=== PATIENT | male | born 1965 | race Caucasian/White ===

== ENCOUNTER → 2020-01-22 10:58 | Outpatient (BNVA) | payer MEDICARE, MEDICAID, SELFPAY | PROVIDERS: Family Provider Family Medicine; PCP Nurse Practitioner Family; Visit Provider Nurse Practitioner Family | DX: E11.9 Type 2 diabetes mellitus without complications (principal) | CPT/HCPCS: 83036 ==

== ENCOUNTER → 2020-05-15 09:28 | Outpatient (BNVA) | payer MEDICARE, MEDICAID, SELFPAY | PROVIDERS: Family Provider Family Medicine; PCP Nurse Practitioner Family; Visit Provider Nurse Practitioner Family | DX: R10.9 Unspecified abdominal pain (principal); I10 Essential (primary) hypertension; E11.65 Type 2 diabetes mellitus with hyperglycemia; K21.9 Gastro-esophageal reflux disease without esophagitis; E78.5 Hyperlipidemia, unspecified; Z11.6 Encounter for screening for other protozoal diseases and helminthiases; Z87.19 Personal history of other diseases of the digestive system | CPT/HCPCS: 80053; 80061; 81000; 83036; 85025 ==

== ENCOUNTER 2020-06-07 08:08 | Day surgery (SDC) | payer MEDICARE, MEDICAID, SELFPAY ==
[2020-06-05 15:21] VITALS: BMI 38.7
[2020-06-07 08:26] VITALS: BP 144/80; PULSE 67; RESP 18; TEMP 36.3; O2SAT 98
[2020-06-07] MEDS: sodium chloride 0.9% 1,000 ML 30 ML IV (08:35)
[2020-06-07 08:39] LABS: Glucose Point of Care 255 mg/dL (70-110)
--- NOTE | 2020-06-07 08:53 | ANES.PREANE2 ---
Pre-Anesthetic Assessment Pre-Anesthetic Assessment: Height/Weight: Height 1.68 m Weight 108.862 kg Temp Pulse Resp BP Pulse Ox 97.4 F L 67 18 144/80 98 06/07/20 08:26 06/07/20 08:26 06/07/20 08:26 06/07/20 08:26 06/07/20 08:26 Preop Diagnosis: EGD Proposed Procedure: Operation Date: 06/07/20 09:15 Proposed Procedures p EGD 87624 R10.13(Not Applicable) - Alfonso Cuenca MD Familial anesthetic complications: none Was Beta Lobo taken within 24 hours: N/A Last intake: Intake Last Liquid Date 06/06/20 Last Liquid Time 21:30 Last Solid Date 06/06/20 Last Solid Time 19:00 Social: Social History: Tobacco and No alcohol Exam: Pre-Anes Outpt Exam: alert, oriented x 3, clear to auscultation bilaterally and regular rate & rhythm Airway: Cervical ROM: WNL MP: 3 Dentition: Other (missing) Pulmonary: Pulmonary: None reported CV/HEM: CV/HEM: HTN : : None reported Hepatic: Hepatic: None reported GI: GI: GERD Metabolic: Metabolic: DM, Hyperlipidemia and Morbid obesity Musc/skel: Musc/skel: OA/DJD Neuropsych: Neuropsych: None reported Anesthetic Plan: ASA status: 2 Anesthesia: MAC Risk of > 500 ml blood loss (7ml/kg in children): No Meds/Allergies Current Medications: Current Medications Generic Name Dose Route Start Last Admin Trade Name Freq PRN Reason Stop Dose Admin Sodium Chloride 1,000 mls @ 30 ml s/hr 06/07/20 08:30 06/07/20 08:35 Sodium Chloride 0.9% IV 06/08/20 08:29 30 mls/hr .Q24H AKUA Administration PFSH Anesthesia PFSH: Medical History Arthritis DDD (degenerative disc disease) Diabetes Enrolled in chronic care management Essential hypertension GERD (gastroesophageal reflux disease) History of basal cell cancer Hyperlipidemia Smoker Family History Other Stroke Social History Smoking and tobacco status: current every day smoker cigarettes Packs smoked per day: 2 Alcohol intake: current Alcohol intake frequency: few times a month History of recent travel: No Data Anesthesia Other Labs: Laboratory Results - last 48 hr 06/07/20 08:36 POC Glucose 255 Cardiac Studies: No Data to Display
--- NOTE | 2020-06-07 09:56 | W.PM.OPSUD ---
Surgery/Procedure H&P Update DATE OF PROCEDURE: June 07, 2020 DATE H&P PERFORMED: 05/29/20 PREOP DIAGNOSIS: EGD PLANNED PROCEDURE: Operation Date: 06/07/20 09:15 Proposed Procedures p EGD 44667 R10.13(Not Applicable) - Alfonso Cuenca MD
[2020-06-07 10:02] VITALS: BP 118/78; PULSE 71; RESP 16; TEMP 36.4; O2SAT 96
[2020-06-07 10:12] VITALS: BP 110/67; PULSE 65; RESP 18; O2SAT 96
[2020-06-08 08:45] LABS: H. Pylori / CLO Test Negative
== END 2020-06-07 10:33 | disposition home or self-care (01) ==
PROVIDERS: PCP Nurse Practitioner Family; Visit Provider Internal Medicine
PROC: 0DJ08ZZ Inspection of Upper Intestinal Tract, Via Natural or Artificial Opening Endoscopic (ICD-10-PCS; CPT 43235; principal; 2020-06-07 09:15)
DX: R10.13 Epigastric pain (principal); K29.70 Gastritis, unspecified, without bleeding; I10 Essential (primary) hypertension; K21.9 Gastro-esophageal reflux disease without esophagitis; E11.9 Type 2 diabetes mellitus without complications; E78.5 Hyperlipidemia, unspecified; E66.01 Morbid (severe) obesity due to excess calories; Z68.38 Body mass index [BMI] 38.0-38.9, adult; M19.90 Unspecified osteoarthritis, unspecified site; F17.210 Nicotine dependence, cigarettes, uncomplicated
CPT/HCPCS: 12345; 36416; 43239; 82962; 87077; J2704; J7030

== ENCOUNTER → 2020-08-29 16:30 | Outpatient (BNVA) | payer MEDICARE, MEDICAID, SELFPAY | PROVIDERS: PCP Nurse Practitioner Family; Visit Provider Internal Medicine Cardiovascular Disease | DX: E11.65 Type 2 diabetes mellitus with hyperglycemia (principal); I10 Essential (primary) hypertension; E78.5 Hyperlipidemia, unspecified; F17.200 Nicotine dependence, unspecified, uncomplicated | CPT/HCPCS: 80048; 80061; 83036; 83721 ==

== ENCOUNTER → 2020-11-12 14:03 | Outpatient (BNVA) | payer MEDICARE, MEDICAID, SELFPAY | PROVIDERS: PCP Nurse Practitioner Family; Referring Provider Nurse Practitioner Family; Visit Provider Internal Medicine | DX: E11.65 Type 2 diabetes mellitus with hyperglycemia (principal) | CPT/HCPCS: 99203 ==

== ENCOUNTER 2020-11-28 11:24 | Outpatient (CLI) | payer MEDICARE, MEDICAID, SELFPAY ==
--- NOTE | 2020-11-28 11:30 | MM_ITS ---
WS: [id number] BILATERAL DIGITAL DIAGNOSTIC MAMMOGRAM MAMMOGRAPHY WITH CAD CLINICAL INFORMATION: N63.0 - Unspecified lump in unspecified breast. Bilateral breast lumps. COMPARISON: None. TECHNIQUE: Bilateral CC, MLO, and ML views. FINDINGS: Fatty replaced breasts bilaterally. Palpable markers overlying the axillary tails and axilla. Underly ing prominent lymph nodes. Ultrasound is pending. Breast parenchyma is otherwise unremarkable. ULTRASOUND BREAST BILATERAL TECHNIQUE: Ultrasound left breast focused area of concern. CLINICAL INFORMATION: N63.0 - Unspecified lump in unspecified breast COMPARISON: None. FINDINGS: Ultrasound right breast at the 11:00 position. Underlying prominent lymph node measuring 2.2 x 1.7 x 1.2 cm. Cortical thickening with preserved fatty hilum. Prominent lymph node left breast at the 1 position in the area of palpable concern measuring 2.9 x 4. 1 x 2.1 cm with cortical thickening but preserved fatty hilum. A few other incidental lymph nodes. MM/[place] [id number] IMPRESSION: Prominent lymph nodes in both axilla in the area of palpable concer n larger on the left described above. These are nonspecific and may be reactive . Recommend correlation with history of malignancy. Recommend ultrasound follow up in 3 months versus further evaluation with ultra sound-guided biopsy if clinical concern or history of malignancy. BI-RADS: 3-Probably Benign FOLLOW UP: See Report
--- NOTE | 2020-11-28 11:35 | US_ITS ---
WS: [id number] BILATERAL DIGITAL DIAGNOSTIC MAMMOGRAM MAMMOGRAPHY WITH CAD CLINICAL INFORMATION: N63.0 - Unspecified lump in unspecified breast. Bilateral breast lumps. COMPARISON: None. TECHNIQUE: Bilateral CC, MLO, and ML views. FINDINGS: Fatty replaced breasts bilaterally. Palpable markers overlying the axillary tails and axilla. Underly ing prominent lymph nodes. Ultrasound is pending. Breast parenchyma is otherwise unremarkable. ULTRASOUND BREAST BILATERAL TECHNIQUE: Ultrasound left breast focused area of concern. CLINICAL INFORMATION: N63.0 - Unspecified lump in unspecified breast COMPARISON: None. FINDINGS: Ultrasound right breast at the 11:00 position. Underlying prominent lymph node measuring 2.2 x 1.7 x 1.2 cm. Cortical thickening with preserved fatty hilum. Prominent lymph node left breast at the 1 position in the area of palpable concern measuring 2.9 x 4. 1 x 2.1 cm with cortical thickening but preserved fatty hilum. A few other incidental lymph nodes. US/US breast BI limited* [id number] IMPRESSION: Prominent lymph nodes in both axilla in the area of palpable concer n larger on the left described above. These are nonspecific and may be reactive . Recommend correlation with history of malignancy. Recommend ultrasound follow up in 3 months versus further evaluation with ultra sound-guided biopsy if clinical concern or history of malignancy. BI-RADS: 3-Probably Benign FOLLOW UP: See Report
== END 2020-11-28 11:25 | disposition home or self-care (01) ==
PROVIDERS: PCP Nurse Practitioner Family; Visit Provider Nurse Practitioner Family
DX: N63.11 Unspecified lump in the right breast, upper outer quadrant (principal); N63.20 Unspecified lump in the left breast, unspecified quadrant
CPT/HCPCS: 76642; 77066

== ENCOUNTER → 2021-02-19 15:33 | Outpatient (BNVA) | payer MEDICARE, MEDICAID, SELFPAY | PROVIDERS: PCP Nurse Practitioner Family; Visit Provider Internal Medicine | DX: E11.65 Type 2 diabetes mellitus with hyperglycemia (principal) | CPT/HCPCS: 99214 ==

== ENCOUNTER → 2021-02-25 10:24 | Outpatient (BNVA) | payer MEDICARE, MEDICAID, SELFPAY | PROVIDERS: PCP Nurse Practitioner Family; Visit Provider Internal Medicine | DX: E11.65 Type 2 diabetes mellitus with hyperglycemia (principal) | CPT/HCPCS: 83036 ==

== ENCOUNTER 2021-03-12 11:27 | Outpatient (CLI) | payer MEDICARE, MEDICAID, SELFPAY ==
--- NOTE | 2021-03-12 11:32 | US_ITS ---
WS: [id number] ULTRASOUND BILATERAL BREASTs HISTORY: 3 MO F/U UNSPEC LUMP; MG IF INDICATED COMPARISON: 11/28/2020 TECHNIQUE: 2-D and Doppler. Enlarged lymph nodes with diffuse cortical thickening towards the RIGHT axillary tail and axilla. Add itional enlarged hypoechoic lymph node with thickened cortex in the LEFT axillary tail. Largest lymph node on the LEFT measures 3.5 x 2.5 x 2.3 cm. Lymph nodes are probably not significantly changed in size. US/US breast BI limited* [id number] IMPRESSION: BI-RADS: 4-Suspicious Finding-Biopsy Should Be Considered FOLLOW-UP: See Report Abnormal bilateral axillary tail/axillary lymph nodes. No significant improveme nt since 11/28/2020. Recommend ultrasound-guided biopsy of the most suspicious l ymph node which is probably the LEFT axillary tail lymph node at 1:00. No breas t lesions were identified on a recent mammogram. Consider lymphoma or metastati c adenopathy.
== END 2021-03-12 11:28 | disposition home or self-care (01) ==
LOC: RADSHAW 11:30
PROVIDERS: PCP Nurse Practitioner Family; Visit Provider Nurse Practitioner Family
DX: R59.9 Enlarged lymph nodes, unspecified (principal); N63.0 Unspecified lump in unspecified breast
CPT/HCPCS: 76642

== ENCOUNTER 2021-03-26 12:58 | Outpatient (CLI) | payer MEDICARE, MEDICAID, SELFPAY ==
--- NOTE | 2021-03-26 | US_ITS ---
WS: [id number] ULTRASOUND-GUIDED LEFT axillary tail biopsy. HISTORY: Left Lymph node enlargement: LT axillary tail @ 1:00 COMPARISON: 03/12/2021 Procedure, risks and complications are explained to the patient. Medications are reviewed. Consent is obtained. Enlarged prominent LEFT axillary lymph node at 1:00 is targeted. Skin is cleansed with ChloraPrep and anesthetized with 1% buffered lidocaine. Small dermatome is made. Under sterile conditions mass is b iopsied with a 20 and 14-gauge Achieve needles. Multiple core biopsies are performed. Material placed in saline and sent to pathology for review. No complications encountered. Breast tissue marker (Moven ultrasound enhanced ribbon): None. Patient left the radiology suite with no complications. Patient is instructed to return to [facility] or [facility] with any concerns. US/US biopsy lymph node breast/ax IMPRESSION: 1. Uncomplicated core needle biopsy LEFT axillary lymph node at 1:00. PATHOLOGY: Sinus histiocytosis. No malignancy. Negative flow cytometry. RECOMMENDATION: See report. Follow up with health care provider.
--- NOTE | 2021-03-26 13:30 | US_ITS ---
WS: [id number] ULTRASOUND-GUIDED LEFT axillary tail biopsy. HISTORY: Left Lymph node enlargement: LT axillary tail @ 1:00 COMPARISON: 03/12/2021 Procedure, risks and complications are explained to the patient. Medications are reviewed. Consent is obtained. Enlarged prominent LEFT axillary lymph node at 1:00 is targeted. Skin is cleansed with ChloraPrep and anesthetized with 1% buffered lidocaine. Small dermatome is made. Under sterile conditions mass is b iopsied with a 20 and 14-gauge Achieve needles. Multiple core biopsies are performed. Material placed in saline and sent to pathology for review. No complications encountered. Breast tissue marker (Bard ultrasound enhanced ribbon): None. Patient left the radiology suite with no complications. Patient is instructed to [place] [facility] [place] [facility] with any concerns.
[2021-03-31 06:40] LABS: Miscellaneous Test See Scanned Lab Rpt
== END 2021-03-26 12:59 | disposition home or self-care (01) ==
PROVIDERS: PCP Nurse Practitioner Family; Visit Provider Nurse Practitioner Family
DX: R59.9 Enlarged lymph nodes, unspecified (principal); D76.3 Other histiocytosis syndromes
CPT/HCPCS: 19083; 38505; 76942; 88305

== ENCOUNTER → 2022-02-11 13:27 | Outpatient (BNVA) | payer MEDICARE, MEDICAID, SELFPAY | PROVIDERS: Visit Provider Family Medicine | DX: E11.65 Type 2 diabetes mellitus with hyperglycemia (principal); E78.5 Hyperlipidemia, unspecified; I10 Essential (primary) hypertension; J32.9 Chronic sinusitis, unspecified; R22.0 Localized swelling, mass and lump, head; Z76.89 Persons encountering health services in other specified circumstances; Z12.5 Encounter for screening for malignant neoplasm of prostate; Z80.42 Family history of malignant neoplasm of prostate | CPT/HCPCS: 80053; 80061; 83036; 84153; 85025; 86140 ==

== ENCOUNTER → 2022-02-17 13:43 | Outpatient (BNVA) | payer MEDICARE, MEDICAID, SELFPAY | PROVIDERS: Visit Provider Otolaryngology | DX: J34.0 Abscess, furuncle and carbuncle of nose (principal); L71.1 Rhinophyma; F17.210 Nicotine dependence, cigarettes, uncomplicated | CPT/HCPCS: 99204 ==

== ENCOUNTER 2022-03-24 14:26 | Outpatient (CLI) | payer MEDICARE, SELFPAY ==
--- NOTE | 2022-03-24 14:42 | CT_ITS ---
WS: [id number] CT SINUSES TECHNIQUE: Noncontrast CT of the paranasal sinuses with coronal and sagittal reformatted images. CLINICAL INFORMATION: Abscess of the L sinus cavity COMPARISON: None. DLP: 388.[address] scans at [facility] use at least one of these dose optimization techniques: automated e xposure control; mA and/or kV adjustment per patient size (includes targeted exams where dose is matc hed to clinical indication); or iterative reconstruction. FINDINGS: No evidence of nasal mass or abscess. Mild RIGHT to LEFT nasal deviation measuring 2 3 mm. RIGHT brayan bullosa. Mild narrowing of the osti omeatal units bilaterally with slight mucosal thickening. Paranasal sinuses are well aerated. Retenti on cyst LEFT maxillary sinus measuring 1.5 x 1.5 CM. Small retention cyst LEFT sphenoid sinus near th e sphenoid ostia measuring 11 x 9 mm. Frontal sinuses are well aerated. Frontoethmoidal recesses are patent. Ethmoid air cells are well aer ated with trace mucosal thickening. Maxillary sinus is well aerated. Sphenoid sinuses are well aerate d. Mild cavernous carotid calcification. Mastoid air cells well aerated. Normal posterior nasopharynx. Incidental intraparotid lymph nodes partially visualized bilaterally. Small area of increased attenuation the LEFT temporal lobe partially visualized likely chronic minera lization or small vascular malformation measuring 8 mm. This can be further evaluated with head CT or MRI without and with gadolinium enhancement. This is most likely incidental. CT/CT sinus wo con* [id number] IMPRESSION: 1. No evidence of intranasal mass or abscess. 2. Mild nasal deviation measuring 2 to 3 mm convex LEFT. 3. Paranasal sinuses are well aerated. Small retention cysts in the LEFT maxil dorcas sinus and sphenoid sinus. 4. Mastoid air cells well aerated. 5. Normal posterior nasopharynx. 6. Hazy area of increased attenuation the LEFT temporal lobe partially visuali zed likely benign mineralization or vascular malformation. Recommend further ev aluation with CT or MRI without and with gadolinium enhancement. This is most l ikely incidental.
== END 2022-03-24 14:27 | disposition home or self-care (01) ==
LOC: RAD 14:29
PROVIDERS: PCP Family Medicine; Visit Provider Family Medicine
DX: K04.6 Periapical abscess with sinus (principal)
CPT/HCPCS: 70486

== ENCOUNTER 2023-02-24 12:28 | Emergency (ER) | payer MEDICARE, MEDICAID, SELFPAY ==
[2023-02-24 12:46] VITALS: PULSE 78; RESP 16; TEMP 36.7; O2SAT 98; BMI 37.9
--- NOTE | 2023-02-24 12:51 | ECG_ITS ---
[facility] Test Date: 2023-02-24 Pat Name: Dex Irvin Department: Room: Gender: Male Policy Checker: : 1965 Requested By: Jeremiah Conner Order Number: [id number] Ronit MD: Azael Tirado M.D. Measurements Intervals [place] Rate: 75 P: 34 CO: 166 QRS: -2 QRSD: 104 T: 49 QT: 375 QTc: 421 Interpretive Statements SINUS RHYTHM NONSPECIFIC ST & T-WAVE ABNORMALITY Compared to ECG 06/11/2019 21:23:22 Sinus bradycardia no longer present Intraventricular conduction delay no longer present T-wave abnormality still present Electronically Signed On 02-24-2023 16:18:47 CDT by Azael Tirado M.D. [id number]
[2023-02-24 13:42] LABS: Hemoglobin 15.4 g/dL (11.7-16.6); Mean Corpuscular HGB Conc 34.2 g/dL (30.0-36.0); Mean Corpuscular Volume 84.7 fl (80-94); Mean Platelet Volume 11.2 fL (7.4-10.4); Platelet Count 126 10^3/cmm (130-400); Red Blood Count 5.31 10^6/uL (4.1-5.3); Red Cell Distribution Width 13.4 % (12.1-15.1)
[2023-02-24 14:03] LABS: Troponin(5th) Baseline 14 ng/L (0-15)
[2023-02-24 14:05] LABS: Alanine Aminotransferase 17 U/L (0-41); Albumin Level 3.9 g/dL (3.5-5.2); Alkaline Phosphatase 88 U/L (40-130); Anion Gap 15.5 (5-19); Aspartate Amino Transferase 14 U/L (0-40); Blood Urea Nitrogen 8 mg/dL (6-20); Calcium 8.9 mg/dL (8.5-10.5); Carbon Dioxide 24 mmol/L (22-29); Chloride 97 mmol/L (98-107); Globulin 3.1 g/dL (1.3-4.6); Glomerular Filtration Rate 69.5 mL/min (90-130); Glucose 310 mg/dL (65-115); Osmolality Calculated 284 mOsm/kg (285-295); Potassium 4.5 mmol/L (3.5-5.1); Sodium 132 mmol/L (136-145); Total Bilirubin 0.5 mg/dL (0.15-1.2)
[2023-02-24 14:37] LABS: Slide Review Slide Review Perform
[2023-02-24 14:38] LABS: Absolute Neutrophil 4.9 10^3/cmm (1.4-6.5); Absolute Segmented Neutrophil 4.9 10/cmm (1.6-7.1); Eosinophils 0 %; Lymphocytes 53 %; Lymphocytes Absolute 8.8 10^3/cmm (1.2-3.4); Monocytes Absolute 0.3 10^3/cmm (0.1-0.6); Platelet Estimate Decreased (Normal); Segmented Neutrophils 35 %; Total Cells Counted 100 (0-100)
--- NOTE | 2023-02-24 17:22 | ECG_ITS ---
[facility] Test Date: 2023-02-24 Pat Name: Dex Irvin Department: Room: Gender: Male Nonprofit Financial Controller: : 1965 Requested By: Jeremiah Conner Order Number: [id number] Ronit MD: Azael Tirado M.D. Measurements Intervals [place] Rate: 76 P: 143 FL: 159 QRS: -22 QRSD: 88 T: 150 QT: 366 QTc: 412 Interpretive Statements ECTOPIC ATRIAL RHYTHM BORDERLINE LEFT AXIS DEVIATION [QRS AXIS < -20] NONSPECIFIC ST & T-WAVE ABNORMALITY Compared to ECG 02/24/2023 12:56:03 Ectopic atrial rhythm now present Sinus rhythm no longer present T-wave abnormality still present Electronically Signed On 02-24-2023 21:08:13 CDT by Azael Tirado M.D. [id number]
--- NOTE | 2023-02-24 18:19 | W.ED.CHESTPA ---
HPI - Chest Pain General: Chief Complaint: Chest Pain Stated Complaint: Chest Pains since Wednesday Time Seen by Provider: 02/24/23 18:19 History of Present Illness: Mr. Irvin is a 57-year-old gentleman with significant past medical history of diabetes, tobaccoism, borderline hypertension, obesity presenting to the emergency department for chest discomfort. He notes onset of symptoms approximately 2 days ago after exertion. Notes left anterior and substernal chest pain without significant radiation or other typical cardiac features. Course of symptoms has waxed and waned. Denies specific worsening with specific activity. Denies frequent episodes in the past. No other specific changes in health, exacerbating, or alleviating factors identified. Onset (ago): day(s) Timing of current episode: constant Onset: during rest Pain location: substernal and left chest Severity: moderate Quality: aching and heaviness Relieving factors: nothing Exacerbating factors: nothing Associated symptoms: Reports dyspnea Review of Systems General: Reports: 10 or more systems reviewed and unremarkable except in HPI and below Resp: Reports: dyspnea PFSH ED PFSH: Medical History Arthritis Colonoscopy planned DDD (degenerative disc disease) Diabetes Enrolled in chronic care management Erectile dysfunction Essential hypertension GERD (gastroesophageal reflux disease) History of basal cell cancer History of Helicobacter infection Hyperlipidemia Hypertension Low back pain with radiation Lumbar disc disease Rotator cuff arthropathy of right shoulder Smoker Tinnitus Vertigo, benign positional Surgical History H/O repair of rotator cuff History of umbilical hernia repair Family History Mother , at the age of 74 Cancer thyroid cancer Lung disease emphysema Hypertension Father , at the age of 74 CAD (coronary artery disease) Other Stroke Social History Smoking and tobacco status: current every day smoker (2 packs a day since age 18) cigarettes Packs smoked per day: 2 Alcohol intake: current Alcohol intake frequency: few times a month Physical Exam Const: COMMON NORMALS: alert GENERAL APPEARANCE: cooperative and well developed HENMT: COMMON NORMALS: normocephalic and atraumatic HEAD & SCALP: normocephalic and atraumatic Eye: COMMON NORMALS: conjunctivae normal CONJUNCTIVA: Yes conjunctivae normal SCLERA: sclerae normal Neck/C-Spine: COMMON NORMALS: supple GENERAL: Yes trachea midline Resp: COMMON NORMALS: clear to auscultation bilaterally EFFORT & INSPECTION: Yes able to speak in complete sentences AUSCULTATION: clear to auscultation bilaterally Cardio: COMMON NORMALS: regular rate and regular rhythm RATE: regular rate RHYTHM: regular rhythm GI: COMMON NORMALS: Soft to palpation PALPATION: Yes Soft to palpation and No Tenderness to palpation present (GI) Extremity: NARRATIVE EXTREMITY EXAM: Cellulitic nonvesicular lesion small and isolated appreciated on the upper extremity. GENERAL: Yes normal exam except as noted and No edema Neuro: COMMON NORMALS: moves all extremities SENSORIUM/ORIENTATION: Yes alert and No Orientation impaired Psych: COMMON NORMALS: mental status grossly normal and Normal thought process present THOUGHT PROCESS: Normal thought process present Course Vital Signs: Vital signs: Vital Signs Temperature 98.1 F 02/24/23 12:46 Pulse Rate 70 02/24/23 19:07 Respiratory Rate 18 02/24/23 18:33 Blood Pressure 125/78 02/24/23 19:07 Pulse Oximetry 97 02/24/23 19:07 Oxygen Delivery Me thod Room Air 02/24/23 19:07 MDM - Chest Pain Medical Decision Making 57-year-old gentleman presenting with chest discomfort. Exam as above. EKG demonstrates sinus rhythm with borderline left axis deviation, there are nonspecific ST segment abnormalities, no STEMI. Labs with leukocytosis and mild hemoconcentration, thrombocytopenia of uncertain etiology without evidence of bleeding on clinical exam. Metabolic panel with mild dehydration and spurious hyponatremia, no evidence of DKA. Negative range 2-hour delta troponin. Chest x-ray with no lobar consolidation or pneumothorax. Patient treated with aspirin. Most likely etiology of symptoms is unspecified chest pain. He is not low risk by heart score. The results of ED evaluation were discussed with the patient including possible disposition options. I discussed risk stratification by heart score and estimated risk of major adverse cardiac events. The patient wishes to proceed with outpatient management. I discussed prescriptions and/or symptomatic cares (if applicable) including appropriate and responsible use, followup plan, and return precautions. The patient verbalized understanding and felt safe for discharge. Medical Records I reviewed the patient's medical records. Lab Data I reviewed the patient's lab results. 02/24/23 13:30 02/24/23 13:30 Radiology Impressions Chest X-Ray 02/24/23 18:25 IMPRESSION: No acute findings. Laboratory Results WBC 14.0 10^3/uL (4.0-10.0) H 02/24/23 13:30 RBC 5.31 10^6/uL (4.1-5.3) H 02/24/23 13:30 Hgb 15.4 g/dL (11.7-16.6) 02/24/23 13:30 Hct 45.0 % (42.0-52.0) 02/24/23 13:30 MCV 84.7 fl (80-94) 02/24/23 13:30 MCH 29.0 pg (28.0-34.0) 02/24/23 13:30 MCHC 34.2 g/dL (30.0-36.0) 02/24/23 13:30 RDW 13.4 % (12.1-15.1) 02/24/23 13:30 Plt Count 126 10^3/cmm (130-400) L 02/24/23 13:30 MPV 11.2 fL (7.4-10.4) H 02/24/23 13:30 Lymph % (Auto) Not Reportable 02/24/23 13:30 [place] % (Auto) Not Reportable 02/24/23 13:30 Lymph # (Auto) Not Reportable 02/24/23 13:30 [place] # (Auto) Not Reportable 02/24/23 13:30 Total Counted 100 (0-100) 02/24/23 13:30 Atypical Lymphs % 10.0 % (0-5) H 02/24/23 13:30 Absolute Neutrophils 4.9 10^3/cmm (1.4-6.5) 02/24/23 13:30 Segmented Neutrophils 35 % 02/24/23 13:30 Abs Segm Neuts (Man) 4.9 10/cmm (1.6-7.1) 02/24/23 13:30 Band Neutrophils 0.0 % 02/24/23 13:30 Abs Band Neuts (Man) 0.0 10^3/cmm (0.0-1.2) 02/24/23 13:30 Absolute Lymphocytes 8.8 10^3/cmm (1.2-3.4) H 02/24/23 13:30 Lymphocytes (Manual) 53 % 02/24/23 13:30 Monocytes (Manual) 2.0 % 02/24/23 13:30 Absolute Monocytes 0.3 10^3/cmm (0.1-0.6) 02/24/23 13:30 Eosinophils (Manual) 0 % 02/24/23 13:30 Absolute Eosinophils 0.0 10^3/cmm (0.0-0.7) 02/24/23 13:30 Basophils (Manual) 0.0 % 02/24/23 13:30 Absolute Basophils 0.0 10^3/cmm (0.0-0.2) 02/24/23 13:30 Platelet Estimate Decreased (Normal) 02/24/23 13:30 Sodium 132 mmol/L (136-145) L 02/24/23 13:30 Potassium 4.5 mmol/L (3.5-5.1) 02/24/23 13:30 Chloride 97 mmol/L (98-107) L 02/24/23 13:30 Carbon Dioxide 24 mmol/L (22-29) 02/24/23 13:30 Anion Gap 15.5 (5-19) 02/24/23 13:30 BUN 8 mg/dL (6-20) 02/24/23 13:30 Creatinine 1.1 mg/dL (0.7-1.2) 02/24/23 13:30 GFR Calculation 69.5 mL/min (90-130) L 02/24/23 13:30 Glucose 310 mg/dL (65-115) H 02/24/23 13:30 Calculated Osmolality 284 mOsm/kg (285-295) L 02/24/23 13:30 Calcium 8.9 mg/dL (8.5-10.5) 02/24/23 13:30 Total Bilirubin 0.5 mg/dL (0.15-1.2) 02/24/23 13:30 AST 14 U/L (0-40) 02/24/23 13:30 ALT 17 U/L (0-41) 02/24/23 13:30 Alkaline Phosphatase 88 U/L (40-130) 02/24/23 13:30 Troponin T Baseline 14 ng/L (0-15) 02/24/23 13:30 Troponin T 120 Minute 16.30 ng/L (0-15) H 02/24/23 15:52 Delta Troponin T 2.30 ABS# (0-10) 02/24/23 15:52 Total Protein 7.0 g/dL (6.6-8.7) 02/24/23 13:30 Albumin 3.9 g/dL (3.5-5.2) 02/24/23 13:30 Globulin 3.1 g/dL (1.3-4.6) 02/24/23 13:30 Discharge Plan Discharge Patient Disposition: Home Clinical Impression: Chest pain, Skin lesion of left upper extremity Condition: Stable Prescriptions: New cephalexin 500 mg capsule 500 mg PO Q6H 10 Days Qty: 40 0RF Discharge Orders: Discharge ED (Routine); Ordered 02/24/23 Ordered By: Kahlil Perera Referrals: Pop Stallworth, [Primary Care Provider] - Discharge Diet: Usual diet Discharge Activity: Increase activity as tolerated Patient Instructions: Chest Pain (ED), Cellulitis (ED) Activity Restrictions/Additional Instructions: Thank you for visiting the emergency department. You were seen and evaluated for chest pain. The exact cause your symptoms is unclear as discussed though you are not low risk for major adverse cardiac events. I will message case management for further outpatient testing. I will also message case management for follow-up with general surgery for consideration of an endoscopy. Please follow-up with your primary care provider. Your blood sugar was somewhat elevated, please watch this closely and make sure that you are taking your medications. Return to the emergency department for worsening symptoms or anything else that you are concerned about and feel needs emergency department evaluation. Coding Level of Care Code ED Political Scientist for Germaine Carranza
--- NOTE | 2023-02-24 18:25 | XRR_ITS ---
PROCEDURE INFORMATION: Exam: XR Chest Exam date and time: 02/24/2023 6:34 PM Age: 57 years old Clinical indication: Pain; Chest pressure; Additional info: Cp TECHNIQUE: Imaging protocol: Radiologic exam of the chest. Views: 1 view. COMPARISON: CR XR chest 1V [id number] 06/11/2019 1:29 PM FINDINGS: Lungs: Unremarkable. No consolidation. Pleural spaces: Unremarkable. No pleural effusion. No pneumothorax. Heart/Mediastinum: Unremarkable. No cardiomegaly. Bones/joints: Unremarkable. XR/XR chest 1V portable [id number] IMPRESSION: No acute findings.
[2023-02-24] MEDS: aspirin 81 mg Chew Tablet 324 MG PO (18:32)
[2023-02-24 18:33] VITALS: BP 138/73; PULSE 71; RESP 18; O2SAT 98
[2023-02-24 19:07] VITALS: BP 125/78; PULSE 70; O2SAT 97
--- NOTE | 2023-02-25 09:51 | DCPLANNER ---
Addendum entered by Vandana Craven 03/30/23 15:22: Patient had a follow up appointment scheduled with general surgery - patient did attend appointment. Addendum entered by Vandana Craven 03/02/23 11:58: Patient has a follow up appointment scheduled for Wednesday, March 24, 2023 at 1:[address] Wong at general surgery. Original Note: condominium property manager had message to schedule a follow up appointment for patient with general surgery. condominium property manager sent patients information to the front office staff at general surgery. Patients information will be printed and reviewed. Clinic will call patient with appointment information.
--- NOTE | 2023-02-25 10:22 | DCPLANNER ---
Addendum entered by Vandana Craven 03/30/23 14:18: Patient had an outpatient stress test and echo scheduled - patient attended both appointments. Addendum entered by Vandana Craven 03/18/23 09:27: Patient has an outpatient echo scheduled for Wednesday, March 29, 2023 11:15. Addendum entered by Vandana Craven 03/02/23 11:54: Patient has an outpatient stress test scheduled for March at 10:30. Original Note: diabetes clinical manager had message to schedule an outpatient stress test and echo cardiogram for patient. diabetes clinical manager faxed signed order to centralized scheduling, who will call patient with appointment information.
== END 2023-02-24 19:26 | disposition home or self-care (01) ==
PROVIDERS: Emergency Medicine; Emergency Provider Emergency Medicine; PCP Family Medicine
DX: R07.9 Chest pain, unspecified (principal); L98.9 Disorder of the skin and subcutaneous tissue, unspecified; E11.9 Type 2 diabetes mellitus without complications; I10 Essential (primary) hypertension; E78.5 Hyperlipidemia, unspecified; F17.210 Nicotine dependence, cigarettes, uncomplicated
CPT/HCPCS: 36415; 71045; 80053; 84484; 85007; 85025; 93005; 99285

== ENCOUNTER → 2023-03-24 15:06 | Outpatient (BNVA) | payer MEDICARE, MEDICAID, SELFPAY | PROVIDERS: PCP Family Medicine; Visit Provider Surgery | DX: K21.9 Gastro-esophageal reflux disease without esophagitis (principal); Z86.010 Personal history of colon polyps; Z12.11 Encounter for screening for malignant neoplasm of colon | CPT/HCPCS: 99203 ==

== ENCOUNTER 2023-03-25 10:09 | Outpatient (CLI) | payer MEDICARE, MEDICAID, SELFPAY ==
[2023-03-25 10:49] VITALS: BMI 36.3
--- NOTE | 2023-03-25 10:50 | ECG_ITS ---
[facility] Test Date: 2023-03-25 Pat Name: Dex Irvin Department: Room: Gender: Male Methods Analyst: : 1965 Requested By: Kahlil Perera Order Number: [id number] Ronit MD: Junaid Woods M.D. Interpretive Statements NAME OF STUDY: LEXISCAN SESTAMIBI STRESS TEST INDICATION: Chest Pain PROCEDURE: At the baseline, the EKG revealed normal sinus rhythm with diffused nonspecific ST changes. The baseline heart was 69 bpm with a blood pressue of 150/75 mm of Hg Lexiscan was infused over a period of 20 seconds. A total of 0.4 milligrams of Lexiscan was infused. The stress phase was continued for a total of 5 minutes. Heart rate at the end of the stress phase was 80 bpm with a blood pressure 158/78 mm of Hg. The EKG at the peak infusion revealed no significant changes. Sestamibi was injected 20 seconds after the Lexiscan infusion. Heart rate at the end of the recovery phase was 79 bpm with a blood pressure of 124/72 mm of Hg. CONCLUSION: 1. No significant EKG changes with the LexiScan infusion 2. No LexiScan induced chest pain or cardiac arrhythmia 3. Normal blood pressure and heart rate response 4. Sestamibi/sestamibi perfusion scan pending; see separate report. Electronically Signed On 04-08-2023 7:19:38 CDT by Junaid Woods M.D. [id number]
--- NOTE | 2023-03-25 10:51 | NMCV_ITS ---
NM alivia perf SPECT r/s* [id number] Dex Irvin Age: 57 Gender: M : 1965 Exam Date: 03/25/2023 10:51 Ordering Phys: Kahlil Perera MD Technologist: CHENTE Tran Exam Location: [facility] [place] Indications: CHEST PAIN STRESS TEST Please see separate stress test report in [facility] for full findings IMAGE PROTOCOL Rest/Stress 1 Lexiscan Day Radiopharmaceutical Dose (mCi) Administration Site Administered by Rest: Tc-99m 11.0 IV CHENTE Tran Sestamibi Stress:Tc-99m 32.8 IV CHENTE Yousif Sestamibi Rest: 25-Mar-2023 60 Discovery 630 Stress: 25-Mar-2023 30 Discovery 630 0.4mg Lexiscan. Supine position only as patient was unable to lay prone. SPECT RESULTS Technical Quality: Excellent Raw Data Analysis: Normal Image Corrections: No attenuation or motion correction applied Summed Stress Score: 3 Summed Rest Score: 2 Summed Difference Score: 2 PERFUSION FINDINGS Small area of minimal to moderate decreases uptake in the mid inferior and apical lateral region. Subtle areas of reversibility were noted in these regions. FUNCTIONAL RESULTS (calculated via Gated SPECT) Stress Image LV EF (%): 65 Stress EDV (mL):104 TID: 1.03 Stress ESV (mL):36 FUNCTIONAL FINDINGS: Segmental wall motion analysis revealing no gross wall motion abnormalities IMPRESSIONS 1. Myocardial perfusion imaging revealing small areas of minimal to moderately decreased tracer uptake in the mid inferior and apical lateral wall regions with some reversibility, suggesting myocardial scarring with the areas of marcin- infarction ischemia in the distribution of the left circumflex artery. 2. Normal LV ejection fraction 65%. 3. LV wall motion analysis revealing no gross wall motion abnormalities. 4. Normal LV volume Compared to the study from 06/03/2019 the areas of ischemia appears to be new Dr Junaid Woods MD FACC (Electronically Signed) Final Date: 25 Mar 2023 16:17 S
[2023-03-25] MEDS: regadenoson 0.4 Mg/5 ml Syringe IVP (11:47)
[2023-03-25 12:01] VITALS: BP 124/72; PULSE 79
== END 2023-03-25 10:10 | disposition home or self-care (01) ==
LOC: CDL 10:11
PROVIDERS: PCP Family Medicine; Visit Provider Emergency Medicine
DX: R07.9 Chest pain, unspecified (principal)
CPT/HCPCS: 36415; 78452; 93017; 96374; A9500; J2785

== ENCOUNTER 2023-03-29 10:47 | Outpatient (CLI) | payer MEDICARE, MEDICAID, SELFPAY ==
--- NOTE | 2023-03-29 11:03 | USCV_ITS ---
Dex Irvin Age: 57 Gender: M : 1965 Exam Date: 03/29/2023 11:26 Ordering Phys: Kahlil Perera MD Technologist: Florentino Carter [place] [facility] [place] [facility] [place]ication: chest pain BP: 133 / 77 HR: 64 Rhythm: Sinus Technical Quality: Adequate MEASUREMENTS (Male / Female) Normal Values 2D ECHO LVOT Diameter 2.0 cm LV Ejection Fraction MOD 2C 56.5 % LV Ejection Fraction 2C AL 57.7 % LA Diameter 3.2 cm LA Width 3.1 cm LA Height 4.5 cm RA Width 2.8 cm RA Height 4.5 cm Aorta at Sinotubular Diameter 1.7 cm IVC Diameter 1.3 cm M-MODE Aortic Annulus Diameter 2.8 cm LA Ao Ratio MM 1.2 MV E Point Septal Separation 0.9 cm DOPPLER AV Peak Velocity 161.0 cm/s LVOT Peak Velocity 123.0 cm/s AV Area Cont Eq vti 2.2 cm squared AV Area Cont Eq pk 2.4 cm squared MV Peak Velocity 78.0 cm/s MV Area PHT 5.9 cm squared Mitral E to A Ratio 0.9 MV E' Velocity 35.5 cm/s Mitral E to MV E' Ratio 6.5 Mitral E to LV E' Lateral Ratio 5.7 Mitral E to LV E' Septal Ratio 7.7 TR Peak Velocity 156.4 cm/s TR Peak Gradient 9.8 mmHg TR Mean Velocity 121.4 cm/s TR Mean Gradient 6.1 mmHg TR Velocity Time Integral 38.4 cm Right Atrial Pressure 3.0 mmHg Pulmonary Artery Systolic Pressu 12.8 mmHg PV Peak Velocity 91.0 cm/s RV Acceleration Time 0.1 s RV Ejection Time 0.2 s RV AcT/ET 0.5 FINDINGS Left Ventricle Left ventricle is normal in size. LV systolic function is normal with EF 55 to 60%. No regional wall motion abnormalities are seen. Grade 1 diastolic dysfunction Right Ventricle Normal in size and function Right Atrium Normal in size Left Atrium Normal in size Mitral Valve Structurally normal mitral valve. Trace mitral regurgitation. Aortic Valve Aortic valve is thickened. No significant aortic stenosis. No significant aortic regurgitation. Tricuspid Valve Mild tricuspid regurgitation. Insufficient TR jet to calculate RVSP Pulmonic Valve Not well visualized Pericardium Normal Aorta Normal in size IVC Appears to be normal CONCLUSIONS LV systolic function is normal with EF 55 to 60% Grade 1 diastolic dysfunction Trace mitral regurgitation Mild tricuspid regurgitation Compared to prior echocardiogram from 2019, no significant changes are seen. Azael Tirado MD (Electronically Signed) Final Date: 29 Mar 2023 18:08 S
== END 2023-03-29 10:48 | disposition home or self-care (01) ==
LOC: RAD 10:54
PROVIDERS: PCP Family Medicine; Visit Provider Emergency Medicine
DX: R07.9 Chest pain, unspecified (principal); I08.1 Rheumatic disorders of both mitral and tricuspid valves
CPT/HCPCS: 93306

== ENCOUNTER 2023-04-01 06:50 | Day surgery (SDC) | payer MEDICARE, MEDICAID, SELFPAY ==
[2023-03-31 10:08] VITALS: BMI 36.3
[2023-04-01 07:08] VITALS: BP 124/82; PULSE 70; RESP 18; TEMP 36.4; O2SAT 97
[2023-04-01] MEDS: sodium chloride 0.9% 1,000 ML 30 ML IV (07:12)
--- NOTE | 2023-04-01 07:42 | ANES.PREANE2 ---
Pre-Anesthetic Assessment Height/Weight: Height 1.68 m Weight 102.058 kg Temp Pulse Resp BP Pulse Ox 97.6 F 70 18 124/82 97 04/01/23 07:08 04/01/23 07:08 04/01/23 07:08 04/01/23 07:08 04/01/23 07:08 Preop Diagnosis: Screening/history of colon polyps/epigastric pain Operation Date: 04/01/23 08:30 Proposed Procedures p [id number], 31089 Colonoscopy, K21.9 GERD, z86.010 hx of colon plyps Z12.11 Screening Colonoscopy(Not Applicable) [place] [id number] Colonoscopy, [id number], K21.9 GERD, z86.010 hx of colon plyps Z12.11 Screening Colonoscopy(Not Applicable) - Julio Wong DO Familial anesthetic complications: None Was Beta Lobo taken within 24 hours: N/A Was Clonidine taken within 24 hours: N/A Last intake: Intake Last Liquid Date 03/31/23 Last Liquid Time 21:00 Last Solid Date 03/30/23 Social Tobacco and No alcohol (History) 2 pack(s) per day Exam alert, oriented x 3, clear to auscultation bilaterally and regular rate & rhythm Airway Submandibular: within normal limits Cervical ROM: within normal limits Mallampati: Class II Dentition: false History/ROS No significant history except as noted and No significant complaints Pulmonary Exertional Dyspnea Post-nasal drip CV/HEM Stable Angina (Chest pains one month ago: ER stated no MN) and Hypertension CONCLUSIONS ?LV systolic function is normal with EF 55 to 60% ?Grade 1 diastolic dysfunction ?Trace mitral regurgitation ?Mild tricuspid regurgitation ?Compared to prior echocardiogram from 2019, no significant ?changes are seen. None reported Hepatic None reported GI Gastroesophageal Reflux Disease (None this am) Metabolic Diabetes Mellitus, Hyperlipidemia and Morbid Obesity Musc/skel Lower Back Pain and Osteoarthritis/DJD Neuropsych Neuropathy Anesthetic Plan ASA status: 3 Anesthesia: Anesthesia Evaluation, General and MAC Risk of > 500 ml blood loss (7ml/kg in children): No Medications/Allergies Home Medications Medication Instructions Recorded Confirmed Last Taken Type pantoprazole 40 mg tablet,delayed 40 mg PO BID 6 weeks #84 tabs 03/26/23 03/31/23 03/31/23 Rx release (Protonix) Allergies Allergy/AdvReac Type Severity Reaction Status Date / Time No Known Allergies Allergy Verified 04/01/23 07:07 Current Medications Generic Name Dose Route Start Last Admin Trade Name Edward PRN Reason Stop Dose Admin Sodium Chloride 1,000 mls @ 30 mls/hr 04/01/23 07:00 04/01/23 07:12 Sodium Chloride 0.9% IV 04/02/23 06:59 30 mls/hr .Q24H AKUA Administration PFSH Anesthesia Medical History (Updated 03/24/23 @ 15:46 by Julio Wong DO) Arthritis Colonoscopy planned DDD (degenerative disc disease) Diabetes Enrolled in chronic care management Erectile dysfunction Essential hypertension GERD (gastroesophageal reflux disease) History of basal cell cancer History of Helicobacter infection Hyperlipidemia Hypertension Low back pain with radiation Lumbar disc disease Rotator cuff arthropathy of right shoulder Smoker Tinnitus Vertigo, benign positional Surgical History (Updated 03/24/23 @ 15:44 by Julio Wong DO) H/O repair of rotator cuff History of umbilical hernia repair Hx of colonoscopy with polypectomy age 52 Family History Mother , at the age of 74 Cancer thyroid cancer Lung disease emphysema Hypertension Father , at the age of 74 CAD (coronary artery disease) Other Stroke Social History Smoking and tobacco status: current every day smoker (2 packs a day since age 18) cigarettes Packs smoked per day: 2 Alcohol intake: current Alcohol intake frequency: few times a month Data Anesthesia Cardiac Studies: Echocardiogram 03/29/23 Sestamibi Stress Test (Cardiology) 03/25/23
--- NOTE | 2023-04-01 08:45 | W.PM.OPSUD ---
Surgery/Procedure H&P Update DATE OF PROCEDURE: April 01, 2023 DATE H&P PERFORMED: 03/24/23 H&P UPDATE INFORMATION: I have reviewed H&P completed within last 30 days, I have examined patient prior to procedure and No changes to prior documentation PREOP DIAGNOSIS: Screening/history of colon polyps/epigastric pain PLANNED PROCEDURE: Operation Date: 04/01/23 08:30 Proposed Procedures p [id number], 56760 Colonoscopy, K21.9 GERD, z86.010 hx of colon plyps Z12.11 Screening Colonoscopy(Not Applicable) - [place] [id number] Colonoscopy, [id number], K21.9 GERD, z86.010 hx of colon plyps Z12.11 Screening Colonoscopy(Not Applicable) - Julio Wong DO
[2023-04-01 09:20] VITALS: BP 138/77; PULSE 80; RESP 16; TEMP 36.1; O2SAT 95
[2023-04-01 09:35] VITALS: BP 109/60; PULSE 68; RESP 18; O2SAT 94
--- NOTE | 2023-04-01 17:19 | ANE.PACU2 ---
Inpatient post-anesthesia follow up: Airway intact: Yes Vital signs: Temperature 97 F Pulse Rate 68 Respiratory Rate 18 Blood Pressure 109/60 Pulse Oximetry 94 Oxygen Delivery Me thod Room Air Oxygen Flow Rate 5 Fraction of Inspir ed Oxygen Hydration adequate: Yes Nausea and vomiting: No Pain level: 1 Mental status: Baseline
== END 2023-04-01 10:03 | disposition home or self-care (01) ==
PROVIDERS: PCP Family Medicine; Visit Provider Surgery
PROC: 0DJ08ZZ Inspection of Upper Intestinal Tract, Via Natural or Artificial Opening Endoscopic (ICD-10-PCS; CPT 43235; principal; 2023-04-01 08:30)
PROC: 0DJD8ZZ Inspection of Lower Intestinal Tract, Via Natural or Artificial Opening Endoscopic (ICD-10-PCS; CPT 45378; 2023-04-01 08:30)
DX: Z86.010 Personal history of colon polyps (principal); K92.1 Melena; K21.9 Gastro-esophageal reflux disease without esophagitis; R06.00 Dyspnea, unspecified; I10 Essential (primary) hypertension; E11.9 Type 2 diabetes mellitus without complications; E78.5 Hyperlipidemia, unspecified; E66.01 Morbid (severe) obesity due to excess calories; Z68.36 Body mass index [BMI] 36.0-36.9, adult; F17.210 Nicotine dependence, cigarettes, uncomplicated; K64.8 Other hemorrhoids; K22.89 Other specified disease of esophagus; R15.9 Full incontinence of feces
CPT/HCPCS: 43239; 45378; 88305; G0121; J2704; J7030

== ENCOUNTER → 2023-04-20 15:57 | Outpatient (BNVA) | payer MEDICARE, MEDICAID, SELFPAY | PROVIDERS: PCP Family Medicine; Visit Provider Surgery | DX: Q40.2 Other specified congenital malformations of stomach (principal) | CPT/HCPCS: 99212 ==

== ENCOUNTER 2023-05-01 20:39 | Inpatient (IN) | payer MEDICARE, MEDICAID, SELFPAY ==
[2023-05-01] VITALS (12 sets, daily range): BP systolic 111–135; BP diastolic 71–78; PULSE 60–72; RESP 8–22; TEMP 36.6; O2SAT 90–99; BMI 36.8
--- NOTE | 2023-05-01 20:45 | ECG_ITS ---
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 Measurements Intervals [place] Rate: 69 P: 41 CO: 176 QRS: 28 QRSD: 105 T: 97 QT: 386 QTc: 414 Interpretive Statements SINUS RHYTHM NONSPECIFIC ST & T-WAVE ABNORMALITY Compared to ECG 02/24/2023 17:22:11 Ectopic atrial rhythm no longer present T-wave abnormality still present Electronically Signed On 05-03-2023 7:59:53 CDT by Azael Tirado M.D. [id number] f
[2023-05-01] MEDS: HYDROmorphone 1 mg/mL INJ 1 mL IVP (20:59)
--- NOTE | 2023-05-01 20:59 | W.ED.CHESTPA ---
HPI - Chest Pain General: Chief Complaint: Chest Pain Stated Complaint: STEMI Time Seen by Provider: 05/01/23 20:44 History of Present Illness: 57-year-old male brought to the emergency room via EMS due to chest pain that started around 630. Patient further reviews the he was mowing his grass when the pain started. He describes his pain as sharp sensation with severity of 7 out of 10 radiating to his left arm. Patient has any nausea, vomiting, diarrhea, cough, shortness of breath or coughing up blood. According to EMS patient was given aspirin and nitro in route. Associated symptoms: Deny dyspnea, palpitations or syncope Risk Factors: Coronary artery disease risk factors: smoking history, hyperlipidemia, hypertension, family history of CAD before age 50 and cocaine use Review of Systems General: Reports: 10 or more systems reviewed and unremarkable except in HPI and below Card: Reports: chest pain; Denies: palpitations, irregular heart rhythm, edema, swelling of feet/ankles, lightheadedness, syncope, pre-syncope, dyspnea on exertion, orthopnea, leg pain with exertion or acrocyanosis Resp: Denies: dyspnea, productive cough, non-productive cough, wheezing, stridor, pain on inspiration, change in phlegm color, hemoptysis or chest congestion PFSH ED PFSH: Medical History (Updated 05/01/23 @ 22:12 by Tian Rueda MD) AMI inferior wall Arthritis Colonoscopy planned DDD (degenerative disc disease) Diabetes Enrolled in chronic care management Erectile dysfunction Essential hypertension GERD (gastroesophageal reflux disease) History of basal cell cancer History of Helicobacter infection Hyperlipidemia Hypertension Low back pain with radiation Lumbar disc disease Rotator cuff arthropathy of right shoulder Smoker Tinnitus Vertigo, benign positional Surgical History H/O repair of rotator cuff History of umbilical hernia repair Hx of colonoscopy with polypectomy age 52 Family History Mother , at the age of 74 Cancer thyroid cancer Lung disease emphysema Hypertension Father , at the age of 74 CAD (coronary artery disease) Other Stroke Social History Smoking and tobacco status: current every day smoker (2 packs a day since age 18) cigarettes Packs smoked per day: 2 Alcohol intake: current Alcohol intake frequency: few times a month Physical Exam Const: COMMON NORMALS: no acute distress, average body habitus, patient oriented x3, no limitations, healthy appearing, alert and well nourished Neck/C-Spine: COMMON NORMALS: no JVD Chest: COMMONS NORMALS: normal inspection of the chest, normal palpation of entire chest wall, normal inspection of the breasts and normal palpation of the breasts Breast/axilla inspection: Yes normal inspection of the breasts BREAST/AXILLA PALPATION: Yes normal palpation of the breasts Resp: COMMON NORMALS: normal respiratory effort, No retractions, No use of accessory muscles, clear to auscultation bilaterally and percussion normal AUSCULTATION: clear to auscultation bilaterally PERCUSSION: percussion normal Cardio: COMMON NORMALS: no JVD, regular rate, regular rhythm, S1 normal heart sound present, S2 normal heart sound present, No gallops present (Cardio), No clicks present (Cardio), No murmurs present (Cardio), No rub (Cardio) and Peripheral pulses 2+ throughout RATE: regular rate RHYTHM: regular rhythm HEART SOUNDS: S1 normal heart sound present and S2 normal heart sound present PERIPHERAL PULSES: Peripheral pulses 2+ throughout GI: COMMON NORMALS: Normal to inspection, nondistended, normoactive bowel sounds present, Soft to palpation, non-tender, No hepatosplenomegaly present, no masses and no bruits PALPATION: Yes Soft to palpation and Yes No hepatosplenomegaly present Extremity: COMMON NORMALS: normal to inspection, full ROM, capillary refill normal, no joint enlargement, no clubbing, cyanosis or edema, no calf tenderness and no pedal edema Neuro: COMMON NORMALS: patient oriented x3 SENSORIUM/ORIENTATION: Yes alert Skin: COMMON NORMALS: no rashes or lesions noted, no wounds, turgor normal, no jaundice, no petechiae and no mottling GENERAL SKIN EXAM: no rashes or lesions noted and turgor normal Course ED course: At 9:[address] Rueda at bedside to see patient. At 9:11 PM discussed patient with Dr. Rueda and patient was taken to Healthcare Financial Analyst for further evaluation and treatment. Reevaluation(s): Reevaluation #1: Patient was given Dilaudid and started heparin. Symptoms improved with current treatment. Consultations: Consultation #1: At 2044 I reviewed the EKG at bedside. EKG was faxed/sent to employment trainer on-call. Within 2 minutes I spoke with employment trainer on-call we discussed EKG over the phone. No EKG changes at this this time to suggest acute NE Vital Signs: Vital signs: Vital Signs Temperature 98 F 05/02/23 08:00 Pulse Rate 53 L 05/02/23 08:00 Respiratory Rate 14 05/02/23 08:00 Blood Pressure 113/65 05/02/23 08:00 Pulse Oximetry 97 05/02/23 08:00 Oxygen Delivery Me thod Room Air 05/02/23 08:00 MDM - Chest Pain Medical Decision Making Time spent to review EKG, blood work, past medical history and past medical records. Spent time talking to Dr. Cruz about patient's care. Medical Records I reviewed the patient's medical records. Lab Data I reviewed the patient's lab results. 05/01/23 20:51 05/01/23 20:51 Laboratory Results WBC 19.6 10^3/uL (4.0-10.0) H 05/01/23 20:51 RBC 4.92 10^6/uL (4.1-5.3) 05/01/23 20:51 Hgb 14.1 g/dL (11.7-16.6) 05/01/23 20:51 Hct 42.8 % (42.0-52.0) 05/01/23 20:51 MCV 87.0 fl (80-94) 05/01/23 20:51 MCH 28.7 pg (28.0-34.0) 05/01/23 20:51 MCHC 32.9 g/dL (30.0-36.0) 05/01/23 20:51 RDW 13.6 % (12.1-15.1) 05/01/23 20:51 Plt Count 139 10^3/cmm (130-400) 05/01/23 20:51 MPV 11.5 fL (7.4-10.4) H 05/01/23 20:51 Lymph % (Auto) Not Reportable 05/01/23 20:51 [place] % (Auto) Not Reportable 05/01/23 20:51 Lymph # (Auto) Not Reportable 05/01/23 20:51 [place] # (Auto) Not Reportable 05/01/23 20:51 Total Counted 100 (0-100) 05/01/23 20:51 Atypical Lymphs % 0.0 % (0-5) 05/01/23 20:51 Absolute Neutrophils 12.2 10^3/cmm (1.4-6.5) H 05/01/23 20:51 Segmented Neutrophils 62 % 05/01/23 20:51 Abs Segm Neuts (Man) 12.2 10/cmm (1.6-7.1) H 05/01/23 20:51 Band Neutrophils 0.0 % 05/01/23 20:51 Abs Band Neuts (Man) 0.0 10^3/cmm (0.0-1.2) 05/01/23 20:51 Absolute Lymphocytes 6.9 10^3/cmm (1.2-3.4) H 05/01/23 20:51 Lymphocytes (Manual) 35 % 05/01/23 20:51 Monocytes (Manual) 3.0 % 05/01/23 20:51 Absolute Monocytes 0.6 10^3/cmm (0.1-0.6) 05/01/23 20:51 Eosinophils (Manual) 0 % 05/01/23 20:51 Absolute Eosinophils 0.0 10^3/cmm (0.0-0.7) 05/01/23 20:51 Basophils (Manual) 0.0 % 05/01/23 20:51 Absolute Basophils 0.0 10^3/cmm (0.0-0.2) 05/01/23 20:51 Smudge Cells 1+ H 05/01/23 20:51 Platelet Estimate Decreased (Normal) 05/01/23 20:51 PT 15.40 SECONDS (12.1-14.9) H 05/01/23 21:06 INR 1.18 (0.8-1.2) 05/01/23 21:06 APTT > 250.0 SECONDS (23.9-36.7) H* 05/01/23 21:06 Sodium 127 mmol/L (136-145) L 05/01/23 20:51 Potassium 4.4 mmol/L (3.5-5.1) 05/01/23 20:51 Chloride 95 mmol/L (98-107) L 05/01/23 20:51 Carbon Dioxide 20 mmol/L (22-29) L 05/01/23 20:51 Anion Gap 16.4 (5-19) 05/01/23 20:51 BUN 12 mg/dL (6-20) 05/01/23 20:51 Creatinine 1.2 mg/dL (0.7-1.2) 05/01/23 20:51 GFR Calculation 62.9 mL/min (90-130) L 05/01/23 20:51 Glucose 233 mg/dL (65-115) H 05/01/23 20:51 Calculated Osmolality 271 mOsm/kg (285-295) L 05/01/23 20:51 Calcium 8.8 mg/dL (8.5-10.5) 05/01/23 20:51 Total Bilirubin 0.5 mg/dL (0.15-1.2) 05/01/23 20:51 AST 18 U/L (0-40) 05/01/23 20:51 ALT 18 U/L (0-41) 05/01/23 20:51 Alkaline Phosphatase 88 U/L (40-130) 05/01/23 20:51 Troponin T Baseline 9 ng/L (0-15) 05/01/23 20:51 Total Protein 6.8 g/dL (6.6-8.7) 05/01/23 20:51 Albumin 4.1 g/dL (3.5-5.2) 05/01/23 20:51 Globulin 2.7 g/dL (1.3-4.6) 05/01/23 20:51 EKG Data EKG 1: Interpretation: EKG sinus rhythm rate of [address] changes. No reciprocal ST elevation at this time. Discharge Plan Discharge Patient Disposition: Admitted As Inpatient Admit Provider: Tian Rueda Clinical Impression: Angina pectoris, unstable Condition: Stable Coding Level of Care Code ED Supervisor Electron Tube Processing for Germaine Carranza
[2023-05-01] MEDS: heparin 5,000 unit/mL INJ 1 mL 4000 UNIT IVP (21:00)
--- NOTE | 2023-05-01 21:06 | XACV_ITS ---
Exam Room: ED.ROOM11 Ht: 165 cm Wt: 100 kg BSA: 2.19 m2 Gender: Male : 1965 Exam Priority: Routine Indication(s): - Acute inferior NV Procedure(s): Procedure Description: Diagnostic procedure Procedure Description: PCI procedure Procedure Description: Drug Eluting Coronary Stent Procedure Description: PTCA Procedure Description: Coronary Angiography Marybeth DANGELO; Diagnostic Cath Status: Emergency Diagnostic Findings * Patient presented to hospital about 2 to 3 hours into an episode of chest pain which occurred after doing work outside. Inferior ST segment elevation by EKG. * Coronary angiography reveals right coronary artery dominance. The right coronary artery is occluded with thrombus just beyond the acute margin. It underwent intervention. The left main coronary artery is normal. There is a 40 to 50% stenosis in the proximal LAD. The remainder of the vessel exhibits diffuse mild to moderate luminal irregularities. There is a 30% stenosis in the proximal circumflex. There is a 70% stenosis of the ostial first obtuse marginal branch. Left ventriculography was not performed. PCI Status: Emergency PCI LVEF Assessed: No PCI Indication: Immediate PCI for STEMI Interventional Findings * Right coronary artery is occluded distally. Initially, angioplasty was performed to open the vessel. There was some downstream embolization of thrombus. This caused transient heart block and increased pain with episodes of accelerated idioventricular rhythm. The vessel was ultimately stented with a 3.5 x 26 mm stent. Good angiographic result was obtained. There was FELIX-3 flow. Decision for PCI with Surgical Consult: No PCI for Multi-vessel Disease: No Conclusions 1. Acute inferior wall myocardial infarction with occluded distal right coronary artery. Intervention including angioplasty and stent with good angiographic result and FELIX-3 flow. Nonobstructive disease elsewhere. Recommendations * Medical treatment. Interventional RX Recommendation: PCI w/o planned CABG Diagnostic RX Recommendation: PCI w/o planned CABG Anticoagulation: Heparin Pressures Phase:Rest AO : 110 / 82 ( 98 ) @ 4:51:19 PM 108 / 74 ( 90 ) @ 4:51:19 PM 108 / 88 ( 98 ) @ 4:51:19 PM 77 / 48 ( 63 ) @ 4:51:19 PM 96 / 78 ( 88 ) @ 4:51:19 PM Clinical Evaluation EBL: 5mL-10mL Procedural Details Pre-Procedure Time Out. Identified patient by full name and date of as verbalized by the patient/guarantor. Does the consent match the physician's order: N/A Emergent; Informed Consent not obtained due to time critical life threat. Accurate & Complete Informed Consent: N/A Emergent; Informed Consent not obtained due to time critical life threat. Inpatient/Outpatient History & Physical on Chart: N/A Emergent; Informed Consent not obtained due to time critical life threat. If H&P is completed, is and addenduem needed: N/A Emergent; Informed Consent not obtained due to time critical life threat; If yes, is the addendum complete: N/A Emergent; Informed Consent not obtained due to time critical life threat. Visualize and Verify Site with Patient/Guarantor: N/A. Relevant Radiology Images available: N/A Emergent; Informed Consent not obtained due to time critical life threat. Pre-op teaching completed and patient verbalized understanding. The risks, benefits, and alternatives of sedation and/or procedure were discussed by physician. The patient agrees to continue. Procedure started. [facility] Clinical Fraility Score: 3: Managing Well. Stave Hewer Indications: ACS <= 24 hours (STEMI). Chest Pain Symptom Assessment: Typical Angina Symptoms. Cardiovascular Instability: Yes, if yes, Persistant Ischemic Symptoms. Correct patient, site and procedure confirmed by cath team. PERRLA. Strong, equal hand greige goods marker bilaterally. Lungs clear x 5 lobes. IV Site on Arrival: 18 gauge in the right arm. IV Site on Arrival: 20 gauge in the left anticubital. IV Fluids: 0.9% NaCl at KVO. 0 mL infused prior to landscaping and groundskeeping laborer. Pre Procedural Pulses: bilateral radial was 3+. Oxygen started at 2liters/min via nasal canula. right groin was prepped with chloroprep then draped in the usual sterile fashion. right groin was prepped with chloroprep then draped in the usual sterile fashion. Physician notified. Baseline sample Acquired. HR: 70 BPM. Patient's family unavailable. Equipment: 6F - Radial. Cardiac Cath Pack. ACIST Manifold Kit Model BT 2000. Heparinized Saline (2 units/mL), 1000 mL bag. Physician arrived. Physician scrubbed in. Immediate Pre-Procedure Time Out. Correct Patient: N/A Emergent; Informed Consent not obtained due to time critical life threat; Correct Procedure: N/A Emergent; Informed Consent not obtained due to time critical life threat; Correct Site: N/A Emergent; Informed Consent not obtained due to time critical life threat; Correct Patient Position: N/A Emergent; Informed Consent not obtained due to time critical life threat; Correct Supplies: N/A Emergent; Informed Consent not obtained due to time critical life threat; Dried Flammable Prep: N/A Emergent; Informed Consent not obtained due to time critical life threat; Blood Products Available: N/A;. Lidocaine 1% infiltrated to the right radial. Arterial access obtained. A 5 [place] TIG catheter in over the exchange J wire. Multiple views taken of left coronary artery. Spouse arrived and is in the landscaping and groundskeeping laborer waiting room. Dr Rueda will update at the completion of the procedure. Catheter redirected to the RCA. Multiple views taken of right coronary artery. Catheter removed over the exchange J wire. PCI Indication: STEMI. 6 [place] JR 4 guide catheter was inserted over the exchange J wire. [place] guidewire was advanced through the guide catheter to lesion in the distal RCA. Dr. Rueda voiced that Heparin was given in the Ambulance CHANGE OVER. Inflation number : 1 A AB TREK 3.00X15 RX BALLOON was prepped and advanced across the Dist RCA , then inflated to 12 JOHN for 0:31 seconds. PCI Indication : Immediate PCI for STEMI. Balloon out. Inflation Number : 2 A DEVON Lui MILAGROS 3.5X26 SEDRICK -Lot Number# [id number] was prepped and advanced across the Dist RCA. The stent was deployed at 12 JOHN for 0:31 seconds. Exp. 2025-02-17. Results checked. Cassie, ED, RN called to confirm that Heparin was Given. She stated that she gave 4000 Units IV. Stent balloon and wire out. Guide catheter out over the exchange J wire. A 5 [place] Angled Pig catheter in over the exchange J wire. Lab called to report a critical PTT of >250. Reported to Dr. Rueda with no orders recieved. Catheter removed over the exchange J wire. Patient's family updated by Dr. Rueda. A TR Band was successful obtaining hemostatsis at the Right Radial artery insertion site. TR band placed. Hemostasis obtained. Post Procedure: Pulses reassessed and unchanged. PERRLA. Strong, equal hand greige goods marker bilaterally. No VTE prophylaxis required. Medication's Wasted: Heparin = 1000 Units. Medication's Wasted: Lidocaine 1% = 2 mL. Medication's Wasted: Nitro = 49.8 mg. Total IV fluids: 86 mL. Post-op diagnosis: STEMI s/p PCI of the distal RCA. Complications: none. Estimated blood loss: 5mL-10mL. Responsiveness - Normal response to verbal stimuli; alert and oriented, PERRLA. Airway - Unaffected, no intervention required; spontaneous ventilation. Circulation: W/N/L, pulses unchanged. Nausea/Vomiting: No. Vital chart was stopped. Procedure completed. Patient transferred by wheelchair to 1st floor. Access Site Site: Right Radial artery Sheath Size: 6 Fr Hemostasis Method: TR Band Hemostasis Success: Successful Procedure Medications Start: 9:25 PM Stop: 9:25 PM Medication: Versed Amount: 1 mg Route: I.V. Start: 9:25 PM Stop: 9:25 PM Medication: Fentanyl Amount: 50 mcg Route: I.V. Start: 9:37 PM Stop: 9:37 PM Medication: Versed Amount: 1 mg Route: I.V. Start: 9:37 PM Stop: 9:37 PM Medication: Fentanyl Amount: 25 mcg Route: I.V. Start: 9:42 PM Stop: 9:42 PM Medication: Fentanyl Amount: 25 mcg Route: I.V. Start: 9:25 PM Stop: 9:25 PM Medication: Nitrogylcerin Amount: 200 mcg Route: I.A. Start: 9:49 PM Stop: 9:49 PM Medication: Plavix Amount: 600 mg Route: P.O. I, the attending physician, have reviewed and verified all procedure medications. Yes, all medications given per verbal order Report Signatures Finalized by Dr. Tian Rueda MD on 05/01/2023 10:29 PM
[2023-05-01] MEDS: ondansetron 2 mg/ML SDV 2 mL 4 MG IVP (21:09)
[2023-05-01 21:13] LABS: Hematocrit 42.8 % (42.0-52.0); Hemoglobin 14.1 g/dL (11.7-16.6); Mean Corpuscular HGB Conc 32.9 g/dL (30.0-36.0); Mean Corpuscular Hemoglobin 28.7 pg (28.0-34.0); Mean Platelet Volume 11.5 fL (7.4-10.4); Platelet Count 139 10^3/cmm (130-400); Red Blood Count 4.92 10^6/uL (4.1-5.3); Red Cell Distribution Width 13.6 % (12.1-15.1); White Blood Count 19.6 10^3/uL (4.0-10.0)
[2023-05-01 21:14] LABS: Troponin(5th) Baseline 9 ng/L (0-15)
[2023-05-01 21:15] LABS: Alanine Aminotransferase 18 U/L (0-41); Albumin Level 4.1 g/dL (3.5-5.2); Alkaline Phosphatase 88 U/L (40-130); Anion Gap 16.4 (5-19); Aspartate Amino Transferase 18 U/L (0-40); Blood Urea Nitrogen 12 mg/dL (6-20); Calcium 8.8 mg/dL (8.5-10.5); Carbon Dioxide 20 mmol/L (22-29); Chloride 95 mmol/L (98-107); Globulin 2.7 g/dL (1.3-4.6); Glomerular Filtration Rate 62.9 mL/min (90-130); Glucose 233 mg/dL (65-115); Osmolality Calculated 271 mOsm/kg (285-295); Potassium 4.4 mmol/L (3.5-5.1); Sodium 127 mmol/L (136-145); Total Bilirubin 0.5 mg/dL (0.15-1.2); Total Protein 6.8 g/dL (6.6-8.7)
[2023-05-01 21:16] LABS: INR 1.18 (0.8-1.2)
[2023-05-01 21:32] LABS: Absolute Neutrophil 12.2 10^3/cmm (1.4-6.5); Absolute Segmented Neutrophil 12.2 10/cmm (1.6-7.1); Eosinophils 0 %; Lymphocytes 35 %; Lymphocytes Absolute 6.9 10^3/cmm (1.2-3.4); Monocytes Absolute 0.6 10^3/cmm (0.1-0.6); Platelet Estimate Decreased (Normal); Segmented Neutrophils 62 %; Total Cells Counted 100 (0-100)
[2023-05-01 21:33] LABS: Smudge Cells 1+
[2023-05-01 21:45] LABS: Partial Thromboplastin Time > 250.0 SECONDS (23.9-36.7)
--- NOTE | 2023-05-01 22:03 | P.HP_ITS ---
Providers/Chief Complaint Admitting Physician: sariah Primary Care Provider: Pop Stallworth DO Chief Complaint: STEMI History of Present Illness Dex rIvin is a 57 year old male who is 57 with no known history of heart disease. Over the last several months he has been having some left-sided chest pain which was atypical. He underwent a sestamibi examination on March 25 just a little over a month ago. There was a small amount of minimal decreasing uptake in the distribution of the circumflex which was thought to be a scar with a small amount of marcin-infarct ischemia. An echo at that time showed normal left ventricular function. He has been going along and having intermittent episodes of the same type of pain. He has been a diabetic for 10 years. He does not treat the diabetes. Previously was on metformin which made him sick so he stopped it. He has hyper tension, dyslipidemia, degenerative joint disease, and is a heavy smoker having smoked 2 packs a day for many years. His is also a smoker. About 6:00 this evening he told his he was having chest pain that was more intense than what he has been experienced but a similar type pain. They called the ambulance. His EKG revealed ST elevation in the inferior leads mainly leads III and aVF. This is different from his previous EKGs. He was given aspirin, nitroglycerin, 4000 units of heparin and 1 mg of Dilaudid. He took 2 nitroglycerin at home without any relief. The pain medication and nitroglycerin here did not help much. He is being prepared to go to coronary angiography. Medications/Allergies Home Medications Medication Instructions Recorded Confirmed Last Taken Type pantoprazole 40 mg tablet,delayed 40 mg PO QAM 30 days #30 tabs 04/20/23 04/20/23 Unknown Rx release (Protonix) Allergies Allergy/AdvReac Type Severity Reaction Status Date / Time No Known Allergies Allergy Verified 04/20/23 15:56 PFSH Acute PFSH: Medical History (Updated 05/01/23 @ 22:12 by Tian Rueda MD) AMI inferior wall Arthritis Colonoscopy planned DDD (degenerative disc disease) Diabetes Enrolled in chronic care management Erectile dysfunction Essential hypertension GERD (gastroesophageal reflux disease) History of basal cell cancer History of Helicobacter infection Hyperlipidemia Hypertension Low back pain with radiation Lumbar disc disease Rotator cuff arthropathy of right shoulder Smoker Tinnitus Vertigo, benign positional Surgical History H/O repair of rotator cuff History of umbilical hernia repair Hx of colonoscopy with polypectomy age 52 Family History Mother , at the age of 74 Cancer thyroid cancer Lung disease emphysema Hypertension Father , at the age of 74 CAD (coronary artery disease) Other Stroke Social History Smoking and tobacco status: current every day smoker (2 packs a day since age 18) cigarettes Packs smoked per day: 2 Alcohol intake: current Alcohol intake frequency: few times a month Vitals/I&O/Wt Last Vital Signs Pulse 64 05/01/23 21:00 Resp 16 05/01/23 21:00 BP 135/78 05/01/23 21:00 Pulse Ox 98 05/01/23 21:00 O2 Del Method Room Air 05/01/23 20:39 Weight last 48 hrs Weight 221 lb Physical Exam Narrative: GENERAL: In general he is pale and complaining of pain in the chest. HEENT: Exam within normal limits. NECK: Supple without jugular vein distention. The carotid upstroke is normal without bruits. BACK: Exam normal. LUNGS: Clear. HEART: Regular rate and rhythm. ABDOMEN: Benign without organomegaly or tenderness. EXTREMITIES: No edema. NEUROLOGIC: Exam normal. SKIN: Unremarkable. Data 05/01/23 20:51 05/01/23 20:51 A&P Assessment and plan (1) AMI inferior wall: (2) Diabetes: Qualifiers: Diabetes mellitus type: type 2 Diabetes mellitus penitentiary insulin use: without penitentiary use Diabetes mellitus complication status: with hyperglycemia Qualified Code(s): E11.65 - Type 2 diabetes mellitus with hyperglycemia (3) Hyperlipidemia: Qualifiers: Hyperlipidemia type: unspecified Qualified Code(s): E78.5 - Hyperlipidemia, unspecified (4) Essential hypertension: (5) Smoker: (6) History of stomach ulcers: Plan Coronary angiography immediately. Attestations Medical Necessity Statement*: Patient requires admission for management of an acute inferior wall [place]. Hospital stay past 2 midnights will be required. and Moderate Time for a total of 45 minutes, includes reviewing past or interval history, examining/interviewing patient, placing orders, counseling patient/family/other support, updating patient/family/other support, discussing plan of care with staff, communicating with other healthcare providers, documenting encounter and coordinating care Diagnoses AMI inferior wall I21.19 Diabetes E11.65 Diabetes mellitus type: type 2 Diabetes mellitus regional intermodal truck driver insulin use: without penitentiary use Diabetes mellitus complication status: with hyperglycemia Hyperlipidemia E78.5 Hyperlipidemia type: unspecified Essential hypertension I10 Smoker F17.200 History of stomach ulcers Z87.19
--- NOTE | 2023-05-01 22:25 | PC.NURSE ---
Patient transfered from laborer tree tapping to CSU via wheelchair. Patient settled in room 111-1. TR band in place, site assessed no signs of bleeding or bruising. Patient denies any pain at this time.
[2023-05-01] MEDS: sodium chloride 0.9% 1,000 ML 100 ML IV (22:45)
--- NOTE | 2023-05-01 22:49 | ECG_ITS ---
[facility] Test Date: 2023-05-02 Pat Name: Dex Irvin Department: Room: 111 Gender: Male Business Development Professional: : 1965 Requested By: Nemo Martinez Order Number: [id number] Reading MD: Azael Tirado M.D. Measurements Intervals [place] Rate: 53 P: 53 [place]: 192 QRS: -7 QRSD: 106 T: 76 QT: 426 QTc: 402 Interpretive Statements SINUS BRADYCARDIA PROBABLE INFERIOR MYOCARDIAL INFARCTION , PROBABLY OLD [35 ms Q WAVE IN II/aVF] Compared to ECG 05/01/2023 20:45:14 Myocardial infarct finding now present Sinus rhythm no longer present T-wave abnormality no longer present Electronically Signed On 05-03-2023 8:03:14 CDT by Azael Tirado M.D. [id number]
[2023-05-01] MEDS: metoprolol tartrate 25 mg Tablet PO (23:08)
[2023-05-02] VITALS (66 sets, daily range): BP systolic 102–126; BP diastolic 57–83; PULSE 48–75; RESP 3–26; TEMP 36.5–36.7; O2SAT 89–98
--- NOTE | 2023-05-02 02:00 | PC.NURSE ---
TR Band removed. Right wrist cath site is benign, no hematoma present. No bruising. Dry sterile dressing applied.
--- NOTE | 2023-05-02 02:49 | ECG_ITS ---
[facility] Test Date: 2023-05-02 Pat Name: Dex Irvin Department: Room: 111 Gender: Male Bilingual Instructor: : 1965 Requested By: Nemo Martinez Order Number: [id number] Reading MD: Azael Tirado M.D. Measurements Intervals [place] Rate: 50 P: 47 [place]: 199 QRS: -23 QRSD: 102 T: 32 QT: 457 QTc: 417 Interpretive Statements SINUS BRADYCARDIA INFERIOR MYOCARDIAL INFARCTION , PROBABLY OLD [40+ ms Q WAVE AND/OR ST/T ABNORMALITY IN II/aVF] Compared to ECG 05/02/2023 02:10:27 Ventricular premature complex(es) no longer present Myocardial infarct finding still present Electronically Signed On 05-03-2023 8:03:11 CDT by Azael Tirado M.D. [id number]
[2023-05-02 04:21] LABS: Troponin 5 6HR 4070 ng/L (0-15); Troponin 5 6HR Delta 4061 ng/L (0-12)
[2023-05-02] MEDS: pantoprazole DR 40 mg Tablet PO (06:09)
[2023-05-02 06:32] LABS: Glucose Point of Care 185 mg/dL (70-110)
--- NOTE | 2023-05-02 07:38 | PM.PN ---
Subjective Subjective: Dex is improved this morning. His color is better. His pain is gone. His right coronary artery was occluded distally with significant thrombus burden. He had transient heart block and accelerated idioventricular rhythm. His initial troponin was 9, the second 4070 and the third 4061. His initial blood sugar was above 300. Vitals/I&O/Wt Last Vital Signs Temp 97.8 F 05/02/23 04:00 Pulse 49 L 05/02/23 05:54 Resp 18 05/02/23 04:00 BP 102/61 05/02/23 04:00 Pulse Ox 97 05/02/23 04:00 O2 Del Method Room Air 05/02/23 04:00 05/01/23 05/02/23 05/02/23 22:59 06:59 14:59 Intake Total 2099 / 2099 Balance 2099 / 2099 Weight last 48 hrs Weight 221 lb Physical Exam Narrative: GENERAL: In general he is much more comfortable today HEENT: Exam within normal limits. NECK: Supple without jugular vein distention. The carotid upstroke is normal without bruits. BACK: Exam normal. LUNGS: Clear. HEART: Regular rate and rhythm. ABDOMEN: Benign without organomegaly or tenderness. EXTREMITIES: No edema. The right radial area is flat, dry without hematoma or bleeding. NEUROLOGIC: Exam normal. SKIN: Unremarkable. Data 05/01/23 20:51 05/01/23 20:51 A&P Assessment and plan (1) AMI inferior wall: (2) History of tobacco abuse: (3) Uncontrolled diabetes mellitus: (4) Essential hypertension: (5) Hyperlipidemia: Qualifiers: Hyperlipidemia type: unspecified Qualified Code(s): E78.5 - Hyperlipidemia, unspecified Plan Up and around the room and in the hallway today. Adjust medications. His blood pressure is a little soft to add an afterload reducing agent. Today I will add a statin. If everything is okay, home tomorrow. He has been reluctant to treat his diabetes in the past. His states that he stopped taking the metformin because it made him nauseated. He then simply stop checking his blood sugars. Attestations Medical Necessity Statement*: Hospitalization for management of an acute inferior wall [place]. and Moderate Time for a total of 30 minutes, includes reviewing past or interval history, examining/interviewing patient, placing orders, counseling patient/family/other support, updating patient/family/other support, discussing plan of care with staff, communicating with other healthcare providers, documenting encounter and coordinating care Diagnoses AMI inferior wall I21.19 History of tobacco abuse Z87.891 Uncontrolled diabetes mellitus E11.65 Essential hypertension I10 Hyperlipidemia E78.5 Hyperlipidemia type: unspecified
[2023-05-02] MEDS: aspirin 81 mg EC Tablet PO (08:43)
[2023-05-02] MEDS: clopidogrel 75 mg Tablet PO (08:43)
[2023-05-02] MEDS: insulin lispro 100 unit/1 mL SUBCUT ×4 (08:43→21:58)
[2023-05-02 11:23] LABS: Glucose Point of Care 215 mg/dL (70-110)
[2023-05-02 17:17] LABS: Glucose Point of Care 255 mg/dL (70-110)
[2023-05-02 20:35] LABS: Glucose Point of Care 252 mg/dL (70-110)
[2023-05-02] MEDS: atorvastatin 40 mg Tablet 80 MG PO (20:55)
--- NOTE | 2023-05-02 22:18 | USCV_ITS ---
Dex Irvin Age: 57 Gender: M : 1965 Exam Date: 05/02/2023 13:39 Ordering Phys: Tian Rueda MD ([email or web address]) Technologist: JASE Exam Location: [facility] [place] Indication: Acute inferior [place] BP: / HR: 57 Rhythm: Sinus Technical Quality: Adequate MEASUREMENTS (Male / Female) Normal Values 2D ECHO LV Diastolic Diameter PLAX 5.7 cm 4.2 - 5.9 / 3.9 - 5.3 cm LV Systolic Diameter PLAX 4.7 cm IVS Diastolic Thickness 0.9 cm 0.6 - 1.0 / 0.6 - 0.9 cm IVS Systolic Thickness 1.2 cm LVPW Diastolic Thickness 1.0 cm 0.6 - 1.0 / 0.6 - 0.9 cm LVPW Systolic Thickness 1.0 cm LV Ejection Fraction 2D Teich 36.2 % LV Ejection Fraction MOD 2C 58.0 % LV Ejection Fraction 2C AL 57.7 % FINDINGS Left Ventricle Limited study. No Doppler performed. LV function is normal with estimated ejection fraction about 60% Right Ventricle Normal RV size and function Right Atrium Normal size Left Atrium Normal Mitral Valve Structurally normal. No Doppler performed Aortic Valve Structurally normal no Doppler performed Tricuspid Valve Structurally normal. No Doppler performed Pulmonic Valve Grossly normal Pericardium No effusion Aorta Normal IVC Normal CONCLUSIONS Cam Umanzor MD (Electronically Signed) Final Date: 03 May 2023 09:10 S
[2023-05-03] VITALS (22 sets, daily range): BP systolic 118–128; BP diastolic 68; PULSE 55–73; RESP 0–24; O2SAT 89–97
[2023-05-03] MEDS: pantoprazole DR 40 mg Tablet PO (05:26)
--- NOTE | 2023-05-03 07:23 | P.DS_ITS ---
Discharge Providers Date of Admission: 05/01/23 22:57 Date of Discharge: May 03, 2023 Attending Provider at Admission: Tian Rueda MD Attending Provider at Discharge: Tian Rueda MD Primary Care Provider: Pop Stallworth DO Diagnoses at Discharge Discharge Diagnosis (1) AMI inferior wall: Status: Acute (2) History of tobacco abuse: Status: Acute (3) Uncontrolled diabetes mellitus: Status: Acute (4) Essential hypertension: Status: Acute (5) Hyperlipidemia: Status: Acute Qualifiers: Hyperlipidemia type: unspecified Qualified Code(s): E78.5 - Hyperlipidemia, unspecified Reason for Visit Reason for Visit: STEMI Brief History: Patient was admitted with typical chest pain and evidence of an acute inferior wall AK by EKG. He had been having episodes of chest pain with a stress test recently which did not reveal any significant problem. Upon his arrival he was stable and was taken directly to the cardiac catheterization laboratory. Hospital Course Hospital Course Patient's distal right coronary artery was occluded. There was significant thrombus burden. Angioplasty and stent opened the vessel nicely. Procedure was done from the right radial artery. There were no complications. At the time of discharge the right radial artery area is flat, dry without hematoma, bleeding or other vascular anomaly. Patient is a smoker. He also is a diabetic but does not treat the diabetes. He has taken metformin in the past but stopped it on his own because he said it made his stomach upset. He does not follow-up with physicians regularly. He was taking no medications upon his arrival except for Protonix. I have added a beta-john, statin, aspirin and Plavix. The plan is for him to follow-up with Dr. Vicente shortly to begin treatment of the diabetes. While he was in the hospital I treated him with insulin sliding scale. His troponin peaked at 4070. Physical Exam Narrative: GENERAL: In general he appears well at the time of discharge HEENT: Exam within normal limits. NECK: Supple without jugular vein distention. The carotid upstroke is normal without bruits. BACK: Exam normal. LUNGS: Clear. HEART: Regular rate and rhythm. ABDOMEN: Benign without organomegaly or tenderness. EXTREMITIES: No edema. At discharge the area of the right radial artery is flat, dry without bleeding or hematoma. NEUROLOGIC: Exam normal. SKIN: Unremarkable. Discharge Data Studies Completed and Pending Completed Studies During Hospitalization Category Date Time Status [employer] TECHNICIAN request for service Stat Exams 05/01/23 21:06 Completed Pending at discharge Category Date Time Status CV. echo limited [id number] Routine Ultrasound 05/02/23 22:18 Taken Laboratory Results WBC 19.6 10^3/uL (4.0-10.0) H 05/01/23 20:51 RBC 4.92 10^6/uL (4.1-5.3) 05/01/23 20:51 Hgb 14.1 g/dL (11.7-16.6) 05/01/23 20:51 Hct 42.8 % (42.0-52.0) 05/01/23 20:51 MCV 87.0 fl (80-94) 05/01/23 20:51 MCH 28.7 pg (28.0-34.0) 05/01/23 20:51 MCHC 32.9 g/dL (30.0-36.0) 05/01/23 20:51 RDW 13.6 % (12.1-15.1) 05/01/23 20:51 Plt Count 139 10^3/cmm (130-400) 05/01/23 20:51 MPV 11.5 fL (7.4-10.4) H 05/01/23 20:51 Lymph % (Auto) Not Reportable 05/01/23 20:51 [place] % (Auto) Not Reportable 05/01/23 20:51 Lymph # (Auto) Not Reportable 05/01/23 20:51 [place] # (Auto) Not Reportable 05/01/23 20:51 Total Counted 100 (0-100) 05/01/23 20:51 Atypical Lymphs % 0.0 % (0-5) 05/01/23 20:51 Absolute Neutrophils 12.2 10^3/cmm (1.4-6.5) H 05/01/23 20:51 Segmented Neutrophils 62 % 05/01/23 20:51 Abs Segm Neuts (Man) 12.2 10/cmm (1.6-7.1) H 05/01/23 20:51 Band Neutrophils 0.0 % 05/01/23 20:51 Abs Band Neuts (Man) 0.0 10^3/cmm (0.0-1.2) 05/01/23 20:51 Absolute Lymphocytes 6.9 10^3/cmm (1.2-3.4) H 05/01/23 20:51 Lymphocytes (Manual) 35 % 05/01/23 20:51 Monocytes (Manual) 3.0 % 05/01/23 20:51 Absolute Monocytes 0.6 10^3/cmm (0.1-0.6) 05/01/23 20:51 Eosinophils (Manual) 0 % 05/01/23 20:51 Absolute Eosinophils 0.0 10^3/cmm (0.0-0.7) 05/01/23 20:51 Basophils (Manual) 0.0 % 05/01/23 20:51 Absolute Basophils 0.0 10^3/cmm (0.0-0.2) 05/01/23 20:51 Smudge Cells 1+ H 05/01/23 20:51 Platelet Estimate Decreased (Normal) 05/01/23 20:51 PT 15.40 SECONDS (12.1-14.9) H 05/01/23 21:06 INR 1.18 (0.8-1.2) 05/01/23 21:06 APTT > 250.0 SECONDS (23.9-36.7) H* 05/01/23 21:06 Sodium 127 mmol/L (136-145) L 05/01/23 20:51 Potassium 4.4 mmol/L (3.5-5.1) 05/01/23 20:51 Chloride 95 mmol/L (98-107) L 05/01/23 20:51 Carbon Dioxide 20 mmol/L (22-29) L 05/01/23 20:51 Anion Gap 16.4 (5-19) 05/01/23 20:51 BUN 12 mg/dL (6-20) 05/01/23 20:51 Creatinine 1.2 mg/dL (0.7-1.2) 05/01/23 20:51 GFR Calculation 62.9 mL/min (90-130) L 05/01/23 20:51 Glucose 233 mg/dL (65-115) H 05/01/23 20:51 POC Glucose 252 mg/dL (70-110) H 05/02/23 20:21 Calculated Osmolality 271 mOsm/kg (285-295) L 05/01/23 20:51 Calcium 8.8 mg/dL (8.5-10.5) 05/01/23 20:51 Total Bilirubin 0.5 mg/dL (0.15-1.2) 05/01/23 20:51 AST 18 U/L (0-40) 05/01/23 20:51 ALT 18 U/L (0-41) 05/01/23 20:51 Alkaline Phosphatase 88 U/L (40-130) 05/01/23 20:51 Troponin T Baseline 9 ng/L (0-15) 05/01/23 20:51 Troponin T Hi Sens 6Hr 4070 ng/L (0-15) H 05/02/23 03:34 Troponin T Hi Sens 6Hr Delta 4061 ng/L (0-12) H* 05/02/23 03:34 Total Protein 6.8 g/dL (6.6-8.7) 05/01/23 20:51 Albumin 4.1 g/dL (3.5-5.2) 05/01/23 20:51 Globulin 2.7 g/dL (1.3-4.6) 05/01/23 20:51 Procedures Performed Left heart catheterization, coronary angiography, left ventriculography, angioplasty and stent distal right coronary artery. Vitals Last Vital Signs Temp 98.0 F 05/02/23 16:00 Pulse 60 05/03/23 04:45 Resp 12 05/03/23 04:45 BP 118/68 05/03/23 04:45 Pulse Ox 96 05/03/23 04:45 O2 Del Method Room Air 05/02/23 16:00 Discharge Plan Discharge Patient Disposition: Home Condition: Stable Prescriptions: New atorvastatin 40 mg Tablet 80 mg PO BEDTIME Qty: 30 2RF aspirin 81 mg Tablet,Delayed Release (Dr/Ec) 81 mg PO DAILY Qty: 100 0RF clopidogrel 75 mg Tablet 75 mg PO DAILY Qty: 90 3RF metoprolol tartrate 25 mg Tablet 25 mg PO BID Qty: 18 3RF nitroglycerin 0.4 mg Tablet, Sublingual 0.4 mg sublingual Q5M PRN (Reason: Chest Pain) Qty: 25 2RF Continued pantoprazole 40 mg tablet,delayed release (DR/EC) 40 mg PO 2XD Rx Instructions: 2xday for 6weeks Discharge Orders: Discharge Order (Routine); Ordered 05/03/23 Ordered By: Tian Rueda Referrals: Pop Stallworth DO [Primary Care Provider] - (keep appt on 04/09) Geeta Flores FNP [Nurse Practitioner] - 7-10 days (Check right radial artery area and chemistry panel) Lorna Ly MD [Physician] - 3 months Discharge Diet: Diabetic Discharge Activity: Increase activity as tolerated and Limit activity as instructed Patient Instructions: Coronary Angioplasty (DC), Opioid Safety Activity Restrictions/Additional Instructions: No lifting over 5 pounds for 2 days with the right upper extremity Discharge Attestations Time Spent in Discharge Care*: greater than 30 min Quality Metrics Clinical Quality Measures [ Acute Myocardial Infaction { Clinical Trial Participant: No; Contraindication to aspirin: None; Aspirin prescribed; Contraindication to statin: None; Statin prescribed; Contraindication to PCI: None; PCI performed;}] Coding Level of Care Code 34493 Total time (in minutes) for Discharge: 50 Diagnoses AMI inferior wall I21.19 History of tobacco abuse Z87.891 Uncontrolled diabetes mellitus E11.65 Essential hypertension I10 Hyperlipidemia E78.5 Hyperlipidemia type: unspecified
[2023-05-03 08:04] LABS: Glucose Point of Care 177 mg/dL (70-110)
[2023-05-03] MEDS: aspirin 81 mg EC Tablet PO (08:48)
[2023-05-03] MEDS: clopidogrel 75 mg Tablet PO (08:49)
[2023-05-03] MEDS: insulin lispro 100 unit/1 mL SUBCUT (08:49)
[2023-05-03] MEDS: metoprolol tartrate 25 mg Tablet PO (08:49)
--- NOTE | 2023-05-03 10:54 | PC.NURSE ---
IV removed, patient tolerated well. Vitals WNL. Patient given written and verbal discharge information, verbalized understanding. Patient taken to parking lot via wheelchair, left facility with at 10:30.
== END 2023-05-03 10:30 | disposition home or self-care (01) | DRG 247 ==
LOC: ER 21:02 → CCL 21:13 → CSU 22:59
PROVIDERS: Admitting Provider Internal Medicine Cardiovascular Disease; Emergency Provider Family Medicine; PCP Family Medicine; Visit Provider Internal Medicine Cardiovascular Disease
PROC: 027034Z Dilation of Coronary Artery, One Artery with Drug-eluting Intraluminal Device, Percutaneous Approach (ICD-10-PCS; principal; 2023-05-01 21:00)
PROC: 027034Z Dilation of Coronary Artery, One Artery with Drug-eluting Intraluminal Device, Percutaneous Approach (ICD-10-PCS; 2023-05-01 21:00)
DX: I21.11 ST elevation (STEMI) myocardial infarction involving right coronary artery (principal); E11.65 Type 2 diabetes mellitus with hyperglycemia; I10 Essential (primary) hypertension; E78.5 Hyperlipidemia, unspecified; F17.210 Nicotine dependence, cigarettes, uncomplicated; T38.3X6A Underdosing of insulin and oral hypoglycemic [antidiabetic] drugs, initial encounter; Z91.128 Patient's intentional underdosing of medication regimen for other reason; I25.119 Atherosclerotic heart disease of native coronary artery with unspecified angina pectoris; K21.9 Gastro-esophageal reflux disease without esophagitis; Z85.828 Personal history of other malignant neoplasm of skin
CPT/HCPCS: 36415; 36416; 80053; 82962; 84484; 85007; 85025; 85610; 85730; 93005; 93308; 93454; 96365; 96372; 96374; 96375; 96376; 99152; 99153; 99285; C1725; C1769; C1874; C1887; C1894; C9600; J0461; J1170; J1644; J1815; J2250; J2405; J3010; J3490; J7030; Q9967

== ENCOUNTER 2023-05-11 10:37 | Outpatient (CLI) | payer MEDICARE, MEDICAID, SELFPAY ==
--- NOTE | 2023-05-11 11:00 | USCV_ITS ---
Dex Irvin Age: 58 Gender: M : 1965 Exam Date: 05/11/2023 10:54 Ordering Phys: Pop Stallworth DO Technologist: SARAH BETH Exam Location: [facility] [place] Indication: SWOLLEN ARM POST 1 WEEK IV AT HOSPITAL HISTORY: Pt had IV last Wednesday while in hospital . Arm is swollen and red and hard PROCEDURES: The following venous structures were evaluated: internal jugular vein, subclavian vein, axillary vein, and brachial veins. In addition, the basilic vein and cephalic vein. Serial compression, augmentation maneuvers, and spectral Doppler flow evaluation were performed. FINDINGS: No DVT seen in any arm vein. Superficial Thrombophlebitis noted in Lt Cephalic vein. Linear foreign body in the cephalic vein thrombosus. CONCLUSIONS Superficial thrombophlebitis is detected in the left cephalic. No DVT. Linear foreign body in the cephalic vein at the antecubital space. Likely a foreign body from fractured venous catheter. Dr. Dayami Collins DO (Electronically Signed) Final Date: 11 May 2023 13:32 Amended: 11 May 2023 14:31 C
== END 2023-05-11 10:38 | disposition home or self-care (01) ==
LOC: RAD 10:39
PROVIDERS: PCP Family Medicine; Visit Provider Family Medicine
DX: I80.8 Phlebitis and thrombophlebitis of other sites (principal); Z18.89 Other specified retained foreign body fragments
CPT/HCPCS: 93971

== ENCOUNTER 2023-05-11 13:52 | Emergency (ER) | payer MEDICARE, MEDICAID, SELFPAY ==
[2023-05-11 13:59] VITALS: BP 138/74; PULSE 80; RESP 16; TEMP 36.9; O2SAT 97; BMI 35.3
--- NOTE | 2023-05-11 14:15 | ED_ITS ---
HPI - Extremity Problem General: Chief complaint: Extremity Injury, Upper Stated complaint: LEft arm has a broke needle Time Seen by Provider: 05/11/23 14:07 Source: patient Mode of arrival: ambulatory Limitations: no limitations History of Present Illness: 58-year-old male who had been admitted here last week he had had a cardiac cath he had an IV placed in his left AC. The cath was on the right side he states that since being discharged he has had swelling in that arm along with pain he had an ultrasound today that did show a superficial thrombophlebitis of the cephalic vein question if there was a piece of the cannula still embedded rates the pain a 5 out of 10 denies any shortness of breath. Associated symptoms: Deny chest pain, fever(s) or rash Review of Systems Const: Denies: fever(s), chills, body aches or change in appetite Eyes: Denies: blurry vision or eye discomfort ENMT: Denies: throat pain or dental pain Card: Denies: chest pain Resp: Denies: dyspnea GI: Denies: abdominal pain, nausea, vomiting or diarrhea Musc: Reports: extremity pain and extremity swelling; Denies: neck pain or back pain Skin/Breast: Denies: rash Neuro: Denies: headache(s) PFSH ED PFSH: Medical History AMI inferior wall Arthritis Colonoscopy planned DDD (degenerative disc disease) Diabetes Enrolled in chronic care management Erectile dysfunction Essential hypertension GERD (gastroesophageal reflux disease) History of basal cell cancer History of Helicobacter infection History of tobacco abuse Hyperlipidemia Hypertension Low back pain with radiation Lumbar disc disease Rotator cuff arthropathy of right shoulder Smoker Tinnitus Vertigo, benign positional Surgical History H/O repair of rotator cuff History of umbilical hernia repair Hx of colonoscopy with polypectomy age 52 Family History Mother , at the age of 74 Cancer thyroid cancer Lung disease emphysema Hypertension Father , at the age of 74 CAD (coronary artery disease) Other Stroke Social History Smoking and tobacco status: current every day smoker (2 packs a day since age 18) cigarettes Packs smoked per day: 2 Alcohol intake: current Alcohol intake frequency: few times a month Physical Exam Const: COMMON NORMALS: no acute distress and patient oriented x3 HENMT: COMMON NORMALS: normocephalic and atraumatic HEAD & SCALP: normocephalic and atraumatic Eye: COMMON NORMALS: conjunctivae normal CONJUNCTIVA: Yes conjunctivae normal Neck/C-Spine: COMMON NORMALS: full ROM Chest: COMMONS NORMALS: normal inspection of the chest Resp: COMMON NORMALS: normal respiratory effort Extremity: OTHER: Tenderness over left bicep's have some swelling as well and swelling at the place of the IV insertion the left AC Neuro: COMMON NORMALS: patient oriented x3 Psych: COMMON NORMALS: mental status grossly normal Skin: COMMON NORMALS: no rashes or lesions noted GENERAL SKIN EXAM: no rashes or lesions noted Course Vital Signs: Vital signs: Vital Signs Temperature 98.5 F 05/11/23 13:59 Pulse Rate 80 05/11/23 13:59 Respiratory Rate 16 05/11/23 13:59 Blood Pressure 138/74 05/11/23 13:59 Pulse Oximetry 97 05/11/23 13:59 Oxygen Delivery Me thod Room Air 05/11/23 13:59 MDM - Extremity (Nontraumatic) Medical Decision Making Patient presents with a superficial thrombophlebitis to his left arm there is c oncern of a possible foreign body on ultrasound did do a CT scan there is no foreign body noted no signs of any leftover IV cannula he has no signs of DVT he is on Plavix and aspirin he is continue he is to do warm compresses he is to follow-up with his PCP in 1 to 2 weeks for repeat ultrasound he has any chest pain or shortness of breath he is return here he understands agrees to plan. Lab Data 05/11/23 14:26 05/11/23 14:26 Radiology Impressions Elbow X-Ray 05/11/23 14:58 IMPRESSION: 1. No acute elbow fracture or joint effusion. Elbow CT 05/11/23 15:33 IMPRESSION: 1. No foreign body identified within the cephalic vein. 2. Long segment cephalic vein superficial thrombophlebitis. Notified Ranjith Campa MD at 05/11/2023 4:26 PM. Laboratory Results WBC 13.9 10^3/uL (4.0-10.0) H 05/11/23 14: RBC 4.48 10^6/uL (4.1-5.3) 05/11/23 14:26 Hgb 12.8 g/dL (11.7-16.6) 05/11/23 14: Hct 38.2 % (42.0-52.0) L 05/11/23 14: MCV 85.3 fl (80-94) 05/11/23 14:26 MCH 28.6 pg (28.0-34.0) 05/11/23 14: MCHC 33.5 g/dL (30.0-36.0) 05/11/23 14: RDW 13.4 % (12.1-15.1) 05/11/23 14: Plt Count 157 10^3/cmm (130-400) 05/11/23 14: MPV 10.7 fL (7.4-10.4) H 05/11/23 14:26 Lymph % (Auto) Not Reportable 05/11/23 14:26 [place] % (Auto) Not Reportable 05/11/23 14:26 Lymph # (Auto) Not Reportable 05/11/23 14:26 [place] # (Auto) Not Reportable 05/11/23 14:26 Total Counted 100 (0-100) 05/11/23 14:26 Atypical Lymphs % 8.0 % (0-5) H 05/11/23 14:26 Absolute Neutrophils 5.8 10^3/cmm (1.4-6.5) 05/11/23 14:26 Segmented Neutrophils 42 % 05/11/23 14:26 Abs Segm Neuts (Man) 5.8 10/cmm (1.6-7.1) 05/11/23 14:26 Band Neutrophils 0.0 % 05/11/23 14: Abs Band Neuts (Man) 0.0 10^3/cmm (0.0-1.2) 05/11/23 14:26 Absolute Lymphocytes 7.8 10^3/cmm (1.2-3.4) H 05/11/23 14:26 Lymphocytes (Manual) 48 % 05/11/23 14:26 Monocytes (Manual) 1.0 % 05/11/23 14: Absolute Monocytes 0.1 10^3/cmm (0.1-0.6) 05/11/23 14:26 Eosinophils (Manual) 1 % 05/11/23 14:26 Absolute Eosinophils 0.1 10^3/cmm (0.0-0.7) 05/11/23 14:26 Basophils (Manual) 0.0 % 05/11/23 14: Absolute Basophils 0.0 10^3/cmm (0.0-0.2) 05/11/23 14:26 Platelet Estimate Normal (Normal) 05/11/23 14:26 Sodium 131 mmol/L (136-145) L 05/11/23 14:26 Potassium 3.8 mmol/L (3.5-5.1) 05/11/23 14:26 Chloride 98 mmol/L (98-107) 05/11/23 14:26 Carbon Dioxide 21 mmol/L (22-29) L 05/11/23 14:26 Anion Gap 15.8 (5-19) 05/11/23 14:26 BUN 11 mg/dL (6-20) 05/11/23 14:26 Creatinine 1.3 mg/dL (0.7-1.2) H 05/11/23 14:26 GFR Calculation 57.1 mL/min (90-130) L 05/11/23 14:26 Glucose 260 mg/dL (65-115) H 05/11/23 14:26 Calculated Osmolality 280 mOsm/kg (285-295) L 05/11/23 14:26 Calcium 8.3 mg/dL (8.5-10.5) L 05/11/23 14:26 Discharge Plan Discharge Patient Disposition: Home Clinical Impression: Thrombophlebitis of left upper extremity, Superficial venous thrombosis of arm Condition: Stable Prescriptions: New Naprosyn 500 mg tablet 500 mg PO BID PRN (Reason: pain) Qty: 20 0RF No Action atorvastatin 40 mg tablet 80 mg PO BEDTIME Qty: 60 4RF pantoprazole 40 mg tablet,delayed release (DR/EC) 40 mg PO 2XD Rx Instructions: 2xday for 6weeks clopidogrel 75 mg Tablet 75 mg PO DAILY Qty: 90 3RF aspirin 81 mg Tablet,Delayed Release (Dr/Ec) 81 mg PO DAILY Qty: 100 0RF nitroglycerin 0.4 mg Tablet, Sublingual 0.4 mg sublingual Q5M PRN (Reason: Chest Pain) Qty: 25 2RF metoprolol tartrate 25 mg Tablet 25 mg PO BID Qty: 18 3RF Discharge Orders: Discharge ED (Routine); Ordered 05/11/23 Ordered By: Ranjith Campa Referrals: Pop Stallworth DO [Primary Care Provider] - 1-3 days Discharge Diet: Advance as tolerated Discharge Activity: Resume usual activity Patient Instructions: Superficial Thrombophlebitis (ED) Coding Level of Care Code ED Curriculum Developer for Germaine Carranza
[2023-05-11 14:33] LABS: Hematocrit 38.2 % (42.0-52.0); Hemoglobin 12.8 g/dL (11.7-16.6); Mean Corpuscular HGB Conc 33.5 g/dL (30.0-36.0); Mean Corpuscular Hemoglobin 28.6 pg (28.0-34.0); Mean Corpuscular Volume 85.3 fl (80-94); Mean Platelet Volume 10.7 fL (7.4-10.4); Platelet Count 157 10^3/cmm (130-400); Red Blood Count 4.48 10^6/uL (4.1-5.3); Red Cell Distribution Width 13.4 % (12.1-15.1); White Blood Count 13.9 10^3/uL (4.0-10.0)
[2023-05-11 14:50] LABS: Anion Gap 15.8 (5-19); Blood Urea Nitrogen 11 mg/dL (6-20); Calcium 8.3 mg/dL (8.5-10.5); Carbon Dioxide 21 mmol/L (22-29); Chloride 98 mmol/L (98-107); Glomerular Filtration Rate 57.1 mL/min (90-130); Glucose 260 mg/dL (65-115); Osmolality Calculated 280 mOsm/kg (285-295); Potassium 3.8 mmol/L (3.5-5.1); Sodium 131 mmol/L (136-145)
--- NOTE | 2023-05-11 14:58 | XR_ITS ---
WS: [id number] Exam: XR elbow LT min 3V* [id number] Date/Time of Exam: 05/11/2023 3:05 PM Reason For Exam: injury No fracture or dislocation. No joint effusion. Tendinous calcification noted at both the medial later al epicondyles of the lower humerus. XR/XR elbow LT min 3V* [id number] IMPRESSION: 1. No acute elbow fracture or joint effusion.
[2023-05-11 15:07] LABS: Slide Review Slide Review Perform
[2023-05-11 15:26] LABS: Absolute Eosinophils 0.1 10^3/cmm (0.0-0.7); Absolute Neutrophil 5.8 10^3/cmm (1.4-6.5); Absolute Segmented Neutrophil 5.8 10/cmm (1.6-7.1); Eosinophils 1 %; Lymphocytes 48 %; Lymphocytes Absolute 7.8 10^3/cmm (1.2-3.4); Monocytes Absolute 0.1 10^3/cmm (0.1-0.6); Platelet Estimate Normal (Normal); Segmented Neutrophils 42 %; Total Cells Counted 100 (0-100)
--- NOTE | 2023-05-11 15:33 | CT_ITS ---
WS: [id number] CT LEFT ELBOW, NONCONTRAST HISTORY: possible fb Technique: All CT scans at [facility] use at least one of these dose optimization techniques: automated exposure control; mA and/or kV adjustment per patient size (includes targeted exams where dose is matched to clinical indication); or iterative reconstruction. DLP: 153.21 mGy.cm COMPARISON: LEFT elbow radiograph and Doppler ultrasound 05/11/2023. Enlarged cephalic vein with adjacent soft tissue induration centered in the LEFT arm. The area of con cern extends over a length of approximately 10 cm. There is no foreign body identified within the sup erficial vein. Favor these changes are probably related to acute thrombophlebitis. The changes on the recent ultrasound were probably due to adis thrombus within the vein. No abnormality was note d radiographically. CT/CT elbow LT wo con* [id number] IMPRESSION: 1. No foreign body identified within the cephalic vein. 2. Long segment cephalic vein superficial thrombophlebitis. Notified Ranjith Campa MD at 05/11/2023 4:26 PM.
[2023-05-11 16:44] VITALS: BP 125/74; PULSE 78; RESP 16; O2SAT 98
== END 2023-05-11 16:45 | disposition home or self-care (01) ==
PROVIDERS: Emergency Provider Emergency Medicine; PCP Family Medicine
DX: I80.8 Phlebitis and thrombophlebitis of other sites (principal); I82.612 Acute embolism and thrombosis of superficial veins of left upper extremity; Z79.82 Long term (current) use of aspirin; Z79.02 Long term (current) use of antithrombotics/antiplatelets; F17.210 Nicotine dependence, cigarettes, uncomplicated; E11.9 Type 2 diabetes mellitus without complications; I10 Essential (primary) hypertension; E78.5 Hyperlipidemia, unspecified; R22.32 Localized swelling, mass and lump, left upper limb
CPT/HCPCS: 36415; 73080; 73200; 80048; 85007; 85025; 93971; 99284

== ENCOUNTER → 2023-05-20 10:14 | Outpatient (BNVA) | payer MEDICARE, MEDICAID, SELFPAY | PROVIDERS: PCP Family Medicine; Visit Provider Nurse Practitioner Family | DX: I25.10 Atherosclerotic heart disease of native coronary artery without angina pectoris (principal); I10 Essential (primary) hypertension | CPT/HCPCS: 99214 ==

== ENCOUNTER → 2023-07-02 11:27 | Outpatient (BNVA) | payer MEDICARE, MEDICAID, SELFPAY | PROVIDERS: PCP Family Medicine; Visit Provider Internal Medicine Cardiovascular Disease | DX: I25.10 Atherosclerotic heart disease of native coronary artery without angina pectoris (principal); I10 Essential (primary) hypertension; E78.5 Hyperlipidemia, unspecified; E11.65 Type 2 diabetes mellitus with hyperglycemia; F17.210 Nicotine dependence, cigarettes, uncomplicated; Z79.84 Long term (current) use of oral hypoglycemic drugs | CPT/HCPCS: 99215 ==

== ENCOUNTER 2023-07-07 11:30 | Oncology outpatient (recurring) (ONCR) | payer MEDICARE, MEDICAID, SELFPAY ==
[2023-06-23 11:36] LABS: Basophils # 0.1 10^3/uL (0.0-0.1); Basophils % 0.5 %; Eosinophils # 0.4 10^3/uL (0.0-0.8); Eosinophils % 1.8 %; Hemoglobin 13.4 g/dL (11.7-16.6); Lymphocytes # 12.7 10^3/uL (0.8-4.8); Lymphocytes % 62.8 %; Mean Corpuscular HGB Conc 32.7 g/dL (30.0-36.0); Mean Corpuscular Hemoglobin 27.5 pg (28.0-34.0); Mean Corpuscular Volume 84.2 fl (80-94); Mean Platelet Volume 10.4 fL (7.4-10.4); Monocytes # 0.7 10^3/uL (0.2-0.9); Monocytes % 3.3 %; Neutrophils # 6.28 10^3/uL (1.8-7.7); Neutrophils % 31.1 %; Nucleated Red Blood Cells % 0 %; Platelet Count 209 10^3/cmm (130-400); Red Blood Count 4.87 10^6/uL (4.1-5.3); Red Cell Distribution Width 13.7 % (12.1-15.1); White Blood Count 20.2 10^3/uL (4.0-10.0)
[2023-06-23 11:46] LABS: LAB Peripheral Smear Sent for Review
[2023-06-23 12:10] LABS: Slide Review Slide Review Perform
[2023-06-24 13:55] LABS: Leukemia Profile (BBPL) See Report
[2023-07-07 11:37] VITALS: BP 130/81; PULSE 84; RESP 18; TEMP 36.7; O2SAT 98
[2023-07-07 12:02] LABS: Basophils # 0.1 10^3/uL (0.0-0.1); Basophils % 0.7 %; Eosinophils # 0.4 10^3/uL (0.0-0.8); Eosinophils % 1.8 %; Hematocrit 39.4 % (37-53); Lymphocytes % 57.2 %; Mean Corpuscular Hemoglobin 26.8 pg (27-33); Mean Corpuscular Volume 83.7 fl (82-101); Mean Platelet Volume 10.3 fL (7.4-10.4); Monocytes # 0.9 10^3/uL (0.2-0.9); Monocytes % 4.5 %; Neutrophils % 35.4 %; Nucleated Red Blood Cells % 0 %; Platelet Count 195 10^3/cmm (157-399); Red Blood Count 4.71 10^6/uL (3.85-5.65); Red Cell Distribution Width 14.3 % (12.1-15.1); White Blood Count 19.19 10^3/uL (3.29-11.43)
[2023-07-07 12:18] LABS: Slide Review Slide Review Perform
[2023-07-07 12:26] LABS: Alanine Aminotransferase 10 U/L (0-41); Albumin Level 3.9 g/dL (3.5-5.2); Alkaline Phosphatase 88 U/L (40-130); Anion Gap 13.7 (5-19); Aspartate Amino Transferase 13 U/L (0-40); Blood Urea Nitrogen 16 mg/dL (6-20); Calcium 9.5 mg/dL (8.5-10.5); Carbon Dioxide 26 mmol/L (22-29); Chloride 101 mmol/L (98-107); Globulin 3.3 g/dL (1.3-4.6); Glomerular Filtration Rate 52.4 mL/min (90-130); Glucose 150 mg/dL (65-115); Osmolality Calculated 286 mOsm/kg (285-295); Potassium 4.7 mmol/L (3.5-5.1); Sodium 136 mmol/L (136-145); Total Bilirubin 0.4 mg/dL (0.15-1.2); Total Protein 7.2 g/dL (6.6-8.7)
== END 2023-07-15 23:59 | disposition home or self-care (01) ==
PROVIDERS: PCP Family Medicine; Visit Provider Internal Medicine Medical Oncology
DX: D72.820 Lymphocytosis (symptomatic) (principal); F17.210 Nicotine dependence, cigarettes, uncomplicated; R53.83 Other fatigue
CPT/HCPCS: 36415; 80053; 80503; 85025; 88184; 88185; 99204; 99214

== ENCOUNTER 2023-07-22 15:20 | Outpatient (RCR) | payer MEDICARE, MEDICAID, SELFPAY | END 2023-08-14 23:59 | disposition home or self-care (01) | LOC: CR 15:20 | PROVIDERS: PCP Family Medicine; Referring Provider Internal Medicine Cardiovascular Disease; Visit Provider Internal Medicine Cardiovascular Disease | DX: I25.10 Atherosclerotic heart disease of native coronary artery without angina pectoris (principal) | CPT/HCPCS: 93798 ==

== ENCOUNTER 2023-08-10 15:57 | Outpatient (CLI) | payer MEDICARE, SELFPAY ==
--- NOTE | 2023-08-10 16:00 | CT_ITS ---
WS: [id number] CT CHEST, ABDOMEN AND PELVIS WITH CONTRAST HISTORY: CLL. TECHNIQUE: Contiguous 5 mm axial imaging performed through the chest, abdomen and pelvis with IV cont rast, oral contrast has been provided. Coronal and sagittal reformats chest. Coronal and sagittal ref ormats through the abdomen and pelvis. All CT scans at [facility] use at least one of these d ose optimization techniques: automated exposure control; mA and/or kV adjustment per patient size (in cludes targeted exams where dose is matched to clinical indication); or iterative reconstruction. CONTRAST: Omnipaque 350; 100 mL IV. DLP: 1096.88 mGy.cm COMPARISON: None available. Chest CT: Lung volumes are decreased due to poor inspiration. There is very mild interstitial thicken ing which might improved with better inspiratory effort. Mild groundglass attenuation in the posterio r LEFT lower lobe. No mass or nodules. Mild atherosclerosis aorta. Normal sized pulmonary artery. Nor mal size heart. No pericardial or pleural effusions. Supraclavicular and axillary adenopathy. Largest lymph node 2.8 cm in the LEFT axilla. Extensive medi astinal and hilar adenopathy. Majority of these lymph nodes are less than a centimeter. Largest lymph node at the RIGHT hilum is 1.2 cm. Largest RIGHT paratracheal lymph node 1.6 cm. There is marked thy carlos tissue present which is probably rebound response. Smaller subcarinal and paraesophageal lymph no jose carlos. There are a few small retrocrural lymph nodes. There are a couple of small soft tissue nodules in the LEFT lateral chest wall subcutaneous soft tiss ue which could be lymph nodes. Abdomen CT: Normal size liver. Normal portal vein. There is a large stone nearly completely filling t he gallbladder lumen. No adjacent inflammation. Negative pancreas. Spleen is markedly enlarged extend ing 17.2 cm in length. No lesions within the spleen. Normal adrenal glands. Mild atherosclerosis aort a. SMV and celiac axis are patent. There is abnormal enhancement of each kidney. Areas of decreased enhancement involving the mid to low er RIGHT kidney. There is an exophytic mass which is not a simple cyst from the lower pole measuring 2.7 x 1.8 cm. There is no hydronephrosis or obstruction of the ureter. Slightly greater abnormal enha ncement of the LEFT kidney. There is diffuse decreased attenuation and enhancement throughout the LEF T kidney with mild enlargement. 1.0 cm cyst in the mid to upper medial kidney. There is perinephric s tranding extending along the pararenal fascia. There is also very mild enhancement of the renal pelvi s and proximal ureter. There is no obstruction. Large celiac axis lymph node 2.8 x 4.6 cm. There are additional numerous but smaller mesenteric and r etroperitoneal lymph nodes. Aortocaval and para-aortic lymphadenopathy and a few small retrocrural ly mph nodes. Bilateral iliac chain lymph nodes. Lymph nodes continue into the pelvis along the internal and external iliac chains and into the obturator regions. Inguinal lymphadenopathy. Largest lymph no jose carlos appear to be in the inguinal region measuring up to 5.2 x 2.6 cm, greatest on the RIGHT. There is a large lymph node along the RIGHT external iliac artery measuring 4.0 x 3.2 cm. Normally distended stomach. No small bowel obstruction. Very slight increased soft tissue within the mid jejunal loops. This may be due to under distention. No GI tract obstruction. There are few very tiny subcutaneous nodules in the lateral LEFT abdominal wall at the level of the s pleen. Pelvic CT: Mild diffuse wall thickening of the urinary bladder may be due to under distention. No foc al area of enhancement within the bladder uroepithelium. The bladder is being deformed by pelvic marylin opathy. No ascites. L4 anterolisthesis by 1.6 cm. Severe degenerative disc disease L4-5 and L5-S1. Pars defects at L4. No osteoblastic or osteolytic bone disease is evident. There are few scattered sclerotic areas througho ut the upper thoracic and lower lumbar spines but I favor these are degenerative. IMPRESSION: 1. Chest CT: Lymphadenopathy supraclavicular, axilla, mediastinum and hilum and retrocrural. Largest lymph nodes i n the axilla. The largest measures 2.8 cm in the LEFT axilla. The number of lymph nodes in the medias tinum and hailey is abnormal. 2. Abdomen and pelvis CT: Extensive lymphadenopathy within the abdomen and pelvis. There are large lymph nodes in the maryam hep atis, retroperitoneum and extensively along the iliac arteries including the internal and external il iac arteries, obturator lymph nodes and inguinal lymph nodes. Largest lymph node in the RIGHT inguina l region measures 5.2 x 2.6 cm. 3. Splenomegaly, 17.2 cm in length. 4. Abnormal enhancement of each kidney. There is decreased enhancement with mild enlargement of the L EFT kidney and perinephric stranding and edema. Suspect tumor infiltration of the kidneys. Alternativ buster pyelonephritis should be considered. 5. There is some very mild wall thickening involving the jejunum which could be due to under distenti on. Tumor infiltration not excluded. 6. Cholelithiasis without acute cholecystitis. 7. L4 anterolisthesis by 1.6 cm with bilateral pars defects.
[2023-08-10] MEDS: iohexol 350 mg/mL 500 mL Btl (per mL) PO (16:31)
[2023-08-10] MEDS: iohexol 350 mg/mL 500 mL Btl (per mL) IV (17:25)
== END 2023-08-10 15:58 | disposition home or self-care (01) ==
LOC: RAD 15:57
PROVIDERS: PCP Nurse Practitioner; Visit Provider Internal Medicine Medical Oncology
DX: D72.820 Lymphocytosis (symptomatic) (principal); R59.0 Localized enlarged lymph nodes; R16.1 Splenomegaly, not elsewhere classified
CPT/HCPCS: 71260; 74177; Q9967

== ENCOUNTER 2023-08-11 09:25 | Oncology outpatient (recurring) (ONCR) | payer MEDICARE, MEDICAID, SELFPAY ==
[2023-08-11 09:50] VITALS: BP 155/72; PULSE 77; RESP 17; TEMP 36.8; O2SAT 97
[2023-08-11 10:23] LABS: Hematocrit 38.9 % (37-53); Mean Corpuscular HGB Conc 32.4 g/dL (30-55); Mean Corpuscular Hemoglobin 27.3 pg (27-33); Mean Corpuscular Volume 84.2 fl (82-101); Mean Platelet Volume 11.8 fL (7.4-10.4); Platelet Count 125 10^3/cmm (157-399); Red Blood Count 4.62 10^6/uL (3.85-5.65); Red Cell Distribution Width 16.4 % (12.1-15.1); White Blood Count 17.33 10^3/uL (3.29-11.43)
[2023-08-11 10:41] LABS: Alanine Aminotransferase 9 U/L (0-41); Albumin Level 3.7 g/dL (3.5-5.2); Alkaline Phosphatase 77 U/L (40-130); Anion Gap 13.9 (5-19); Aspartate Amino Transferase 11 U/L (0-40); Blood Urea Nitrogen 20 mg/dL (6-20); Calcium 8.8 mg/dL (8.5-10.5); Carbon Dioxide 24 mmol/L (22-29); Chloride 100 mmol/L (98-107); Globulin 3.2 g/dL (1.3-4.6); Glomerular Filtration Rate 44.9 mL/min (90-130); Glucose 181 mg/dL (65-115); Lactate Dehydrogenase 102 U/L (135-225); Osmolality Calculated 285 mOsm/kg (285-295); Potassium 3.9 mmol/L (3.5-5.1); Sodium 134 mmol/L (136-145); Total Bilirubin 0.5 mg/dL (0.15-1.2); Total Protein 6.9 g/dL (6.6-8.7)
[2023-08-11 11:01] LABS: Slide Review Slide Review Perform
[2023-08-11 11:02] LABS: Absolute Eosinophils 0.3 10^3/cmm (0.0-0.7); Absolute Neutrophil 5.5 10^3/cmm (1.4-6.5); Absolute Segmented Neutrophil 5.5 10/cmm (1.6-7.1); Eosinophils 2 %; Lymphocytes 39 %; Lymphocytes Absolute 10.2 10^3/cmm (1.2-3.4); Monocytes Absolute 0.9 10^3/cmm (0.1-0.6); Platelet Estimate Decreased (Normal); Segmented Neutrophils 32 %; Total Cells Counted 100 (0-100)
[2023-08-11 11:03] LABS: Giant Platelets Trace
[2023-08-12 07:29] LABS: PROTEIN, TOTAL 6.6 g/dL (6.1-8.1)
[2023-08-13 16:11] LABS: ALBUMIN 3.4 g/dL (3.8-4.8); ALPHA 1 GLOBULIN 0.5 g/dL (0.2-0.3); BETA 1 GLOBULIN 0.4 g/dL (0.4-0.6); BETA 2 GLOBULIN 0.5 g/dL (0.2-0.5); GAMMA GLOBULIN 0.9 g/dL (0.8-1.7)
[2023-08-19 08:38] LABS: CLL Prognostic Panel (BBPL) See Report
== END 2023-08-14 23:59 | disposition home or self-care (01) ==
PROVIDERS: PCP Nurse Practitioner; Visit Provider Internal Medicine Medical Oncology
DX: E11.9 Type 2 diabetes mellitus without complications (principal); F17.210 Nicotine dependence, cigarettes, uncomplicated; Z79.899 Other long term (current) drug therapy; C91.10 Chronic lymphocytic leukemia of B-cell type not having achieved remission; R89.7 Abnormal histological findings in specimens from other organs, systems and tissues
CPT/HCPCS: 36415; 80053; 81263; 82232; 83615; 84155; 84165; 85007; 85025; 86334; 88185; 88264; 88271; 88367; 88374; 99215

== ENCOUNTER 2023-08-17 11:40 | Outpatient (RCR) | payer MEDICARE, MEDICAID, SELFPAY | END 2023-09-14 23:59 | disposition home or self-care (01) | LOC: CR 11:40 | PROVIDERS: PCP Nurse Practitioner; Referring Provider Internal Medicine Cardiovascular Disease; Visit Provider Internal Medicine Cardiovascular Disease | DX: I25.10 Atherosclerotic heart disease of native coronary artery without angina pectoris (principal) | CPT/HCPCS: 93798 ==

== ENCOUNTER 2023-08-25 09:49 | Emergency (ER) | payer MEDICARE, SELFPAY ==
[2023-08-25] VITALS (22 sets, daily range): BP systolic 90–136; BP diastolic 48–78; PULSE 65–98; RESP 18; TEMP 37.1; O2SAT 95–100; BMI 30.7
--- NOTE | 2023-08-25 10:35 | CT_ITS ---
WS: [id number] CT PELVIS WITH CONTRAST HISTORY: perineal mass/infection TECHNIQUE: Contiguous imaging is performed of the pelvis with contrast. Coronal and sagittal reformat s are reviewed. All CT scans at [facility] use at least one of these dose optimization techni ques: automated exposure control; mA and/or kV adjustment per patient size (includes targeted exams w here dose is matched to clinical indication); or iterative reconstruction. DLP: 468.15 mGy.cm COMPARISON: 08/10/2023 Enhancing complex fluid collection containing air in the perineum. Slightly greater extending to the RIGHT of midline but does extend across the midline. Collection measures 4.0 x 5.3 cm and extends ove r a length of 3.7 cm. There is adjacent fat stranding and inflammatory changes. Patient has known and recently described lymphadenopathy within the pelvis. Retroperitoneal, iliac, o bturator and inguinal lymph nodes are reidentified. There are numerous enlarged lymph nodes noted janice aterally. Some of these lymph nodes have slightly increased in size. New significant fat stranding in the RIGHT retroperitoneum contiguous with the psoas muscle. This is probably contiguous with the inf erior pole of the RIGHT kidney. Abnormal enhancement which is likely due to tumor infiltration was no lashell in the lower pole of the RIGHT kidney along with a complex mass. These findings of retroperitonea l fat stranding are new since 08/10/2023. The appendix is not definitely identified. 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 IMPRESSION: 1. Interval development of a complex fluid collection containing air in the perineum consistent with an abscess. Abscess measures 4.0 x 5.3 x 3.7 cm. 2. Patient has known lymphadenopathy within the pelvis that was recently described on 08/10/2023. No i mprovement in the size of the extensive adenopathy. Some of these lymph nodes have increased in size. 3. New soft tissue fat stranding in the RIGHT retroperitoneum adjacent to the psoas muscle. Etiology is not certain but this may be contiguous with the lower pole of the RIGHT kidney. There was a previo usly described mass and tumor infiltration noted on 08/10/2023. Notified GREG Puente at 08/25/2023 1:14 PM.
--- NOTE | 2023-08-25 10:36 | ED_ITS ---
Documented by User: GREG Puente 08/25/23 17:02 HPI - Skin/Abscess/Foreign Bdy General: Chief complaint: Skin/Abscess/Foreign Body Stated complaint: rectal issues Time Seen by Provider: 08/25/23 10:11 Source: patient and family Mode of arrival: ambulatory Limitations: no limitations History of Present Illness: Patient is 58-year-old male with a extensive PMH including CLL and diabetes here for complaints of a perineal mass/abscess. Patient states he began noticing symptoms about 5 to 6 days ago. He saw his primary care provider yesterday and placed on Augmentin. Patient and family states symptoms have seemed to significantly worsen since yesterday. He is not having any painful defecation. Family states region did seem to be draining a purulent/bloody material yesterday. Reports subjective fevers/chills. Patient reports he has not been taking any of his home medications. He has not yet started any form of treatment for the CLL. He is supposed to be meeting with bilingual customer service specialist in [facility] on WednesdayAug 30. He followed up with a urologist on 08/[address] findings associated with the kidney-plan from urology was to hold off on any form of intervention until he met with oncology in [facility]. complaint: abscess/boil Onset (ago): day(s) Tetanus up to date: yes Location: genitals Severity: moderate Pain Consistency: constant Relieving factors: none Exacerbating factors: none Associated symptoms: Reports chills and fever(s) (subjective); Deny nausea or vomiting Treatments prior to arrival: antibiotic Review of Systems Const: Reports: fever(s) (subjective), chills and fatigue (chronic); Denies: body aches or malaise Card: Denies: chest pain Resp: Denies: dyspnea GI: Reports: other (perineal pain/swelling); Denies: abdominal pain, nausea, vomiting, diarrhea, rectal pain, rectal swelling or hematochezia : Denies: flank pain, difficulty urinating, dysuria, urinary frequency or urinary urgency Skin/Breast: Denies: rash Neuro: Denies: dizziness PFSH ED 2 PFSH: Medical History AMI inferior wall Arthritis Colonoscopy planned Coronary artery disease 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 DDD (degenerative disc disease) Diabetes Enrolled in chronic care management Erectile dysfunction Essential hypertension GERD (gastroesophageal reflux disease) History of basal cell cancer History of Helicobacter infection History of tobacco abuse Hyperlipidemia Hypertension Low back pain with radiation Lumbar disc disease Rotator cuff arthropathy of right shoulder Smoker Tinnitus Vertigo, benign positional Surgical History H/O repair of rotator cuff History of umbilical hernia repair Hx of colonoscopy with polypectomy age 52 Family History Mother , at the age of 74 Cancer thyroid cancer Lung disease emphysema Hypertension Father , at the age of 74 CAD (coronary artery disease) Other Stroke Social History Smoking and tobacco/nicotine status: current every day tobacco/nicotine user (2 packs a day since age 18) cigarettes Packs smoked per day: 2 Years cigarettes smoked: 45 Alcohol intake: current Alcohol intake frequency: few times a month Physical Exam Const: COMMON NORMALS: no acute distress, patient oriented x3, no limitations, alert and well nourished Resp: COMMON NORMALS: normal respiratory effort and clear to auscultation bilaterally AUSCULTATION: clear to auscultation bilaterally Cardio: COMMON NORMALS: regular rate and regular rhythm RATE: regular rate RHYTHM: regular rhythm GI: COMMON NORMALS: Normal to inspection, nondistended, normoactive bowel sounds present, Soft to palpation, non-tender and No hepatosplenomegaly present PALPATION: Yes Soft to palpation and Yes No hepatosplenomegaly present OTHER: pt has a large firm mass about 2 inches x 2 inches to perineal region with mild overlying erythema; there seems to be some crypt formations without active drainage although states they were draining yesterday; no scrotal involvement at this time Back/Pelvis: COMMON NORMALS: thoracic and lumbar spine normal to inspection, no thoracic nor lumbar tenderness and thoraco-lumbar ROM normal Extremity: GENERAL: Yes normal exam except as noted Neuro: COMMON NORMALS: patient oriented x3, moves all extremities, no focal motor deficits and no sensory deficits noted SENSORIUM/ORIENTATION: Yes alert Course ED course: As of 1624 we have contacted [facility] which do not have bed availability. [facility] has a multiday wait list. [facility] does not have urology coverage at this time. [facility] wait list is several days long as well. [facility] may have a bed available tomorrow. [facility] did not have a bed. Can potentially try [facility]. Contacted [facility] and left message/gave patient information and they will call back. Contacted [facility] in [place] and they do not have a bed available. [facility] did take report and will call us back. Vital Signs: Vital signs: Vital Signs Temperature 98.7 F 08/25/23 10:04 Pulse Rate 75 08/26/23 13:11 Respiratory Rate 16 08/26/23 10:48 Blood Pressure 126/64 08/26/23 13:11 Pulse Oximetry 99 08/26/23 13:11 Oxygen Delivery Me thod Room Air 08/26/23 13:11 MDM - Skin/Abscess/Foreign Bdy Medicial Decision Making Patient is a 58-year-old male with a history of CLL, diabetes, CAD here for complaints of swelling to his perineal region. He was recently put on antibiotics for this but feels like symptoms have significantly worsened over the last day thus prompting his ED visit. On exam he had a likely abscess to the perineal region. CT pelvis imaging was initially obtained which did confirm a large 4.0 x 5.3 x 3.7 cm perineal abscess. On pelvic imaging there did seem to be some new stranding to the right retroperitoneal stranding. Entire kidney was not visualized due to this being a pelvis only CT scan. Patient had a CT scan on 08/12 which did visualize the kidney. At that time there was an exophytic mass that radiologist felt was most likely tumor extension. His UA subsequently came back here and is grossly infected with 2+ leuks and 80-100 WBCs. I went ahead and ordered CT renal imaging to visualize kidney as I suspected a kidney abscess based on urine results and the amount of new stranding and edema that we could visualize on pelvis CT. This imaging was confirmatory for a kidney abscess unfortunately. Patient has been started on Zosyn which should provide coverage for his perineal and kidney abscess. He will need to be transferred as we do not have urology. Lab Data 08/25/23 10:52 08/25/23 10:52 Laboratory Results WBC 16.88 10^3/uL (3.29-11.43) H 08/25/23 10:52 RBC 4.46 10^6/uL (3.85-5.65) 08/25/23 10:52 Hgb 12.20 g/dL (11.27-16.99) 08/25/23 10:52 Hct 38.0 % (37-53) 08/25/23 10:52 MCV 85.2 fl (82-101) 08/25/23 10:52 MCH 27.4 pg (27-33) 08/25/23 10:52 MCHC 32.1 g/dL (30-55) 08/25/23 10:52 RDW 15.6 % (12.1-15.1) H 08/25/23 10:52 Plt Count 231 10^3/cmm (157-399) 08/25/23 10:52 MPV 10.8 fL (7.4-10.4) H 08/25/23 10:52 Lymph % (Auto) Not Reportable 08/25/23 10:52 [place] % (Auto) Not Reportable 08/25/23 10:52 Lymph # (Auto) Not Reportable 08/25/23 10:52 [place] # (Auto) Not Reportable 08/25/23 10:52 Total Counted 100 (0-100) 08/25/23 10:52 Atypical Lymphs % 7.0 % (0-5) H 08/25/23 10:52 Absolute Neutrophils 10.3 10^3/cmm (1.4-6.5) H 08/25/23 10:52 Segmented Neutrophils 59 % 08/25/23 10:52 Abs Segm Neuts (Man) 10.0 10/cmm (1.6-7.1) H 08/25/23 10:52 Band Neutrophils 2.0 % 08/25/23 10:52 Abs Band Neuts (Man) 0.3 10^3/cmm (0.0-1.2) 08/25/23 10:52 Absolute Lymphocytes 5.6 10^3/cmm (1.2-3.4) H 08/25/23 10:52 Lymphocytes (Manual) 26 % 08/25/23 10:52 Monocytes (Manual) 4.0 % 08/25/23 10:52 Absolute Monocytes 0.7 10^3/cmm (0.1-0.6) H 08/25/23 10:52 Eosinophils (Manual) 0 % 08/25/23 10:52 Absolute Eosinophils 0.0 10^3/cmm (0.0-0.7) 08/25/23 10:52 Basophils (Manual) 0.0 % 08/25/23 10:52 Absolute Basophils 0.0 10^3/cmm (0.0-0.2) 08/25/23 10:52 Metamyelocytes 2.0 % 08/25/23 10:52 Platelet Estimate Normal (Normal) 08/25/23 10:52 Polychromasia 1+ H 08/25/23 10:52 Sodium 134 mmol/L (136-145) L 08/25/23 10:52 Potassium 4.3 mmol/L (3.5-5.1) 08/25/23 10:52 Chloride 99 mmol/L (98-107) 08/25/23 10:52 Carbon Dioxide 24 mmol/L (22-29) 08/25/23 10:52 Anion Gap 15.3 (5-19) 08/25/23 10:52 BUN 18 mg/dL (6-20) 08/25/23 10:52 Creatinine 1.4 mg/dL (0.7-1.2) H 08/25/23 10:52 GFR Calculation 52.4 mL/min (90-130) L 08/25/23 10:52 Glucose 170 mg/dL (65-115) H 08/25/23 10:52 POC Glucose 110 mg/dL (70-110) 08/26/23 08:14 Calculated Osmolality 284 mOsm/kg (285-295) L 08/25/23 10:52 Lactic Acid 1.0 mmol/L (0.5-2.2) 08/25/23 10:52 Calcium 9.2 mg/dL (8.5-10.5) 08/25/23 10:52 Total Bilirubin 0.6 mg/dL (0.15-1.2) 08/25/23 10:52 AST 21 U/L (0-40) 08/25/23 10:52 ALT 36 U/L (0-41) 08/25/23 10:52 Alkaline Phosphatase 111 U/L (40-130) 08/25/23 10:52 C-Reactive Protein 164.3 mg/L (0.0-4.9) H 08/25/23 10:52 Total Protein 7.1 g/dL (6.6-8.7) 08/25/23 10:52 Albumin 3.4 g/dL (3.5-5.2) L 08/25/23 10:52 Globulin 3.7 g/dL (1.3-4.6) 08/25/23 10:52 Urine Color Yellow (Yellow) 08/25/23 13:05 Urine Appearance Hazy (CLEAR) A 08/25/23 13:05 Urine pH 6.5 (5-7) 08/25/23 13:05 Ur Specific [place] 1.005 (1.005-1.030) 08/25/23 13:05 Urine Protein Trace (Negative) 08/25/23 13:05 Urine Glucose (UA) Norm (Normal) 08/25/23 13:05 Urine Ketones Negative (Negative) 08/25/23 13:05 Urine Blood 2+ (Negative) H 08/25/23 13:05 Urine Nitrate Negative (Negative) 08/25/23 13:05 Urine Bilirubin Neg (Negative) 08/25/23 13:05 Urine Urobilinogen Norm mg/dL (Negative) 08/25/23 13:05 Ur Leukocyte Esterase 2+ (Negative) H 08/25/23 13:05 Urine RBC 5-10 /hpf (0-2) H 08/25/23 13:05 Urine WBC 80-100 /hpf (0-5) H 08/25/23 13:05 Ur Squamous Epith Cells 0-4 /hpf (0-5) H 08/25/23 13:05 Amorphous Sediment Not Reportable 08/25/23 13:05 Urine Bacteria 1+ /hpf (NONE) H 08/25/23 13:05 Urine Mucus Trace /hpf 08/25/23 13:05 Discharge Plan Discharge Patient Disposition: Xfer Short-Term Hosp Clinical Impression: Abscess of perineum, Chronic lymphocytic leukemia, Abscess of right kidney, Diabetes Condition: Stable Referrals: Jessica Yang, CHECK WRITING MACHINE OPERATOR [Primary Care Provider] - Coding Level of Care Code ED Dramatic Reader for Chg Fwd Documented by User: SARAH Ngo 08/26/23 15:09 HPI - Skin/Abscess/Foreign Bdy General: Chief complaint: Skin/Abscess/Foreign Body Stated complaint: rectal issues Time Seen by Provider: 08/25/23 10:11 PFSH ED PFSH: Medical History AMI inferior wall Arthritis Colonoscopy planned Coronary artery disease 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 DDD (degenerative disc disease) Diabetes Enrolled in chronic care management Erectile dysfunction Essential hypertension GERD (gastroesophageal reflux disease) History of basal cell cancer History of Helicobacter infection History of tobacco abuse Hyperlipidemia Hypertension Low back pain with radiation Lumbar disc disease Rotator cuff arthropathy of right shoulder Smoker Tinnitus Vertigo, benign positional Surgical History H/O repair of rotator cuff History of umbilical hernia repair Hx of colonoscopy with polypectomy age 52 Family History Mother , at the age of 74 Cancer thyroid cancer Lung disease emphysema Hypertension Father , at the age of 74 CAD (coronary artery disease) Other Stroke Social History Smoking and tobacco/nicotine status: current every day tobacco/nicotine user (2 packs a day since age 18) cigarettes Packs smoked per day: 2 Years cigarettes smoked: 45 Alcohol intake: current Alcohol intake frequency: few times a month Course ED course: As of 1624 we have contacted [facility] do not have bed availability. [facility] has a multiday wait list. [facility] does not have urology coverage at this time. [facility] wait list is several days long as well. [facility] may have a bed available tomorrow. [facility] did not have a bed. Can potentially try [facility]. Contacted [facility] and left message/gave patient information and they will call back. Contacted [facility] in [place] and they do not have a bed available. [facility] did take report and will call us back. 1734, reviewed with patient the delay for placement to a available hospital with urology and surgical consult. Patient appears nontoxic. Patient is alert and responding appropriately questions. Physical exam notes a chronically ill- appearing patient, patient has redness to the perineal area swelling between the scrotum and anal opening. Induration is noted, purulent drainage is noted. Patient states that he had a CT of the abdomen pelvis done 2 weeks ago that noted the abnormality on the right kidney over the last 5 days he has had increasing abdominal pain and increasing redness and tenderness in his perineal area. Draining from the perineal area that started yesterday. 1949, discussed case with surgeon at [facility]. He agreed to consult with the patient if transferred to their facility for further evaluation regarding the perineal abscess and renal abscess. 2013, patient was excepted by Dr. De Oliveira at [facility] hospitalist services. Vital Signs: Vital signs: Vital Signs Temperature 98.7 F 08/25/23 10:04 Pulse Rate 75 08/26/23 13:11 Respiratory Rate 16 08/26/23 10:48 Blood Pressure 126/64 08/26/23 13:11 Pulse Oximetry 99 08/26/23 13:11 Oxygen Delivery Me thod Room Air 08/26/23 13:11 MDM - Skin/Abscess/Foreign Bdy Lab Data 08/25/23 10:52 08/25/23 10:52 Laboratory Results WBC 16.88 10^3/uL (3.29-11.43) H 08/25/23 10:52 RBC 4.46 10^6/uL (3.85-5.65) 08/25/23 10:52 Hgb 12.20 g/dL (11.27-16.99) 08/25/23 10:52 Hct 38.0 % (37-53) 08/25/23 10:52 MCV 85.2 fl (82-101) 08/25/23 10:52 MCH 27.4 pg (27-33) 08/25/23 10:52 MCHC 32.1 g/dL (30-55) 08/25/23 10:52 RDW 15.6 % (12.1-15.1) H 08/25/23 10:52 Plt Count 231 10^3/cmm (157-399) 08/25/23 10:52 MPV 10.8 fL (7.4-10.4) H 08/25/23 10:52 Lymph % (Auto) Not Reportable 08/25/23 10:52 [place] % (Auto) Not Reportable 08/25/23 10:52 Lymph # (Auto) Not Reportable 08/25/23 10:52 [place] # (Auto) Not Reportable 08/25/23 10:52 Total Counted 100 (0-100) 08/25/23 10:52 Atypical Lymphs % 7.0 % (0-5) H 08/25/23 10:52 Absolute Neutrophils 10.3 10^3/cmm (1.4-6.5) H 08/25/23 10:52 Segmented Neutrophils 59 % 08/25/23 10:52 Abs Segm Neuts (Man) 10.0 10/cmm (1.6-7.1) H 08/25/23 10:52 Band Neutrophils 2.0 % 08/25/23 10:52 Abs Band Neuts (Man) 0.3 10^3/cmm (0.0-1.2) 08/25/23 10:52 Absolute Lymphocytes 5.6 10^3/cmm (1.2-3.4) H 08/25/23 10:52 Lymphocytes (Manual) 26 % 08/25/23 10:52 Monocytes (Manual) 4.0 % 08/25/23 10:52 Absolute Monocytes 0.7 10^3/cmm (0.1-0.6) H 08/25/23 10:52 Eosinophils (Manual) 0 % 08/25/23 10:52 Absolute Eosinophils 0.0 10^3/cmm (0.0-0.7) 08/25/23 10:52 Basophils (Manual) 0.0 % 08/25/23 10:52 Absolute Basophils 0.0 10^3/cmm (0.0-0.2) 08/25/23 10:52 Metamyelocytes 2.0 % 08/25/23 10:52 Platelet Estimate Normal (Normal) 08/25/23 10:52 Polychromasia 1+ H 08/25/23 10:52 Sodium 134 mmol/L (136-145) L 08/25/23 10:52 Potassium 4.3 mmol/L (3.5-5.1) 08/25/23 10:52 Chloride 99 mmol/L (98-107) 08/25/23 10:52 Carbon Dioxide 24 mmol/L (22-29) 08/25/23 10:52 Anion Gap 15.3 (5-19) 08/25/23 10:52 BUN 18 mg/dL (6-20) 08/25/23 10:52 Creatinine 1.4 mg/dL (0.7-1.2) H 08/25/23 10:52 GFR Calculation 52.4 mL/min (90-130) L 08/25/23 10:52 Glucose 170 mg/dL (65-115) H 08/25/23 10:52 POC Glucose 110 mg/dL (70-110) 08/26/23 08:14 Calculated Osmolality 284 mOsm/kg (285-295) L 08/25/23 10:52 Lactic Acid 1.0 mmol/L (0.5-2.2) 08/25/23 10:52 Calcium 9.2 mg/dL (8.5-10.5) 08/25/23 10:52 Total Bilirubin 0.6 mg/dL (0.15-1.2) 08/25/23 10:52 AST 21 U/L (0-40) 08/25/23 10:52 ALT 36 U/L (0-41) 08/25/23 10:52 Alkaline Phosphatase 111 U/L (40-130) 08/25/23 10:52 C-Reactive Protein 164.3 mg/L (0.0-4.9) H 08/25/23 10:52 Total Protein 7.1 g/dL (6.6-8.7) 08/25/23 10:52 Albumin 3.4 g/dL (3.5-5.2) L 08/25/23 10:52 Globulin 3.7 g/dL (1.3-4.6) 08/25/23 10:52 Urine Color Yellow (Yellow) 08/25/23 13:05 Urine Appearance Hazy (CLEAR) A 08/25/23 13:05 Urine pH 6.5 (5-7) 08/25/23 13:05 Ur Specific [place] 1.005 (1.005-1.030) 08/25/23 13:05 Urine Protein Trace (Negative) 08/25/23 13:05 Urine Glucose (UA) Norm (Normal) 08/25/23 13:05 Urine Ketones Negative (Negative) 08/25/23 13:05 Urine Blood 2+ (Negative) H 08/25/23 13:05 Urine Nitrate Negative (Negative) 08/25/23 13:05 Urine Bilirubin Neg (Negative) 08/25/23 13:05 Urine Urobilinogen Norm mg/dL (Negative) 08/25/23 13:05 Ur Leukocyte Esterase 2+ (Negative) H 08/25/23 13:05 Urine RBC 5-10 /hpf (0-2) H 08/25/23 13:05 Urine WBC 80-100 /hpf (0-5) H 08/25/23 13:05 Ur Squamous Epith Cells 0-4 /hpf (0-5) H 08/25/23 13:05 Amorphous Sediment Not Reportable 08/25/23 13:05 Urine Bacteria 1+ /hpf (NONE) H 08/25/23 13:05 Urine Mucus Trace /hpf 08/25/23 13:05 Discharge Plan Discharge Patient Disposition: Xfer Short-Term Hosp Clinical Impression: Abscess of perineum, Chronic lymphocytic leukemia, Abscess of right kidney, Diabetes Condition: Stable Referrals: Jessica Yang FNP [Primary Care Provider] - Coding Level of Care Code ED Dramatic Reader for Chg Fwd Documented by User: Agapito Valdovinos DO 08/26/23 15:05 HPI - Skin/Abscess/Foreign Bdy General: Chief complaint: Skin/Abscess/Foreign Body Stated complaint: rectal issues Time Seen by Provider: 08/25/23 10:11 PFSH ED PFSH: Medical History AMI inferior wall Arthritis Colonoscopy planned Coronary artery disease 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 DDD (degenerative disc disease) Diabetes Enrolled in chronic care management Erectile dysfunction Essential hypertension GERD (gastroesophageal reflux disease) History of basal cell cancer History of Helicobacter infection History of tobacco abuse Hyperlipidemia Hypertension Low back pain with radiation Lumbar disc disease Rotator cuff arthropathy of right shoulder Smoker Tinnitus Vertigo, benign positional Surgical History H/O repair of rotator cuff History of umbilical hernia repair Hx of colonoscopy with polypectomy age 52 Family History Mother , at the age of 74 Cancer thyroid cancer Lung disease emphysema Hypertension Father , at the age of 74 CAD (coronary artery disease) Other Stroke Social History Smoking and tobacco/nicotine status: current every day tobacco/nicotine user (2 packs a day since age 18) cigarettes Packs smoked per day: 2 Years cigarettes smoked: 45 Alcohol intake: current Alcohol intake frequency: few times a month Course Vital Signs: Vital signs: Vital Signs Temperature 98.7 F 08/25/23 10:04 Pulse Rate 75 08/26/23 13:11 Respiratory Rate 16 08/26/23 10:48 Blood Pressure 126/64 08/26/23 13:11 Pulse Oximetry 99 08/26/23 13:11 Oxygen Delivery Me thod Room Air 08/26/23 13:11 MDM - Skin/Abscess/Foreign Bdy Medicial Decision Making Patient is a 58-year-old male with a history of CLL, diabetes, CAD here for complaints of swelling to his perineal region. He was recently put on antibiotics for this but feels like symptoms have significantly worsened over the last day thus prompting his ED visit. On exam he had a likely abscess to the perineal region. CT pelvis imaging was initially obtained which did confirm a large 4.0 x 5.3 x 3.7 cm perineal abscess. On pelvic imaging there did seem to be some new stranding to the right retroperitoneal stranding. Entire kidney was not visualized due to this being a pelvis only CT scan. Patient had a CT scan on 08/12 which did visualize the kidney. At that time there was an exophytic mass that radiologist felt was most likely tumor extension. His UA subsequently came back here and is grossly infected with 2+ leuks and 80-100 WBCs. I went ahead and ordered CT renal imaging to visualize kidney as I suspected a kidney abscess based on urine results and the amount of new stranding and edema that we could visualize on pelvis CT. This imaging was confirmatory for a kidney abscess unfortunately. Patient has been started on Zosyn which should provide coverage for his perineal and kidney abscess. He will need to be transferred as we do not have urology. Case reviewed and discussed with GREG Puente agree with assessment plan and disposition. Staff is working on transfer arrangements at this time. Most of facilities we have called initially do not have available beds. Case reviewed with Dr. Brink who will continue to work with staff for placement. 08/26/2023 9:12 AM Reviewed chart again discussed with Dr. Sheriff hospitalist at [facility]. They will accept. In reviewing chart noted patient is on Plavix. Reviewed cardiology note he had a stent placed in April in his RCA which is mostly occluded at that time wrote for Plavix for the patient this morning discussed with hospitalist they will deal with the Plavix in regards to any interventions but we felt that given his recent stent placement this was important that he continue to take. Patient is refusing the Plavix states he has not been taking it for some time now. I discussed with him the importance of taking it and the potential complications that can come from not taking it despite this he refuses to take it he feels given the potential for lymphoma that he should no longer be taking it. Advised him the immediate risk was greater with his stent unprotected not taking the Plavix he expressed an difference and still refuses to take the Plavix. Room assignment received patient transferred via [facility] to [facility] Dr. Skinner receiving for admission Medical Records I reviewed the patient's medical records. Lab Data I reviewed the patient's lab results. 08/25/23 10:52 08/25/23 10:52 Laboratory Results WBC 16.88 10^3/uL (3.29-11.43) H 08/25/23 10:52 RBC 4.46 10^6/uL (3.85-5.65) 08/25/23 10:52 Hgb 12.20 g/dL (11.27-16.99) 08/25/23 10:52 Hct 38.0 % (37-53) 08/25/23 10:52 MCV 85.2 fl (82-101) 08/25/23 10:52 MCH 27.4 pg (27-33) 08/25/23 10:52 MCHC 32.1 g/dL (30-55) 08/25/23 10:52 RDW 15.6 % (12.1-15.1) H 08/25/23 10:52 Plt Count 231 10^3/cmm (157-399) 08/25/23 10:52 MPV 10.8 fL (7.4-10.4) H 08/25/23 10:52 Lymph % (Auto) Not Reportable 08/25/23 10:52 [place] % (Auto) Not Reportable 08/25/23 10:52 Lymph # (Auto) Not Reportable 08/25/23 10:52 [place] # (Auto) Not Reportable 08/25/23 10:52 Total Counted 100 (0-100) 08/25/23 10:52 Atypical Lymphs % 7.0 % (0-5) H 08/25/23 10:52 Absolute Neutrophils 10.3 10^3/cmm (1.4-6.5) H 08/25/23 10:52 Segmented Neutrophils 59 % 08/25/23 10:52 Abs Segm Neuts (Man) 10.0 10/cmm (1.6-7.1) H 08/25/23 10:52 Band Neutrophils 2.0 % 08/25/23 10:52 Abs Band Neuts (Man) 0.3 10^3/cmm (0.0-1.2) 08/25/23 10:52 Absolute Lymphocytes 5.6 10^3/cmm (1.2-3.4) H 08/25/23 10:52 Lymphocytes (Manual) 26 % 08/25/23 10:52 Monocytes (Manual) 4.0 % 08/25/23 10:52 Absolute Monocytes 0.7 10^3/cmm (0.1-0.6) H 08/25/23 10:52 Eosinophils (Manual) 0 % 08/25/23 10:52 Absolute Eosinophils 0.0 10^3/cmm (0.0-0.7) 08/25/23 10:52 Basophils (Manual) 0.0 % 08/25/23 10:52 Absolute Basophils 0.0 10^3/cmm (0.0-0.2) 08/25/23 10:52 Metamyelocytes 2.0 % 08/25/23 10:52 Platelet Estimate Normal (Normal) 08/25/23 10:52 Polychromasia 1+ H 08/25/23 10:52 Sodium 134 mmol/L (136-145) L 08/25/23 10:52 Potassium 4.3 mmol/L (3.5-5.1) 08/25/23 10:52 Chloride 99 mmol/L (98-107) 08/25/23 10:52 Carbon Dioxide 24 mmol/L (22-29) 08/25/23 10:52 Anion Gap 15.3 (5-19) 08/25/23 10:52 BUN 18 mg/dL (6-20) 08/25/23 10:52 Creatinine 1.4 mg/dL (0.7-1.2) H 08/25/23 10:52 GFR Calculation 52.4 mL/min (90-130) L 08/25/23 10:52 Glucose 170 mg/dL (65-115) H 08/25/23 10:52 POC Glucose 110 mg/dL (70-110) 08/26/23 08:14 Calculated Osmolality 284 mOsm/kg (285-295) L 08/25/23 10:52 Lactic Acid 1.0 mmol/L (0.5-2.2) 08/25/23 10:52 Calcium 9.2 mg/dL (8.5-10.5) 08/25/23 10:52 Total Bilirubin 0.6 mg/dL (0.15-1.2) 08/25/23 10:52 AST 21 U/L (0-40) 08/25/23 10:52 ALT 36 U/L (0-41) 08/25/23 10:52 Alkaline Phosphatase 111 U/L (40-130) 08/25/23 10:52 C-Reactive Protein 164.3 mg/L (0.0-4.9) H 08/25/23 10:52 Total Protein 7.1 g/dL (6.6-8.7) 08/25/23 10:52 Albumin 3.4 g/dL (3.5-5.2) L 08/25/23 10:52 Globulin 3.7 g/dL (1.3-4.6) 08/25/23 10:52 Urine Color Yellow (Yellow) 08/25/23 13:05 Urine Appearance Hazy (CLEAR) A 08/25/23 13:05 Urine pH 6.5 (5-7) 08/25/23 13:05 Ur Specific [place] 1.005 (1.005-1.030) 08/25/23 13:05 Urine Protein Trace (Negative) 08/25/23 13:05 Urine Glucose (UA) Norm (Normal) 08/25/23 13:05 Urine Ketones Negative (Negative) 08/25/23 13:05 Urine Blood 2+ (Negative) H 08/25/23 13:05 Urine Nitrate Negative (Negative) 08/25/23 13:05 Urine Bilirubin Neg (Negative) 08/25/23 13:05 Urine Urobilinogen Norm mg/dL (Negative) 08/25/23 13:05 Ur Leukocyte Esterase 2+ (Negative) H 08/25/23 13:05 Urine RBC 5-10 /hpf (0-2) H 08/25/23 13:05 Urine WBC 80-100 /hpf (0-5) H 08/25/23 13:05 Ur Squamous Epith Cells 0-4 /hpf (0-5) H 08/25/23 13:05 Amorphous Sediment Not Reportable 08/25/23 13:05 Urine Bacteria 1+ /hpf (NONE) H 08/25/23 13:05 Urine Mucus Trace /hpf 08/25/23 13:05 All radiology interpretation(s) finalized by discharge Discharge Plan Discharge Patient Disposition: Xfer Short-Term Hosp Clinical Impression: Abscess of perineum, Chronic lymphocytic leukemia, Abscess of right kidney, Diabetes Condition: Stable Referrals: Jessica Yang FNP [Primary Care Provider] - Coding Level of Care Code ED Dramatic Reader for Germaine Carranza
--- NOTE | 2023-08-25 10:58 | PC.PHAR ---
PT STS HE IS NOT TAKING ANY OF HIS MEDICATIONS EXCEPT AMOXICILLIN DUE TO STOMACH UPSET
[2023-08-25] MEDS: sodium chloride 0.9% 1,000 ML 999 ML IV (11:08)
[2023-08-25 11:10] LABS: Mean Corpuscular HGB Conc 32.1 g/dL (30-55); Mean Corpuscular Hemoglobin 27.4 pg (27-33); Mean Corpuscular Volume 85.2 fl (82-101); Mean Platelet Volume 10.8 fL (7.4-10.4); Platelet Count 231 10^3/cmm (157-399); Red Blood Count 4.46 10^6/uL (3.85-5.65); Red Cell Distribution Width 15.6 % (12.1-15.1); White Blood Count 16.88 10^3/uL (3.29-11.43)
[2023-08-25 11:29] LABS: Alanine Aminotransferase 36 U/L (0-41); Albumin Level 3.4 g/dL (3.5-5.2); Alkaline Phosphatase 111 U/L (40-130); Anion Gap 15.3 (5-19); Aspartate Amino Transferase 21 U/L (0-40); Blood Urea Nitrogen 18 mg/dL (6-20); C Reactive Protein 164.3 mg/L (0.0-4.9); Calcium 9.2 mg/dL (8.5-10.5); Carbon Dioxide 24 mmol/L (22-29); Chloride 99 mmol/L (98-107); Globulin 3.7 g/dL (1.3-4.6); Glomerular Filtration Rate 52.4 mL/min (90-130); Glucose 170 mg/dL (65-115); Osmolality Calculated 284 mOsm/kg (285-295); Potassium 4.3 mmol/L (3.5-5.1); Sodium 134 mmol/L (136-145); Total Bilirubin 0.6 mg/dL (0.15-1.2); Total Protein 7.1 g/dL (6.6-8.7)
[2023-08-25 12:01] LABS: Slide Review Slide Review Perform; Total Cells Counted 100 (0-100)
[2023-08-25 12:02] LABS: Absolute Neutrophil 10.3 10^3/cmm (1.4-6.5); Band Neutrophils Absolute 0.3 10^3/cmm (0.0-1.2); Eosinophils 0 %; Lymphocytes 26 %; Lymphocytes Absolute 5.6 10^3/cmm (1.2-3.4); Monocytes Absolute 0.7 10^3/cmm (0.1-0.6); Platelet Estimate Normal (Normal); Polychromasia 1+; Segmented Neutrophils 59 %
[2023-08-25] MEDS: iohexol 350 mg/mL 500 mL Btl (per mL) IV (12:22)
[2023-08-25] MEDS: piperacillin-tazobactam 3.375 GM in sodium chloride 0.9% (plus) 50 ML IV ×2 (12:59→19:22)
[2023-08-25 13:25] LABS: Glucose Urine UA Norm (Normal); Ketones Urine Negative (Negative); Protein Urine Trace (Negative); Specific Gravity, Urine 1.005 (1.005-1.030); Urine Appearance Hazy (CLEAR); Urine Color Yellow (Yellow); pH Urine 6.5 (5-7)
[2023-08-25 13:26] LABS: Add Urine Microscopic? YES; Bilirubin Urine Neg (Negative); Blood Urine 2+ (Negative); Leukocyte Esterase Urine 2+ (Negative); Nitrate Urine Negative (Negative); Urobilinogen Urine Norm (Negative)
[2023-08-25 13:31] LABS: Bacteria Urine 1+ /hpf; Mucus Urine TRACE /hpf; Squamous Epithelial Cell Urine 0-4 /hpf (0-5); WBC Urine 80-100 /hpf (0-5)
[2023-08-25 13:32] LABS: Add Urine Culture? Yes
--- NOTE | 2023-08-25 13:59 | CT_ITS ---
WS: [id number] CT ABDOMEN AND PELVIS NONCONTRAST HISTORY: UTI; abnormal CT pelvis scan TECHNIQUE: Imaging performed through the abdomen and pelvis. Coronal and sagittal reformats are submi tted. All CT scans at [facility] use at least one of these dose optimization techniques: auto mated exposure control; mA and/or kV adjustment per patient size (includes targeted exams where dose is matched to clinical indication); or iterative reconstruction. Patient received IV contrast for pelvic CT evaluation earlier today. DLP: 749.43 mGy.cm COMPARISON: 08/10/2023 Lower thorax: Lung bases are clear. Visualized heart is normal. No hiatal hernia. Liver: Liver is enlarged. Low-attenuation from hepatic steatosis. Gallbladder: Cholelithiasis. No acute cholecystitis. Pancreas: Normal size and attenuation. Normal pancreatic duct. No pancreatitis or mass. Spleen: Enlarged measuring 17.6 cm in length. Similar to the prior exam of 08/10/2023. Adrenal glands: Normal. No mass. Right kidney: Abnormal RIGHT kidney. On the most recent examination there is abnormal enhancement and low-attenuation in the mid to lower kidney and an exophytic low-attenuation mass from the lower pole . This was thought to be related to progression and infiltration of patient's known CLL. On today's e xamination the kidney is enlarged and there is loss of the normal corticomedullary junction. Signific ant progression of the perinephric stranding. The complex mass in the lower pole has increased in siz e with a thick wall now measuring 3.9 x 3.7 cm. There is perinephric stranding extending into the ret roperitoneum. There is no obstruction of the kidney although the calyces are being distorted by the e malgorzata or tumor infiltration of the kidney. Left kidney: Again noted is the loss of the normal corticomedullary junction of the LEFT kidney also. There is no mass. There is mild perinephric stranding. Aorta: Mild atherosclerosis abdominal aorta with no aneurysm. Patient has known extensive lymphadenopathy within the abdomen and pelvis that was recently described . Patient has known CLL. These lymph nodes have increased in size and number since the prior study. GI tract: No obstruction. Abdominal wall: Negative. No hernia. Pelvis: No free fluid in the pelvis. Urinary bladder is nondistended. There is mild wall thickening. Osseous structures: L4 anterolisthesis by 13 mm with bilateral pars defects. IMPRESSION: 1. RIGHT retroperitoneal stranding seen on today's CT of the pelvis is associated with the RIGHT kid nicci. 2. Complex cystic mass lower pole RIGHT kidney with significant peripheral enhancement, RIGHT renal enlargement and loss of the normal corticomedullary junction. Thick-walled mass from the lower pole m easures 3.9 x 3.7 cm. On the recent CT of 08/10/2023 this was thought to be tumor infiltration of the kidney from known CLL with adjacent complex cyst. There was not a lot of enhancement around the kidne y or perinephric stranding on that exam. On today's study possibility of a renal abscess involving th e lower pole mass is thought likely especially with the amount of perinephric stranding and inflammat ory changes. Superimposed tumor infiltration of the kidney is not excluded still. 3. Enlargement of the LEFT kidney. Progression of the low-attenuation throughout the LEFT kidney. Th is may be additional pyelonephritis or progression of tumor infiltration. 4. Extensive abdominal and pelvic lymphadenopathy with progression since 08/10/2023. 5. Enlarged spleen 17.6 cm. 6. Cholelithiasis. Notified GREG uPente at 08/25/2023 3:28 PM.
--- NOTE | 2023-08-25 14:43 | XR_ITS ---
WS: [id number] Portable AP upright chest, 08/25/2023 Clinical Data: admission, lymphoma, low bp Comparison: Portable chest, 02/24/2023 Findings: No nodules, masses or effusions are seen. The heart is normal. The pulmonary vascularity is not increased. No pneumonia or pneumothorax is seen. Impression: Negative chest.
[2023-08-25] MEDS: sodium chloride 0.9% 1,000 ML 150 ML IV ×2 (15:13→22:35)
[2023-08-25 17:10] LABS: Glucose Point of Care 125 mg/dL (70-110)
[2023-08-26] VITALS (35 sets, daily range): BP systolic 86–135; BP diastolic 48–86; PULSE 75–93; RESP 15–18; O2SAT 94–100
[2023-08-26] MEDS: piperacillin-tazobactam 3.375 GM in sodium chloride 0.9% (plus) 50 ML IV ×2 (01:32→07:39)
--- NOTE | 2023-08-26 02:56 | PC.NURSE ---
Report taken from Laura WILCOX at this time.
[2023-08-26] MEDS: sodium chloride 0.9% 1,000 ML 150 ML IV (05:57)
[2023-08-26] MEDS: morphine 4 mg/mL SDV 1 mL IVP (07:33)
[2023-08-26] MEDS: nicotine 21 mg Patch 1 PATCH TRANSDERMA (07:33)
--- NOTE | 2023-08-26 07:46 | PC.NURSE ---
Pt updated on transfer and provided ice chips.
--- NOTE | 2023-08-26 08:16 | PC.NURSE ---
Pt requested BG to be taken. Pt was 110.
[2023-08-26 08:18] LABS: Glucose Point of Care 110 mg/dL (70-110)
== END 2023-08-26 13:27 | disposition short-term general hospital (02) ==
PROVIDERS: Physician Assistant; Emergency Provider Nurse Practitioner Family; PCP Nurse Practitioner
DX: L02.215 Cutaneous abscess of perineum (principal); C91.10 Chronic lymphocytic leukemia of B-cell type not having achieved remission; N15.1 Renal and perinephric abscess; E11.9 Type 2 diabetes mellitus without complications; I25.10 Atherosclerotic heart disease of native coronary artery without angina pectoris; E78.5 Hyperlipidemia, unspecified; I10 Essential (primary) hypertension; F17.210 Nicotine dependence, cigarettes, uncomplicated
CPT/HCPCS: 36415; 36416; 71045; 72193; 74176; 80053; 81001; 82962; 83605; 85007; 85025; 86140; 87040; 87077; 87086; 87186; 96365; 96366; 96375; 99285; J2270; J2543; J7030; Q9967

== ENCOUNTER 2023-09-21 02:34 | Emergency (ER) | payer MEDICARE, SELFPAY ==
[2023-09-21] VITALS (9 sets, daily range): BP systolic 119–151; BP diastolic 58–84; PULSE 68–73; RESP 16–22; TEMP 36.7; O2SAT 95–100; BMI 30.7
--- NOTE | 2023-09-21 02:56 | ED_ITS ---
Documented by User: Ralf Brink DO 09/21/23 03:02 HPI - Abdominal Pain General: Chief Complaint: Abdominal Pain Stated Complaint: Lower ABD Pain Time Seen by Provider: 09/21/23 02:41 History of Present Illness: patient presents to the ER with complaints of left lower quadrant pain that radiated up into his left flank and down into his left testicle. Pain started about 20-45. States it feels like glass moving through his intestines he rates the pain 8 out of 10 but denies any nausea vomiting diarrhea constipation. Denies blood in urine and stool. He has had some mild left lower quadrant abdominal pain for the last couple days but was really unsure if it was back pain or kidney pain. patient has had a perineal abscess in the right nephric a bscess in the recent past. patient does have a diagnosis of CLL and he has multiple known lymph nodes in his abdomen enlarged. Review of Systems General: Reports: 10 or more systems reviewed and unremarkable except in HPI and below PFSH ED PFSH: Medical History AMI inferior wall Arthritis Colonoscopy planned Coronary artery disease 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 DDD (degenerative disc disease) Diabetes Enrolled in chronic care management Erectile dysfunction Essential hypertension GERD (gastroesophageal reflux disease) History of basal cell cancer History of Helicobacter infection History of tobacco abuse Hyperlipidemia Hypertension Low back pain with radiation Lumbar disc disease Rotator cuff arthropathy of right shoulder Smoker Tinnitus Vertigo, benign positional Surgical History H/O repair of rotator cuff History of umbilical hernia repair Hx of colonoscopy with polypectomy age 52 Family History Mother , at the age of 74 Cancer thyroid cancer Lung disease emphysema Hypertension Father , at the age of 74 CAD (coronary artery disease) Other Stroke Social History Smoking and tobacco/nicotine status: current every day tobacco/nicotine user (2 packs a day since age 18) cigarettes Packs smoked per day: 2 Years cigarettes sm oked: 47 Alcohol intake: current Alcohol intake frequency: few times a month Physical Exam Const: COMMON NORMALS: no acute distress, average body habitus, patient belen ented x3, no limitations, healthy appearing, alert and well nourished HENMT: COMMON NORMALS: normocephalic, atraumatic, hearing grossly normal janice aterally, external ears normal, Normal external nose present, moist oral mucous membranes and oropharynx normal HEAD & SCALP: normocephalic and atraumatic NOSE: Normal external nose present EXTERNAL EAR: Yes external ears normal Neck/C-Spine: COMMON NORMALS: no JVD Chest: COMMONS NORMALS: normal inspection of the chest and normal palpation of entire chest wall Resp: COMMON NORMALS: normal respiratory effort, No retractions, No use of accessory muscles and clear to auscultation bilaterally AUSCULTATION: clear to auscultation bilaterally Cardio: COMMON NORMALS: no JVD, regular rate, regular rhythm, S1 normal heart sound present, S2 normal heart sound present, No gallops present (Cardio), No clicks present (Cardio), No murmurs present (Cardio) and No rub (Cardio) RATE: regular rate RHYTHM: regular rhythm HEART SOUNDS: S1 normal heart sound present and S2 normal heart sound present GI: COMMON NORMALS: Normal to inspection, nondistended, normoactive bowel sounds present, Soft to palpation, No hepatosplenomegaly present and no masses; negative for non-tender ( Mildly tender to palpate left lower quadrant) PALPATION: Yes Soft to palpation and Yes No hepatosplenomegaly present Neuro: COMMON NORMALS: patient oriented x3 SENSORIUM/ORIENTATION: Yes alert Course Vital Signs: Vital signs: Vital Signs Temperature 98.0 F 09/21/23 02:37 Pulse Rate 71 09/21/23 03:30 Respiratory Rate 22 H 09/21/23 03:30 Blood Pressure 126/83 09/21/23 06:00 Pulse Oximetry 96 09/21/23 06:00 Oxygen Delivery Me thod Room Air 09/21/23 06:00 MDM - Abdominal Pain Differential Diagnosis Likely abdominal pain and diverticulitis; Unlikely acute appendicitis, calculus of kidney, constipation, endometriosis, gastroenteritis, pancreatitis or small bowel obstruction Medical Records I reviewed the patient's medical records. Lab Data I reviewed the patient's lab results. 09/21/23 03:03 09/21/23 03:03 Labs/Radiology: Radiology Impressions Abdomen/Pelvis CT 09/21/23 03:47 IMPRESSION: 1. Decreasing right renal lower pole complex collection measuring 2.5 cm (previously 4 cm). Findings may represent a renal abscess. Other complex lesion is not excluded. Follow-up is recommended to document complete resolution. 2. Left hydroureteronephrosis with perinephric stranding. No calcified ureteral stones. Findings may be due to a recently passed stone. Superimposed pyelonephritis/pyelitis is not excluded. 3. Patchy ground-glass opacities noted at the lung bases. 4. Splenomegaly. 5. Cholelithiasis. 6. Retroperitoneal and pelvic lymphadenopathy, similar to previous exam. Laboratory Results WBC 16.20 10^3/uL (3.29-11.43) H 09/21/23 03:03 RBC 4.53 10^6/uL (3.85-5.65) 09/21/23 03:03 Hgb 12.70 g/dL (11.27-16.99) 09/21/23 03:03 Hct 39.1 % (37-53) 09/21/23 03:03 MCV 86.3 fl (82-101) 09/21/23 03:03 MCH 28.0 pg (27-33) 09/21/23 03:03 MCHC 32.5 g/dL (30-55) 09/21/23 03:03 RDW 16.9 % (12.1-15.1) H 09/21/23 03:03 Plt Count 100 10^3/cmm (157-399) L 09/21/23 03:03 MPV 10.3 fL (7.4-10.4) 09/21/23 03:03 Lymph % (Auto) Not Reportable 09/21/23 03:03 [place] % (Auto) Not Reportable 09/21/23 03:03 Lymph # (Auto) Not Reportable 09/21/23 03:03 [place] # (Auto) Not Reportable 09/21/23 03:03 Total Counted 100 (0-100) 09/21/23 03:03 Atypical Lymphs % 10.0 % (0-5) H 09/21/23 03:03 Segmented Neutrophils 35 % 09/21/23 03:03 Abs Segm Neuts (Man) 5.7 10/cmm (1.6-7.1) 09/21/23 03:03 Band Neutrophils Not Reportable 09/21/23 03:03 Absolute Lymphocytes 8.6 10^3/cmm (1.2-3.4) H 09/21/23 03:03 Lymphocytes (Manual) 43 % 09/21/23 03:03 Monocytes (Manual) 6.0 % 09/21/23 03:03 Absolute Monocytes 1.0 10^3/cmm (0.1-0.6) H 09/21/23 03:03 Eosinophils (Manual) 6 % 09/21/23 03:03 Absolute Eosinophils 1.0 10^3/cmm (0.0-0.7) H 09/21/23 03:03 Basophils (Manual) 0.0 % 09/21/23 03:03 Absolute Basophils 0.0 10^3/cmm (0.0-0.2) 09/21/23 03:03 Platelet Estimate Decreased (Normal) 09/21/23 03:03 Sodium 137 mmol/L (136-145) 09/21/23 03:03 Potassium 4.5 mmol/L (3.5-5.1) 09/21/23 03:03 Chloride 103 mmol/L (98-107) 09/21/23 03:03 Carbon Dioxide 21 mmol/L (22-29) L 09/21/23 03:03 Anion Gap 17.5 (5-19) 09/21/23 03:03 BUN 20 mg/dL (6-20) 09/21/23 03:03 Creatinine 1.7 mg/dL (0.7-1.2) H 09/21/23 03:03 GFR Calculation 41.9 mL/min (90-130) L 09/21/23 03:03 Glucose 158 mg/dL (65-115) H 09/21/23 03:03 Calculated Osmolality 290 mOsm/kg (285-295) 09/21/23 03:03 Calcium 9.2 mg/dL (8.5-10.5) 09/21/23 03:03 Total Bilirubin 0.3 mg/dL (0.15-1.2) 09/21/23 03:03 AST 13 U/L (0-40) 09/21/23 03:03 ALT 11 U/L (0-41) 09/21/23 03:03 Alkaline Phosphatase 73 U/L (40-130) 09/21/23 03:03 Total Protein 6.7 g/dL (6.6-8.7) 09/21/23 03:03 Albumin 4.0 g/dL (3.5-5.2) 09/21/23 03:03 Globulin 2.7 g/dL (1.3-4.6) 09/21/23 03:03 Lipase 34 U/L (13-60) 09/21/23 03:03 Urine Color Yellow (Yellow) 09/21/23 02:35 Urine Appearance Clear (CLEAR) 09/21/23 02:35 Urine pH 6 (5-7) 09/21/23 02:35 Ur Specific [place] 1.010 (1.005-1.030) 09/21/23 02:35 Urine Protein Neg (Negative) 09/21/23 02:35 Urine Glucose (UA) Norm (Normal) 09/21/23 02:35 Urine Ketones Negative (Negative) 09/21/23 02:35 Urine Blood Neg (Negative) 09/21/23 02:35 Urine Nitrate Negative (Negative) 09/21/23 02:35 Urine Bilirubin Neg (Negative) 09/21/23 02:35 Urine Urobilinogen Neg mg/dL (Negative) 09/21/23 02:35 Ur Leukocyte Esterase Trace (Negative) H 09/21/23 02:35 Urine RBC None /hpf (0-2) 09/21/23 02:35 Urine WBC 5-10 /hpf (0-5) H 09/21/23 02:35 Ur Squamous Epith Cells None /hpf (0-5) 09/21/23 02:35 Amorphous Sediment Not Reportable 09/21/23 02:35 Urine Bacteria Trace /hpf (NONE) 09/21/23 02:35 All radiology interpretation(s) finalized by discharge Discharge Plan Discharge Patient Disposition: Home Clinical Impression: Calculus of kidney Condition: Stable Prescriptions: New Macrobid 100 mg capsule 100 mg PO BID 7 Days Qty: 14 0RF Rx Instructions: must administer with a meal/food No Action varenicline [Chantix] 1 mg tablet 1 mg PO DAILY Rx Instructions: once daily Ozempic 0.25 mg or 0.5 mg (2 mg/3 mL) pen injector 0.25 mg SUBCUT Q7D atorvastatin 40 mg tablet 20 mg PO DAILY lisinopril 2.5 mg tablet 2.5 mg PO DAILY clopidogrel 75 mg tablet 75 mg PO DAILY Qty: 90 3RF amoxicillin-pot clavulanate 875-125 mg tablet 1 tab PO BID aspirin 81 mg Tablet,Delayed Release (Dr/Ec) 81 mg PO DAILY Qty: 100 0RF nitroglycerin 0.4 mg Tablet, Sublingual 0.4 mg sublingual Q5M PRN (Reason: Chest Pain) Qty: 25 2RF Discharge Orders: Discharge ED (Routine); Ordered 09/21/23 Ordered By: Agapito Valdovinos Referrals: Jessica Yang, WOUND CARE SPECIALIST [Primary Care Provider] - Patient Instructions: Kidney Stones (ED), How to Strain Your Urine (ED), Opioid Safety, Pain Management Activity Restrictions/Additional Instructions: Thank you for choosing [facility] for your healthcare needs today. Please realize this is an emergency room and that we are providing you with a medical screening exam and this may not be complete and all inclusive of all the testing and or work up that you may need to determine your ailment or severity of your illness. It is very important that you follow up as instructed or that you return to the Emergency Department should you have concerns or if your condition changes or worsens in any way. Suspect You passed the kidney stone on the left side. Recommend straining urine until you follow-up with urology. You are given a single dose of IV antibiotics in the emergency room recommend starting oral antibiotics until urine culture is resulted. Coding Level of Care Code ED Yard Truck Driver for Chg Fwd Documented by User: Agapito Valdovinos DO 09/21/23 07:26 HPI - Abdominal Pain General: Chief Complaint: Abdominal Pain Stated Complaint: Lower ABD Pain Time Seen by Provider: 09/21/23 02:41 [facility] ED PFSH: Medical History AMI inferior wall Arthritis Colonoscopy planned Coronary artery disease 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 DDD (degenerative disc disease) Diabetes Enrolled in chronic care management Erectile dysfunction Essential hypertension GERD (gastroesophageal reflux disease) History of basal cell cancer History of Helicobacter infection History of tobacco abuse Hyperlipidemia Hypertension Low back pain with radiation Lumbar disc disease Rotator cuff arthropathy of right shoulder Smoker Tinnitus Vertigo, benign positional Surgical History H/O repair of rotator cuff History of umbilical hernia repair Hx of colonoscopy with polypectomy age 52 Family History Mother , at the age of 74 Cancer thyroid cancer Lung disease emphysema Hypertension Father , at the age of 74 CAD (coronary artery disease) Other Stroke Social History Smoking and tobacco/nicotine status: current every day tobacco/nicotine user (2 packs a day since age 18) cigarettes Packs smoked per day: 2 Years cigarettes smoked: 45 Alcohol intake: current Alcohol intake frequency: few times a month Course Vital Signs: Vital signs: Vital Signs Temperature 98.0 F 09/21/23 02:37 Pulse Rate 71 09/21/23 03:30 Respiratory Rate 22 H 09/21/23 03:30 Blood Pressure 126/83 09/21/23 06:00 Pulse Oximetry 96 09/21/23 06:00 Oxygen Delivery Me thod Room Air 09/21/23 06:00 MDM - Abdominal Pain Medical Decision Making Care assumed at change of shift from Dr. Brink. Patient had left flank pain suggestive of renal stone. He states he went to the bathroom and suddenly had complete relief of his pain CT does not show any ureteral stone but shows evidence of hydronephrosis if he is as if he had just passed a stone. He has some mild leukocytosis but because of his lymphoma chronically has a slightly elevated white count. His initial urine showed 5-10 white blood cells per high- power field. After the CT and the pain and relieved he voided again and had a single episode of hematuria. Suspect he passed the stone which released some blood from the ureter. Will cover with antibiotics until culture resulted. He is afebrile and pain-free at this time I think he can safely be discharged home and follow-up with his urologist did encourage him to strain urine to collect stone if he passes it. Lab Data 09/21/23 03:03 09/21/23 03:03 Labs/Radiology: Radiology Impressions Abdomen/Pelvis CT 09/21/23 03:47 IMPRESSION: 1. Decreasing right renal lower pole complex collection measuring 2.5 cm (previously 4 cm). Findings may represent a renal abscess. Other complex lesion is not excluded. Follow-up is recommended to document complete resolution. 2. Left hydroureteronephrosis with perinephric stranding. No calcified ureteral stones. Findings may be due to a recently passed stone. Superimposed pyelonephritis/pyelitis is not excluded. 3. Patchy ground-glass opacities noted at the lung bases. 4. Splenomegaly. 5. Cholelithiasis. 6. Retroperitoneal and pelvic lymphadenopathy, similar to previous exam. Laboratory Results WBC 16.20 10^3/uL (3.29-11.43) H 09/21/23 03:03 RBC 4.53 10^6/uL (3.85-5.65) 09/21/23 03:03 Hgb 12.70 g/dL (11.27-16.99) 09/21/23 03:03 Hct 39.1 % (37-53) 09/21/23 03:03 MCV 86.3 fl (82-101) 09/21/23 03:03 MCH 28.0 pg (27-33) 09/21/23 03:03 MCHC 32.5 g/dL (30-55) 09/21/23 03:03 RDW 16.9 % (12.1-15.1) H 09/21/23 03:03 Plt Count 100 10^3/cmm (157-399) L 09/21/23 03:03 MPV 10.3 fL (7.4-10.4) 09/21/23 03:03 Lymph % (Auto) Not Reportable 09/21/23 03:03 [place] % (Auto) Not Reportable 09/21/23 03:03 Lymph # (Auto) Not Reportable 09/21/23 03:03 [place] # (Auto) Not Reportable 09/21/23 03:03 Total Counted 100 (0-100) 09/21/23 03:03 Atypical Lymphs % 10.0 % (0-5) H 09/21/23 03:03 Segmented Neutrophils 35 % 09/21/23 03:03 Abs Segm Neuts (Man) 5.7 10/cmm (1.6-7.1) 09/21/23 03:03 Band Neutrophils Not Reportable 09/21/23 03:03 Absolute Lymphocytes 8.6 10^3/cmm (1.2-3.4) H 09/21/23 03:03 Lymphocytes (Manual) 43 % 09/21/23 03:03 Monocytes (Manual) 6.0 % 09/21/23 03:03 Absolute Monocytes 1.0 10^3/cmm (0.1-0.6) H 09/21/23 03:03 Eosinophils (Manual) 6 % 09/21/23 03:03 Absolute Eosinophils 1.0 10^3/cmm (0.0-0.7) H 09/21/23 03:03 Basophils (Manual) 0.0 % 09/21/23 03:03 Absolute Basophils 0.0 10^3/cmm (0.0-0.2) 09/21/23 03:03 Platelet Estimate Decreased (Normal) 09/21/23 03:03 Sodium 137 mmol/L (136-145) 09/21/23 03:03 Potassium 4.5 mmol/L (3.5-5.1) 09/21/23 03:03 Chloride 103 mmol/L (98-107) 09/21/23 03:03 Carbon Dioxide 21 mmol/L (22-29) L 09/21/23 03:03 Anion Gap 17.5 (5-19) 09/21/23 03:03 BUN 20 mg/dL (6-20) 09/21/23 03:03 Creatinine 1.7 mg/dL (0.7-1.2) H 09/21/23 03:03 GFR Calculation 41.9 mL/min (90-130) L 09/21/23 03:03 Glucose 158 mg/dL (65-115) H 09/21/23 03:03 Calculated Osmolality 290 mOsm/kg (285-295) 09/21/23 03:03 Calcium 9.2 mg/dL (8.5-10.5) 09/21/23 03:03 Total Bilirubin 0.3 mg/dL (0.15-1.2) 09/21/23 03:03 AST 13 U/L (0-40) 09/21/23 03:03 ALT 11 U/L (0-41) 09/21/23 03:03 Alkaline Phosphatase 73 U/L (40-130) 09/21/23 03:03 Total Protein 6.7 g/dL (6.6-8.7) 09/21/23 03:03 Albumin 4.0 g/dL (3.5-5.2) 09/21/23 03:03 Globulin 2.7 g/dL (1.3-4.6) 09/21/23 03:03 Lipase 34 U/L (13-60) 09/21/23 03:03 Urine Color Yellow (Yellow) 09/21/23 02:35 Urine Appearance Clear (CLEAR) 09/21/23 02:35 Urine pH 6 (5-7) 09/21/23 02:35 Ur Specific [place] 1.010 (1.005-1.030) 09/21/23 02:35 Urine Protein Neg (Negative) 09/21/23 02:35 Urine Glucose (UA) Norm (Normal) 09/21/23 02:35 Urine Ketones Negative (Negative) 09/21/23 02:35 Urine Blood Neg (Negative) 09/21/23 02:35 Urine Nitrate Negative (Negative) 09/21/23 02:35 Urine Bilirubin Neg (Negative) 09/21/23 02:35 Urine Urobilinogen Neg mg/dL (Negative) 09/21/23 02:35 Ur Leukocyte Esterase Trace (Negative) H 09/21/23 02:35 Urine RBC None /hpf (0-2) 09/21/23 02:35 Urine WBC 5-10 /hpf (0-5) H 09/21/23 02:35 Ur Squamous Epith Cells None /hpf (0-5) 09/21/23 02:35 Amorphous Sediment Not Reportable 09/21/23 02:35 Urine Bacteria Trace /hpf (NONE) 09/21/23 02:35 Discharge Plan Discharge Patient Disposition: Home Clinical Impression: Calculus of kidney Condition: Stable Prescriptions: New Macrobid 100 mg capsule 100 mg PO BID 7 Days Qty: 14 0RF Rx Instructions: must administer with a meal/food No Action varenicline [Chantix] 1 mg tablet 1 mg PO DAILY Rx Instructions: once daily Ozempic 0.25 mg or 0.5 mg (2 mg/3 mL) pen injector 0.25 mg SUBCUT Q7D atorvastatin 40 mg tablet 20 mg PO DAILY lisinopril 2.5 mg tablet 2.5 mg PO DAILY clopidogrel 75 mg tablet 75 mg PO DAILY Qty: 90 3RF amoxicillin-pot clavulanate 875-125 mg tablet 1 tab PO BID aspirin 81 mg Tablet,Delayed Release (Dr/Ec) 81 mg PO DAILY Qty: 100 0RF nitroglycerin 0.4 mg Tablet, Sublingual 0.4 mg sublingual Q5M PRN (Reason: Chest Pain) Qty: 25 2RF Discharge Orders: Discharge ED (Routine); Ordered 09/21/23 Ordered By: Agapito Valdovinos Referrals: Jessica Yang FNP [Primary Care Provider] - Patient Instructions: Kidney Stones (ED), How to Strain Your Urine (ED), Opioid Safety, Pain Management Activity Restrictions/Additional Instructions: Thank you for choosing [facility] for your healthcare needs today. Please realize this is an emergency room and that we are providing you with a medical screening exam and this may not be complete and all inclusive of all the testing and or work up that you may need to determine your ailment or severity of your illness. It is very important that you follow up as instructed or that you return to the Emergency Department should you have concerns or if your condition changes or worsens in any way. Suspect You passed the kidney stone on the left side. Recommend straining urine until you follow-up with urology. You are given a single dose of IV antibiotics in the emergency room recommend starting oral antibiotics until urine culture is resulted. Coding Level of Care Code ED Yard Truck Driver for Germaine Carranza
[2023-09-21 03:09] LABS: Hematocrit 39.1 % (37-53); Mean Corpuscular HGB Conc 32.5 g/dL (30-55); Mean Corpuscular Volume 86.3 fl (82-101); Mean Platelet Volume 10.3 fL (7.4-10.4); Platelet Count 100 10^3/cmm (157-399); Red Blood Count 4.53 10^6/uL (3.85-5.65); Red Cell Distribution Width 16.9 % (12.1-15.1)
[2023-09-21 03:19] LABS: Add Urine Culture? No; Add Urine Microscopic? YES; Bacteria Urine TRACE /hpf; Bilirubin Urine Neg (Negative); Blood Urine Neg (Negative); Glucose Urine UA Norm (Normal); Ketones Urine Negative (Negative); Leukocyte Esterase Urine Trace (Negative); Nitrate Urine Negative (Negative); Protein Urine Neg (Negative); Urine Appearance Clear (CLEAR); Urine Color Yellow (Yellow); Urobilinogen Urine Neg (Negative); pH Urine 6 (5-7)
[2023-09-21 03:26] LABS: Alanine Aminotransferase 11 U/L (0-41); Alkaline Phosphatase 73 U/L (40-130); Aspartate Amino Transferase 13 U/L (0-40); Blood Urea Nitrogen 20 mg/dL (6-20); Calcium 9.2 mg/dL (8.5-10.5); Carbon Dioxide 21 mmol/L (22-29); Chloride 103 mmol/L (98-107); Globulin 2.7 g/dL (1.3-4.6); Glomerular Filtration Rate 41.9 mL/min (90-130); Glucose 158 mg/dL (65-115); Lipase 34 U/L (13-60); Osmolality Calculated 290 mOsm/kg (285-295); Sodium 137 mmol/L (136-145); Total Bilirubin 0.3 mg/dL (0.15-1.2); Total Protein 6.7 g/dL (6.6-8.7)
[2023-09-21 03:30] LABS: Anion Gap 17.5 (5-19); Potassium 4.5 mmol/L (3.5-5.1)
[2023-09-21 03:33] LABS: Slide Review Slide Review Perform
[2023-09-21 03:38] LABS: Absolute Segmented Neutrophil 5.7 10/cmm (1.6-7.1); Eosinophils 6 %; Lymphocytes 43 %; Lymphocytes Absolute 8.6 10^3/cmm (1.2-3.4); Platelet Estimate Decreased (Normal); Segmented Neutrophils 35 %; Total Cells Counted 100 (0-100)
--- NOTE | 2023-09-21 03:47 | CTR_ITS ---
PROCEDURE INFORMATION: Exam: CT Abdomen And Pelvis Without Contrast Exam date and time: 09/21/2023 3:57 AM Age: 58 years old Clinical indication: Abdominal pain; Localized; Left lower quadrant (llq); Prior surgery; Surgery date: 6+ months; Surgery type: Hernia years ago; Patient HX: Smoker, PT has leukemia; Additional info: Llq abd pain radiates into groin and to back TECHNIQUE: Imaging protocol: Computed tomography of the abdomen and pelvis without contrast. Radiation optimization: All CT scans at this facility use at least one of these dose optimization techniques: automated exposure control; mA and/or kV adjustment per patient size (includes targeted exams where dose is matched to clinical indication); or iterative reconstruction. REPORTING DATA: Count of CT and Cardiac NM exams in prior 12 months: This patient has received 5 known CTs and 0 known cardiac nuclear medicine studies in the 12 months prior to the current study. COMPARISON: CT kidney stone [id number] 08/25/2023 2:39 PM RADIATION DOSE METRICS: Total DLP (mGy-cm): 758.24 FINDINGS: Lungs: Patchy ground-glass opacities noted at the lung bases. Liver: Unremarkable. Gallbladder and bile ducts: There is a stone in the gallbladder. Pancreas: No ductal dilation. Spleen: Splenomegaly. Adrenal glands: Normal. No mass. Kidneys and ureters: Left hydroureteronephrosis and perinephric stranding. No calcified ureteral stones. Findings may be due to a recently passed stone. Superimposed pyelonephritis/pyelitis is not excluded. Too small to characterize hyperdense cortical lesion in the lower pole of the left kidney, no change. No calcified right ureteral stone. No right hydronephrosis. Decreasing right renal lower pole complex collection measuring 2.5 cm (previously 4 cm). Stomach and bowel: There are no dilated bowel loops. No high-grade bowel obstruction. Appendix: No evidence of appendicitis. Intraperitoneal space: No free air. Vasculature: Atherosclerotic changes of the aorta. No portal venous gas. Lymph nodes: Extensive pelvic and retroperitoneal lymphadenopathy, as previously noted. There are prominent inguinal lymph nodes. Urinary bladder: Unremarkable as visualized. Reproductive: Unremarkable as visualized. Bones/joints: Stable appearance of the bony structures. Extensive degenerative changes most prominent L4-L5 and L5-S1, no change. Soft tissues: Unremarkable. CT/CT abdomen pelvis wo con [id number] IMPRESSION: 1. Decreasing right renal lower pole complex collection measuring 2.5 cm (previously 4 cm). Findings may represent a renal abscess. Other complex lesion is not excluded. Follow-up is recommended to document complete resolution. 2. Left hydroureteronephrosis with perinephric stranding. No calcified ureteral stones. Findings may be due to a recently passed stone. Superimposed pyelonephritis/pyelitis is not excluded. 3. Patchy ground-glass opacities noted at the lung bases. 4. Splenomegaly. 5. Cholelithiasis. 6. Retroperitoneal and pelvic lymphadenopathy, similar to previous exam.
--- NOTE | 2023-09-21 06:23 | PC.NURSE ---
Dr Valdovinos notified that patient patient is now producing bloody urine, which patient originally denied having. No new orders received at this time.
[2023-09-21] MEDS: cefTRIAXone 2,000 MG in sodium chloride 0.9% (plus) 50 ML 100 MG IV (06:55)
== END 2023-09-21 07:55 | disposition home or self-care (01) ==
PROVIDERS: Emergency Medicine; Emergency Provider Family Medicine; PCP Nurse Practitioner
DX: N13.2 Hydronephrosis with renal and ureteral calculous obstruction (principal); R16.1 Splenomegaly, not elsewhere classified; K80.20 Calculus of gallbladder without cholecystitis without obstruction; R59.1 Generalized enlarged lymph nodes; Z79.02 Long term (current) use of antithrombotics/antiplatelets; Z79.82 Long term (current) use of aspirin; F17.210 Nicotine dependence, cigarettes, uncomplicated; I25.7 Atherosclerosis of coronary artery bypass graft(s) and coronary artery of transplanted heart with angina pectoris; E11.9 Type 2 diabetes mellitus without complications; I10 Essential (primary) hypertension; Z85.89 Personal history of malignant neoplasm of other organs and systems; E78.5 Hyperlipidemia, unspecified
CPT/HCPCS: 74176; 80053; 81001; 83690; 85007; 85025; 96374; 99285; J0696

== ENCOUNTER 2023-09-29 09:53 | Oncology outpatient (recurring) (ONCR) | payer MEDICARE, MEDICAID, SELFPAY | END 2023-10-14 23:59 | disposition home or self-care (01) | PROVIDERS: PCP Nurse Practitioner; Visit Provider Internal Medicine Medical Oncology | DX: C91.10 Chronic lymphocytic leukemia of B-cell type not having achieved remission (principal); Z79.899 Other long term (current) drug therapy | CPT/HCPCS: 99215 ==

== ENCOUNTER → 2023-10-01 10:37 | Outpatient (BNVA) | payer MEDICARE, SELFPAY | PROVIDERS: PCP Nurse Practitioner; Visit Provider Internal Medicine Cardiovascular Disease | DX: I25.10 Atherosclerotic heart disease of native coronary artery without angina pectoris (principal); I10 Essential (primary) hypertension; E78.5 Hyperlipidemia, unspecified; F17.210 Nicotine dependence, cigarettes, uncomplicated | CPT/HCPCS: 99214 ==

== ENCOUNTER 2023-10-19 09:00 | Oncology outpatient (recurring) (ONCR) | payer MEDICARE, MEDICAID, SELFPAY ==
[2023-10-18 08:15] VITALS: BP 142/79; PULSE 80; RESP 16; TEMP 36.8; O2SAT 98
[2023-10-18 08:35] LABS: Basophils # 0.1 10^3/uL (0.0-0.1); Basophils % 0.6 %; Eosinophils # 0.2 10^3/uL (0.0-0.8); Eosinophils % 1.6 %; Hematocrit 42.1 % (37-53); Lymphocytes # 9.3 10^3/uL (0.8-4.8); Lymphocytes % 68.8 %; Mean Corpuscular Hemoglobin 29.1 pg (27-33); Mean Corpuscular Volume 88.3 fl (82-101); Mean Platelet Volume 11.2 fL (7.4-10.4); Monocytes # 0.5 10^3/uL (0.2-0.9); Monocytes % 3.6 %; Neutrophils # 3.39 10^3/uL (1.8-7.7); Neutrophils % 25.2 %; Nucleated Red Blood Cells % 0 %; Platelet Count 121 10^3/cmm (157-399); Red Blood Count 4.77 10^6/uL (3.85-5.65); Red Cell Distribution Width 16.5 % (12.1-15.1); White Blood Count 13.46 10^3/uL (3.29-11.43)
[2023-10-18 08:56] LABS: Alanine Aminotransferase 8 U/L (0-41); Albumin Level 4.1 g/dL (3.5-5.2); Alkaline Phosphatase 86 U/L (40-130); Anion Gap 13.9 (5-19); Aspartate Amino Transferase 11 U/L (0-40); Blood Urea Nitrogen 17 mg/dL (6-20); Calcium 9.7 mg/dL (8.5-10.5); Carbon Dioxide 24 mmol/L (22-29); Chloride 105 mmol/L (98-107); Globulin 2.6 g/dL (1.3-4.6); Glomerular Filtration Rate 52.4 mL/min (90-130); Glucose 167 mg/dL (65-115); Osmolality Calculated 293 mOsm/kg (285-295); Potassium 3.9 mmol/L (3.5-5.1); Sodium 139 mmol/L (136-145); Total Bilirubin 0.2 mg/dL (0.15-1.2); Total Protein 6.7 g/dL (6.6-8.7)
[2023-10-18] MEDS: sodium chloride 0.9% 500 ML 75 ML IV (11:16)
[2023-10-18] MEDS: acetaminophen 325 mg Tablet 650 MG PO (11:17)
[2023-10-18] MEDS: diphenhydrAMINE 50 mg/mL SDV 1mL IVP (11:18)
[2023-10-18] MEDS: dexamethasone 20 MG in sodium chloride 0.9% 50 ML 188 MG IV (11:32)
[2023-10-18] MEDS: obinutuzumab 100 MG in sodium chloride 0.9% (100 ml) 100 ML 26 MG IV (12:06)
[2023-10-18 16:20] VITALS: BP 122/72; PULSE 61; RESP 16; TEMP 36.3; O2SAT 99
[2023-10-19 10:00] VITALS: BP 111/66; PULSE 64; RESP 16; TEMP 36.6; O2SAT 98
[2023-10-19] MEDS: sodium chloride 0.9% 500 ML 75 ML IV (11:14)
[2023-10-19] MEDS: diphenhydrAMINE 50 mg/mL SDV 1mL IVP (11:15)
[2023-10-19] MEDS: acetaminophen 325 mg Tablet 650 MG PO (11:22)
[2023-10-19] MEDS: dexamethasone 20 MG in sodium chloride 0.9% 50 ML 188 MG IV (11:23)
[2023-10-19 11:50] VITALS: BP 117/67; PULSE 64; TEMP 36.4; O2SAT 98
[2023-10-19] MEDS: obinutuzumab 900 MG in sodium chloride 0.9%(non-DEHP) 250 ML 16 MG IV (11:50)
[2023-10-19 13:53] VITALS: BP 119/71; PULSE 61; O2SAT 95
[2023-10-19 14:25] VITALS: BP 121/66; PULSE 65; TEMP 36.3; O2SAT 98
[2023-10-19 14:56] VITALS: BP 133/68; PULSE 70; TEMP 36.4; O2SAT 96
[2023-10-19] MEDS: insulin lispro 100 unit/1 mL 6 UNIT SUBCUT (16:21)
[2023-10-19] MEDS: diphenhydrAMINE 25 mg Capsule 50 MG PO (16:29)
[2023-10-19 16:40] VITALS: BP 126/65; PULSE 70; TEMP 36.4; O2SAT 97
== END 2023-10-19 23:59 | disposition home or self-care (01) ==
PROVIDERS: Nurse Practitioner Family; PCP Nurse Practitioner; Visit Provider Internal Medicine Medical Oncology
DX: C91.10 Chronic lymphocytic leukemia of B-cell type not having achieved remission (principal)
CPT/HCPCS: 80053; 85025; 96367; 96372; 96375; 96413; 96415; 99215; J1100; J1200; J1815; J7040; J7050; J9301

== ENCOUNTER 2023-11-01 07:45 | Oncology outpatient (recurring) (ONCR) | payer MEDICARE, MEDICAID, SELFPAY ==
[2023-10-25 09:00] LABS: Basophils % 0.7 %; Eosinophils # 0.2 10^3/uL (0.0-0.8); Eosinophils % 3.5 %; Hematocrit 43.3 % (37-53); Lymphocytes # 1.2 10^3/uL (0.8-4.8); Lymphocytes % 22.1 %; Mean Corpuscular HGB Conc 34.2 g/dL (30-55); Mean Corpuscular Hemoglobin 29.2 pg (27-33); Mean Corpuscular Volume 85.6 fl (82-101); Mean Platelet Volume 11.4 fL (7.4-10.4); Monocytes # 0.3 10^3/uL (0.2-0.9); Monocytes % 6.1 %; Neutrophils % 66.9 %; Nucleated Red Blood Cells % 0 %; Platelet Count 123 10^3/cmm (157-399); Red Blood Count 5.06 10^6/uL (3.85-5.65); Red Cell Distribution Width 16.4 % (12.1-15.1); White Blood Count 5.39 10^3/uL (3.29-11.43)
[2023-10-25 09:30] LABS: Alanine Aminotransferase 9 U/L (0-41); Albumin Level 3.9 g/dL (3.5-5.2); Alkaline Phosphatase 65 U/L (40-130); Aspartate Amino Transferase 13 U/L (0-40); Blood Urea Nitrogen 21 mg/dL (6-20); Calcium 9.2 mg/dL (8.5-10.5); Carbon Dioxide 23 mmol/L (22-29); Chloride 103 mmol/L (98-107); Globulin 2.7 g/dL (1.3-4.6); Glomerular Filtration Rate 69.2 mL/min (90-130); Glucose 190 mg/dL (65-115); Osmolality Calculated 288 mOsm/kg (285-295); Sodium 135 mmol/L (136-145); Total Bilirubin 0.4 mg/dL (0.15-1.2); Total Protein 6.6 g/dL (6.6-8.7)
[2023-10-25] MEDS: sodium chloride 0.9% 250 ML 75 ML IV (10:14)
[2023-10-25] MEDS: diphenhydrAMINE 50 mg/mL SDV 1mL IVP (10:14)
[2023-10-25] MEDS: acetaminophen 325 mg Tablet 650 MG PO (10:23)
[2023-10-25] MEDS: dexamethasone 20 MG in sodium chloride 0.9% 50 ML 188 MG IV (10:25)
[2023-10-25 10:29] VITALS: BP 121/81; PULSE 70; RESP 17; TEMP 36.1; O2SAT 99
[2023-10-25 10:55] VITALS: BP 150/80; PULSE 72; RESP 18; TEMP 35.7; O2SAT 100
[2023-10-25] MEDS: [UNRECOGNIZED DRUG - REMARK] 25 MG IV (10:55)
[2023-10-25 11:25] VITALS: BP 135/75; PULSE 72; RESP 16; TEMP 36.2; O2SAT 96
[2023-10-25 12:28] VITALS: BP 136/80; PULSE 73; RESP 16; TEMP 36.1; O2SAT 96
[2023-10-25] MEDS: insulin lispro 100 unit/1 mL 6 UNIT SUBCUT (15:25)
[2023-11-01 07:43] VITALS: BP 121/68; PULSE 77; RESP 16; TEMP 36.6; O2SAT 100
[2023-11-01 08:06] LABS: Basophils # 0.1 10^3/uL (0.0-0.1); Basophils % 0.9 %; Eosinophils # 0.2 10^3/uL (0.0-0.8); Eosinophils % 2.9 %; Hematocrit 44.3 % (37-53); Lymphocytes # 1.1 10^3/uL (0.8-4.8); Lymphocytes % 17.5 %; Mean Corpuscular HGB Conc 33.9 g/dL (30-55); Mean Corpuscular Hemoglobin 29.4 pg (27-33); Mean Corpuscular Volume 86.7 fl (82-101); Mean Platelet Volume 10.7 fL (7.4-10.4); Monocytes # 0.3 10^3/uL (0.2-0.9); Monocytes % 5.3 %; Neutrophils # 4.74 10^3/uL (1.8-7.7); Neutrophils % 73.2 %; Nucleated Red Blood Cells % 0 %; Platelet Count 173 10^3/cmm (157-399); Red Blood Count 5.11 10^6/uL (3.85-5.65); Red Cell Distribution Width 16.6 % (12.1-15.1); White Blood Count 6.47 10^3/uL (3.29-11.43)
[2023-11-01 08:31] LABS: Alanine Aminotransferase 12 U/L (0-41); Alkaline Phosphatase 70 U/L (40-130); Aspartate Amino Transferase 14 U/L (0-40); Blood Urea Nitrogen 23 mg/dL (6-20); Calcium 9.6 mg/dL (8.5-10.5); Carbon Dioxide 24 mmol/L (22-29); Chloride 104 mmol/L (98-107); Creatinine Clr Calc Pharmacy 61.2627; Glomerular Filtration Rate 52.4 mL/min (90-130); Glucose 131 mg/dL (65-115); Osmolality Calculated 291 mOsm/kg (285-295); Sodium 138 mmol/L (136-145); Total Bilirubin 0.4 mg/dL (0.15-1.2)
[2023-11-01 08:38] LABS: Anion Gap 14.2 (5-19); Potassium 4.2 mmol/L (3.5-5.1)
[2023-11-01] MEDS: sodium chloride 0.9% 250 ML 75 ML IV (10:07)
[2023-11-01] MEDS: acetaminophen 325 mg Tablet 650 MG PO (10:08)
[2023-11-01] MEDS: diphenhydrAMINE 50 mg/mL SDV 1mL IVP (10:08)
[2023-11-01] MEDS: dexamethasone 20 MG in sodium chloride 0.9% 50 ML 188 MG IV (10:14)
[2023-11-01] MEDS: [UNRECOGNIZED DRUG - REMARK] 25 MG IV (10:31)
[2023-11-01 10:32] VITALS: BP 135/76; PULSE 68; RESP 18; TEMP 35.7; O2SAT 99
[2023-11-01 11:04] VITALS: BP 116/69; PULSE 68; RESP 18; TEMP 36.3; O2SAT 97
[2023-11-01 12:07] VITALS: BP 107/65; PULSE 73; RESP 18; TEMP 36.3; O2SAT 93
[2023-11-01 14:53] VITALS: BP 116/75; PULSE 68; RESP 17; TEMP 35.6; O2SAT 99
== END 2023-11-01 23:59 | disposition home or self-care (01) ==
PROVIDERS: Nurse Practitioner Family; PCP Nurse Practitioner; Visit Provider Internal Medicine Medical Oncology
DX: C91.10 Chronic lymphocytic leukemia of B-cell type not having achieved remission (principal); Z79.899 Other long term (current) drug therapy; Z51.11 Encounter for antineoplastic chemotherapy; Z53.9 Procedure and treatment not carried out, unspecified reason
CPT/HCPCS: 80053; 85025; 96365; 96367; 96372; 96375; 96413; 96415; 99214; J1100; J1200; J1815; J7050; J9301

== ENCOUNTER → 2023-11-22 08:50 | Outpatient (BNVA) | payer MEDICARE, MEDICAID, SELFPAY | PROVIDERS: PCP Nurse Practitioner; Visit Provider Nurse Practitioner Family | DX: C91.10 Chronic lymphocytic leukemia of B-cell type not having achieved remission (principal) | CPT/HCPCS: 80053; 85025 ==

== ENCOUNTER → 2023-11-30 11:26 | Outpatient (BNVA) | payer MEDICARE, MEDICAID, SELFPAY | PROVIDERS: PCP Nurse Practitioner; Visit Provider Nurse Practitioner Family | DX: C91.10 Chronic lymphocytic leukemia of B-cell type not having achieved remission (principal) | CPT/HCPCS: 80053; 85025 ==

== ENCOUNTER → 2023-12-07 14:17 | Outpatient (BNVA) | payer MEDICARE, MEDICAID, SELFPAY | PROVIDERS: PCP Nurse Practitioner; Visit Provider Family Medicine | DX: C91.10 Chronic lymphocytic leukemia of B-cell type not having achieved remission (principal) | CPT/HCPCS: 80053; 85025 ==

== ENCOUNTER 2023-12-14 07:30 | Oncology outpatient (recurring) (ONCR) | payer MEDICARE, MEDICAID, SELFPAY ==
[2023-11-16] VITALS (7 sets, daily range): BP systolic 126–138; BP diastolic 67–78; PULSE 65–71; RESP 16–17; TEMP 35.9–36.8; O2SAT 94–99
[2023-11-16 08:08] LABS: Basophils % 0.7 %; Eosinophils # 0.2 10^3/uL (0.0-0.8); Eosinophils % 3.1 %; Hematocrit 43.3 % (37-53); Lymphocytes # 1.2 10^3/uL (0.8-4.8); Lymphocytes % 20.9 %; Mean Corpuscular HGB Conc 33.9 g/dL (30-55); Mean Corpuscular Hemoglobin 30.2 pg (27-33); Mean Corpuscular Volume 88.9 fl (82-101); Mean Platelet Volume 10.3 fL (7.4-10.4); Monocytes # 0.4 10^3/uL (0.2-0.9); Monocytes % 7.2 %; Neutrophils # 3.95 10^3/uL (1.8-7.7); Neutrophils % 67.6 %; Nucleated Red Blood Cells % 0 %; Platelet Count 190 10^3/cmm (157-399); Red Blood Count 4.87 10^6/uL (3.85-5.65); Red Cell Distribution Width 17.1 % (12.1-15.1); White Blood Count 5.84 10^3/uL (3.29-11.43)
[2023-11-16 08:26] LABS: Alanine Aminotransferase 11 U/L (0-41); Albumin Level 4.1 g/dL (3.5-5.2); Alkaline Phosphatase 71 U/L (40-130); Anion Gap 13.9 (5-19); Aspartate Amino Transferase 13 U/L (0-40); Blood Urea Nitrogen 15 mg/dL (6-20); Calcium 9.9 mg/dL (8.5-10.5); Carbon Dioxide 25 mmol/L (22-29); Chloride 103 mmol/L (98-107); Globulin 3.1 g/dL (1.3-4.6); Glomerular Filtration Rate 52.4 mL/min (90-130); Glucose 113 mg/dL (65-115); Lactate Dehydrogenase 128 U/L (135-225); Osmolality Calculated 288 mOsm/kg (285-295); Potassium 3.9 mmol/L (3.5-5.1); Sodium 138 mmol/L (136-145); Total Bilirubin 0.4 mg/dL (0.15-1.2); Total Protein 7.2 g/dL (6.6-8.7)
[2023-11-16] MEDS: sodium chloride 0.9% 250 ML 75 ML IV (10:16)
[2023-11-16] MEDS: diphenhydrAMINE 50 mg/mL SDV 1mL IVP (10:18)
[2023-11-16] MEDS: acetaminophen 325 mg Tablet 650 MG PO (10:21)
[2023-11-16] MEDS: dexamethasone 20 MG in sodium chloride 0.9% 50 ML 188 MG IV (10:23)
[2023-11-16] MEDS: [UNRECOGNIZED DRUG - REMARK] 29 MG IV (11:00)
[2023-12-14 08:23] LABS: Basophils % 0.6 %; Hematocrit 42.3 % (37-53); Lymphocytes % 21.5 %; Mean Corpuscular HGB Conc 34.8 g/dL (30-55); Mean Corpuscular Hemoglobin 31.3 pg (27-33); Mean Corpuscular Volume 90.2 fl (82-101); Mean Platelet Volume 9.8 fL (7.4-10.4); Monocytes # 0.8 10^3/uL (0.2-0.9); Monocytes % 16.9 %; Neutrophils # 2.87 10^3/uL (1.8-7.7); Neutrophils % 60.6 %; Nucleated Red Blood Cells % 0 %; Platelet Count 199 10^3/cmm (157-399); Red Blood Count 4.69 10^6/uL (3.85-5.65); Red Cell Distribution Width 15.6 % (12.1-15.1); White Blood Count 4.74 10^3/uL (3.29-11.43)
[2023-12-14 08:44] LABS: Alanine Aminotransferase 11 U/L (0-41); Albumin Level 4.1 g/dL (3.5-5.2); Alkaline Phosphatase 73 U/L (40-130); Anion Gap 15.4 (5-19); Aspartate Amino Transferase 13 U/L (0-40); Blood Urea Nitrogen 17 mg/dL (6-20); Carbon Dioxide 24 mmol/L (22-29); Chloride 101 mmol/L (98-107); Glomerular Filtration Rate 57.1 mL/min (90-130); Glucose 128 mg/dL (65-115); Osmolality Calculated 285 mOsm/kg (285-295); Potassium 4.4 mmol/L (3.5-5.1); Sodium 136 mmol/L (136-145); Total Bilirubin 0.5 mg/dL (0.15-1.2); Total Protein 7.1 g/dL (6.6-8.7)
[2023-12-14] MEDS: sodium chloride 0.9% 250 ML 75 ML IV (09:48)
[2023-12-14] MEDS: diphenhydrAMINE 50 mg/mL SDV 1mL IVP (09:49)
[2023-12-14] MEDS: acetaminophen 325 mg Tablet 650 MG PO (09:49)
[2023-12-14] MEDS: dexamethasone 20 MG in sodium chloride 0.9% 50 ML 188 MG IV (10:03)
[2023-12-14] MEDS: [UNRECOGNIZED DRUG - REMARK] 30 MG IV (10:35)
[2023-12-14 10:40] VITALS: BP 151/74; PULSE 71; RESP 16; TEMP 36.5; O2SAT 94
[2023-12-14 11:10] VITALS: BP 139/76; PULSE 62; RESP 16; TEMP 36.6; O2SAT 94
[2023-12-14 11:40] VITALS: BP 142/82; PULSE 70; RESP 16; TEMP 36.3; O2SAT 93
[2023-12-14 12:10] VITALS: BP 135/83; PULSE 65; RESP 16; TEMP 36.6; O2SAT 95
[2023-12-14 14:01] VITALS: BP 138/73; PULSE 79; RESP 16; TEMP 36.6; O2SAT 97
== END 2023-12-14 23:59 | disposition home or self-care (01) ==
PROVIDERS: Nurse Practitioner Family; PCP Nurse Practitioner; Visit Provider Internal Medicine Medical Oncology
DX: Z51.11 Encounter for antineoplastic chemotherapy (principal); C91.10 Chronic lymphocytic leukemia of B-cell type not having achieved remission; Z53.9 Procedure and treatment not carried out, unspecified reason; Z79.899 Other long term (current) drug therapy
CPT/HCPCS: 80053; 83615; 85025; 96367; 96375; 96413; 96415; 99214; A4222; J1100; J1200; J7050; J9301

== ENCOUNTER 2023-12-20 14:25 | Outpatient (CLI) | payer MEDICARE, MEDICAID, SELFPAY ==
[2023-12-20] MEDS: iohexol 350 mg/mL 500 mL Btl (per mL) PO (15:27)
--- NOTE | 2023-12-20 15:30 | CTR_ITS ---
PROCEDURE INFORMATION: Exam: CT Chest With Contrast; Diagnostic Exam date and time: 12/20/2023 3:40 PM Age: 58 years old Clinical indication: Condition or disease; Other: Leukemia; Prior surgery; Surgery date: 6+ months; Surgery type: Heart stents, hernia; Additional info: Chronic lymphocytic leukemia TECHNIQUE: Imaging protocol: Diagnostic computed tomography of the chest with contrast. Radiation optimization: All CT scans at this facility use at least one of these dose optimization techniques: automated exposure control; mA and/or kV adjustment per patient size (includes targeted exams where dose is matched to clinical indication); or iterative reconstruction. Contrast material: OMNI 350; Contrast volume: 95 ml; Contrast route: INTRAVENOUS (IV); COMPARISON: CT chest abdpel w/*[id number] 08/10/2023 5:25 PM RADIATION DOSE METRICS: Total DLP (mGy-cm): 1056.21 FINDINGS: Thyroid: Partially visualized calcified left thyroid nodule, unchanged. Lungs: Calcified lingular granuloma. No focal consolidation or suspicious nodules. Pleural spaces: Unremarkable. No pneumothorax. No pleural effusion. Heart: Unremarkable. No cardiomegaly. No pericardial effusion. Coronary arteries: Moderate coronary artery calcification. Lymph nodes: Interval resolution of bilateral axillary and mediastinal adenopathy. Residual small right paratracheal lymph node (series 3, image 8) measures 6 mm in short axis and left axillary lymph node measures 8 mm in short axis. Vasculature: Unremarkable. No aortic aneurysm. Bones/joints: Unremarkable. No acute fracture. Soft tissues: Unremarkable. COMMENTS: Consistent with the [employer]'s Incidental Findings Committee white paper (J Am Destinee Radiol 2015): In patients aged 35 years and older with an incidental thyroid nodule equal to or greater than 1.[address], MRI or extrathyroidal US, further evaluation with dedicated thyroid US is recommended for patients with normal life expectancy and without comorbidities. For smaller nodules without suspicious features, no further evaluation or follow up is recommended. PROCEDURE INFORMATION: Exam: CT Abdomen And Pelvis With Contrast Exam date and time: 12/20/2023 3:40 PM Age: 58 years old Clinical indication: Condition or disease; Other: Leukemia; Prior surgery; Surgery date: 6+ months; Surgery type: Heart stents, hernia; Additional info: Chronic lymphocytic leukemia TECHNIQUE: Imaging protocol: Computed tomography of the abdomen and pelvis with contrast. Radiation optimization: All CT scans at this facility use at least one of these dose optimization techniques: automated exposure control; mA and/or kV adjustment per patient size (includes targeted exams where dose is matched to clinical indication); or iterative reconstruction. Contrast material: OMNI 350; Contrast volume: 95 ml; Contrast route: INTRAVENOUS (IV); COMPARISON: CT abdomen pelvis con [id number] 09/21/2023 3:57 AM RADIATION DOSE METRICS: Total DLP (mGy-cm): 1056.21 FINDINGS: Liver: No mass. Gallbladder and bile ducts: Cholelithiasis. Pancreas: No ductal dilation. Spleen: Splenomegaly measuring 13.9 cm in craniocaudal dimension, previously 17.6 cm. Adrenal glands: Unremarkable. Kidneys and ureters: No hydronephrosis. Interval resolution fluid collection at the inferior pole of the right kidney. Decreased bilateral perinephric stranding. Stomach and bowel: Unremarkable. No obstruction. No mucosal thickening. Appendix: No evidence of appendicitis. Intraperitoneal space: Unremarkable. No free air. No significant fluid collection. Vasculature: Unremarkable. No abdominal aortic aneurysm. Lymph nodes: Interval resolution of pelvic and retroperitoneal lymphadenopathy including reference left pelvic sidewall lymph node now measuring 8 mm in short axis, previously 2.2 cm. Urinary bladder: Unremarkable as visualized. Reproductive: Unremarkable as visualized. Bones/joints: Moderate degenerative changes of the spine. Bilateral L4 pars defects with 1.5 cm of anterolisthesis. Soft tissues: Unremarkable. CT/CT chest abdpel w/*[id number] IMPRESSION: Interval resolution of bilateral axillary and mediastinal adenopathy. IMPRESSION: 1. Interval resolution of fluid collection the inferior pole of the right kidney. 2. Interval resolution of pelvic and retroperitoneal lymphadenopathy. 3. Decreased but persistent splenomegaly.
[2023-12-20] MEDS: iohexol 350 mg/mL 500 mL Btl (per mL) IV (15:53)
== END 2023-12-20 14:26 | disposition home or self-care (01) ==
LOC: RAD 14:26
PROVIDERS: PCP Nurse Practitioner; Visit Provider Internal Medicine
DX: C91.10 Chronic lymphocytic leukemia of B-cell type not having achieved remission (principal); R16.1 Splenomegaly, not elsewhere classified
CPT/HCPCS: 71260; 74177; Q9967

== ENCOUNTER → 2024-01-04 14:28 | Outpatient (BNVA) | payer MEDICARE, MEDICAID, SELFPAY | PROVIDERS: PCP Nurse Practitioner; Visit Provider Nurse Practitioner Family | DX: C91.10 Chronic lymphocytic leukemia of B-cell type not having achieved remission (principal) | CPT/HCPCS: 80053; 85025 ==

== ENCOUNTER 2024-01-11 08:00 | Oncology outpatient (recurring) (ONCR) | payer MEDICARE, MEDICAID, SELFPAY ==
[2023-12-28 08:22] LABS: Hematocrit 42.1 % (37-53); Lymphocytes % 33.4 %; Mean Corpuscular HGB Conc 33.7 g/dL (30-55); Mean Corpuscular Volume 91.9 fl (82-101); Mean Platelet Volume 9.8 fL (7.4-10.4); Monocytes # 0.4 10^3/uL (0.2-0.9); Monocytes % 13.5 %; Neutrophils % 51.5 %; Nucleated Red Blood Cells % 0 %; Platelet Count 167 10^3/cmm (157-399); Red Blood Count 4.58 10^6/uL (3.85-5.65); Red Cell Distribution Width 15.2 % (12.1-15.1); White Blood Count 3.11 10^3/uL (3.29-11.43)
[2023-12-28 08:34] LABS: Alanine Aminotransferase 11 U/L (0-41); Alkaline Phosphatase 67 U/L (40-130); Anion Gap 15.7 (5-19); Aspartate Amino Transferase 11 U/L (0-40); Blood Urea Nitrogen 14 mg/dL (6-20); Carbon Dioxide 24 mmol/L (22-29); Chloride 103 mmol/L (98-107); Globulin 2.8 g/dL (1.3-4.6); Glomerular Filtration Rate 48.4 mL/min (90-130); Glucose 124 mg/dL (65-115); Lactate Dehydrogenase 120 U/L (135-225); Osmolality Calculated 290 mOsm/kg (285-295); Potassium 3.7 mmol/L (3.5-5.1); Sodium 139 mmol/L (136-145); Total Bilirubin 0.3 mg/dL (0.15-1.2); Total Protein 6.8 g/dL (6.6-8.7)
[2023-12-28] MEDS: sodium chloride 0.9% 500 ML 999 ML IV (10:44)
[2023-12-28 11:41] LABS: Uric Acid 4.6 mg/dL (3.4-7.0)
[2023-12-28 11:45] VITALS: BP 149/68; PULSE 66; RESP 17; TEMP 36.4; O2SAT 99
[2024-01-11 08:11] LABS: Basophils % 0.8 %; Hematocrit 41.7 % (37-53); Lymphocytes # 1.1 10^3/uL (0.8-4.8); Lymphocytes % 29.3 %; Mean Corpuscular HGB Conc 34.3 g/dL (30-55); Mean Corpuscular Hemoglobin 31.8 pg (27-33); Mean Corpuscular Volume 92.9 fl (82-101); Mean Platelet Volume 9.8 fL (7.4-10.4); Monocytes # 0.7 10^3/uL (0.2-0.9); Monocytes % 19.8 %; Neutrophils # 1.74 10^3/uL (1.8-7.7); Neutrophils % 48.7 %; Nucleated Red Blood Cells % 0 %; Platelet Count 184 10^3/cmm (157-399); Red Blood Count 4.49 10^6/uL (3.85-5.65); Red Cell Distribution Width 15.3 % (12.1-15.1); White Blood Count 3.58 10^3/uL (3.29-11.43)
[2024-01-11 08:33] LABS: Alanine Aminotransferase 10 U/L (0-41); Albumin Level 3.9 g/dL (3.5-5.2); Alkaline Phosphatase 63 U/L (40-130); Anion Gap 11.7 (5-19); Aspartate Amino Transferase 14 U/L (0-40); Blood Urea Nitrogen 19 mg/dL (6-20); Calcium 9.3 mg/dL (8.5-10.5); Carbon Dioxide 25 mmol/L (22-29); Chloride 105 mmol/L (98-107); Globulin 2.5 g/dL (1.3-4.6); Glomerular Filtration Rate 52.4 mL/min (90-130); Glucose 135 mg/dL (65-115); Osmolality Calculated 290 mOsm/kg (285-295); Potassium 3.7 mmol/L (3.5-5.1); Sodium 138 mmol/L (136-145); Total Bilirubin 0.4 mg/dL (0.15-1.2); Total Protein 6.4 g/dL (6.6-8.7)
[2024-01-11] MEDS: sodium chloride 0.9% 250 ML 75 ML IV (09:50)
[2024-01-11] MEDS: diphenhydrAMINE 50 mg/mL SDV 1mL IVP (09:51)
[2024-01-11] MEDS: acetaminophen 325 mg Tablet 650 MG PO (09:55)
[2024-01-11] MEDS: dexamethasone 20 MG in sodium chloride 0.9% 50 ML 188 MG IV (09:56)
[2024-01-11] MEDS: [UNRECOGNIZED DRUG - REMARK] 32 MG IV (10:37)
[2024-01-11 10:40] VITALS: BP 135/78; PULSE 66; RESP 16; TEMP 35.8; O2SAT 98
[2024-01-11 11:10] VITALS: BP 137/74; PULSE 72; TEMP 35.9; O2SAT 95
[2024-01-11 11:40] VITALS: BP 120/76; PULSE 65; RESP 17; TEMP 36.1; O2SAT 97
[2024-01-11 12:10] VITALS: BP 120/71; PULSE 65; RESP 16; O2SAT 98
[2024-01-11 14:10] VITALS: BP 132/78; PULSE 69; RESP 17; TEMP 35.7; O2SAT 98
== END 2024-01-13 23:59 | disposition home or self-care (01) ==
PROVIDERS: Internal Medicine; Nurse Practitioner Family; PCP Nurse Practitioner; Visit Provider Internal Medicine Medical Oncology
DX: C91.10 Chronic lymphocytic leukemia of B-cell type not having achieved remission (principal); Z53.9 Procedure and treatment not carried out, unspecified reason; Z51.11 Encounter for antineoplastic chemotherapy; Z79.52 Long term (current) use of systemic steroids; Z79.899 Other long term (current) drug therapy; F17.210 Nicotine dependence, cigarettes, uncomplicated; M25.551 Pain in right hip; M25.552 Pain in left hip
CPT/HCPCS: 80053; 83615; 84550; 85025; 96360; 96367; 96375; 96413; 96415; 99214; J1100; J1200; J7040; J7050; J9301

== ENCOUNTER → 2024-01-17 08:57 | Outpatient (BNVA) | payer MEDICARE, MEDICAID, SELFPAY | PROVIDERS: PCP Nurse Practitioner; Visit Provider Nurse Practitioner Family | DX: C91.10 Chronic lymphocytic leukemia of B-cell type not having achieved remission (principal) | CPT/HCPCS: 80053; 85025 ==

== ENCOUNTER → 2024-01-24 09:29 | Outpatient (BNVA) | payer MEDICARE, MEDICAID, SELFPAY | PROVIDERS: PCP Nurse Practitioner; Visit Provider Nurse Practitioner Family | DX: C91.10 Chronic lymphocytic leukemia of B-cell type not having achieved remission (principal) | CPT/HCPCS: 80053; 85025 ==

== ENCOUNTER → 2024-02-01 09:51 | Outpatient (BNVA) | payer MEDICARE, MEDICAID, SELFPAY | PROVIDERS: PCP Nurse Practitioner; Visit Provider Nurse Practitioner Family | DX: C91.10 Chronic lymphocytic leukemia of B-cell type not having achieved remission (principal) | CPT/HCPCS: 80053; 85025 ==

== ENCOUNTER 2024-02-08 07:26 | Oncology outpatient (recurring) (ONCR) | payer MEDICARE, MEDICAID, SELFPAY ==
[2024-02-08 07:46] LABS: Basophils % 0.7 %; Eosinophils % 0.5 %; Lymphocytes # 1.3 10^3/uL (0.8-4.8); Lymphocytes % 30.9 %; Mean Corpuscular Hemoglobin 32.6 pg (27-33); Mean Corpuscular Volume 93.2 fl (82-101); Mean Platelet Volume 10.2 fL (7.4-10.4); Monocytes # 0.9 10^3/uL (0.2-0.9); Monocytes % 21.1 %; Neutrophils % 45.6 %; Nucleated Red Blood Cells % 0 %; Platelet Count 160 10^3/cmm (157-399); Red Blood Count 4.72 10^6/uL (3.85-5.65); Red Cell Distribution Width 14.6 % (12.1-15.1); White Blood Count 4.17 10^3/uL (3.29-11.43)
[2024-02-08 08:09] LABS: Alanine Aminotransferase 11 U/L (0-41); Albumin Level 4.2 g/dL (3.5-5.2); Alkaline Phosphatase 63 U/L (40-130); Anion Gap 15.1 (5-19); Aspartate Amino Transferase 12 U/L (0-40); Blood Urea Nitrogen 17 mg/dL (6-20); Calcium 9.4 mg/dL (8.5-10.5); Carbon Dioxide 22 mmol/L (22-29); Chloride 105 mmol/L (98-107); Globulin 2.6 g/dL (1.3-4.6); Glomerular Filtration Rate 52.4 mL/min (90-130); Glucose 117 mg/dL (65-115); Osmolality Calculated 289 mOsm/kg (285-295); Potassium 4.1 mmol/L (3.5-5.1); Sodium 138 mmol/L (136-145); Total Bilirubin 0.3 mg/dL (0.15-1.2); Total Protein 6.8 g/dL (6.6-8.7)
[2024-02-08] MEDS: diphenhydrAMINE 50 mg/mL SDV 1mL IVP (11:05)
[2024-02-08] MEDS: sodium chloride 0.9% 250 ML 75 ML IV (11:05)
[2024-02-08] MEDS: acetaminophen 325 mg Tablet 650 MG PO (11:05)
[2024-02-08] MEDS: dexamethasone 20 MG in sodium chloride 0.9% 50 ML 188 MG IV (11:07)
[2024-02-08 11:40] VITALS: BP 147/93; PULSE 74; RESP 16; TEMP 36.1; O2SAT 100
[2024-02-08] MEDS: [UNRECOGNIZED DRUG - REMARK] 29 MG IV (11:40)
[2024-02-08 12:10] VITALS: BP 128/81; PULSE 74; RESP 16; TEMP 36.2; O2SAT 93
[2024-02-08 12:40] VITALS: BP 126/85; PULSE 63; RESP 16; TEMP 36.1; O2SAT 91
[2024-02-08 13:10] VITALS: BP 136/84; PULSE 68; RESP 16; TEMP 35.9; O2SAT 93
[2024-02-08 15:10] VITALS: BP 123/77; PULSE 76; RESP 16; TEMP 35.9; O2SAT 97
== END 2024-02-13 23:59 | disposition home or self-care (01) ==
PROVIDERS: Nurse Practitioner Family; PCP Nurse Practitioner; Visit Provider Internal Medicine Medical Oncology
DX: C91.10 Chronic lymphocytic leukemia of B-cell type not having achieved remission (principal); Z79.899 Other long term (current) drug therapy; R53.83 Other fatigue; F17.210 Nicotine dependence, cigarettes, uncomplicated; D70.1 Agranulocytosis secondary to cancer chemotherapy; T45.1X5A Adverse effect of antineoplastic and immunosuppressive drugs, initial encounter; Z79.69 Long term (current) use of other immunomodulators and immunosuppressants
CPT/HCPCS: 80053; 83735; 85025; 96367; 96375; 96413; 96415; 99214; J1100; J1200; J7050; J9301

== ENCOUNTER → 2024-02-14 14:01 | Outpatient (BNVA) | payer MEDICARE, MEDICAID, SELFPAY | PROVIDERS: PCP Nurse Practitioner; Visit Provider Internal Medicine Medical Oncology | DX: C91.10 Chronic lymphocytic leukemia of B-cell type not having achieved remission (principal) | CPT/HCPCS: 80053; 85025 ==

== ENCOUNTER → 2024-02-22 09:35 | Outpatient (BNVA) | payer MEDICARE, MEDICAID, SELFPAY | PROVIDERS: PCP Nurse Practitioner; Visit Provider Internal Medicine Medical Oncology | DX: C91.10 Chronic lymphocytic leukemia of B-cell type not having achieved remission (principal) | CPT/HCPCS: 80053; 85025 ==

== ENCOUNTER → 2024-02-28 09:49 | Outpatient (BNVA) | payer MEDICARE, MEDICAID, SELFPAY | PROVIDERS: PCP Nurse Practitioner; Visit Provider Internal Medicine Medical Oncology | DX: C91.10 Chronic lymphocytic leukemia of B-cell type not having achieved remission (principal) | CPT/HCPCS: 80053; 85025 ==

== ENCOUNTER 2024-03-14 08:00 | Oncology outpatient (recurring) (ONCR) | payer MEDICARE, MEDICAID, SELFPAY ==
[2024-03-07 07:50] LABS: Basophils % 1.1 %; Eosinophils % 0.5 %; Hematocrit 42.1 % (37-53); Lymphocytes # 0.8 10^3/uL (0.8-4.8); Lymphocytes % 44.8 %; Mean Corpuscular Hemoglobin 31.8 pg (27-33); Mean Corpuscular Volume 93.8 fl (82-101); Mean Platelet Volume 9.8 fL (7.4-10.4); Monocytes # 0.6 10^3/uL (0.2-0.9); Monocytes % 31.7 %; Neutrophils % 21.4 %; Nucleated Red Blood Cells % 0 %; Platelet Count 178 10^3/cmm (157-399); Red Blood Count 4.49 10^6/uL (3.85-5.65); Red Cell Distribution Width 14.5 % (12.1-15.1); White Blood Count 1.83 10^3/uL (3.29-11.43)
[2024-03-07 08:20] LABS: Alanine Aminotransferase 11 U/L (0-41); Albumin Level 3.9 g/dL (3.5-5.2); Alkaline Phosphatase 65 U/L (40-130); Anion Gap 14.2 (5-19); Aspartate Amino Transferase 13 U/L (0-40); Blood Urea Nitrogen 17 mg/dL (6-20); Calcium 8.7 mg/dL (8.5-10.5); Carbon Dioxide 24 mmol/L (22-29); Chloride 106 mmol/L (98-107); Globulin 2.4 g/dL (1.3-4.6); Glomerular Filtration Rate 52.4 mL/min (90-130); Glucose 188 mg/dL (65-115); Magnesium 1.9 mg/dL (1.7-2.3); Osmolality Calculated 297 mOsm/kg (285-295); Potassium 4.2 mmol/L (3.5-5.1); Sodium 140 mmol/L (136-145); Total Bilirubin 0.3 mg/dL (0.15-1.2); Total Protein 6.3 g/dL (6.6-8.7)
[2024-03-07 08:47] LABS: Neutrophils # 0.39 10^3/uL (1.8-7.7)
[2024-03-07 08:49] LABS: Slide Review Slide Review Perform
[2024-03-14 08:30] LABS: Basophils # 0.1 10^3/uL (0.0-0.1); Basophils % 2.1 %; Eosinophils % 0.3 %; Hematocrit 48.1 % (37-53); Lymphocytes # 0.9 10^3/uL (0.8-4.8); Lymphocytes % 24.2 %; Mean Corpuscular HGB Conc 34.1 g/dL (30-55); Mean Corpuscular Hemoglobin 32.3 pg (27-33); Mean Corpuscular Volume 94.7 fl (82-101); Mean Platelet Volume 9.9 fL (7.4-10.4); Monocytes % 24.7 %; Neutrophils # 1.67 10^3/uL (1.8-7.7); Neutrophils % 43.2 %; Nucleated Red Blood Cells % 0 %; Platelet Count 190 10^3/cmm (157-399); Red Blood Count 5.08 10^6/uL (3.85-5.65); Red Cell Distribution Width 14.3 % (12.1-15.1); White Blood Count 3.85 10^3/uL (3.29-11.43)
[2024-03-14 08:50] LABS: Alanine Aminotransferase 12 U/L (0-41); Alkaline Phosphatase 63 U/L (40-130); Aspartate Amino Transferase 12 U/L (0-40); Blood Urea Nitrogen 14 mg/dL (6-20); Calcium 9.1 mg/dL (8.5-10.5); Carbon Dioxide 25 mmol/L (22-29); Chloride 104 mmol/L (98-107); Globulin 3.1 g/dL (1.3-4.6); Glomerular Filtration Rate 57.1 mL/min (90-130); Glucose 150 mg/dL (65-115); Osmolality Calculated 287 mOsm/kg (285-295); Sodium 137 mmol/L (136-145); Total Bilirubin 0.4 mg/dL (0.15-1.2); Total Protein 7.1 g/dL (6.6-8.7)
[2024-03-14 08:53] LABS: Creatinine Clr Calc Pharmacy 67.9169
[2024-03-14 09:17] LABS: Slide Review Slide Review Perform
[2024-03-14] MEDS: sodium chloride 0.9% 250 ML 75 ML IV (10:54)
[2024-03-14] MEDS: dexamethasone 20 MG in sodium chloride 0.9% 50 ML 188 MG IV (10:55)
[2024-03-14] MEDS: acetaminophen 325 mg Tablet 650 MG PO (10:57)
[2024-03-14] MEDS: diphenhydrAMINE 50 mg/mL SDV 1mL IVP (11:24)
[2024-03-14 11:35] VITALS: BP 155/82; PULSE 71; RESP 18; TEMP 36.6; O2SAT 99
[2024-03-14] MEDS: [UNRECOGNIZED DRUG - REMARK] 30 MG IV (11:35)
[2024-03-14 12:40] VITALS: BP 147/78; PULSE 76; RESP 18; TEMP 36.6; O2SAT 97
[2024-03-14 13:20] VITALS: BP 132/74; PULSE 76; RESP 18; TEMP 36.4; O2SAT 96
[2024-03-14 13:25] VITALS: BP 132/74; PULSE 76; RESP 18; TEMP 36.6; O2SAT 96
[2024-03-14 15:25] VITALS: BP 132/74; PULSE 76; RESP 18; TEMP 36.6; O2SAT 96
[2024-03-14 16:28] VITALS: BP 147/80; PULSE 76; RESP 18; TEMP 36.6; O2SAT 98
== END 2024-03-14 23:59 | disposition home or self-care (01) ==
PROVIDERS: Internal Medicine; Nurse Practitioner Family; PCP Nurse Practitioner; Visit Provider Internal Medicine Medical Oncology
DX: C91.10 Chronic lymphocytic leukemia of B-cell type not having achieved remission (principal); Z53.9 Procedure and treatment not carried out, unspecified reason
CPT/HCPCS: 80053; 83735; 85025; 96367; 96375; 96413; 96415; 99214; J1100; J1200; J7050; J9301

== ENCOUNTER → 2024-03-20 10:18 | Outpatient (BNVA) | payer MEDICARE, MEDICAID, SELFPAY | PROVIDERS: PCP Nurse Practitioner; Visit Provider Internal Medicine Medical Oncology | DX: C91.10 Chronic lymphocytic leukemia of B-cell type not having achieved remission (principal); D72.820 Lymphocytosis (symptomatic) | CPT/HCPCS: 80053; 85025 ==

== ENCOUNTER → 2024-03-27 10:00 | Outpatient (BNVA) | payer MEDICARE, MEDICAID, SELFPAY | PROVIDERS: PCP Nurse Practitioner; Visit Provider Nurse Practitioner Family | DX: C91.10 Chronic lymphocytic leukemia of B-cell type not having achieved remission (principal) | CPT/HCPCS: 80053; 85025 ==

== ENCOUNTER 2024-04-04 07:22 | Oncology outpatient (recurring) (ONCR) | payer MEDICARE, MEDICAID, SELFPAY ==
[2024-04-04 08:08] LABS: Basophils % 0.6 %; Eosinophils % 1.3 %; Lymphocytes # 0.9 10^3/uL (0.8-4.8); Lymphocytes % 26.8 %; Mean Corpuscular HGB Conc 34.3 g/dL (30-55); Mean Corpuscular Hemoglobin 32.1 pg (27-33); Mean Corpuscular Volume 93.6 fl (82-101); Mean Platelet Volume 10.1 fL (7.4-10.4); Monocytes # 0.5 10^3/uL (0.2-0.9); Monocytes % 14.5 %; Neutrophils # 1.77 10^3/uL (1.8-7.7); Neutrophils % 55.9 %; Nucleated Red Blood Cells % 0 %; Platelet Count 183 10^3/cmm (157-399); Red Cell Distribution Width 14.5 % (12.1-15.1); White Blood Count 3.17 10^3/uL (3.29-11.43)
[2024-04-04 08:24] VITALS: BP 155/75; PULSE 71; RESP 17; TEMP 36.5; O2SAT 98
[2024-04-04 08:27] LABS: Alanine Aminotransferase 15 U/L (0-41); Albumin Level 3.9 g/dL (3.5-5.2); Alkaline Phosphatase 68 U/L (40-130); Anion Gap 14.2 (5-19); Aspartate Amino Transferase 13 U/L (0-40); Blood Urea Nitrogen 18 mg/dL (6-20); Calcium 9.3 mg/dL (8.5-10.5); Carbon Dioxide 23 mmol/L (22-29); Chloride 105 mmol/L (98-107); Creatinine Clr Calc Pharmacy 62.9427; Globulin 2.8 g/dL (1.3-4.6); Glomerular Filtration Rate 52.4 mL/min (90-130); Glucose 158 mg/dL (65-115); Osmolality Calculated 291 mOsm/kg (285-295); Potassium 4.2 mmol/L (3.5-5.1); Sodium 138 mmol/L (136-145); Total Bilirubin 0.4 mg/dL (0.15-1.2); Total Protein 6.7 g/dL (6.6-8.7)
[2024-04-04] MEDS: acetaminophen 325 mg Tablet 650 MG PO (10:36)
[2024-04-04] MEDS: sodium chloride 0.9% 250 ML 75 ML IV (10:37)
[2024-04-04] MEDS: diphenhydrAMINE 50 mg/mL SDV 1mL IVP (10:43)
[2024-04-04] MEDS: dexamethasone 20 MG in sodium chloride 0.9% 50 ML 188 MG IV (10:46)
[2024-04-04] MEDS: [UNRECOGNIZED DRUG - REMARK] 30 MG IV (11:26)
[2024-04-04 11:42] VITALS: BP 122/75; PULSE 70; RESP 18; TEMP 36.6; O2SAT 98
[2024-04-04 12:00] VITALS: BP 154/82; PULSE 65; RESP 17; TEMP 35.9; O2SAT 98
[2024-04-04 12:30] VITALS: BP 154/78; PULSE 64; RESP 17; TEMP 36; O2SAT 98
[2024-04-04 15:00] VITALS: BP 129/77; PULSE 67; RESP 17; TEMP 36.1; O2SAT 97
== END 2024-04-14 23:59 | disposition home or self-care (01) ==
PROVIDERS: Nurse Practitioner Family; PCP Nurse Practitioner; Visit Provider Internal Medicine Medical Oncology
DX: C91.10 Chronic lymphocytic leukemia of B-cell type not having achieved remission (principal)
CPT/HCPCS: 80053; 85025; 96367; 96375; 96413; 96415; J1100; J1200; J7050; J9301

== ENCOUNTER → 2024-04-11 08:57 | Outpatient (BNVA) | payer MEDICARE, MEDICAID, SELFPAY | PROVIDERS: PCP Nurse Practitioner; Visit Provider Internal Medicine Medical Oncology | DX: D72.820 Lymphocytosis (symptomatic) (principal) | CPT/HCPCS: 80053; 85025 ==

== ENCOUNTER → 2024-04-17 09:48 | Outpatient (BNVA) | payer MEDICARE, MEDICAID, SELFPAY | PROVIDERS: PCP Nurse Practitioner; Visit Provider Internal Medicine Medical Oncology | DX: C91.10 Chronic lymphocytic leukemia of B-cell type not having achieved remission (principal) | CPT/HCPCS: 80053; 85025 ==

== ENCOUNTER 2024-04-26 15:39 | Outpatient (CLI) | payer MEDICARE, MEDICAID, SELFPAY ==
--- NOTE | 2024-04-26 16:00 | USCV_ITS ---
IrvinDex haque Age: 58 Gender: M : 1965 Exam Date: 04/26/2024 16:03 Ordering Phys: Jessica Yang Technologist: PARKER Exam Location: [facility] [place] Indication: Small hard, lump HISTORY: Small, hard, lump in superficial forearm PROCEDURES: Venous duplex imaging was performed in only the left upper extremity. The following venous structures were evaluated: in addition, the basilic vein, cephalic vein, radial vein, and ulnar vein. Serial compression, augmentation maneuvers, and spectral Doppler flow evaluation were performed. subclavian vein, axillary vein, and brachial veins. FINDINGS: Chronic appearing superficial thrombus seen in short section of basilic vein in forearm. No DVT seen at this time CONCLUSIONS Chronic appearing superficial thrombus short segment basilic vein area of concern. Recommend correlation for thrombophlebitis. No DVT in LEFT upper extremity Melecio Arzate MD (Electronically Signed) Final Date: 26 April 2024 16:53 S
== END 2024-04-26 15:40 | disposition home or self-care (01) ==
LOC: RAD 15:40
PROVIDERS: PCP Nurse Practitioner; Visit Provider Nurse Practitioner
DX: I82.712 Chronic embolism and thrombosis of superficial veins of left upper extremity (principal)
CPT/HCPCS: 93971

== ENCOUNTER 2024-05-02 13:30 | Oncology outpatient (recurring) (ONCR) | payer MEDICARE, MEDICAID, SELFPAY ==
[2024-04-25 08:13] LABS: Basophils % 0.9 %; Eosinophils % 0.3 %; Hematocrit 43.4 % (37-53); Lymphocytes # 0.8 10^3/uL (0.8-4.8); Lymphocytes % 23.6 %; Mean Corpuscular HGB Conc 34.3 g/dL (30-55); Mean Corpuscular Hemoglobin 32.4 pg (27-33); Mean Corpuscular Volume 94.3 fl (82-101); Mean Platelet Volume 10.4 fL (7.4-10.4); Monocytes # 0.7 10^3/uL (0.2-0.9); Monocytes % 21.8 %; Neutrophils # 1.69 10^3/uL (1.8-7.7); Neutrophils % 51.3 %; Nucleated Red Blood Cells % 0 %; Platelet Count 157 10^3/cmm (157-399)
[2024-04-25 08:34] LABS: Alanine Aminotransferase 20 U/L (0-41); Albumin Level 3.7 g/dL (3.5-5.2); Alkaline Phosphatase 78 U/L (40-130); Blood Urea Nitrogen 16 mg/dL (6-20); Calcium 8.9 mg/dL (8.5-10.5); Carbon Dioxide 24 mmol/L (22-29); Chloride 101 mmol/L (98-107); Creatinine Clr Calc Pharmacy 68.2629; Globulin 2.8 g/dL (1.3-4.6); Glomerular Filtration Rate 57.1 mL/min (90-130); Glucose 192 mg/dL (65-115); Osmolality Calculated 286 mOsm/kg (285-295); Sodium 135 mmol/L (136-145); Total Bilirubin 0.2 mg/dL (0.15-1.2); Total Protein 6.5 g/dL (6.6-8.7)
[2024-04-25 08:36] LABS: Anion Gap 14.5 (5-19); Aspartate Amino Transferase 19 U/L (0-40); Potassium 4.5 mmol/L (3.5-5.1)
== END 2024-05-14 23:59 | disposition home or self-care (01) ==
PROVIDERS: PCP Nurse Practitioner; Visit Provider Internal Medicine Medical Oncology
DX: Z53.9 Procedure and treatment not carried out, unspecified reason (principal)
CPT/HCPCS: 36415; 80053; 85025; 99214

== ENCOUNTER → 2024-05-05 09:20 | Outpatient (BNVA) | payer MEDICARE, MEDICAID, SELFPAY | PROVIDERS: PCP Nurse Practitioner; Visit Provider Internal Medicine Cardiovascular Disease | DX: I12.9 Hypertensive chronic kidney disease with stage 1 through stage 4 chronic kidney disease, or unspecified chronic kidney disease (principal); N18.9 Chronic kidney disease, unspecified; E11.22 Type 2 diabetes mellitus with diabetic chronic kidney disease; E78.5 Hyperlipidemia, unspecified; I80.8 Phlebitis and thrombophlebitis of other sites; I25.10 Atherosclerotic heart disease of native coronary artery without angina pectoris; E11.65 Type 2 diabetes mellitus with hyperglycemia; C91.10 Chronic lymphocytic leukemia of B-cell type not having achieved remission; I25.2 Old myocardial infarction; F17.210 Nicotine dependence, cigarettes, uncomplicated; Z79.4 Long term (current) use of insulin | CPT/HCPCS: 99214 ==

== ENCOUNTER → 2024-05-10 10:00 | Outpatient (BNVA) | payer MEDICARE, MEDICAID, SELFPAY | PROVIDERS: PCP Nurse Practitioner; Visit Provider Nurse Practitioner Family | DX: C91.10 Chronic lymphocytic leukemia of B-cell type not having achieved remission (principal); N18.2 Chronic kidney disease, stage 2 (mild); Z79.899 Other long term (current) drug therapy | CPT/HCPCS: 80069; 82306; 82310; 83970; 85025 ==

== ENCOUNTER 2024-05-31 07:26 | Oncology outpatient (recurring) (ONCR) | payer MEDICARE, MEDICAID, SELFPAY ==
[2024-05-31 08:15] LABS: Basophils % 0.4 %; Eosinophils % 0.2 %; Hematocrit 40.5 % (37-53); Lymphocytes # 1.2 10^3/uL (0.8-4.8); Mean Corpuscular HGB Conc 34.1 g/dL (30-55); Mean Corpuscular Hemoglobin 32.2 pg (27-33); Mean Corpuscular Volume 94.4 fl (82-101); Mean Platelet Volume 9.8 fL (7.4-10.4); Monocytes # 0.8 10^3/uL (0.2-0.9); Monocytes % 15.4 %; Neutrophils # 3.01 10^3/uL (1.8-7.7); Neutrophils % 58.6 %; Nucleated Red Blood Cells % 0 %; Platelet Count 154 10^3/cmm (157-399); Red Blood Count 4.29 10^6/uL (3.85-5.65); Red Cell Distribution Width 14.5 % (12.1-15.1); White Blood Count 5.13 10^3/uL (3.29-11.43)
[2024-05-31 08:36] LABS: Alanine Aminotransferase 20 U/L (0-41); Alkaline Phosphatase 73 U/L (40-130); Anion Gap 12.9 (5-19); Aspartate Amino Transferase 18 U/L (0-40); Blood Urea Nitrogen 17 mg/dL (6-20); Carbon Dioxide 27 mmol/L (22-29); Chloride 103 mmol/L (98-107); Creatinine Clr Calc Pharmacy 62.5948; Globulin 2.8 g/dL (1.3-4.6); Glomerular Filtration Rate 52.2 mL/min (90-130); Glucose 155 mg/dL (65-115); Lactate Dehydrogenase 139 U/L (135-225); Osmolality Calculated 293 mOsm/kg (285-295); Potassium 3.9 mmol/L (3.5-5.1); Sodium 139 mmol/L (136-145); Total Bilirubin 0.3 mg/dL (0.15-1.2); Total Protein 6.8 g/dL (6.6-8.7)
== END 2024-06-14 23:59 | disposition home or self-care (01) ==
PROVIDERS: PCP Nurse Practitioner; Visit Provider Internal Medicine Medical Oncology
DX: C91.10 Chronic lymphocytic leukemia of B-cell type not having achieved remission; Z80.42 Family history of malignant neoplasm of prostate
CPT/HCPCS: 36415; 80053; 83615; 85025; 99214

== ENCOUNTER 2024-06-13 14:24 | Outpatient (CLI) | payer MEDICARE, MEDICAID, SELFPAY ==
--- NOTE | 2024-06-13 14:33 | XRR_ITS ---
PROCEDURE INFORMATION: Exam: XR Chest Exam date and time: 06/13/2024 3:20 PM Age: 59 years old Clinical indication: Fever; Patient HX: HX cll TECHNIQUE: Imaging protocol: Radiologic exam of the chest. Views: 2 views. COMPARISON: CT chest abdpel w/*[id number] 12/20/2023 3:40 PM FINDINGS: Lungs: No focal consolidation. Pleural spaces: No evidence of pneumothorax. No evidence of pleural effusion. Heart/Mediastinum: Cardiomediastinal silhouette is within normal limits. Bones/joints: No evidence of acute osseous abnormality. XR/XR chest 2V* [id number] IMPRESSION: 1. No acute cardiopulmonary abnormality.
[2024-06-13 14:45] LABS: Charge for UA Resulting for Rev
[2024-06-13 14:51] LABS: Bilirubin Urine Negative (Negative); Blood Urine Negative (Negative); Glucose Urine UA Negative (Normal); Ketones Urine Negative (Negative); Leukocyte Esterase Urine Negative (Negative); Nitrate Urine Negative (Negative); Protein Urine Negative (Negative); Specific Gravity, Urine 1.001 (1.005-1.030); Urine Appearance Clear (CLEAR); Urine Color Yellow (Yellow); Urobilinogen Urine 0.2 mg/dL (Negative)
[2024-06-13 14:57] LABS: Basophils % 0.4 %; Eosinophils % 0.4 %; Hematocrit 39.6 % (37-53); Lymphocytes # 0.6 10^3/uL (0.8-4.8); Lymphocytes % 22.8 %; Mean Corpuscular HGB Conc 33.8 g/dL (30-55); Mean Corpuscular Hemoglobin 31.2 pg (27-33); Mean Corpuscular Volume 92.3 fl (82-101); Mean Platelet Volume 10.4 fL (7.4-10.4); Monocytes # 0.6 10^3/uL (0.2-0.9); Monocytes % 20.3 %; Neutrophils # 1.53 10^3/uL (1.8-7.7); Neutrophils % 54.3 %; Nucleated Red Blood Cells % 0 %; Platelet Count 150 10^3/cmm (157-399); Red Blood Count 4.29 10^6/uL (3.85-5.65); Red Cell Distribution Width 14.6 % (12.1-15.1); White Blood Count 2.81 10^3/uL (3.29-11.43)
[2024-06-13 15:24] LABS: Alanine Aminotransferase 21 U/L (0-41); Albumin Level 3.9 g/dL (3.5-5.2); Alkaline Phosphatase 69 U/L (40-130); Anion Gap 14.9 (5-19); Aspartate Amino Transferase 20 U/L (0-40); Blood Urea Nitrogen 16 mg/dL (6-20); Carbon Dioxide 24 mmol/L (22-29); Chloride 100 mmol/L (98-107); Glomerular Filtration Rate 52.2 mL/min (90-130); Glucose 129 mg/dL (65-115); Osmolality Calculated 283 mOsm/kg (285-295); Potassium 3.9 mmol/L (3.5-5.1); Sodium 135 mmol/L (136-145); Thyroid Stimulating Hormone 1.89 uIU/mL (0.27-4.20); Total Bilirubin 0.4 mg/dL (0.15-1.2); Total Protein 6.9 g/dL (6.6-8.7)
[2024-06-13 16:39] LABS: Adenovirus Not Detected (NOT DETECT); Chlamydia Pneumoniae Not Detected (NOT DETECT); Coronavirus 229E,HKU1,NL63,OC4 Not Detected (NOT DETECT); Human Metapneumovirus Not Detected (NOT DETECT); Human Rhinovirus/Enterovirus Not Detected (NOT DETECT); Influenza A Not Detected (NOT DETECT); Influenza A H1 Not Detected (NOT DETECT); Influenza A H1-2009 Not Detected (NOT DETECT); Influenza A H3 Not Detected (NOT DETECT); Influenza B Not Detected (NOT DETECT); Mycoplasma Pneumoniae Not Detected (NOT DETECT); Parainfluenza Virus Type 1 Not Detected (NOT DETECT); Parainfluenza Virus Type 2 Not Detected (NOT DETECT); Parainfluenza Virus Type 3 Not Detected (NOT DETECT); Parainfluenza Virus Type 4 Not Detected (NOT DETECT); Respiratory Syncytial Virus A Not Detected (NOT DETECT); Respiratory Syncytial Virus B Not Detected (NOT DETECT); SARS-COV-2 Not Detected (NOT DETECT)
== END 2024-06-13 14:25 | disposition home or self-care (01) ==
LOC: LAB 14:25
PROVIDERS: PCP Nurse Practitioner; Visit Provider Family Medicine
DX: R50.9 Fever, unspecified (principal); C91.10 Chronic lymphocytic leukemia of B-cell type not having achieved remission
CPT/HCPCS: 71046; 80053; 81003; 81015; 84443; 85025; 87040; 87635

== ENCOUNTER 2024-07-10 13:44 | Oncology outpatient (recurring) (ONCR) | payer MEDICARE, MEDICAID, SELFPAY ==
[2024-06-28 12:19] LABS: Basophils % 0.5 %; Eosinophils % 0.2 %; Hematocrit 40.9 % (37-53); Lymphocytes # 0.7 10^3/uL (0.8-4.8); Lymphocytes % 16.5 %; Mean Corpuscular HGB Conc 33.7 g/dL (30-55); Mean Corpuscular Hemoglobin 30.9 pg (27-33); Mean Corpuscular Volume 91.5 fl (82-101); Mean Platelet Volume 10.7 fL (7.4-10.4); Monocytes # 0.6 10^3/uL (0.2-0.9); Monocytes % 13.8 %; Neutrophils # 2.73 10^3/uL (1.8-7.7); Neutrophils % 66.1 %; Nucleated Red Blood Cells % 0 %; Platelet Count 157 10^3/cmm (157-399); Red Blood Count 4.47 10^6/uL (3.85-5.65); Red Cell Distribution Width 14.5 % (12.1-15.1); White Blood Count 4.13 10^3/uL (3.29-11.43)
[2024-06-28 12:35] LABS: Alanine Aminotransferase 24 U/L (0-41); Albumin Level 3.9 g/dL (3.5-5.2); Alkaline Phosphatase 68 U/L (40-130); Aspartate Amino Transferase 23 U/L (0-40); Blood Urea Nitrogen 12 mg/dL (6-20); Calcium 9.4 mg/dL (8.5-10.5); Carbon Dioxide 24 mmol/L (22-29); Chloride 100 mmol/L (98-107); Globulin 3.3 g/dL (1.3-4.6); Glomerular Filtration Rate 56.9 mL/min (90-130); Glucose 148 mg/dL (65-115); Lactate Dehydrogenase 183 U/L (135-225); Osmolality Calculated 285 mOsm/kg (285-295); Sodium 136 mmol/L (136-145); Total Bilirubin 0.5 mg/dL (0.15-1.2); Total Protein 7.2 g/dL (6.6-8.7)
[2024-06-28 15:00] LABS: Immunoglobulin IGA 149 mg/dL (70-400); Immunoglobulin IGG 709 mg/dL (700-1600)
[2024-06-28 15:01] LABS: Immunoglobulin IGM < 25 mg/dL (40-230)
--- NOTE | 2024-07-04 09:00 | CT_ITS ---
WS: [id number] CT CHEST, ABDOMEN AND PELVIS WITH CONTRAST HISTORY: Restaging CLL. Recent fevers. TECHNIQUE: Contiguous 5 mm axial imaging performed through the chest, abdomen and pelvis with IV cont rast, oral contrast has been provided. Coronal and sagittal reformats chest. Coronal and sagittal ref ormats through the abdomen and pelvis. All CT scans at [facility] use at least one of these d ose optimization techniques: automated exposure control; mA and/or kV adjustment per patient size (in cludes targeted exams where dose is matched to clinical indication); or iterative reconstruction. CONTRAST: Omnipaque 350; 100 mL IV. DLP: 1068.96 mGy.cm COMPARISON: 12/20/2023, 09/21/[address]: Tiny micronodules peripheral RIGHT upper lobe. New bilateral areas are groundglass attenuat ion involving multiple lobes. The most significant area of groundglass attenuation is in the LEFT low er lobe. Additional more segmental areas of groundglass attenuation in the posterior LEFT upper lobe, superior segment RIGHT lower lobe and a small portion of the RIGHT upper lobe along the fissure and within the RIGHT middle lobe. These are new groundglass opacification since the prior exam. No mass. There is a granuloma in the LEFT lower lobe. Small axillary, mediastinal and hilar lymph nodes. Largest lymph node is is at the LEFT hilum measuri ng 10 mm. Although the lymph nodes of only changes slightly there does appear to be minimal increase in size of some of the lymph nodes. Heart is normal size. No pericardial or pleural effusion. Mild at herosclerosis aorta. Central pulmonary artery is normal. Dense calcification in the LEFT thyroid. LEFT thyroid calcified nodule measures 18 mm and is similar to prior studies. Abdomen CT: Liver is normal size. No bile duct dilatation or mass. Normal enhancement of the portal v ein. Large gallstone measuring 2.3 cm fills nearly the entire lumen of the gallbladder. Negative panc reas. Spleen continues to be top normal to slightly enlarged at 12.9 cm. No progression in size since the prior study. No adrenal mass. Both kidneys are enhancing normally with no obstruction. There are a few small scattered low-attenuation areas which cannot be further evaluated due to their small siz e. LEFT kidney demonstrates mild perinephric stranding. 9 mm low-attenuation mass is probably a cyst from the medial inferior pole the LEFT kidney is unchanged. Mild atherosclerosis aorta. Mild atherosc lerotic plaque within the mesenteric arteries. No lymph nodes in the maryam hepatis GE junction or lesser curvature of the stomach. No adenopathy joyce rounding the celiac axis. There are very tiny retroperitoneal and aortocaval lymph nodes. No central mesenteric adenopathy. Stomach is well distended with oral contrast. No small bowel obstruction. No significant constipation . No appendicitis or diverticulitis. Pelvic CT: No free fluid. No adenopathy in the pelvis. No inguinal lymph nodes. Urinary bladder is ne gative. Advanced degenerative disc disease and facet arthropathy at L4-5 and L5-S1. Grade 2 spondylolisthesis of L4 with bilateral pars defects at L4. Osteophytosis at L5-S1. Hypertrophic changes along the endp lates throughout the lumbar spine. CT/CT chest abdpel w/*[id number] IMPRESSION: 1. New multilobar, bilateral areas of groundglass opacification, greatest in t he LEFT lower lobe. Etiologies to consider are pulmonary edema or hemorrhage. P neumonia such as a viral pneumonia or mycoplasma. Acute hypersensitivity pneumo gasper. 2. There are additional very slightly more prominent mediastinal and hilar lym ph nodes. These lymph nodes may be more prominent based on the acute groundglas s opacifications within the lungs. 3. Recommendation: Short-term follow-up chest CT after treatment for possible infection or inflammation. 4. No abdominal or pelvic adenopathy identified. 5. Spleen remains top normal size but is not progressed since 12/20/2023. 6. Cholelithiasis without acute cholecystitis. 7. Very mild heterogeneity in the LEFT kidney similar to the prior study. Ther e is mild perinephric stranding. Stable cystic mass in the inferior medial pole . 8. Grade 2 spinal listhesis of L4 with bilateral pars defects.
[2024-07-04] MEDS: iohexol 350 mg/mL 500 mL Btl (per mL) PO (09:02)
[2024-07-04] MEDS: iohexol 350 mg/mL 500 mL Btl (per mL) IV (09:54)
--- NOTE | 2024-07-13 08:00 | CT_ITS ---
WS: [id number] CT HEAD NONCONTRAST HISTORY: headcahe, visual changes TECHNIQUE: Contiguous axial imaging performed through the brain in 2.5 mm imaging. Bone and soft tiss ue windows. Sagittal and coronal reformats reviewed. All CT scans at [facility] use at least one of these dose optimization techniques: automated exposure control; mA and/or kV adjustment per pa tient size (includes targeted exams where dose is matched to clinical indication); or iterative recon struction. DLP: 1275.28 mGy.cm COMPARISON: None available. Hyperdense nodule Enhanced CT examination in the LEFT temporal lobe measures 6 x 5 mm. No surrounding edema and this hy perdense nodule is posterior to the LEFT sylvian fissure. No additional abnormalities are identified. Very mild atrophy and small vessel ischemic disease otherwise. There is a tiny lacunar infarct RIGHT anterior limb internal capsule. Ventricles: Normal size with no hydrocephalus. Paranasal sinuses: Small mucous retention cyst LEFT sphenoid sinus. Mastoid air cells: Well pneumatized. Calvarium and scalp: Skull is intact with no soft tissue edema or swelling. CT/CT head wo con* [id number] IMPRESSION: 1. Hyperattenuating LEFT temporal lobe mass measuring 6 x 5 mm. No prior studi es for comparison. Differential includes hemorrhagic cerebral metastasis such a s malignant melanoma, colon cancer or renal cell cancer. Calcified cerebral met astasis (breast) or highly cellular cerebral metastasis from lymphoma or leukem ia. Vascular malformation such as cerebral cavernous malformation also within t he differential. 2. Recommendation: Follow-up MRI brain with and without contrast.
== END 2024-07-15 23:59 | disposition home or self-care (01) ==
LOC: RAD 07-13 07:44 → ONCMED 07-13 07:45
PROVIDERS: Nurse Practitioner Family; PCP Nurse Practitioner; Visit Provider Student in an Organized Health Care Education/Training Program
DX: Z53.9 Procedure and treatment not carried out, unspecified reason (principal); R51.9 Headache, unspecified; H53.8 Other visual disturbances; R93.89 Abnormal findings on diagnostic imaging of other specified body structures
CPT/HCPCS: 36415; 70450; 71260; 74177; 80053; 82784; 83615; 85025; 99214; Q9967

== ENCOUNTER → 2024-07-11 12:49 | Outpatient (BNVA) | payer MEDICARE, MEDICAID, SELFPAY | PROVIDERS: PCP Nurse Practitioner; Referring Provider Internal Medicine Medical Oncology; Visit Provider Student in an Organized Health Care Education/Training Program | DX: J18.9 Pneumonia, unspecified organism (principal); R51.9 Headache, unspecified; R50.9 Fever, unspecified | CPT/HCPCS: 36415; 86403; 86611; 86612; 86635; 86698; 86777; 87015; 87040; 87070; 87102; 87116; 87205; 87206; 87305; 87385; 87449; 87486; 87581; 87633; 87798; 87801; 87806; 99215 ==

== ENCOUNTER 2024-07-18 19:53 | Emergency (ER) | payer MEDICARE, MEDICAID, SELFPAY ==
[2024-07-18 19:57] VITALS: BP 115/68; PULSE 75; RESP 18; TEMP 36.7; O2SAT 98; BMI 30.7
--- NOTE | 2024-07-18 20:36 | ECG_ITS ---
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 Measurements Intervals [place] Rate: 72 P: 43 DC: 161 QRS: -1 QRSD: 95 T: 19 QT: 382 QTc: 418 Interpretive Statements SINUS RHYTHM NONSPECIFIC ST & T-WAVE ABNORMALITY Compared to ECG 05/02/2023 06:03:59 T-wave abnormality now present Sinus bradycardia no longer present Myocardial infarct finding no longer present Electronically Signed On 07-19-2024 17:32:39 CDT by Junaid Woods M.D. [id number]
--- NOTE | 2024-07-18 20:37 | XRR_ITS ---
PROCEDURE INFORMATION: Exam: XR Chest Exam date and time: 07/18/2024 8:43 PM Age: 59 years old Clinical indication: Shortness of breath; Prior surgery; Surgery date: 6+ months; Surgery type: Cardiac stents; Additional info: VANESSA TAPIA of pna TECHNIQUE: Imaging protocol: Radiologic exam of the chest. Views: 1 view. COMPARISON: CT chest abdpel w/*[id number] 07/04/2024 9:43 AM FINDINGS: Lungs: Bibasilar atelectasis versus infiltrate. Pleural spaces: Unremarkable. No pleural effusion. No pneumothorax. Heart/Mediastinum: Unremarkable. No cardiomegaly. Bones/joints: Unremarkable. XR/XR chest 1V portable [id number] IMPRESSION: Bibasilar atelectasis versus infiltrate.
[2024-07-18 20:53] LABS: Charge for UA Resulting for Rev
[2024-07-18 20:55] LABS: Bilirubin Urine Negative (Negative); Blood Urine Negative (Negative); Glucose Urine UA Negative (Normal); Ketones Urine Negative (Negative); Leukocyte Esterase Urine Negative (Negative); Nitrate Urine Negative (Negative); Protein Urine Negative (Negative); Specific Gravity, Urine 1.003 (1.005-1.030); Urine Appearance Clear (CLEAR); Urine Color Yellow (Yellow); Urobilinogen Urine 0.2 mg/dL (Negative); pH Urine 6.5 (5-7)
[2024-07-18 20:56] VITALS: BP 147/79; PULSE 74; RESP 18; O2SAT 98
[2024-07-18 20:56] LABS: Basophils % 0.4 %; Eosinophils % 1.4 %; Hematocrit 33.7 % (37-53); Lymphocytes # 0.4 10^3/uL (0.8-4.8); Lymphocytes % 12.3 %; Mean Corpuscular HGB Conc 33.2 g/dL (30-55); Mean Corpuscular Hemoglobin 30.5 pg (27-33); Mean Corpuscular Volume 91.8 fl (82-101); Mean Platelet Volume 10.5 fL (7.4-10.4); Monocytes # 0.4 10^3/uL (0.2-0.9); Monocytes % 12.3 %; Neutrophils # 2.04 10^3/uL (1.8-7.7); Neutrophils % 71.8 %; Nucleated Red Blood Cells % 0 %; Platelet Count 132 10^3/cmm (157-399); Red Blood Count 3.67 10^6/uL (3.85-5.65); White Blood Count 2.84 10^3/uL (3.29-11.43)
[2024-07-18] MEDS: sodium chloride 0.9% 1,000 ML 999 ML IV (20:57)
[2024-07-18] MEDS: dexamethasone 10 mg/mL INJ IVP (20:58)
[2024-07-18 21:17] LABS: Alanine Aminotransferase 30 U/L (0-41); Albumin Level 3.6 g/dL (3.5-5.2); Alkaline Phosphatase 59 U/L (40-130); Anion Gap 17.5 (5-19); Aspartate Amino Transferase 28 U/L (0-40); Blood Urea Nitrogen 12 mg/dL (6-20); Calcium 8.3 mg/dL (8.5-10.5); Carbon Dioxide 20 mmol/L (22-29); Chloride 95 mmol/L (98-107); Creatinine Clr Calc Pharmacy 83.8683; Glucose 105 mg/dL (65-115); Osmolality Calculated 268 mOsm/kg (285-295); Potassium 3.5 mmol/L (3.5-5.1); Sodium 129 mmol/L (136-145); Total Bilirubin 0.4 mg/dL (0.15-1.2); Total Protein 5.6 g/dL (6.6-8.7); Troponin(5th) Baseline 10 ng/L (0-15)
[2024-07-18 21:31] LABS: Lactic Sepsis W/Reflex 0.9 mmol/L (0.5-2.2)
[2024-07-18 21:57] LABS: SARS Covid-2 Antigen Negative (Negative)
[2024-07-18 22:34] VITALS: BP 151/73; PULSE 79; O2SAT 97
--- NOTE | 2024-07-18 23:07 | W.ED.ALLEREA ---
HPI - Allergic Reaction General: Chief complaint: Allergic Reaction Stated complaint: nausea Time Seen by Provider: 07/18/24 20:04 Source: patient Mode of arrival: EMS Limitations: no limitations History of Present Illness: HPI narrative: Patient is a 59 y/o male presenting to the emergency department by ambulance due to potential allergic reaction onset today. Pt has hx of CLL and was started on Levaquin for a recurrent LLL PNA by Dr. Green, and states that soon after taking first dose at 1400 he began having symptoms of nausea, chest tightness, and dizziness, which she states primarily occurred around 1800. Also states he took his regularly prescribed medications at 1630. He recently diagnosed with a head mass to be a head CT on 07/13, is set to have an MRI for this. He also notes he recently finished chemotherapy for his cancer. His primary complaint at this time is to see if he had a reaction to antibiotics as he states he has had reactions in the past with different antibiotics. He does note that he is feeling better after EMS gave him Zofran, but states he still feels off. He has an appointment with chaser apprentice in [place] tomorrow. He is denying any fever, new shortness of breath, syncopal episodes, seizure-like activity, or other symptoms at this time MD complaint: allergic reaction Onset (ago): hour(s) Exposure: medication Known history of allergy to: Reported allergy to multiple antibiotics Associated symptoms: Reports dizziness and nausea; Deny abdominal pain, facial swelling or vomiting Related Data Home Medications Medication Instructions Recorded Confirmed acetaminophen 500 mg capsule 500 mg PO Q6H PRN 10/18/23 07/11/24 blood sugar diagnostic (OneTouch #10 ea 12/14/23 07/11/24 Ultra Test strips) sulfamethoxazole 800 tab PO 12/14/23 07/11/24 mg-trimethoprim 160 mg tablet fluticasone propionate 50 1 spray intranasal DAILY 06/28/24 07/11/24 mcg/actuation nasal spray,suspension (Flonase Allergy Relief) cholecalciferol (vitamin D3) 50 50 mcg PO DAILY 07/10/24 07/11/24 mcg (2,000 unit) capsule Previous Rx's Medication Instructions Recorded aspirin 81 mg tablet,delayed 81 mg PO DAILY #100 tabs 05/03/23 release nitroglycerin 0.4 mg sublingual 0.4 mg sublingual Q5M PRN Chest 05/03/23 tablet Pain #25 tabs clopidogrel 75 mg tablet 75 mg PO DAILY #90 tabs 07/21/23 insulin lispro 100 unit/mL See Rx Instructions SUBCUT 10/19/23 subcutaneous pen (Humalog KwikPen .COMPLEX #15 mL (U-100) Insulin) venetoclax 100 mg tablet 100 mg PO DAILY #30 tabs 12/28/23 valacyclovir 500 mg tablet See Rx Instructions .Route 04/06/24 .COMPLEX #60 tabs cefuroxime axetil 500 mg tablet 500 mg PO BID 10 days #20 tabs 05/31/24 Allergies Allergy/AdvReac Type Severity Reaction Status Date / Time No Known Allergies Allergy Verified 07/18/24 20:02 Review of Systems General: Reports: 10 or more systems reviewed and unremarkable except in HPI and below Const: Reports: chills, fatigue and other (Potential allergic reaction to medication); Denies: fever(s) Eyes: Denies: change in vision ENMT: Denies: throat pain, ear or mastoid pain or nasal discharge Card: Reports: chest pain; Denies: palpitations, swelling of feet/ankles or lightheadedness Resp: Denies: dyspnea, productive cough or wheezing GI: Reports: nausea; Denies: abdominal pain, vomiting, diarrhea or constipation : Denies: flank pain, difficulty urinating, dysuria or urinary frequency Musc: Denies: neck pain, back pain or joint pain Skin/Breast: Denies: rash Neuro: Reports: dizziness; Denies: headache(s), numbness in extremities or weakness in extremities All/Imm: Denies: urticaria, throat swelling, facial swelling or acute wheezing PFSH ED PFSH: Medical History Chronic kidney disease 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 Coronary artery disease AMI inferior wall Vertigo, benign positional Tinnitus Rotator cuff arthropathy of right shoulder History of tobacco abuse Lumbar disc disease Hypertension History of Helicobacter infection Erectile dysfunction Diabetes Arthritis GERD (gastroesophageal reflux disease) History of basal cell cancer Hyperlipidemia Surgical History Hx of colonoscopy with polypectomy age 52 History of umbilical hernia repair H/O repair of rotator cuff Family History Mother , at the age of 74 Cancer thyroid cancer Lung disease emphysema Hypertension Father , at the age of 74 CAD (coronary artery disease) Other Stroke Social History Smoking and tobacco/nicotine status: current every day tobacco/nicotine user cigarettes Packs smoked per day: 2 Years cigarettes smoked: 45 Alcohol intake: never Substance/Drug Use: never Physical Exam Const: COMMON NORMALS: no acute distress, patient oriented x3 and no limitations GENERAL APPEARANCE: cooperative, comfortable and well developed ORIENTATION/CONSCIOUSNESS: Yes awake, Yes oriented to person, Yes oriented to place and Yes oriented to time HENMT: COMMON NORMALS: normocephalic, atraumatic and hearing grossly normal bilaterally HEAD & SCALP: normocephalic and atraumatic OTHER: No tongue or throat swelling. No angioedema. No facial erythema or edema. Eye: COMMON NORMALS: Equal, round and reactive pupils present, EOMs intact bilaterally and conjunctivae normal CONJUNCTIVA: Yes conjunctivae normal PUPIL: Yes Equal, round and reactive pupils present Neck/C-Spine: COMMON NORMALS: full ROM, supple and no JVD Chest: COMMONS NORMALS: normal inspection of the chest Resp: COMMON NORMALS: normal respiratory effort, No retractions, No use of accessory muscles and clear to auscultation bilaterally AUSCULTATION: clear to auscultation bilaterally Cardio: COMMON NORMALS: no JVD, regular rate, regular rhythm, No clicks present (Cardio), No murmurs present (Cardio) and No rub (Cardio) RATE: regular rate RHYTHM: regular rhythm GI: COMMON NORMALS: Normal to inspection, nondistended, normoactive bowel sounds present, Soft to palpation and non-tender AUSCULTATION: Yes normoactive bowel sounds PALPATION: Yes Soft to palpation RECTAL EXAM: Yes deferred Extremity: COMMON NORMALS: normal to inspection, full ROM and capillary refill normal Neuro: COMMON NORMALS: patient oriented x3, CN's II-XII intact bilaterally, moves all extremities, no focal motor deficits and no sensory deficits noted SENSORIUM/ORIENTATION: Yes oriented to person, Yes oriented to place and Yes oriented to time Psych: COMMON NORMALS: mental status grossly normal and Normal thought process present THOUGHT PROCESS: Normal thought process present Skin: COMMON NORMALS: no rashes or lesions noted GENERAL SKIN EXAM: no rashes or lesions noted Course Vital Signs: Vital signs: Vital Signs Temperature 98.0 F 07/18/24 19:57 Pulse Rate 79 07/18/24 22:34 Respiratory Rate 18 07/18/24 20:56 Blood Pressure 151/73 07/18/24 22:34 Pulse Oximetry 97 07/18/24 22:34 Oxygen Delivery Me thod Room Air 07/18/24 20:56 MDM - Allergic Reaction Medical Decision Making Patient presented via ambulance after leaving he was having allergic reaction to taking Levaquin. History of CLL recently finished chemotherapy and was started on antibiotics for recurrent pneumonia. He arrived with normal vitals which have remained stable throughout the ED course, notes that he felt better after receiving Zofran. He was recently diagnosed with a mass on head CT that was commented to be potentially metastatic, and is set to be scheduled for an MRI for further evaluation. Because of his chest pain, Trope series and EKG was obtained which EKG reviewed with ED physician showing normal sinus rhythm no acute STEMI. His Trope was normal. Basic lab work did reveal some leukopenia likely secondary to his recent chemotherapy, however he did have a normal lactic and essentially his lab work was stable. He was given fluids and a dose of Decadron through an IV, and it cannot be entirely ruled out that his nausea and dizziness could be related to pressure buildup in his head from the mass. However due to the recent imaging, CT was foregone at this time. He was monitored throughout his ED stay and has not shown any ill signs of any sorts of allergic reaction, and while this could have potentially not been due to Levaquin, we will have him stop and call Dr. Green first thing in the morning to discuss ED visit and any potential alternatives. In addition to this he will continue follow-up at [place] with pulmonology for further evaluation as well. This case discussed with Dr. Brink who agrees with disposition. Patient discharged home and upon walking him states that he does feel better. Lab Data 07/18/24 20:48 07/18/24 20:48 Radiology Impressions Chest X-Ray 07/18/24 20:37 IMPRESSION: Bibasilar atelectasis versus infiltrate. Laboratory Results WBC 2.84 10^3/uL (3.29-11.43) L 07/18/24 20:48 RBC 3.67 10^6/uL (3.85-5.65) L 07/18/24 20:48 Hgb 11.20 g/dL (11.27-16.99) L 07/18/24 20:48 Hct 33.7 % (37-53) L 07/18/24 20:48 MCV 91.8 fl (82-101) 07/18/24 20:48 MCH 30.5 pg (27-33) 07/18/24 20:48 MCHC 33.2 g/dL (30-55) 07/18/24 20:48 RDW 14.0 % (12.1-15.1) 07/18/24 20:48 Plt Count 132 10^3/cmm (157-399) L 07/18/24 20:48 MPV 10.5 fL (7.4-10.4) H 07/18/24 20:48 Neut % (Auto) 71.8 % 07/18/24 20:48 Lymph % (Auto) 12.3 % 07/18/24 20:48 [place] % (Auto) 12.3 % 07/18/24 20:48 Eos % (Auto) 1.4 % 07/18/24 20:48 Baso % (Auto) 0.4 % 07/18/24 20:48 Neut # (Auto) 2.04 10^3/uL (1.8-7.7) 07/18/24 20:48 Lymph # (Auto) 0.4 10^3/uL (0.8-4.8) L 07/18/24 20:48 [place] # (Auto) 0.4 10^3/uL (0.2-0.9) 07/18/24 20:48 Eos # (Auto) 0.0 10^3/uL (0.0-0.8) 07/18/24 20:48 Baso # (Auto) 0.0 10^3/uL (0.0-0.1) 07/18/24 20:48 Nucleated RBC % (auto) 0 % 07/18/24 20:48 Nucleated RBCs # 0.0 /100WBC 07/18/24 20:48 Sodium 129 mmol/L (136-145) L 07/18/24 20:48 Potassium 3.5 mmol/L (3.5-5.1) 07/18/24 20:48 Chloride 95 mmol/L (98-107) L 07/18/24 20:48 Carbon Dioxide 20 mmol/L (22-29) L 07/18/24 20:48 Anion Gap 17.5 (5-19) 07/18/24 20:48 BUN 12 mg/dL (6-20) 07/18/24 20:48 Creatinine 1.0 mg/dL (0.7-1.2) 07/18/24 20:48 GFR Calculation 77.0 mL/min (90-130) L 07/18/24 20:48 Glucose 105 mg/dL (65-115) 07/18/24 20:48 Calculated Osmolality 268 mOsm/kg (285-295) L 07/18/24 20:48 Lactic Acid 0.9 mmol/L (0.5-2.2) 07/18/24 21:10 Calcium 8.3 mg/dL (8.5-10.5) L 07/18/24 20:48 Total Bilirubin 0.4 mg/dL (0.15-1.2) 07/18/24 20:48 AST 28 U/L (0-40) 07/18/24 20:48 ALT 30 U/L (0-41) 07/18/24 20:48 Alkaline Phosphatase 59 U/L (40-130) 07/18/24 20:48 Troponin T Baseline 10 ng/L (0-15) 07/18/24 20:48 Total Protein 5.6 g/dL (6.6-8.7) L 07/18/24 20:48 Albumin 3.6 g/dL (3.5-5.2) 07/18/24 20:48 Globulin 2.0 g/dL (1.3-4.6) 07/18/24 20:48 Urine Color Yellow (Yellow) 07/18/24 20:45 Urine Appearance Clear (CLEAR) 07/18/24 20:45 Urine pH 6.5 (5-7) 07/18/24 20:45 Ur Specific [place] 1.003 (1.005-1.030) L 07/18/24 20:45 Urine Protein Negative (Negative) 07/18/24 20:45 Urine Glucose (UA) Negative (Normal) 07/18/24 20:45 Urine Ketones Negative (Negative) 07/18/24 20:45 Urine Blood Negative (Negative) 07/18/24 20:45 Urine Nitrate Negative (Negative) 07/18/24 20:45 Urine Bilirubin Negative (Negative) 07/18/24 20:45 Urine Urobilinogen 0.2 mg/dL (Negative) 07/18/24 20:45 Ur Leukocyte Esterase Negative (Negative) 07/18/24 20:45 Amorphous Sediment Not Reportable 07/18/24 20:45 SARS-CoV-2 Ag (Rapid) Negative (Negative) 07/18/24 20:48 All radiology interpretation(s) finalized by discharge Discharge Plan Discharge Patient Disposition: Home Clinical Impression: Medication reaction Condition: Stable Prescriptions: Discontinued levofloxacin 750 mg tablet 750 mg PO DAILY Qty: 7 0RF No Action acetaminophen 500 mg capsule 500 mg PO Q6H PRN insulin lispro [Humalog KwikPen Insulin] 100 unit/mL insulin pen See Rx Instructions SUBCUT .COMPLEX MDD 40 units Qty: 15 2RF Rx Instructions: subcutaneously; dose per sliding scale instructions (DME) OneTouch Ultra Test Strip See Rx Instructions .ROUTE .MEDSUPPLY Qty: 10 Rx Instructions: As directed sulfamethoxazole-trimethoprim 800-160 mg tablet PO venetoclax 100 mg tablet 100 mg PO DAILY Qty: 30 10RF fluticasone propionate [Flonase Allergy Relief] 50 mcg/actuation spray,suspension 1 spray intranasal DAILY Rx Instructions: administer into each nostril cholecalciferol (vitamin D3) 50 mcg (2,000 unit) capsule 50 mcg PO DAILY cefuroxime axetil 500 mg tablet 500 mg PO BID 10 Days Qty: 20 0RF clopidogrel 75 mg tablet 75 mg PO DAILY Qty: 90 3RF valacyclovir 500 mg tablet See Rx Instructions .ROUTE .COMPLEX Qty: 60 5RF Dose Instruction: TAKE ONE TABLET BY MOUTH TWICE DAILY CONTINUE THREE MONTHS POST TREATMENT OF VIRAL INFECTION Rx Instructions: TAKE ONE TABLET BY MOUTH TWICE DAILY CONTINUE THREE MONTHS POST TREATMENT OF VIRAL INFECTION aspirin 81 mg Tablet,Delayed Release (Dr/Ec) 81 mg PO DAILY Qty: 100 0RF nitroglycerin 0.4 mg Tablet, Sublingual 0.4 mg sublingual Q5M PRN (Reason: Chest Pain) Qty: 25 2RF Discharge Orders: Discharge ED (Routine); Ordered 07/18/24 Ordered By: Bennie Drummond Referrals: Jessica Yang, FOOD BAGGING MACHINE OPERATOR [Primary Care Provider] - Discharge Diet: Usual diet Discharge Activity: Increase activity as tolerated Patient Instructions: Pain Management Activity Restrictions/Additional Instructions: Please call Dr. Jones's office tomorrow to arrange prompt follow-up and discuss new antibiotic therapy. Continue follow-up with pulmonology in [place] as planned. Please return if you develop any new or concerning symptoms. Continue other medications as prescribed. Coding Level of Care Code ED [employer] for Germaine Carranza
== END 2024-07-18 22:38 | disposition home or self-care (01) ==
PROVIDERS: Emergency Provider Physician Assistant; PCP Nurse Practitioner
DX: R42 Dizziness and giddiness (principal); T36.8X5A Adverse effect of other systemic antibiotics, initial encounter; E11.22 Type 2 diabetes mellitus with diabetic chronic kidney disease; I12.9 Hypertensive chronic kidney disease with stage 1 through stage 4 chronic kidney disease, or unspecified chronic kidney disease; N18.9 Chronic kidney disease, unspecified; I25.810 Atherosclerosis of coronary artery bypass graft(s) without angina pectoris; E78.5 Hyperlipidemia, unspecified; F17.210 Nicotine dependence, cigarettes, uncomplicated; Z79.02 Long term (current) use of antithrombotics/antiplatelets; Z79.82 Long term (current) use of aspirin; Z11.52 Encounter for screening for COVID-19
CPT/HCPCS: 71045; 80053; 81003; 81015; 83605; 84484; 85025; 87426; 93005; 96374; 99285; J1100; J7030

== ENCOUNTER 2024-07-20 11:49 | Outpatient (CLI) | payer MEDICARE, MEDICAID, SELFPAY ==
--- NOTE | 2024-07-20 12:00 | MR_ITS ---
WS: [id number] MRI HEAD WITH CONTRAST TECHNIQUE: Sagittal T1, T2 axial, T2 axial FLAIR, axial susceptibility weighted imaging, axial diffus ion weighted images, and coronal T2 images were obtained. Pre and post-T1 axial and post T1 coronal i mages. ADC and FSPGR images. CLINICAL INFORMATION: left temopral lesion on CT head COMPARISON: CT 07/13/2024 FINDINGS: No evidence of restricted diffusion to suggest acute ischemia. Ventricular system and basilar cistern s are patent. Mild small vessel changes. Mild parenchymal volume loss. Small vessel changes in the po ns. Normal posterior fossa. Normal vascular flow voids at the skull base. No extra-axial fluid collec tions. No evidence of mass or mass effect. Paranasal sinuses and mastoid air cells are well aerated. Normal posterior nasopharynx. Susceptibility artifact in the LEFT temporal lobe compatible with cavernoma. This corresponds to the lesion seen on the prior CT. Associated venous angioma. No evidence of recent hemorrhage. No other ac [place] findings. MR/MR head wo/w con [id number] IMPRESSION: 1. No evidence of restricted diffusion to suggest acute ischemia. 2. 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 No evidence of recent hemorrhage. Ann [place] noma measures 9 x 7 mm. 3. No other acute findings.
== END 2024-07-20 11:50 | disposition home or self-care (01) ==
LOC: RAD 11:50
PROVIDERS: PCP Nurse Practitioner; Visit Provider Student in an Organized Health Care Education/Training Program
DX: D18.02 Hemangioma of intracranial structures (principal); G93.89 Other specified disorders of brain
CPT/HCPCS: 70553; A9577

== ENCOUNTER 2024-08-08 18:02 | Emergency (ER) | payer MEDICARE, MEDICAID, SELFPAY ==
[2024-08-08] VITALS (12 sets, daily range): BP systolic 103–149; BP diastolic 61–104; PULSE 82–103; RESP 16–17; TEMP 37.9; O2SAT 94–97; BMI 29.8
--- NOTE | 2024-08-08 18:12 | XRR_ITS ---
PROCEDURE INFORMATION: Exam: XR Chest Exam date and time: 08/08/2024 6:16 PM Age: 59 years old Clinical indication: Angina; Additional info: Chest pain TECHNIQUE: Imaging protocol: Radiologic exam of the chest. Views: 1 view. COMPARISON: CR (CHEST, ) 07/18/2024 8:43 PM FINDINGS: Lungs: There are mild reticulonodular infiltrates in the lung bases more on the left than on the right slightly increased at the left base compared with 07/18/2024. Findings could represent some infectious or inflammatory disease as seen on prior CT scan of the chest. No large area of consolidation is identified. There is no pulmonary venous congestion. Pleural spaces: Unremarkable. No pleural effusion. No pneumothorax. Heart/Mediastinum: Heart is within normal limits of size. Bones/joints: Degenerative changes are seen in the thoracic spine. XR/XR chest 1V portable [id number] IMPRESSION: Persistent basilar infiltrates slightly increased on the left.
--- NOTE | 2024-08-08 18:31 | ED_ITS ---
HPI - Weakness 2 General: Chief complaint: Weakness Stated complaint: weakness Time Seen by Provider: 08/08/24 18:04 History of Present Illness: 59-year-old man with history of chronic kidney disease, coronary artery disease, vertigo, diabetes, GERD and hyperlipidemia who presents emergency room with weakness for several months now, chest pain today and near syncopal episode today. He says he been having these near syncopal episodes recently. Given having low-grade fevers. He has a temp of 100.3 on presentation here and is mildly tachycardic. He says chest pain has improved. He is on Plavix. Has had some cough. No nausea or vomiting. No abdominal pain. Review of Systems 2 Narrative: Constitutional symptoms: Negative except as documented in HPI. Skin symptoms: Negative except as documented in HPI. Eye symptoms: Negative except as documented in HPI. ENMT symptoms: Negative except as documented in HPI. Respiratory symptoms: Negative except as documented in HPI. Cardiovascular symptoms: Negative except as documented in HPI. Gastrointestinal symptoms: Negative except as documented in HPI. Genitourinary symptoms: Negative except as documented in HPI. Musculoskeletal symptoms: Negative except as documented in HPI. Neurologic symptoms: Negative except as documented in HPI. Psychiatric symptoms: Negative except as documented in HPI. Endocrine symptoms: Negative except as documented in HPI. 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 Coronary artery disease AMI inferior wall Vertigo, benign positional Tinnitus Rotator cuff arthropathy of right shoulder History of tobacco abuse Lumbar disc disease Hypertension History of Helicobacter infection Erectile dysfunction Diabetes Arthritis GERD (gastroesophageal reflux disease) History of basal cell cancer Hyperlipidemia Surgical History Hx of colonoscopy with polypectomy age 52 History of umbilical hernia repair H/O repair of rotator cuff Family History Mother , at the age of 74 Cancer thyroid cancer Lung disease emphysema Hypertension Father , at the age of 74 CAD (coronary artery disease) Other Stroke Social History Smoking and tobacco/nicotine status: current every day tobacco/nicotine user cigarettes Packs smoked per day: 2 Years cigarettes smoked: 45 Alcohol intake: never Substance/Drug Use: never Physical Exam 2 Narrative: EXAM NARRATIVE: General: Alert, no acute distress. Skin: Warm, dry. Head: Normocephalic, atraumatic. Neck: Supple, trachea midline. Eye: Extraocular movements are intact. Ears, nose, mouth and throat: mucosa moist. Cardiovascular: Regular, Normal peripheral perfusion. Respiratory: Lungs are clear to auscultation, respirations are non-labored, breath sounds are equal, Symmetrical chest wall expansion. Gastrointestinal: Soft, Nontender, Non distended Musculoskeletal: Normal ROM, no deformity. Neurological: Alert and oriented, No focal neurological deficit observed. Psychiatric: Cooperative, appropriate mood & affect. Course 2 Vital Signs: Vital signs: Vital Signs Temperature 100.3 F H 08/08/24 18:04 Pulse Rate 94 08/08/24 23:08 Respiratory Rate 16 08/08/24 18:40 Blood Pressure 137/87 08/08/24 23:08 Pulse Oximetry 94 08/08/24 23:08 Oxygen Delivery Me thod Room Air 08/08/24 23:08 MDM - Weakness Medical Decision Making Medical decision making: Differential diagnosis for patient presenting with generalized weakness including but not limited to and based on the above HPI, review of systems and physical exam: Sepsis. Dehydration. Renal failure. Electrolyte abnormalities. Anemia. Congestive heart failure. Hypotension. Coronary syndrome. Hepatitis. Cirrhosis. Infections such as pneumonia, urinary tract infection, [place]ne illness, Cellulitis, Viral infections including influenza and Covid-19. Workup: labwork and lab/exam driven imaging ordered to evaluate, rule in and rule out above pathologies. EKG: Time 185. Rate 90. Normal sinus rhythm, No ST-T changes, no ectopy, normal GA & QRS intervals, This was reviewed and interpreted by myself the ER physician at 1855. Repeat EKG: Time 225. Rate 96. Normal sinus rhythm, No ST-T changes, no ectopy, normal GA & QRS intervals, This was reviewed and interpreted by myself the ER physician at 2255. No significant changes from EKG done previously in the emergency room today. Lab Review: Laboratory results were reviewed and interpreted by myself the emergency room physician. No leukocytosis. Hemoglobin stable at 12.4. Platelets are mildly low at 144 but this is baseline for him. Sodium is little low at 131. BUN/creatinine are 21.1 which is indicate some slight dehydration. Liver enzymes are just mildly elevated. But they have not been in the past. Cardiac markers remain negative. D-dimer was negative. CT of the chest without contrast: Increasing bilateral groundglass opacities compared to 07/04/2024. In a slightly different distribution as well. Could be infectious or inflammatory disease. Pulmonary nodule questionable. Follow-up in 3 months. I reviewed the patient's medical record. Reexamination: I recommended transfer of the patient to tertiary care did not have ID and pulmonary. They contacted [place] for transfer. However the patient has now declined this. He says he is seeing a psychiatric lpn outside of here and he does not think they would do anything that would be different than what he is having now and he wants to go home. I stressed that I felt like he should go to be evaluated. He will not. He is of sound mind. I am not having him sign AMA. I will restart him on doxycycline and he can continue his steroids that he is already on. Assessment and plan: Pneumonitis Fever Dehydration -IV antibiotics in the emergency room. IV steroids. IV fluids. Patient prefers to have follow-up as an outpatient rather than being transferred for evaluation by infectious disease and pulmonology. -Discharged home - Discussed findings and plan with patient. Answered any questions. - All laboratory values were reviewed and interpreted personally by myself, the ER physician - All imaging was reviewed and interpreted personally by myself, the ER physician. - Evaluation and treatment of this problem were appropriate in the emergency setting Lab Data 08/08/24 18:43 08/08/24 18:35 Radiology Impressions Chest X-Ray 08/08/24 18:12 IMPRESSION: Persistent basilar infiltrates slightly increased on the left. Chest CT 08/08/24 19:28 IMPRESSION: 1. There has been increase in the bilateral ground-glass opacities compared with 07/04/2024 although in a slightly different distribution. This most likely represents infectious or inflammatory disease. Clinical correlation follow-up suggested. 2. Extensive coronary artery calcifications 3. Cholelithiasis 4. Question of left lower lobe pulmonary nodule. Follow-up 3-6 months suggested. Laboratory Results WBC 5.09 10^3/uL (3.29-11.43) 08/08/24 18:43 RBC 4.20 10^6/uL (3.85-5.65) 08/08/24 18:43 Hgb 12.40 g/dL (11.27-16.99) 08/08/24 18:43 Hct 37.7 % (37-53) 08/08/24 18:43 MCV 89.8 fl (82-101) 08/08/24 18:43 MCH 29.5 pg (27-33) 08/08/24 18:43 MCHC 32.9 g/dL (30-55) 08/08/24 18:43 RDW 14.6 % (12.1-15.1) 08/08/24 18:43 Plt Count 144 10^3/cmm (157-399) L 08/08/24 18:43 MPV 11.8 fL (7.4-10.4) H 08/08/24 18:43 Neut % (Auto) 78.6 % 08/08/24 18:43 Lymph % (Auto) 6.9 % 08/08/24 18:43 [place] % (Auto) 9.4 % 08/08/24 18:43 Eos % (Auto) 0.2 % 08/08/24 18:43 Baso % (Auto) 0.4 % 08/08/24 18:43 Neut # (Auto) 4.00 10^3/uL (1.8-7.7) 08/08/24 18:43 Lymph # (Auto) 0.4 10^3/uL (0.8-4.8) L 08/08/24 18:43 [place] # (Auto) 0.5 10^3/uL (0.2-0.9) 08/08/24 18:43 Eos # (Auto) 0.0 10^3/uL (0.0-0.8) 08/08/24 18:43 Baso # (Auto) 0.0 10^3/uL (0.0-0.1) 08/08/24 18:43 Nucleated RBC % (auto) 0 % 08/08/24 18:43 Nucleated RBCs # 0.0 /100WBC 08/08/24 18:43 PT 13.10 SECONDS (12.1-14.9) 08/08/24 18:35 INR 0.96 (0.8-1.2) 08/08/24 18:35 APTT 24.1 SECONDS (23.9-36.7) 08/08/24 18:35 D-Dimer 0.48 ug/mLFEU (0-0.59) 08/08/24 18:35 Specimen Type Arterial 08/08/24 18:30 Sample Site Brachial, left 08/08/24 18:30 ABG pH 7.51 (7.35-7.45) H 08/08/24 18:30 ABG pCO2 27.2 mmHg (35-45) L 08/08/24 18:30 ABG pO2 69.4 mmHg (80.0-100.0) L 08/08/24 18:30 ABG PO2/FiO2 Ratio 330 08/08/24 18:30 ABG HCO3 21.6 mmol/L (22-26) L 08/08/24 18:30 ABG O2 Saturation 95.5 08/08/24 18:30 ABG Base Excess -0.4 mmol/L (-2.0-2.0) 08/08/24 18:30 Parrish Test Pos 08/08/24 18:30 A-a O2 Gradient 5.8 mmHg (5-10) 08/08/24 18:30 Hematocrit 37.1 % (42-52) L 08/08/24 18:30 Hgb O2 Saturation 93.9 % (95-100) L 08/08/24 18:30 Carboxyhemoglobin 1.4 %THgb (0.4-20.1) 08/08/24 18:30 Methemoglobin 0.3 % (0.4-1.5) L 08/08/24 18:30 Total Hemoglobin 12.1 g/dL (14-18) L 08/08/24 18:30 Sodium 130.0 mmol/L (131-143) L 08/08/24 18:30 Potassium 3.8 mmol/L (3.5-5.0) 08/08/24 18:30 Glucose 108.0 mg/dL (70-115) 08/08/24 18:30 Ionized Calcium 1.2 mmol/L (1.1-1.4) 08/08/24 18:30 O2 Delivery Device Room air 08/08/24 18:30 FiO2 21.0 % 08/08/24 18:30 Business Systems Analyst ID Cak 08/08/24 18:30 Sodium 131 mmol/L (136-145) L 08/08/24 18:35 Potassium 4.2 mmol/L (3.5-5.1) 08/08/24 18:35 Chloride 94 mmol/L (98-107) L 08/08/24 18:35 Carbon Dioxide 22 mmol/L (22-29) 08/08/24 18:35 Anion Gap 19.2 (5-19) H 08/08/24 18:35 BUN 20 mg/dL (6-20) 08/08/24 18:35 Creatinine 1.1 mg/dL (0.7-1.2) 08/08/24 18:35 GFR Calculation 69.0 mL/min (90-130) L 08/08/24 18:35 Glucose 99 mg/dL (65-115) 08/08/24 18:35 Calculated Osmolality 275 mOsm/kg (285-295) L 08/08/24 18:35 Lactic Acid 1.9 mmol/L (0.5-2.2) 08/08/24 18:35 Calcium 9.1 mg/dL (8.5-10.5) 08/08/24 18:35 Total Bilirubin 0.6 mg/dL (0.15-1.2) 08/08/24 18:35 AST 58 U/L (0-40) H 08/08/24 18:35 ALT 95 U/L (0-41) H 08/08/24 18:35 Alkaline Phosphatase 90 U/L (40-130) 08/08/24 18:35 Troponin T Baseline 12 ng/L (0-15) 08/08/24 18:35 Troponin T 120 Minute 12.39 ng/L (0-15) 08/08/24 21:03 Delta Troponin T 0.39 ABS# (0-10) 08/08/24 21:03 C-Reactive Protein 15.7 mg/L (0.0-4.9) H 08/08/24 18:35 NT-Pro-B Natriuret Pep 348 pg/mL (0-125) H 08/08/24 18:35 Total Protein 6.2 g/dL (6.6-8.7) L 08/08/24 18:35 Albumin 3.8 g/dL (3.5-5.2) 08/08/24 18:35 Globulin 2.4 g/dL (1.3-4.6) 08/08/24 18:35 Urine Color Yellow (Yellow) 08/08/24 19:50 Urine Appearance Clear (CLEAR) 08/08/24 19:50 Urine pH 6.5 (5-7) 08/08/24 19:50 Ur Specific [place] 1.016 (1.005-1.030) 08/08/24 19:50 Urine Protein Negative (Negative) 08/08/24 19:50 Urine Glucose (UA) Negative (Normal) 08/08/24 19:50 Urine Ketones Negative (Negative) 08/08/24 19:50 Urine Blood Negative (Negative) 08/08/24 19:50 Urine Nitrate Negative (Negative) 08/08/24 19:50 Urine Bilirubin Negative (Negative) 08/08/24 19:50 Urine Urobilinogen 1.0 mg/dL (Negative) 08/08/24 19:50 Ur Leukocyte Esterase Negative (Negative) 08/08/24 19:50 Urine RBC 0-2 /hpf (0-2) 08/08/24 19:50 Urine WBC 0-5 /hpf (0-5) 08/08/24 19:50 Ur Squamous Epith Cells 0-5 /hpf (0-5) 08/08/24 19:50 Amorphous Sediment Not Reportable 08/08/24 19:50 Urine Bacteria None seen /hpf (NONE) 08/08/24 19:50 Hyaline Casts 0.81 /lpf 08/08/24 19:50 Coronavirus (PCR) Negative (Negative) 08/08/24 18:40 Influenza A (PCR) Negative (Negative) 08/08/24 18:40 Influenza Type B (PCR) Negative (Negative) 08/08/24 18:40 RSV (PCR) Negative (Negative) 08/08/24 18:40 All radiology interpretation(s) finalized by discharge Discharge Plan Discharge Patient Disposition: Home Clinical Impression: Pneumonitis, Dehydration, Fever, Non-cardiac chest pain, Pulmonary nodule Condition: Stable Prescriptions: New doxycycline monohydrate 100 mg capsule 100 mg PO BID 10 Days Qty: 20 0RF No Action acetaminophen 500 mg capsule 500 mg PO Q6H PRN insulin lispro [Humalog KwikPen Insulin] 100 unit/mL insulin pen See Rx Instructions SUBCUT .COMPLEX MDD 40 units Qty: 15 2RF Rx Instructions: subcutaneously; dose per sliding scale instructions (DME) OneTouch Ultra Test Strip See Rx Instructions .ROUTE .MEDSUPPLY Qty: 10 Rx Instructions: As directed sulfamethoxazole-trimethoprim 800-160 mg tablet PO venetoclax 100 mg tablet 100 mg PO DAILY Qty: 30 10RF fluticasone propionate [Flonase Allergy Relief] 50 mcg/actuation spray,suspension 1 spray intranasal DAILY Rx Instructions: administer into each nostril cholecalciferol (vitamin D3) 50 mcg (2,000 unit) capsule 50 mcg PO DAILY cefuroxime axetil 500 mg tablet 500 mg PO BID 10 Days Qty: 20 0RF clopidogrel 75 mg tablet 75 mg PO DAILY Qty: 90 3RF valacyclovir 500 mg tablet See Rx Instructions .ROUTE .COMPLEX Qty: 60 5RF Dose Instruction: TAKE ONE TABLET BY MOUTH TWICE DAILY CONTINUE THREE MONTHS POST TREATMENT OF VIRAL INFECTION Rx Instructions: TAKE ONE TABLET BY MOUTH TWICE DAILY CONTINUE THREE MONTHS POST TREATMENT OF VIRAL INFECTION doxycycline hyclate 100 mg tablet 100 mg PO BID 5 Days Qty: 10 0RF aspirin 81 mg Tablet,Delayed Release (Dr/Ec) 81 mg PO DAILY Qty: 100 0RF nitroglycerin 0.4 mg Tablet, Sublingual 0.4 mg sublingual Q5M PRN (Reason: Chest Pain) Qty: 25 2RF Discharge Orders: Discharge ED (Routine); Ordered 08/08/24 Ordered By: Marj Francis Referrals: Jessica Yang, [employer] [Primary Care Provider] - Discharge Diet: Usual diet Discharge Activity: Increase activity as tolerated Patient Instructions: Opioid Safety, Pain Management Activity Restrictions/Additional Instructions: You definitely need to follow-up with your psychiatric lpn as soon as possible as well as with your primary provider as soon as possible. If conditions worsen please return to the emergency room immediately. A pulmonary nodule was seen on imaging. This will need follow up imaging with your primary provider. Please schedule an appointment concerning this. Thank you for choosing [facility] for your healthcare needs today. Please realize this is an emergency room and that we are providing you with a medical screening exam and this may not be complete and all inclusive of all the testing and or work up that you may need to determine your ailment or severity of your illness. You have been screened and evaluated and felt safe for discharge. Health conditions do change or evolve sometimes and as such it is important that you follow up with your Primary Doctor to be re checked, 3-5 days is a general good time frame for follow up. You are always welcome to return to the ED for re assessment if your symptoms are worsening or you have new concerns Coding Level of Care Code ED Cemetery Workers Supervisor for Chg Fwd Related Data Home Medications Medication Instructions Recorded Confirmed acetaminophen 500 mg capsule 500 mg PO Q6H PRN 10/18/23 07/11/24 blood sugar diagnostic (OneTouch #10 ea 12/14/23 07/11/24 Ultra Test strips) sulfamethoxazole 800 tab PO 12/14/23 07/11/24 mg-trimethoprim 160 mg tablet fluticasone propionate 50 1 spray intranasal DAILY 06/28/24 07/11/24 mcg/actuation nasal spray,suspension (Flonase Allergy Relief) cholecalciferol (vitamin D3) 50 50 mcg PO DAILY 07/10/24 07/11/24 mcg (2,000 unit) capsule Previous Rx's Medication Instructions Recorded aspirin 81 mg tablet,delayed 81 mg PO DAILY #100 tabs 05/03/23 release nitroglycerin 0.4 mg sublingual 0.4 mg sublingual Q5M PRN Chest 05/03/23 tablet Pain #25 tabs clopidogrel 75 mg tablet 75 mg PO DAILY #90 tabs 07/21/23 insulin lispro 100 unit/mL See Rx Instructions SUBCUT 10/19/23 subcutaneous pen (Humalog KwikPen .COMPLEX #15 mL (U-100) Insulin) venetoclax 100 mg tablet 100 mg PO DAILY #30 tabs 12/28/23 valacyclovir 500 mg tablet See Rx Instructions .Route 04/06/24 .COMPLEX #60 tabs cefuroxime axetil 500 mg tablet 500 mg PO BID 10 days #20 tabs 05/31/24 doxycycline hyclate 100 mg tablet 100 mg PO BID 5 days #10 tabs 07/28/24 doxycycline monohydrate 100 mg 100 mg PO BID 10 days #20 caps 08/08/24 capsule Allergies Allergy/AdvReac Type Severity Reaction Status Date / Time No Known Allergies Allergy Verified 07/18/24 20:02
[2024-08-08 18:41] LABS: ABG PCO2 27.2 mmHg (35-45); ABG PH Result 7.51 (7.35-7.45); Alveolar-Arterial Oxygen Gradi 5.8 mmHg (5-10); Arterial Blood Gas Hematocrit 37.1 % (42-52); Base Excess ABG -0.4 mmol/L (-2.0-2.0); Blood Gas Allen Test Pos; Blood Gas Operator Identificat CAK; Blood Gas Sample Site Brachial, left; Blood Gas Sample Type Arterial; Carboxyhemoglobin 1.4 %THgb (0.4-20.1); HCO3 ABG 21.6 mmol/L (22-26); HGB O2 Sat 93.9 % (95-100); Ionized Calcium Level - ABG 1.2 mmol/L (1.1-1.4); Methemoglobin 0.3 % (0.4-1.5); Oxygen Device ROOM AIR; Oxygen Saturation ABG 95.5; PO2 ABG 69.4 mmHg (80.0-100.0); PO2 FiO2 Ratio Arterial Blood 330; Potassium Level - ABG 3.8 mmol/L (3.5-5.0); Total Hemoglobin 12.1 g/dL (14-18)
--- NOTE | 2024-08-08 18:51 | ECG_ITS ---
[facility] Test Date: 2024-08-08 Pat Name: Dex Irvin Department: Room: Gender: Male Pulp Drier: : 1965 Requested By: Marj Case Order Number: [id number] Ronit MD: Azael Tirado M.D. Measurements Intervals [place] Rate: 90 P: 48 NH: 147 QRS: -4 QRSD: 81 T: 51 QT: 341 QTc: 418 Interpretive Statements SINUS RHYTHM NONSPECIFIC ST & T-WAVE ABNORMALITY Compared to ECG 07/18/2024 20:50:42 No significant changes Electronically Signed On 08-09-2024 08:09:02 CDT by Azael Tirado M.D. [id number] f
[2024-08-08 18:55] LABS: Basophils % 0.4 %; Eosinophils % 0.2 %; Hematocrit 37.7 % (37-53); Lymphocytes # 0.4 10^3/uL (0.8-4.8); Lymphocytes % 6.9 %; Mean Corpuscular HGB Conc 32.9 g/dL (30-55); Mean Corpuscular Hemoglobin 29.5 pg (27-33); Mean Corpuscular Volume 89.8 fl (82-101); Mean Platelet Volume 11.8 fL (7.4-10.4); Monocytes # 0.5 10^3/uL (0.2-0.9); Monocytes % 9.4 %; Neutrophils % 78.6 %; Nucleated Red Blood Cells % 0 %; Platelet Count 144 10^3/cmm (157-399); Red Cell Distribution Width 14.6 % (12.1-15.1); White Blood Count 5.09 10^3/uL (3.29-11.43)
[2024-08-08 19:04] LABS: INR 0.96 (0.8-1.2)
[2024-08-08 19:05] LABS: Partial Thromboplastin Time 24.1 SECONDS (23.9-36.7)
[2024-08-08 19:07] LABS: D Dimer 0.48 ug/mLFEU (0-0.59)
[2024-08-08 19:10] LABS: Lactic Sepsis W/Reflex 1.9 mmol/L (0.5-2.2)
[2024-08-08 19:11] LABS: Troponin(5th) Baseline 12 ng/L (0-15)
[2024-08-08 19:19] LABS: Alanine Aminotransferase 95 U/L (0-41); Albumin Level 3.8 g/dL (3.5-5.2); Alkaline Phosphatase 90 U/L (40-130); Blood Urea Nitrogen 20 mg/dL (6-20); C Reactive Protein 15.7 mg/L (0.0-4.9); Calcium 9.1 mg/dL (8.5-10.5); Carbon Dioxide 22 mmol/L (22-29); Chloride 94 mmol/L (98-107); Creatinine Clr Calc Pharmacy 75.2932; Globulin 2.4 g/dL (1.3-4.6); Glucose 99 mg/dL (65-115); NT Pro B Type Natriuretic Pept 348 pg/mL (0-125); Osmolality Calculated 275 mOsm/kg (285-295); Sodium 131 mmol/L (136-145); Total Bilirubin 0.6 mg/dL (0.15-1.2); Total Protein 6.2 g/dL (6.6-8.7)
[2024-08-08 19:22] LABS: Anion Gap 19.2 (5-19); Aspartate Amino Transferase 58 U/L (0-40); Potassium 4.2 mmol/L (3.5-5.1)
--- NOTE | 2024-08-08 19:28 | CTR_ITS ---
PROCEDURE INFORMATION: Exam: CT Chest Without Contrast; Diagnostic Exam date and time: 08/08/2024 8:14 PM Age: 59 years old Clinical indication: Abnormal findings; Abnormal radiologic exam of lung or chest; Additional info: Abnormal chest xray TECHNIQUE: Imaging protocol: Diagnostic computed tomography of the chest without contrast. Radiation optimization: All CT scans at this facility use at least one of these dose optimization techniques: automated exposure control; mA and/or kV adjustment per patient size (includes targeted exams where dose is matched to clinical indication); or iterative reconstruction. COMPARISON: CT chest abdpel w/*[id number] 07/04/2024 9:43 AM RADIATION DOSE METRICS: Total DLP (mGy-cm): 482 FINDINGS: Thyroid: Partly calcified left thyroid nodule not significantly changed since 07/21/2023. There is severe atherosclerotic calcification of the coronary arteries. Lungs: There is a new 1.6 cm sized part solid nodule periphery of the left lower lobe such as on series 3, image number 36. This is likely infectious or inflammatory in origin and follow-up in 3-6 months suggested to document clearing. There is a small calcified granuloma in the periphery of the anteromedial basilar segment of the left lower lobe. Ground-glass opacities in the left lower lobe have improved from the previous examination with a small amount of residual ground-glass opacity in a peribronchial distribution. There has been some increase in mild patchy ground-glass opacity in the left lower lobe and there has been marked increase in the ground-glass opacities in the right lung which are present the varying degrees in all segments with some associated interlobular septal thickening in the right apical region and right lower lobe giving it a crazy paving appearance. Pulmonary findings most likely related to infectious or inflammatory disease possibly viral illness including COVID-19 infection. Please correlate with the patient's clinical history. Differential considerations include pulmonary alveolar hemorrhage, drug toxicity and potentially other interstitial pulmonary diseases as described on the prior report. Pleural spaces: Unremarkable. No pneumothorax. No pleural effusion. Heart: Unremarkable. No cardiomegaly. No pericardial effusion. Lymph nodes: There is a prevascular lymph node measuring 6 x 10 mm and also small paratracheal lymph nodes not significantly changed compared with the 07/04/2024. Vasculature: Unremarkable. No aortic aneurysm. Gallbladder and biliary ducts: There is a calcified gallstone within the gallbladder. Bones/joints: Unremarkable. No acute fracture. Soft tissues: Unremarkable. CT/CT chest wo con [id number] IMPRESSION: 1. There has been increase in the bilateral ground-glass opacities compared with 07/04/2024 although in a slightly different distribution. This most likely represents infectious or inflammatory disease. Clinical correlation follow-up suggested. 2. Extensive coronary artery calcifications 3. Cholelithiasis 4. Question of left lower lobe pulmonary nodule. Follow-up 3-6 months suggested.
[2024-08-08 19:29] LABS: Covid PCR NEGATIVE (Negative); Influenza A NEGATIVE (Negative); Influenza B NEGATIVE (Negative); Respiratory Syncytial Virus Ce NEGATIVE (Negative)
[2024-08-08 19:58] LABS: Bilirubin Urine Negative (Negative); Blood Urine Negative (Negative); Glucose Urine UA Negative (Normal); Ketones Urine Negative (Negative); Leukocyte Esterase Urine Negative (Negative); Nitrate Urine Negative (Negative); Protein Urine Negative (Negative); Specific Gravity, Urine 1.016 (1.005-1.030); Urine Appearance Clear (CLEAR); Urine Color Yellow (Yellow); pH Urine 6.5 (5-7)
[2024-08-08 20:02] LABS: Bacteria Urine None Seen /hpf; Hyaline Casts Urine 0.81 /lpf; RBC Urine 0-2 /hpf (0-2); Squamous Epithelial Cell Urine 0-5 /hpf (0-5); WBC Urine 0-5 /hpf (0-5)
[2024-08-08 21:34] LABS: Troponin 5 2HR 12.39 ng/L (0-15); Troponin 5 2HR Delta 0.39 ABS# (0-10)
[2024-08-08] MEDS: methylPREDNISolone sod succ 125 mg/2 mL INJ IVP (22:40)
[2024-08-08] MEDS: sodium chloride 0.9% 1,000 ML 999 ML IV (22:40)
[2024-08-08] MEDS: linezolid premix 600 MG/300 ML PREMIX 300 MG IV (22:48)
[2024-08-08] MEDS: meropenem 500 mg SDV IVP (22:48)
--- NOTE | 2024-08-08 22:51 | ECG_ITS ---
[facility] Test Date: 2024-08-08 Pat Name: Dex Irvin Department: Room: Gender: Male Php Architect: : 1965 Requested By: Marj Case Order Number: [id number] Ronit MD: Azael Tirdao M.D. Measurements Intervals [place] Rate: 96 P: 44 AR: 146 QRS: -4 QRSD: 83 T: 48 QT: 326 QTc: 413 Interpretive Statements SINUS RHYTHM NONSPECIFIC ST & T-WAVE ABNORMALITY Compared to ECG 08/08/2024 18:51:16 No significant changes Electronically Signed On 08-09-2024 08:07:54 CDT by Azael Tirado M.D. [email or web address] medical [id number]
== END 2024-08-08 23:40 | disposition home or self-care (01) ==
PROVIDERS: Emergency Provider Emergency Medicine; PCP Nurse Practitioner
DX: R07.89 Other chest pain (principal); J98.4 Other disorders of lung; E86.0 Dehydration; R50.9 Fever, unspecified; R91.1 Solitary pulmonary nodule; Z79.02 Long term (current) use of antithrombotics/antiplatelets; Z79.82 Long term (current) use of aspirin; Z79.4 Long term (current) use of insulin; Z11.52 Encounter for screening for COVID-19; F17.210 Nicotine dependence, cigarettes, uncomplicated; E11.22 Type 2 diabetes mellitus with diabetic chronic kidney disease; I12.9 Hypertensive chronic kidney disease with stage 1 through stage 4 chronic kidney disease, or unspecified chronic kidney disease; N18.9 Chronic kidney disease, unspecified; I25.10 Atherosclerotic heart disease of native coronary artery without angina pectoris; I25.2 Old myocardial infarction; E78.5 Hyperlipidemia, unspecified; Z95.1 Presence of aortocoronary bypass graft
CPT/HCPCS: 0241U; 36600; 71045; 71250; 80051; 80053; 81001; 82330; 82805; 83605; 83880; 84484; 85025; 85378; 85610; 85730; 86140; 87040; 93005; 96365; 96375; 99285; J2020; J2185; J2919; J7030

== ENCOUNTER 2024-08-23 12:13 | Outpatient (CLI) | payer MEDICARE, MEDICAID, SELFPAY | END 2024-08-23 12:14 | disposition home or self-care (01) | LOC: LAB 12:14 | PROVIDERS: PCP Nurse Practitioner; Visit Provider Student in an Organized Health Care Education/Training Program | DX: J18.9 Pneumonia, unspecified organism (principal); B78.9 Strongyloidiasis, unspecified | CPT/HCPCS: 36415; 86403; 87177; 87209; 99215 ==

== ENCOUNTER 2024-08-23 14:19 | Emergency (ER) | payer MEDICARE, MEDICAID, SELFPAY ==
[2024-08-23 14:30] VITALS: BP 90/58; PULSE 97; RESP 18; TEMP 36.9; O2SAT 98; BMI 28.2
--- NOTE | 2024-08-23 14:44 | ECG_ITS ---
[facility] Test Date: 2024-08-23 Pat Name: Dex Irvin Department: Room: Gender: Male Planograph Operator: : 1965 Requested By: Marj Case Order Number: [id number] Reading MD: JULISSA REGAN Measurements Intervals [place] Rate: 96 P: 65 NC: 136 QRS: -2 QRSD: 81 T: 63 QT: 319 QTc: 404 Interpretive Statements SINUS RHYTHM NONSPECIFIC ST & T-WAVE ABNORMALITY Compared to ECG 08/08/2024 22:51:11 No significant changes Electronically Signed On 08-23-2024 20:04:43 CDT by JULISSA REGAN [email or web address] ([email or web address]) [email or web address] va medical [email or web address] FinTechcleveland clinic foundationMinuteKey/store/NU/[id number] f
--- NOTE | 2024-08-23 14:52 | XRR_ITS ---
PROCEDURE INFORMATION: Exam: XR Chest Exam date and time: 08/23/2024 3:10 PM Age: 59 years old Clinical indication: Other: Weakness; Prior surgery; Surgery date: 6+ months; Surgery type: Cardiac stents; Patient HX: HX of cll TECHNIQUE: Imaging protocol: Radiologic exam of the chest. Views: 1 view. COMPARISON: CT chest con [id number] 08/08/2024 8:14 PM FINDINGS: Lungs: Increased reticular opacities in the lung bases. No consolidation. Pleural spaces: Unremarkable. No pleural effusion. No pneumothorax. Heart/Mediastinum: Unremarkable. No cardiomegaly. Bones/joints: Unremarkable. XR/XR chest 1V portable [id number] IMPRESSION: Increased reticular opacities in the lung bases, a nonspecific finding, which could be indicative of pneumonitis or an interstitial lung disease among other etiologies.
--- NOTE | 2024-08-23 15:07 | ED_ITS ---
HPI - Weakness 2 General: Chief complaint: Weakness Stated complaint: dizzy, weak Time Seen by Provider: 08/23/24 14:50 History of Present Illness: 59-year-old man who has been being treat ed for a long illness which currently is thought to maybe be autoimmune and he is on steroids who was following up in Dr. Green's clinic today and was feeling weak and his blood pressure was a little low. Has been having some feelings of palpitations. They are concerned he might be dehydrated and want him to be worked up from a cardiac standpoint and so he sent to the emergency room. No fevers. He is adamant he does not want any more workup on his lung illness at this point. Initial blood pressure was soft in the waiting room. No abdominal pain. No nausea or vomiting. No altered mental status. No focal motor deficits Review of Systems 2 Narrative: Constitutional symptoms: Negative except as documented in HPI. Skin symptoms: Negative except as documented in HPI. Eye symptoms: Negative except as documented in HPI. ENMT symptoms: Negative except as documented in HPI. Respiratory symptoms: Negative except as documented in HPI. Cardiovascular symptoms: Negative except as documented in HPI. Gastrointestinal symptoms: Negative except as documented in HPI. Genitourinary symptoms: Negative except as documented in HPI. Musculoskeletal symptoms: Negative except as documented in HPI. Neurologic symptoms: Negative except as documented in HPI. Psychiatric symptoms: Negative except as documented in HPI. Endocrine symptoms: Negative except as documented in HPI. 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 Coronary artery disease AMI inferior wall Vertigo, benign positional Tinnitus Rotator cuff arthropathy of right shoulder History of tobacco abuse Lumbar disc disease Hypertension History of Helicobacter infection Erectile dysfunction Diabetes Arthritis GERD (gastroesophageal reflux disease) History of basal cell cancer Hyperlipidemia Surgical History Hx of colonoscopy with polypectomy age 52 History of umbilical hernia repair H/O repair of rotator cuff Family History Mother , at the age of 74 Cancer thyroid cancer Lung disease emphysema Hypertension Father , at the age of 74 CAD (coronary artery disease) Other Stroke Social History Smoking and tobacco/nicotine status: current every day tobacco/nicotine user cigarettes Packs smoked per day: 2 Years cigarettes smoked: 45 Alcohol intake: never Substance/Drug Use: never Physical Exam 2 Narrative: EXAM NARRATIVE: General: Alert, no acute distress. Skin: Warm, dry. Head: Normocephalic, atraumatic. Neck: Supple, trachea midline. Eye: Extraocular movements are intact. Ears, nose, mouth and throat: mucosa moist. Cardiovascular: Regular, Normal peripheral perfusion. Respiratory: Lungs are clear to auscultation, respirations are non-labored, breath sounds are equal, Symmetrical chest wall expansion. Gastrointestinal: Soft, Nontender, Non distended Musculoskeletal: Normal ROM, no deformity. Neurological: Alert and oriented, No focal neurological deficit observed. Psychiatric: Cooperative, appropriate mood & affect. Course 2 Vital Signs: Vital signs: Vital Signs Temperature 98.4 F 08/23/24 14:30 Pulse Rate 90 08/23/24 16:02 Respiratory Rate 16 08/23/24 16:02 Blood Pressure 141/82 08/23/24 16:02 Pulse Oximetry 100 08/23/24 16:02 Oxygen Delivery Me thod Nasal Cannula 08/23/24 16:02 Oxygen Flow Rate 2 08/23/24 16:02 MDM - Weakness Medical Decision Making Medical decision making: Differential diagnosis for patient presenting with generalized weakness including but not limited to and based on the above HPI, review of systems and physical exam: Sepsis. Dehydration. Renal failure. Electrolyte abnormalities. Anemia. Congestive heart failure. Hypotension. Coronary syndrome. Hepatitis. Cirrhosis. Infections such as pneumonia, urinary tract infection, [place]ne illness, Cellulitis, Viral infections including influenza and Covid-19. Workup: labwork and lab/exam driven imaging ordered to evaluate, rule in and rule out above pathologies. EKG: Time 1434. Rate 96 normal sinus rhythm, No ST-T changes, no ectopy, normal IN & QRS intervals, This was reviewed and interpreted by myself the ER physician at 1438 Repeat EKG: Time 1604. Rate 84. Normal sinus rhythm, No ST-T changes, no ectopy, normal IN & QRS intervals, This was reviewed and interpreted by myself the ER physician at 1610. No significant changes from previous EKG done in the ER today. Chest x-ray: Similar bilateral infiltrates. No change from previous. This was reviewed and interpreted by myself the emergency room physician. I also reviewed the radiology report. Lab Review: Laboratory results were reviewed and interpreted by myself the emergency room physician. Lab work is unremarkable. No leukocytosis. No anemia. Platelets are little low at 118. BUN and creatinine are 17 and 1.1 which is at or below his baseline. Serial cardiac markers are negative. I reviewed the patient's medical record. Reexamination: Patient's blood pressure has improved. Patient remained stable. No increased work of breathing. No altered mental status. No focal motor deficits. Assessment and plan: Dehydration ?Normal saline bolus in the emergency room - Discharged home - Discussed findings and plan with patient. Answered any questions. - All laboratory values were reviewed and interpreted personally by myself, the ER physician - All imaging was reviewed and interpreted personally by myself, the ER physician. - Evaluation and treatment of this problem were appropriate in the emergency setting Lab Data 08/23/24 15:08 08/23/24 15:08 Radiology Impressions Chest X-Ray 08/23/24 14:52 IMPRESSION: Increased reticular opacities in the lung bases, a nonspecific finding, which could be indicative of pneumonitis or an interstitial lung disease among other etiologies. Laboratory Results WBC 5.67 10^3/uL (3.29-11.43) 08/23/24 15:08 RBC 4.17 10^6/uL (3.85-5.65) 08/23/24 15:08 Hgb 12.20 g/dL (11.27-16.99) 08/23/24 15:08 Hct 36.8 % (37-53) L 08/23/24 15:08 MCV 88.2 fl (82-101) 08/23/24 15:08 MCH 29.3 pg (27-33) 08/23/24 15:08 MCHC 33.2 g/dL (30-55) 08/23/24 15:08 RDW 15.5 % (12.1-15.1) H 08/23/24 15:08 Plt Count 118 10^3/cmm (157-399) L 08/23/24 15:08 MPV 11.6 fL (7.4-10.4) H 08/23/24 15:08 Neut % (Auto) 89.8 % 08/23/24 15:08 Lymph % (Auto) 4.2 % 08/23/24 15:08 [place] % (Auto) 3.5 % 08/23/24 15:08 Eos % (Auto) 0.2 % 08/23/24 15:08 Baso % (Auto) 0.2 % 08/23/24 15:08 Neut # (Auto) 5.09 10^3/uL (1.8-7.7) 08/23/24 15:08 Lymph # (Auto) 0.2 10^3/uL (0.8-4.8) L 08/23/24 15:08 [place] # (Auto) 0.2 10^3/uL (0.2-0.9) 08/23/24 15:08 Eos # (Auto) 0.0 10^3/uL (0.0-0.8) 08/23/24 15:08 Baso # (Auto) 0.0 10^3/uL (0.0-0.1) 08/23/24 15:08 Nucleated RBC % (auto) 0 % 08/23/24 15:08 Nucleated RBCs # 0.0 /100WBC 08/23/24 15:08 Sodium 130 mmol/L (136-145) L 08/23/24 15:08 Potassium 3.6 mmol/L (3.5-5.1) 08/23/24 15:08 Chloride 94 mmol/L (98-107) L 08/23/24 15:08 Carbon Dioxide 25 mmol/L (22-29) 08/23/24 15:08 Anion Gap 14.6 (5-19) 08/23/24 15:08 BUN 17 mg/dL (6-20) 08/23/24 15:08 Creatinine 1.1 mg/dL (0.7-1.2) 08/23/24 15:08 GFR Calculation 69.0 mL/min (90-130) L 08/23/24 15:08 Glucose 119 mg/dL (65-115) H 08/23/24 15:08 Calculated Osmolality 273 mOsm/kg (285-295) L 08/23/24 15:08 Lactic Acid 1.9 mmol/L (0.5-2.2) 08/23/24 15:08 Calcium 9.0 mg/dL (8.5-10.5) 08/23/24 15:08 Total Bilirubin 0.7 mg/dL (0.15-1.2) 08/23/24 15:08 AST 58 U/L (0-40) H 08/23/24 15:08 ALT 93 U/L (0-41) H 08/23/24 15:08 Alkaline Phosphatase 91 U/L (40-130) 08/23/24 15:08 Troponin T Baseline 12 ng/L (0-15) 08/23/24 15:08 Troponin T 120 Minute 10.97 ng/L (0-15) 08/23/24 17:01 Delta Troponin T -1.03 ABS# (0-10) L 08/23/24 17:01 Total Protein 6.5 g/dL (6.6-8.7) L 08/23/24 15:08 Albumin 3.5 g/dL (3.5-5.2) 08/23/24 15:08 Globulin 3.0 g/dL (1.3-4.6) 08/23/24 15:08 All radiology interpretation(s) finalized by discharge Discharge Plan Discharge Patient Disposition: Home Clinical Impression: Dehydration Condition: Stable Prescriptions: No Action acetaminophen 500 mg capsule 500 mg PO Q6H PRN (DME) OneTouch Ultra Test Strip See Rx Instructions .ROUTE .MEDSUPPLY Qty: 10 Rx Instructions: As directed sulfamethoxazole-trimethoprim 800-160 mg tablet PO venetoclax 100 mg tablet 100 mg PO DAILY Qty: 30 10RF fluticasone propionate [Flonase Allergy Relief] 50 mcg/actuation spray,suspension 1 spray intranasal DAILY Rx Instructions: administer into each nostril cholecalciferol (vitamin D3) 50 mcg (2,000 unit) capsule 50 mcg PO DAILY cefuroxime axetil 500 mg tablet 500 mg PO BID 10 Days Qty: 20 0RF clopidogrel 75 mg tablet 75 mg PO DAILY Qty: 90 3RF valacyclovir 500 mg tablet See Rx Instructions .ROUTE .COMPLEX Qty: 60 5RF Dose Instruction: TAKE ONE TABLET BY MOUTH TWICE DAILY CONTINUE THREE MONTHS POST TREATMENT OF VIRAL INFECTION Rx Instructions: TAKE ONE TABLET BY MOUTH TWICE DAILY CONTINUE THREE MONTHS POST TREATMENT OF VIRAL INFECTION doxycycline hyclate 100 mg tablet 100 mg PO BID 5 Days Qty: 10 0RF atovaquone 750 mg/5 mL suspension 750 mg PO Q12H 21 Days Qty: 210 0RF Rx Instructions: must administer with food, preferably a high-fat meal aspirin 81 mg Tablet,Delayed Release (Dr/Ec) 81 mg PO DAILY Qty: 100 0RF nitroglycerin 0.4 mg Tablet, Sublingual 0.4 mg sublingual Q5M PRN (Reason: Chest Pain) Qty: 25 2RF Discharge Orders: Discharge ED (Routine); Ordered 08/23/24 Ordered By: Marj Francis Referrals: Jessica Yang FNP [Primary Care Provider] - Discharge Diet: Usual diet Discharge Activity: Increase activity as tolerated Patient Instructions: Dehydration (ED), Opioid Safety Activity Restrictions/Additional Instructions: Thank you for choosing [facility] for your healthcare needs today. Please realize this is an emergency room and that we are providing you with a medical screening exam and this may not be complete and all inclusive of all the testing and or work up that you may need to determine your ailment or severity of your illness. You have been screened and evaluated and felt safe for discharge. Health conditions do change or evolve sometimes and as such it is important that you follow up with your Primary Doctor to be re checked, 3-5 days is a general good time frame for follow up. You are always welcome to return to the ED for re assessment if your symptoms are worsening or you have new concerns Coding Level of Care Code ED Upkeep Mechanic for Chg Fwd Related Data Home Medications Medication Instructions Recorded Confirmed acetaminophen 500 mg capsule 500 mg PO Q6H PRN 10/18/23 08/23/24 blood sugar diagnostic (OneTouch #10 ea 12/14/23 08/23/24 Ultra Test strips) sulfamethoxazole 800 tab PO 12/14/23 08/23/24 mg-trimethoprim 160 mg tablet fluticasone propionate 50 1 spray intranasal DAILY 06/28/24 08/23/24 mcg/actuation nasal spray,suspension (Flonase Allergy Relief) cholecalciferol (vitamin D3) 50 50 mcg PO DAILY 07/10/24 08/23/24 mcg (2,000 unit) capsule Previous Rx's Medication Instructions Recorded aspirin 81 mg tablet,delayed 81 mg PO DAILY #100 tabs 05/03/23 release nitroglycerin 0.4 mg sublingual 0.4 mg sublingual Q5M PRN Chest 05/03/23 tablet Pain #25 tabs clopidogrel 75 mg tablet 75 mg PO DAILY #90 tabs 07/21/23 venetoclax 100 mg tablet 100 mg PO DAILY #30 tabs 12/28/23 valacyclovir 500 mg tablet See Rx Instructions .Route 04/06/24 .COMPLEX #60 tabs cefuroxime axetil 500 mg tablet 500 mg PO BID 10 days #20 tabs 05/31/24 doxycycline hyclate 100 mg tablet 100 mg PO BID 5 days #10 tabs 07/28/24 atovaquone 750 mg/5 mL oral 750 mg (5 mL) PO Q12H 21 days #210 08/18/24 suspension mL Allergies Allergy/AdvReac Type Severity Reaction Status Date / Time No Known Allergies Allergy Verified 08/23/24 12:49
[2024-08-23 15:24] LABS: Basophils % 0.2 %; Eosinophils % 0.2 %; Hematocrit 36.8 % (37-53); Lymphocytes # 0.2 10^3/uL (0.8-4.8); Lymphocytes % 4.2 %; Mean Corpuscular HGB Conc 33.2 g/dL (30-55); Mean Corpuscular Hemoglobin 29.3 pg (27-33); Mean Corpuscular Volume 88.2 fl (82-101); Mean Platelet Volume 11.6 fL (7.4-10.4); Monocytes # 0.2 10^3/uL (0.2-0.9); Monocytes % 3.5 %; Neutrophils # 5.09 10^3/uL (1.8-7.7); Neutrophils % 89.8 %; Nucleated Red Blood Cells % 0 %; Platelet Count 118 10^3/cmm (157-399); Red Blood Count 4.17 10^6/uL (3.85-5.65); Red Cell Distribution Width 15.5 % (12.1-15.1); White Blood Count 5.67 10^3/uL (3.29-11.43)
[2024-08-23 15:33] LABS: Troponin(5th) Baseline 12 ng/L (0-15)
[2024-08-23 15:34] LABS: Lactic Sepsis W/Reflex 1.9 mmol/L (0.5-2.2)
[2024-08-23] MEDS: sodium chloride 0.9% 1,000 ML 999 ML IV (15:52)
[2024-08-23 15:58] VITALS: BP 125/78; PULSE 94; RESP 12; O2SAT 98
[2024-08-23 16:02] VITALS: BP 141/82; PULSE 90; RESP 16; O2SAT 100
--- NOTE | 2024-08-23 16:04 | ECG_ITS ---
[facility] Test Date: 2024-08-23 Pat Name: Dex Irvin Department: Room: Gender: Male Critical Care Physician Assistant: : [id number] Requested By: Marj Case Order Number: [id number] Reading MD: JULISSA REGAN Measurements Intervals [place] Rate: 84 P: 58 DC: 160 QRS: 16 QRSD: 91 T: 48 QT: 343 QTc: 407 Interpretive Statements SINUS RHYTHM NONSPECIFIC ST & T-WAVE ABNORMALITY Compared to ECG 08/23/2024 14:34:20 No significant changes Electronically Signed On 08-23-2024 20:11:10 CDT by JULISSA REGAN [email or web address], [id number]
[2024-08-23 16:14] LABS: Alanine Aminotransferase 93 U/L (0-41); Albumin Level 3.5 g/dL (3.5-5.2); Alkaline Phosphatase 91 U/L (40-130); Anion Gap 14.6 (5-19); Aspartate Amino Transferase 58 U/L (0-40); Blood Urea Nitrogen 17 mg/dL (6-20); Carbon Dioxide 25 mmol/L (22-29); Chloride 94 mmol/L (98-107); Creatinine Clr Calc Pharmacy 73.3917; Glucose 119 mg/dL (65-115); Osmolality Calculated 273 mOsm/kg (285-295); Potassium 3.6 mmol/L (3.5-5.1); Sodium 130 mmol/L (136-145); Total Bilirubin 0.7 mg/dL (0.15-1.2); Total Protein 6.5 g/dL (6.6-8.7)
[2024-08-23 17:37] LABS: Troponin 5 2HR 10.97 ng/L (0-15)
[2024-08-23 17:39] LABS: Troponin 5 2HR Delta -1.03 ABS# (0-10)
[2024-08-23 17:58] VITALS: BP 131/76; PULSE 87; O2SAT 92
[2024-08-23 17:59] VITALS: BP 136/77; PULSE 88; O2SAT 94
[2024-08-23 18:37] VITALS: BP 123/76; PULSE 89; O2SAT 94
[2024-08-23 18:54] LABS: ABG PH Result 7.46 (7.35-7.45); Alveolar-Arterial Oxygen Gradi 17.9 mmHg (5-10); Arterial Blood Gas Hematocrit 34.3 % (42-52); Base Excess ABG 0.2 mmol/L (-2.0-2.0); Blood Gas Operator Identificat GD; Blood Gas Sample Site Brachial, left; Blood Gas Sample Type Arterial; Carboxyhemoglobin 1.2 %THgb (0.4-20.1); HCO3 ABG 23.6 mmol/L (22-26); HGB O2 Sat 94.5 % (95-100); Ionized Calcium Level - ABG 1.2 mmol/L (1.1-1.4); Methemoglobin 0.9 % (0.4-1.5); Oxygen Device NC; Oxygen Saturation ABG 96.6; PO2 FiO2 Ratio Arterial Blood 213; Potassium Level - ABG 3.7 mmol/L (3.5-5.0); Total Hemoglobin 11.2 g/dL (14-18)
[2024-08-25 15:15] LABS: COMPLEMENT, TOTAL (CH50) >60 U/mL (31-60)
[2024-08-25 15:50] LABS: COMPLEMENT COMPONENT C3C 147 mg/dL (82-185); COMPLEMENT COMPONENT C4C 54 mg/dL (15-53)
[2024-08-25 17:05] LABS: Lyme AB Screen <0.90 index
[2024-08-28 16:24] LABS: Cyclic Citrullinated Peptide 226 UNITS
[2024-08-28 17:14] LABS: E. Chaffeensis AB IGG <1:64; E. Chaffeensis AB IGM <1:20
[2024-08-29 04:04] LABS: CENTROMERE B ANTIBODY <1.0 NEG AI (<1.0 NEG); JO-1 ANTIBODY <1.0 NEG AI (<1.0 NEG); RNP ANTIBODY <1.0 NEG AI (<1.0 NEG); SCL-70 ANTIBODY <1.0 NEG AI (<1.0 NEG); SJOGREN'S ANTIBODY (SS-A) <1.0 NEG AI (<1.0 NEG); SM ANTIBODY <1.0 NEG AI (<1.0 NEG); SS-B <1.0 NEG AI (<1.0 NEG)
[2024-08-29 14:59] LABS: ANA SCREEN, IFA NEGATIVE (NEGATIVE)
[2024-08-29 17:03] LABS: RMSF IGG NOT DETECTED; RMSF IGM NOT DETECTED
[2024-08-29 23:08] LABS: F.tularensis IgG AB Serum Negative (Negative); F.tularensis IgM AB Serum Negative (Negative)
== END 2024-08-23 19:45 | disposition home or self-care (01) ==
PROVIDERS: Student in an Organized Health Care Education/Training Program; Emergency Provider Emergency Medicine; PCP Nurse Practitioner
DX: E86.0 Dehydration (principal); Z79.02 Long term (current) use of antithrombotics/antiplatelets; Z79.82 Long term (current) use of aspirin; F17.210 Nicotine dependence, cigarettes, uncomplicated; E11.22 Type 2 diabetes mellitus with diabetic chronic kidney disease; I12.9 Hypertensive chronic kidney disease with stage 1 through stage 4 chronic kidney disease, or unspecified chronic kidney disease; N18.9 Chronic kidney disease, unspecified; I25.10 Atherosclerotic heart disease of native coronary artery without angina pectoris; I25.2 Old myocardial infarction; E78.5 Hyperlipidemia, unspecified; Z95.1 Presence of aortocoronary bypass graft
CPT/HCPCS: 36415; 36600; 71045; 80051; 80053; 82330; 82805; 83605; 84484; 85025; 86160; 86162; 86200; 86235; 86255; 86376; 86431; 86618; 86666; 86668; 86757; 93005; 99285; J7030

== ENCOUNTER 2024-08-29 13:02 | Inpatient (IN) | payer MEDICARE, MEDICAID, SELFPAY ==
[2024-08-29] VITALS (7 sets, daily range): BP systolic 118–128; BP diastolic 76–81; PULSE 67–88; RESP 17–18; TEMP 36.3; O2SAT 93–99
--- NOTE | 2024-08-29 13:27 | P.HP_ITS ---
Providers/Chief Complaint 2 Admitting Physician: Sonny Alfonso MD Primary Care Provider: SARAH Goldstein Chief Complaint: hypoxia/lung infiltrate History of Present Illness Dex Irvin is a 59 year old male with chronic lymphocytic leukemia diagnosed in June 2023 status post treatment with obinutuzumab/venetoclax between October 2023-. Thereafter he has been maintained on venetoclax until April 2024.. Since April 2024 patient complains of daily fever, as high as 102 Fahrenheit. He has had fever and chills with night sweats and weight loss. He underwent a CT of the chest abdomen and pelvis on July 04, 2024 which showed bilateral nodules and areas of groundglass attenuation involving multiple lobes, with most significant changes involving the left lower lobe. There were noted to be small axillary mediastinal and hilar lymph nodes. The lung changes were new compared to December 2023. No significant disease was noted in the abdomen or pelvis. He has been undergoing extensive outpatient evaluation with infectious disease at [facility] and with pulmonology service at [facility] however thus far evaluation has remained nondiagnostic as to the cause of his infiltrates. Multiple cultures taken here and at [facility] have been negative for bacterial fungal or mycobacterial growth. Evaluation has been negative for pneumocystis pneumonia and other opportunistic infections. He has been treated presumptively with courses of antibiotics including cephalosporins, doxycycline as an outpatient and was most recently started presumptively on atovaquone 750 mg twice daily, however he is yet to receive this medication due to insurance issues. He did recently have elevated levels of anti-CCP IgG which raised concern for rheumatoid arthritis, he was evaluated by rheumatology as an outpatient today, did not appear to have any other features consistent with rheumatoid arthritis and has not changed therapy as of now. Most recently he has also started a presumptive course of prednisone 40 mg daily per pulmonary as the overall clinical impression currently is that of interstitial lung disease versus immunotherapy induced pneumonitis. He started the steroids approximately 10 days ago. While he noticed an initial improvement in his fever curve from 102 Fahrenheit to 99.7 Fahrenheit Tmax, over the past 2 days he has been spiking fevers again to 102 Fahrenheit. Since the onset of symptoms in April he has had significant clinical decline. Patient has lost over 20 KGs of weight since April 2024. Review of chart shows that patient used to be 94 kg on April 25, 2024, this weight is down to 74 kg on August 23, 2024. About 2 weeks ago he was started on supplemental oxygen. PFTs were performed at [facility], we do not have the results available at this time. Initially he was requiring about 3 L/min supplemental O2 to maintain his saturation, however the past 2 to 3 days his has noticed that patient's oxygen saturation drops to as low as 76%. His lowest numbers are upon waking up in the morning, it takes almost an hour for his oxygen saturation in the morning to come up from 78% to 91%. He has had episodes of orthostatic hypotension, most recently when he was at the infectious disease office on August 23, 2024. He necessitated transfer to the emergency room for IV fluids at the time. Patient has had significant decline in ADLs. From being independent with all of his daily activities, being able to walk long distances, mow his yard etc., he is now unable to do the same. Minimal activity makes him short of breath. He has been using a urinal as he feels too weak to get out of bed. He is in a wheelchair today, which is a new development for him. He has had intermittent nosebleeds since being placed on supplemental O2. He is referred for direct admission from the infectious disease office today due to recurrence of fever, worsening respiratory status, desaturating up to 70% at home on 3 L/min supplemental O2 and an overall failure to thrive. Review of systems is negative for any nausea vomiting diarrhea abdominal pain Review of Systems 2 General: Reports: 10 or more systems reviewed and unremarkable except in HPI and below Const: Reports: fever(s), chills, body aches, change in weight, malaise, night sweats and diaphoresis; Denies: change in appetite, change in sleep pattern, daytime sleepiness or snoring Eyes: Denies: change in vision, blurry vision, photophobia, eye discomfort or eye discharge ENMT: Denies: throat pain, enlarged tonsils, hoarseness, mouth pain, oral sores, dry mouth, tinnitus, nasal congestion or post nasal drip Card: Denies: chest pain, palpitations, irregular heart rhythm, edema, swelling of feet/ankles, lightheadedness, syncope, pre-syncope, dyspnea on exertion, orthopnea, leg pain with exertion or acrocyanosis Resp: Reports: dyspnea and non-productive cough; Denies: productive cough, wheezing, stridor, pain on inspiration, change in phlegm color, hemoptysis or chest congestion GI: Denies: abdominal pain, nausea, vomiting, hematemesis, coffee ground emesis, dysphagia, heartburn, diarrhea, constipation, bloating, GI cramping, change in bowel habits, pain on defecation, hematochezia or melena : Denies: flank pain, difficulty urinating, dysuria, urinary frequency, urinary urgency, urinary hesitancy, urinary dribbling, difficulty starting urination, change in urine stream, nocturia or hematuria Musc: Denies: neck pain, back pain, extremity pain, joint pain, joint swelling, joint redness, joint stiffness or limited range of motion Neuro: Denies: headache(s), numbness in extremities, weakness in extremities, sensory changes, lack of coordination, difficulty walking, frequent falls, dizziness, vertigo, confusion, Slurred speech present, difficulty communicating thoughts or seizure-like activity Psych: Denies: anxiety, depression, mood swings, panic attacks, hopelessness or irritability Endo: Denies: polyuria, polydipsia, tired all the time, cold intolerance, excessive sweating, flushing or heat intolerance Will/Lymph: Denies: easy bruising or easy bleeding All/Imm: Denies: tongue swelling, facial swelling or acute wheezing Medications/Allergies Home Medications Medication Instructions Recorded Confirmed Last Taken Type aspirin 81 mg tablet,delayed 81 mg PO DAILY #100 tabs 05/03/23 08/29/24 Unknown Rx release nitroglycerin 0.4 mg sublingual 0.4 mg sublingual Q5M PRN Chest 05/03/23 08/29/24 Unknown Rx tablet Pain #25 tabs acetaminophen 500 mg capsule 500 mg PO Q6H PRN 10/18/23 08/29/24 Unknown History blood sugar diagnostic (OneTouch #10 ea 12/14/23 08/29/24 Unknown History Ultra Test strips) cholecalciferol (vitamin D3) 50 50 mcg PO DAILY 07/10/24 08/29/24 Unknown History mcg (2,000 unit) capsule atovaquone 750 mg/5 mL oral 750 mg (5 mL) PO Q12H 21 days #210 08/29/24 Unknown Rx suspension mL clopidogrel 75 mg tablet (Plavix) 75 mg PO DAILY 08/29/24 08/29/24 Unknown History swsibujqbiy-glhswuznn-ymcjhevr inhalation 08/29/24 08/29/24 Unknown History [Trelegy Ellipta] insulin lispro [Humalog U-100 SUBCUT PRN 08/29/24 08/29/24 Unknown History Insulin] prednisone 20 mg tablet 40 mg PO DAILY 08/29/24 08/29/24 Unknown History Allergies Allergy/AdvReac Type Severity Reaction Status Date / Time levaquin AdvReac Unknown chest pain Uncoded 08/29/24 10:04 PFSH Acute 2 PFSH: Medical History Hypoxemic respiratory failure, chronic Rheumatoid factor positive Ground glass opacity present on imaging of lung Chronic kidney disease 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 Coronary artery disease AMI inferior wall Vertigo, benign positional Tinnitus Rotator cuff arthropathy of right shoulder History of tobacco abuse Lumbar disc disease Hypertension History of Helicobacter infection Erectile dysfunction Diabetes Arthritis GERD (gastroesophageal reflux disease) History of basal cell cancer Hyperlipidemia Surgical History Hx of colonoscopy with polypectomy age 52 History of umbilical hernia repair H/O repair of rotator cuff Family History Mother , at the age of 74 Cancer thyroid cancer Lung disease emphysema Hypertension Father , at the age of 74 CAD (coronary artery disease) Other Stroke Social History Smoking and tobacco/nicotine status: never used tobacco/nicotine Alcohol intake: never Substance/Drug Use: never Physical Exam 2 Narrative: EXAM NARRATIVE: General: No acute distress, AO x3, NC oxygen supplementation, pale HEENT: PERRLA, pupils bilaterally equal and reactive Chest: Faint crackles to auscultation bilaterally CVS: S1-S2 regular, no murmurs, no tachycardia, no gallops, no rubs Abdomen: Soft, nontender, no organomegaly, bowel sounds present Neuro: No focal deficits, no facial deformity, AO x3, power 5/5 in all limbs Data 08/30/24 05:29 08/29/24 14:00 Other Labs: Please see infectious disease note for a detailed summary of infectious workup at [facility] and [facility]. Overall infectious evaluation is thus far negative to date. NAME: Dex Irvin LOC: ER U #: [id number] AGE/SX: 59/M ROOM: R E08/23/[address]: Marj Francis MD : 1965 BED: D IS: FAX #: STATUS: DEP ER TLOC: Spec : [id number] [place]: 08/23/24 Status: COMP Req : [id number] Recd: 08/23/[address]: Tonya Green MD Ordered: CCP IGG Test Low Normal High Flag Reference Site CCP IGG 226 H UNITS QD NAME: Dex Irvin LOC: ER U #: [id number] AGE/SX: 59/M ROOM: R E08/23/[address]: Marj Francis MD : 1965 BED: D IS: FAX #: STATUS: DEP ER TLOC: Spec : [id number] [place]: 08/23/24 Status: COMP Req : [id number] Recd: 08/23/[address]: Tonya Green MD Ordered: RA Test Low Normal High Flag Reference Site RA 15.0 H 0-14 IU/mL KAYLIE screen negative. Other data: Date of Service: 08/08/24 Procedure(s): CT chest wo con [id number] CT/CT chest wo con [id number] IMPRESSION: 1. There has been increase in the bilateral ground-glass opacities compared with 07/04/2024 although in a slightly different distribution. This most likely represents infectious or inflammatory disease. Clinical correlation follow-up suggested. 2. Extensive coronary artery calcifications 3. Cholelithiasis 4. Question of left lower lobe pulmonary nodule. Follow-up 3-6 months suggested. Date of Service: 07/04/24 Procedure(s): CT chest abdpel w/*[id number] CT/CT chest abdpel w/*[id number] IMPRESSION: 1. New multilobar, bilateral areas of groundglass opacification, greatest in the LEFT lower lobe. Etiologies to consider are pulmonary edema or hemorrhage. Pneumonia such as a viral pneumonia or mycoplasma. Acute hypersensitivity pneumonia. 2. There are additional very slightly more prominent mediastinal and hilar lymph nodes. These lymph nodes may be more prominent based on the acute groundglass opacifications within the lungs. 3. Recommendation: Short-term follow-up chest CT after treatment for possible infection or inflammation. 4. No abdominal or pelvic adenopathy identified. 5. Spleen remains top normal size but is not progressed since 12/20/2023. 6. Cholelithiasis without acute cholecystitis. 7. Very mild heterogeneity in the LEFT kidney similar to the prior study. There is mild perinephric stranding. Stable cystic mass in the inferior medial pole. 8. Grade 2 spinal listhesis of L4 with bilateral pars defects. A&P Assessment and plan (1) Bilateral interstitial pneumonia: 59-year-old male with recent history as outlined above, having progressive respiratory illness without a clear diagnosis thus far. He has been referred for direct admission from the infectious disease office today. CT of his chest has been showing increasing bilateral groundglass opacities. He has been experiencing fevers up to 10 1-1 02 Fahrenheit at home since April 2024. Overall infectious workup thus far has been unrevealing. Currently presumptively on treatment for possible autoimmune pneumonitis versus interstitial lung disease with prednisone 40 mg daily. Had a BH brief. Of improvement for 5 to 6 days after starting presumptive course of steroids, however now has been spiking fever to 102 Fahrenheit again at home. Along with that his oxygen requirements have increased. About 2 weeks ago he was started on supplemental O2 3 L/min, now his oxygen requirement is up to 4 to 6 L/min, his states his oxygen saturation in the morning is 76% and has been dipping in the low 70s with exertion at home. Previously his lowest numbers was between 88-92. Patient does have a history of smoking in the past. Does not have a known history of COPD. Was recently started also on Trelegy and follow-up with pulmonary. Elevated CCP IgG levels, evaluated by rheumatology today, possibly considering steroid taper due to uncontrolled blood sugar Follow-up CT of the chest to assess for response to steroids was expected to be performed on September 05, however given his worsening oxygenation and recurrence of fever would instead perform today. Recent chest x-ray showing worsening bilateral reticular opacities. Start empiric treatment with piperacillin/tazobactam, azithromycin and IV vancomycin. Check MRSA PCR, respiratory viral panel. (2) ILD (interstitial lung disease): Currently on a presumptive trial of steroids (3) Hypoxemic respiratory failure, chronic: Hypoxemic respiratory failure, patient has a new oxygen requirement over the past few weeks. His oxygen requirements have increased from 3 L/min to 4 to 6 L/min. Desaturating to low 70s at home. CT chest as noted above. Given that patient has had reduced activity, concern for possible DVT/PE additionally. Patient reports allergy to contrast medium as vomiting and abdominal pain. Will check start with a screening D-dimer and lower extremity Doppler. If both negative would defer CTA of the chest for now. The patient carries a history of coronary artery disease, possibly may have some underlying heart failure is contributing. Will check echocardiogram. He has had intermittent chest discomfort since the onset of his symptoms. Echocardiogram will help assess for any interim changes over previous. Overnight oximetry study , May possibly have underlying sleep apnea contributing. (4) Uncontrolled diabetes mellitus: Worsened with initiation of steroids Currently also on an insulin sliding scale. Has not had an A1c in many months. Will check HbA1c today and add medications as indicated. (5) Coronary artery disease: History of coronary artery disease currently on aspirin and Plavix. Will continue both. Denies chest pain at this present moment. Check EKG. (6) CLL (chronic lymphocytic leukemia): Completed immuno chemotherapy in March 2024. Has been on hold since then due to evaluation of ongoing lung changes. 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 Patient is currently pale, appears to be deconditioned. Has had significant decline in his ADLs. From being independent and ambulatory, he is now restricted in a wheelchair, using urinals and bedpan's. PT OT assessment for the same. Assess fall risk Dietitian consult to assist with high-protein calorie diet. (11) Weight loss: Plan DVT prophylaxis: Lovenox 40 mg subcutaneously every 24 hours PUD prophylaxis: Patient declines PPIs as he states he has been asked by his sanitary aide not to take PPIs with statins and Plavix. Will place him on Pepcid 20 mg p.o. twice daily instead Attestations 2 Medical Necessity Statement*: Greater than 2 midnight stay is anticipated for above defined care Coding Level of Care Code Acute Code for Chg Fwd Moderate MDM includes number and complexity of problems actively addressed during encounter, amount and/or complexity of data reviewed/ordered and described risk of complication, morbidity or mortality of management as documented Diagnoses Bilateral interstitial pneumonia J84.9 ILD (interstitial lung disease) J84.9 Hypoxemic respiratory failure, chronic J96.11 Uncontrolled diabetes mellitus E11.65 Coronary artery disease I25.10 CLL (chronic lymphocytic leukemia) C91.10 Positive anti-CCP test R76.8 Rheumatoid factor positive R76.8 Brain mass G93.89 Failure to thrive Weight loss R63.4
--- NOTE | 2024-08-29 13:28 | USR_ITS ---
PROCEDURE INFORMATION: Exam: US Duplex Lower Extremity Veins, Bilateral Exam date and time: 08/29/2024 4:18 PM Age: 59 years old Clinical indication: Pain; Leg, lower; Bilateral; Additional info: Evaluate for dvt TECHNIQUE: Imaging protocol: Real-time duplex ultrasound of the bilateral extremities with 2-D raymundo scale, color Doppler flow and spectral waveform analysis including responses to compression and other maneuvers (when performed) with image documentation. Complete exam focused on the lower extremity veins. COMPARISON: CT chest abdpel w/*[id number] 07/04/2024 9:43 AM FINDINGS: Right deep veins: Unremarkable. The common femoral, femoral, proximal profunda femoral and popliteal veins are patent without thrombus. Normal Doppler waveforms. Normal compressibility and/or augmentation response. Left deep veins: Unremarkable. The common femoral, femoral, proximal profunda femoral and popliteal veins are patent without thrombus. Normal Doppler waveforms. Normal compressibility and/or augmentation response. Superficial veins: Greater saphenous veins at the saphenofemoral junctions are patent bilaterally without thrombus. Soft tissues: Unremarkable. US/CV venous duplex [facility] [id number] IMPRESSION: No evidence of deep vein thrombosis.
--- NOTE | 2024-08-29 13:33 | USCV_ITS ---
Dex Irvin Age: 59 Gender: M : 1965 Exam Date: 08/29/2024 14:28 Ordering Phys: Sonny Alfonso MD Technologist: [place] [facility] [place]: BP: 126 / 78 HR: 63 Rhythm: Sinus Technical Quality: Adequate MEASUREMENTS (Male / Female) Normal Values 2D ECHO LVOT Diameter 2.1 cm LV Ejection Fraction MOD 4C 69.4 % LV Ejection Fraction MOD 2C 67.5 % LV Ejection Fraction 2C AL 67.3 % LA Diameter 3.2 cm RA Systolic Volume 4C AL 37.9 ml RA Systolic Volume 4C MOD 33.8 ml LA Sys Volume AL 44.1 cm cubed LA Sys Volume Index AL 23.1 cm cubed/m squared Aorta at Sinotubular Diameter 2.0 cm IVC Diameter 1.3 cm M-MODE LA Ao Ratio MM 1.7 AV Cusp Separation MM 2.1 cm DOPPLER AV Peak Velocity 145.0 cm/s LVOT Peak Velocity 82.0 cm/s AV Area Cont Eq vti 1.5 cm squared AV Area Cont Eq pk 1.9 cm squared MV Peak Velocity 68.0 cm/s MV Area PHT 3.8 cm squared TV Peak Velocity 203.0 cm/s TR Peak Velocity 270.0 cm/s TR Peak Gradient 29.2 mmHg TV Peak E Velocity 69.0 cm/s Right Atrial Pressure 3.0 mmHg Pulmonary Artery Systolic Pressu 32.2 mmHg PV Peak Velocity 88.0 cm/s FINDINGS Left Ventricle Normal left ventricular size and systolic function, EF 67%. No regional wall motion abnormalities. Right Ventricle Normal right ventricular size and systolic function. Right Atrium The right atrium is normal in size. Left Atrium The left atrium is normal in size. Mitral Valve Trace mitral valve regurgitation. Aortic Valve Moderate aortic valve regurgitation. Thickened aortic valve. Tricuspid Valve No gross abnormalities noted Pulmonic Valve No gross abnormalities noted Pericardium No pericardial effusion. Aorta Normal ascending aorta dimension. IVC The inferior vena cava appears normal. CONCLUSIONS Normal left ventricular size and systolic function, EF 67%. No regional wall motion abnormalities. Normal right ventricular size and systolic function. Trace mitral valve regurgitation. Thickened aortic valve. Moderate aortic valve regurgitation. There are no intracardiac masses. There is no pericardial effusion. Compared to the study from 05/02/2023, there may be a significant change. Dr Junaid Woods MD FACC (Electronically Signed) Final Date: 29 August 2024 22:56 S
--- NOTE | 2024-08-29 13:35 | CTR_ITS ---
PROCEDURE INFORMATION: Exam: CT Chest Without Contrast; Diagnostic Exam date and time: 08/29/2024 4:02 PM Age: 59 years old Clinical indication: Other: Follow up lung infiltrates, persistent fever, hypoxia and lung infiltrates of uncertain TECHNIQUE: Imaging protocol: Diagnostic computed tomography of the chest without contrast. Radiation optimization: All CT scans at this facility use at least one of these dose optimization techniques: automated exposure control; mA and/or kV adjustment per patient size (includes targeted exams where dose is matched to clinical indication); or iterative reconstruction. COMPARISON: CT chest wo con [id number] 08/08/2024 8:14 PM RADIATION DOSE METRICS: Total DLP (mGy-cm): 456 FINDINGS: Lungs: There are extensive interstitial infiltrates scattered throughout both lungs. There appears to be a bibasilar predominance. No dense consolidation or mass noted. Pleural spaces: Unremarkable. No pneumothorax. No pleural effusion. Heart: Unremarkable. No cardiomegaly. No pericardial effusion. Coronary arteries: Coronary artery calcifications are noted. Lymph nodes: Unremarkable. No enlarged lymph nodes. Vasculature: Unremarkable. No aortic aneurysm. Gallbladder and biliary ducts: There is a single gallstone in the gallbladder and the gallbladder does not appear to be inflamed. Bones/joints: Unremarkable. No acute fracture. Soft tissues: Unremarkable. CT/CT chest con [id number] IMPRESSION: 1. Worsening bilateral interstitial infiltrates 2. The nodule in the left lower lobe has resolved since 08/08/2024
[2024-08-29 14:13] LABS: Basophils % 0.2 %; Hematocrit 33.5 % (37-53); Lymphocytes # 0.1 10^3/uL (0.8-4.8); Lymphocytes % 2.7 %; Mean Corpuscular HGB Conc 32.8 g/dL (30-55); Mean Corpuscular Hemoglobin 28.5 pg (27-33); Mean Corpuscular Volume 86.8 fl (82-101); Mean Platelet Volume 10.4 fL (7.4-10.4); Monocytes # 0.1 10^3/uL (0.2-0.9); Monocytes % 2.3 %; Neutrophils # 4.31 10^3/uL (1.8-7.7); Neutrophils % 90.4 %; Nucleated Red Blood Cells % 0 %; Platelet Count 115 10^3/cmm (157-399); Red Blood Count 3.86 10^6/uL (3.85-5.65); Red Cell Distribution Width 15.7 % (12.1-15.1); White Blood Count 4.77 10^3/uL (3.29-11.43)
[2024-08-29 14:30] LABS: D Dimer 0.51 ug/mLFEU (0-0.59)
[2024-08-29 14:34] LABS: Estmated Average Glucose 160; Hemoglobin A1C 7.2 % (4.0-6.0)
[2024-08-29 14:38] LABS: Cortisol Random 3.39 ug/dL (2.47-19.5); NT Pro B Type Natriuretic Pept 290 pg/mL (0-125); Procalcitonin 0.09 ng/mL (0-0.5); Thyroid Stimulating Hormone 1.13 uIU/mL (0.27-4.20)
[2024-08-29 14:49] LABS: Alanine Aminotransferase 58 U/L (0-41); Albumin Level 3.2 g/dL (3.5-5.2); Alkaline Phosphatase 82 U/L (40-130); Anion Gap 15.6 (5-19); Aspartate Amino Transferase 35 U/L (0-40); Blood Urea Nitrogen 16 mg/dL (6-20); Calcium 9.2 mg/dL (8.5-10.5); Carbon Dioxide 23 mmol/L (22-29); Chloride 95 mmol/L (98-107); Globulin 2.9 g/dL (1.3-4.6); Glucose 225 mg/dL (65-115); Osmolality Calculated 276 mOsm/kg (285-295); Potassium 4.6 mmol/L (3.5-5.1); Sodium 129 mmol/L (136-145); Total Bilirubin 0.5 mg/dL (0.15-1.2); Total Protein 6.1 g/dL (6.6-8.7)
[2024-08-29 15:24] LABS: Vitamin B12 451 pg/mL (232-1245)
[2024-08-29 17:34] LABS: Glucose Point of Care 310 mg/dL (70-110)
[2024-08-29] MEDS: famotidine 20 mg Tablet PO (17:47)
[2024-08-29] MEDS: azithromycin 250 mg Tablet 500 MG PO (17:48)
[2024-08-29] MEDS: enoxaparin 40 mg/0.4 mL Syringe SUBCUT (18:10)
[2024-08-29] MEDS: piperacillin-tazobactam 3.375 GM in sodium chloride 0.9% (plus) 50 ML IV (18:10)
[2024-08-29 18:16] LABS: Amphetamines Screen Urine Negative (Negative); Barbiturates Screen Urine Negative (Negative); Benzodiazepines Screen Urine Negative (Negative); Cocaine Screen Urine Negative (Negative); Opiate Screen Urine Negative (Negative); PCP Screen Urine Negative (Negative); THC Screen Urine Negative (Negative)
[2024-08-29] MEDS: FUROsemide 10 mg/mL SDV 4mL 40 MG IVP (18:17)
--- NOTE | 2024-08-29 18:21 | PHA.VACGOAL ---
Vancomycin Goal - Goal Vancomycin Goal:: 10-15 mg/L Vancomycin Indication:: Other - Therapy Current therapy:: Azithromycin, Pip/Tazo Day of therpy:: Day 1 of [] Actual body weight (kg): 173 lb 4 oz Dexter body weight: 63.8 Dosing weight (kg): 78.6 - Data Labs: WBC 4.77 10^3/uL (3.29-11.43) 08/29/24 14:00 RBC 3.86 10^6/uL (3.85-5.65) 08/29/24 14:00 Hgb 11.00 g/dL (11.27-16.99) L 08/29/24 14:00 Hct 33.5 % (37-53) L 08/29/24 14:00 MCV 86.8 fl (82-101) 08/29/24 14:00 MCH 28.5 pg (27-33) 08/29/24 14:00 MCHC 32.8 g/dL (30-55) 08/29/24 14:00 RDW 15.7 % (12.1-15.1) H 08/29/24 14:00 Sodium 129 mmol/L (136-145) L 08/29/24 14:00 Potassium 4.6 mmol/L (3.5-5.1) 08/29/24 14:00 Chloride 95 mmol/L (98-107) L 08/29/24 14:00 Carbon Dioxide 23 mmol/L (22-29) 08/29/24 14:00 Anion Gap 15.6 (5-19) 08/29/24 14:00 BUN 16 mg/dL (6-20) 08/29/24 14:00 Creatinine 0.9 mg/dL (0.7-1.2) 08/29/24 14:00 GFR Calculation 87.0 mL/min (90-130) L 08/29/24 14:00 Last dialysis session:: N/A Treatment plan:: new consult Regimen:: INITIAL DOSE OF 1250 MG Q12H PER DOSING PROTOCOL Follow up:: WILL MONITOR AND FOLLOW UP DAILY
[2024-08-29 20:14] LABS: Bilirubin Urine Negative (Negative); Blood Urine Trace (Negative); Glucose Urine UA 2+ (Normal); Ketones Urine Negative (Negative); Leukocyte Esterase Urine Negative (Negative); Nitrate Urine Negative (Negative); Protein Urine Negative (Negative); Urine Appearance Clear (CLEAR); Urine Color Yellow (Yellow); Urobilinogen Urine 0.2 mg/dL (Negative); pH Urine 6.5 (5-7)
[2024-08-29 20:17] LABS: Add Urine Microscopic? YES; Bacteria Urine None Seen /hpf; RBC Urine 0-2 /hpf (0-2); Squamous Epithelial Cell Urine 0-5 /hpf (0-5); WBC Urine 0-5 /hpf (0-5)
[2024-08-29] MEDS: ipratropium 0.5 mg/2.5 mL Neb INHALATION (20:29)
[2024-08-29] MEDS: budesonide 0.5 mg/2 mL Neb INHALATION (20:29)
[2024-08-29] MEDS: levalbuterol 1.25 mg/3 mL Neb INHALATION (20:29)
[2024-08-29 21:24] LABS: Glucose Point of Care 349 mg/dL (70-110)
[2024-08-29] MEDS: insulin lispro 100 unit/1 mL SUBCUT (21:38)
[2024-08-29] MEDS: vancomycin 1,250 MG/250 ML PIGGYBACK 166.67 MG IV (21:46)
[2024-08-29 23:23] LABS: Glucose Point of Care 325 mg/dL (70-110)
[2024-08-29] MEDS: lanolin oint 7 gm 1 APPLIC TOPICAL (23:43)
[2024-08-30] VITALS (15 sets, daily range): BP systolic 112–133; BP diastolic 73–81; PULSE 75–114; RESP 17–18; TEMP 36.4–37.2; O2SAT 80–99
[2024-08-30 00:23] LABS: MRSA PCR OZH (swab) NOT DETECTED (Negative)
[2024-08-30 01:01] LABS: Adenovirus Not Detected (NOT DETECT); Chlamydia Pneumoniae Not Detected (NOT DETECT); Coronavirus 229E,HKU1,NL63,OC4 Not Detected (NOT DETECT); Human Metapneumovirus Not Detected (NOT DETECT); Human Rhinovirus/Enterovirus Not Detected (NOT DETECT); Influenza A Not Detected (NOT DETECT); Influenza A H1 Not Detected (NOT DETECT); Influenza A H1-2009 Not Detected (NOT DETECT); Influenza A H3 Not Detected (NOT DETECT); Influenza B Not Detected (NOT DETECT); Mycoplasma Pneumoniae Not Detected (NOT DETECT); Parainfluenza Virus Type 1 Not Detected (NOT DETECT); Parainfluenza Virus Type 2 Not Detected (NOT DETECT); Parainfluenza Virus Type 3 Not Detected (NOT DETECT); Parainfluenza Virus Type 4 Not Detected (NOT DETECT); Respiratory Syncytial Virus A Not Detected (NOT DETECT); Respiratory Syncytial Virus B Not Detected (NOT DETECT); SARS-COV-2 Not Detected (NOT DETECT)
[2024-08-30] MEDS: levalbuterol 1.25 mg/3 mL Neb INHALATION ×4 (01:30→20:18)
[2024-08-30] MEDS: ipratropium 0.5 mg/2.5 mL Neb INHALATION ×4 (01:30→20:18)
[2024-08-30] MEDS: piperacillin-tazobactam 3.375 GM in sodium chloride 0.9% (plus) 50 ML IV (01:51)
[2024-08-30 02:00] LABS: Glucose Point of Care 211 mg/dL (70-110)
[2024-08-30 05:55] LABS: Basophils % 0.2 %; Eosinophils % 0.2 %; Lymphocytes # 0.3 10^3/uL (0.8-4.8); Lymphocytes % 6.3 %; Mean Corpuscular HGB Conc 33.2 g/dL (30-55); Mean Corpuscular Hemoglobin 28.6 pg (27-33); Mean Corpuscular Volume 86.1 fl (82-101); Monocytes # 0.2 10^3/uL (0.2-0.9); Monocytes % 3.5 %; Neutrophils # 3.95 10^3/uL (1.8-7.7); Neutrophils % 85.9 %; Nucleated Red Blood Cells % 0 %; Platelet Count 114 10^3/cmm (157-399); Red Blood Count 3.95 10^6/uL (3.85-5.65); Red Cell Distribution Width 15.5 % (12.1-15.1)
[2024-08-30 06:21] LABS: Alanine Aminotransferase 46 U/L (0-41); Albumin Level 3.2 g/dL (3.5-5.2); Alkaline Phosphatase 76 U/L (40-130); Anion Gap 15.4 (5-19); Aspartate Amino Transferase 24 U/L (0-40); Blood Urea Nitrogen 20 mg/dL (6-20); Calcium 8.8 mg/dL (8.5-10.5); Carbon Dioxide 25 mmol/L (22-29); Chloride 99 mmol/L (98-107); Creatinine Clr Calc Pharmacy 66.9706; Globulin 2.6 g/dL (1.3-4.6); Glomerular Filtration Rate 62.4 mL/min (90-130); Glucose 135 mg/dL (65-115); Magnesium 1.8 mg/dL (1.7-2.3); Osmolality Calculated 287 mOsm/kg (285-295); Phosphorus 3.6 mg/dL (2.5-4.5); Potassium 3.4 mmol/L (3.5-5.1); Sodium 136 mmol/L (136-145); Total Bilirubin 0.4 mg/dL (0.15-1.2); Total Protein 5.8 g/dL (6.6-8.7)
[2024-08-30 06:24] LABS: Chol HDL Ratio 3.26 mg/dL (1.0-5.00); Cholesterol 124 mg/dL (0-200); HDL Cholesterol 38 mg/dL (60-100); LDL Cholesterol Calculated 54 mg/dL (50-129); LDL HDL Ratio 1.42 RATIO (0.00-3.22); Triglycerides 161 mg/dL (0-150)
[2024-08-30 06:37] LABS: Glucose Point of Care 110 mg/dL (70-110)
[2024-08-30] MEDS: budesonide 0.5 mg/2 mL Neb INHALATION ×2 (08:18→20:18)
[2024-08-30] MEDS: vancomycin 1,250 MG/250 ML PIGGYBACK 166.67 MG IV (09:25)
[2024-08-30] MEDS: azithromycin 250 mg Tablet 500 MG PO (09:26)
[2024-08-30] MEDS: aspirin 81 mg EC Tablet PO (09:26)
[2024-08-30] MEDS: predniSONE 20 mg Tablet 40 MG PO (09:27)
[2024-08-30] MEDS: famotidine 20 mg Tablet PO ×2 (09:27→18:03)
--- NOTE | 2024-08-30 10:30 | PC.CHAP ---
Pastoral Care Encounter/Spiritual Assessment Type of Contact [] Declined retail store associate visit [] Patient/Family/Request visit [] Outpatient visit [] Follow-up visit [] Physician referral [] Code/Alert [x] Routine visit [] Staff referral [] Actively dying [] Patient sleeping [] Family support [] [] Out of room [] Palliative care [] [] Receiving care in room [] Pre-surgical visit [] Trauma [] Long length of stay [] ICU visit [] Other: Relational/Emotional Strength [x] Patient feels connected with others/family/visitors/staff [] Distress [] Loneliness/isolation [] Abandonment Spirituality of Patient [x] Person of Gabbie [] Attends Confucianist of their Gabbie [x] Believes in Prayer [] Reads Bible or Oriental Orthodox materials [] There are Spiritual issues to be addressed Director Teen Post Interventions [x] Prayer [x] Active listening [] Non-anxious presence [x] Spiritual/emotional support [] Crisis/trauma care [] Spiritual counseling [] Bereavement support [] Provided bereavement packet [] Provided Bible/devotional materials [] Provided toy/stuffed animal, coloring book to patient or family member [] Provided Communion [] Anointing/[place] [] Salvation [x] Completed spiritual assessment [] Other: Impact on Illness or Injury [] Angry [] Fearful [] Anxious [] Often cries [] Exhaustion [] Unable to work [] Unable to attend pentecostalism [] Unable to walk/stand [] Unable to read [] Unable to drive [] Unable to eat/drink [] Unable to sleep [] Unable to be with family [] Patient intubated [] Other: Summary Time spent with patient 5 min
--- NOTE | 2024-08-30 11:31 | PM.CONSULT ---
Providers/Reason For Consult Consulting Physician/Specialty*: Tonya Green MD/ Infectious Disease Reason for Consult*: worsening lung infiltrates, worsening hypoxia Attending Physician: Sonny Alfonso MD Primary Care Provider: SARAH Goldstein History of Present Illness History of Present Illness Dex Irvin is a 59 year old male with chronic lymphocytic leukemia diagnosed in June 2023 status post treatment with obinutuzumab/venetoclax between October 2023 to 04/04/24. Thereafter he was maintained on venetoclax until early May when it was discontinued due to persisting fever. Patient was first seen in the infectious disease office on 07/11/24 for c/o persisting fever and new lung infiltrates. Since April 2024 patient developed daily fever, as high as 102 Fahrenheit along with fever, chills, night sweats, increasing fatigue and weight loss. He has lost 20kgs since onset of symptoms in April. Shortly after starting with the symptoms, he underwent a CT of the chest abdomen and pelvis on July 04, 2024 which showed bilateral nodules and areas of groundglass attenuation involving multiple lobes, with most significant changes involving the left lower lobe. There were noted to be small axillary mediastinal and hilar lymph nodes. The lung changes were new compared to December 2023. No significant disease was noted in the abdomen or pelvis. Initially it was thought that patient's symptoms may be related to sinusitis and he received intermittent courses of antibiotics including cefdinir. He has since had trial of azithromycin, doxycycline x 5 days, trial of levaquin x 1 dose which resulted in allergic reaction without any change in symptoms. Previously he had been on prophylaxis with Bactrim DS twice daily and fluconazole, acyclovir while being on venetoclax. Thereafter he went on to develop cough with expectoration. He has not noticed any hemoptysis. Patient has a history of chronic smoking, reports having quit very recently in the past few weeks. No h/o known COPD or CARLO. His reports that patient had sick contacts at the time of onset of symptoms. His [id number] who had been visiting from [place] had some respiratory symptoms, other family members including his and son also developed respiratory symptoms. While the other family members recovered the patient continued to have worsening. Review of systems was positive for visual blurring and headache. He states he has visited with ophthalmology and overall exam was noted to be unremarkable. 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 He recalls an episode of bronchitis in the early which took several weeks to resolve. He did not seek any specific medical care at that time. He has dogs and cats as pets at home. Also has chickens in his home which belong to his son. He is not actively involved in cleaning the chicken coop or any other bird related activities. Does not have any other birds as pets. Denies consumption of any unpasteurized products He is actively involved in gardening, prior to [facility] he was actively involved in mowing his lawn and other yardwork..He lives in a trailer and often clears out the septic tank. No history of international travel. No history of healthcare contact. No history of any family members with TB. After his visit here at [facility] in June, he underwent peripheral evaluation for opportunistic pneumonia, which was overall unremarkable. (summarized below). With no clear diagnosis, he was referred to pulmonology at [facility] for bronchoscopy with BAL cx and biopsy. Results are summarized below. Essentially, bronchoscopic evaluation remained non revealing as well for any infectious cause. With infectious evaluation being negative, the chief concern at this time is ILD vs autoimmune pneumonitis. Anti CCP Ab were reported positive at [facility] at 118, repeated at [facility] level at ~200. RA factor mildly elevated at 15. Negative MAILE and Aldolase level. He has generalized aches and pains, but no gross arthritic changes. He started a presumptive trial of steroids prescribed by pulmonary physician Dr. Hameed approximately 10 days ago. He is currently on Prednisone 40mg per day. After starting the steroids, he initially noticed a period of improvement for 5 days when t max came to 99.7F, however over the past 2 days he has fever 101-102F. He was directed to start PJP ppx/presumptive PJP treatment dosing with Atovaquone 750mg BID but has been having insurance issues for the same. Over the past 2-3 weeks his respiratory status has been declining. He is now on 3lpm supplemental 02. With that he was initially able to maintain 02 sat 88-98%, however over the past 3-4 days, he has been dropping 02 sat down to 72-76% on waking up in the morning and on exertion. He had a PFT at [facility], results are N/A at this time. He did also start Trelegy inhaler. Since starting 02, he has intermittent nose bleeds. On f/up visit on 08/23, he was orthostatic and was referred to the ED for IV fluids. HE had c/o chest pain at the time, EKG and Trop series unremarkable then. He has had intermittent ED visits since April for weakness and failure to thrive. He is now utilizing a wheelchair and urinal, having previously been very active. Objective weight loss 94 to 74kg. Visible deconditioning noted. Currently has mucosal ulcers involving the denture line over maxilla. no known h/o aspiration He is currently admitted as a direct admit from the ID office due to worsening hypoxia and further evaluation for the same. He underwent an overnight oximetry study yesterday which showed 9 episodes of desaturation to 85% on 3lpm. He will be getting a walk test today. HE states his 02 sat was 77% when he first woke up to go the bathroom this morning. Summary of ID evaluation to date: 07/11/24: negative resp viral panel, 07/11/24: Sputum Cx without growth, negative AFB smear and culture, negative sputum fungal culture 07/11/24 blood cx no growth, 07/11/24: negative serum cryptococcal antigen 07/11/24: serum BD glucan < 31 , serum Ag/GM <0.5 07/11/24 Negative bartonella henselae and bartonella aguilera IgG/IgM 07/11/24: negative histoplasma urine Ag, negative Histoplasma H &M 07/11/24: coccidiodes CF < 1:2 07/11/24: Negative urine legionella Ag. 07/11/24: HIV 1/2 Ag/AB: Non reactive 07/11/24: M.pneumonaie PCR negative 07/11/24: induced sputum PJP PCR negative 07/11/24: Blastomyces ab titer < 1:8 07/11/24 : Toxoplasma IgG/IgM negative 08/23/24: Negative tick panel (lyme, borrelia,ehrlichia), negative F. Tularensis IgG and IgM. 08/23/24: pending Strongyloides Ab and Sputum O+P 08/29: pending Coxiella IgG and IgM bronchoscopy with BAL, cx and biopsy. Per discussion with Dr. Hameed, bleeding was encountered while taking biopsy, therefore very little tissue was obtained, however within limits of obtained specimens, no overt malignancy was encountered. Bacterial and AFb cx negative. GMS , fungal and bacterial stains negative from bronch. Negtaive PCP stain. PJP PCR N/A from sputum.Bronch Ag/GM : negative. CMV cx negative. 07/31/24: bronchoscopy with BAL, cx and biopsy at [facility]. Per discussion with Dr. Hameed, bleeding was encountered while taking biopsy, therefore very little tissue was obtained from left lower lobe, however within limits of obtained specimens, no overt malignancy was encountered. Bacterial and AFb cx negative. GMS , fungal and bacterial stains negative from bronch/BAL. Negative bronch Ag/GM. Negative PCP stain. PJP PCR N/A from bronch. Serial CT imaging : Date of Service: 07/04/24 Procedure(s): CT chest abdpel w/*[id number] IMPRESSION: 1. New multilobar, bilateral areas of groundglass opacification, greatest in the LEFT lower lobe. Etiologies to consider are pulmonary edema or hemorrhage. Pneumonia such as a viral pneumonia or mycoplasma. Acute hypersensitivity pneumonia. 2. There are additional very slightly more prominent mediastinal and hilar lymph nodes. These lymph nodes may be more prominent based on the acute groundglass opacifications within the lungs. 3. Recommendation: Short-term follow-up chest CT after treatment for possible infection or inflammation. 4. No abdominal or pelvic adenopathy identified. 5. Spleen remains top normal size but is not progressed since 12/20/2023. 6. Cholelithiasis without acute cholecystitis. 7. Very mild heterogeneity in the LEFT kidney similar to the prior study. There is mild perinephric stranding. Stable cystic mass in the inferior medial pole. 8. Grade 2 spinal listhesis of L4 with bilateral pars defects. Date of Service: 08/08/24 Procedure(s): CT chest wo con [id number] IMPRESSION: 1. There has been increase in the bilateral ground-glass opacities compared with 07/04/2024 although in a slightly different distribution. This most likely represents infectious or inflammatory disease. Clinical correlation follow-up suggested. 2. Extensive coronary artery calcifications 3. Cholelithiasis 4. Question of left lower lobe pulmonary nodule. Follow-up 3-6 months suggested. Date of Service: 08/29/24 Procedure(s): CT chest con [id number] CT/CT chest con [id number] IMPRESSION: 1. Worsening bilateral interstitial infiltrates 2. The nodule in the left lower lobe has resolved since 08/08/2024 Review of Systems General: Reports: 10 or more systems reviewed and unremarkable except in HPI and below Const: Reports: fever(s), chills and body aches Eyes: Denies: change in vision, blurry vision or photophobia ENMT: Reports: odynophagia and hoarseness; Denies: throat pain, enlarged tonsils or nasal congestion Card: Denies: chest pain, palpitations, irregular heart rhythm, edema, swelling of feet/ankles, lightheadedness, pre-syncope, dyspnea on exertion or orthopnea Resp: Denies: dyspnea, productive cough, non-productive cough, wheezing, stridor, pain on inspiration, change in phlegm color, hemoptysis or chest congestion GI: Denies: abdominal pain, nausea, vomiting, hematemesis, coffee ground emesis, dysphagia, heartburn, diarrhea, constipation, GI cramping, change in stool character, hematochezia or melena : Denies: flank pain, dysuria, urinary frequency, urinary urgency, urinary hesitancy or hematuria Musc: Denies: neck pain, back pain, extremity pain, joint swelling, joint warmth or deformity Neuro: Denies: headache(s), numbness in extremities, weakness in extremities, sensory changes, difficulty walking, frequent falls, dizziness, vertigo, behavioral changes, Slurred speech present or seizure-like activity Psych: Denies: anxiety, depression, suicidal ideation or homicidal ideation Endo: Denies: polyuria, polydipsia, tired all the time, cold intolerance or hot flashes Will/Lymph: Denies: easy bruising or easy bleeding Medications/Allergies Home Medications Medication Instructions Recorded Confirmed Last Taken Type aspirin 81 mg tablet,delayed 81 mg PO DAILY #100 tabs 05/03/23 08/30/24 08/29/24 Rx release nitroglycerin 0.4 mg sublingual 0.4 mg sublingual Q5M PRN Chest 05/03/23 08/30/24 Unknown Rx tablet Pain #25 tabs acetaminophen 500 mg capsule 500 mg PO Q6H PRN Pain 10/18/23 08/30/24 Unknown History blood sugar diagnostic (OneTouch #10 ea 12/14/23 08/30/24 Unknown History Ultra Test strips) cholecalciferol (vitamin D3) 50 50 mcg PO DAILY 07/10/24 08/30/24 08/29/24 History mcg (2,000 unit) capsule atovaquone 750 mg/5 mL oral 750 mg (5 mL) PO Q12H 21 days #210 08/29/24 Unknown Rx suspension mL clopidogrel 75 mg tablet (Plavix) 75 mg PO DAILY 08/29/24 08/30/24 08/29/24 History prednisone 20 mg tablet 40 mg PO DAILY 08/29/24 08/30/24 08/29/24 History fluticasone fur. 100 mcg-umeclid 1 ea inhalation DAILY 08/30/24 08/30/24 08/29/24 History 62.5 mcg-vilant 25 mcg inhalat.powder (Trelegy Ellipta) insulin lispro 100 unit/mL See Rx Instructions .Route 08/30/24 08/30/24 Unknown History subcutaneous pen (Humalog KwikPen .COMPLEX PRN Pain (U-100) Insulin) Allergies Allergy/AdvReac Type Severity Reaction Status Date / Time levaquin AdvReac Unknown chest pain Uncoded 08/29/24 10:04 Current Medications Generic Name Dose Route Start Last Admin Trade Name Freq PRN Reason Stop Dose Admin Aspirin 81 mg 08/30/24 09:00 08/30/24 09:26 Aspirin 81 Mg Ec Tablet PO 81 mg DAILY AKUA Administration Azithromycin 500 mg 08/29/24 14:00 08/30/24 09:26 Azithromycin 250 Mg Tablet PO 500 mg DAILY AKUA Administration Protocol Budesonide 0.5 mg 08/29/24 20:00 08/30/24 08:18 Budesonide 0.5 Mg/2 Ml Neb INHALATION 0.5 mg BID.RESPIRATORY AKUA Administration Enoxaparin Sodium 40 mg 08/29/24 13:30 08/29/24 18:10 Enoxaparin 40 Mg/0.4 Ml Syringe SUBCUT 40 mg Q24H AKUA Administration Famotidine 20 mg 08/29/24 18:00 08/30/24 09:27 Famotidine 20 Mg Tablet PO 20 mg BID AKUA Administration Piperacillin Sod/Tazobactam 50 mls @ 12.5 mls/hr 08/29/24 14:30 08/30/24 06:07 Sod 3.375 gm/ Sodium Chloride IV Infused Q8H AKUA Infusion Vancomycin HCl 1,250 mg in 250 mls @ 166.667 mls/hr 08/29/24 22:00 08/30/24 09:25 Vancocin IV 166.67 mls/hr Q12H AKUA Administration Insulin Human Lispro 0 unit 08/29/24 18:00 08/30/24 07:34 Insulin Lispro 100 Unit/1 Ml SUBCUT Not Given WM&BEDTIME AKUA Protocol Ipratropium Kaufman 0.5 mg 08/29/24 20:00 08/30/24 08:17 Ipratropium 0.5 Mg/2.5 Ml Neb INHALATION 0.5 mg Q6H.RESP AKUA Administration Lanolin 1 applic 08/29/24 22:34 08/29/24 23:43 Lanolin Oint 7 Gm TOPICAL 1 applic PRN PRN Administration DRYNESS Levalbuterol HCl 1.25 mg 08/29/24 20:00 08/30/24 08:17 Levalbuterol 1.25 Mg/3 Ml Neb INHALATION 1.25 mg Q6H.RESP AKUA Administration Prednisone 40 mg 08/30/24 09:00 08/30/24 09:27 Prednisone 20 Mg Tablet PO 40 mg DAILY AKUA Administration PFSH Acute PFSH: Medical History Hypoxemic respiratory failure, chronic Rheumatoid factor positive Ground glass opacity present on imaging of lung Chronic kidney disease 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 Coronary artery disease AMI inferior wall Vertigo, benign positional Tinnitus Rotator cuff arthropathy of right shoulder History of tobacco abuse Lumbar disc disease Hypertension History of Helicobacter infection Erectile dysfunction Diabetes Arthritis GERD (gastroesophageal reflux disease) History of basal cell cancer Hyperlipidemia Surgical History Hx of colonoscopy with polypectomy age 52 History of umbilical hernia repair H/O repair of rotator cuff Family History Mother , at the age of 74 Cancer thyroid cancer Lung disease emphysema Hypertension Father , at the age of 74 CAD (coronary artery disease) Other Stroke Social History Smoking and tobacco/nicotine status: never used tobacco/nicotine Alcohol intake: never Substance/Drug Use: never Vitals/I&O/Wt Last Vital Signs Temp 99.0 F 08/30/24 07:26 Pulse 98 08/30/24 08:18 Resp 18 08/30/24 08:18 BP 133/77 08/30/24 07:26 Pulse Ox 88 L 08/30/24 08:18 O2 Del Method Nasal Cannula 08/30/24 08:18 O2 Flow Rate 3 08/30/24 08:18 08/29/24 08/30/24 08/30/24 22:59 06:59 14:59 Intake Total 50 / 50 300 / 350 240 / 240 Output Total 250 / 250 Balance 50 / 50 300 / 350 -10 / -10 Weight last 48 hrs Weight 78.585 kg Physical Exam Narrative: General: No acute distress, chronically ill appearing, pale AAOx3 , significant deconditioning HEENT: PERRLA, pupils bilaterally equal and reactive, pallors + Chest: fine crackles B/L CVS: S1-S2 regular, no murmurs, no tachycardia, no gallops, no rubs Neuro: No focal deficits, no facial deformity, AO x3 Data 08/30/24 05:29 08/30/24 05:29 Micro: Microbiology 08/29/24 17:53 Bacterial Antigens - Final Urine Kidney A&P Assessment and plan (1) Failure to thrive: (2) CLL (chronic lymphocytic leukemia): (3) Positive anti-CCP test: (4) Rheumatoid factor positive: (5) Bilateral interstitial pneumonia: (6) ILD (interstitial lung disease): (7) Hypoxic: Plan 59 male with recent history as summarized above with B/L interstitial infiltrates worsening over the course of 2 months, having changed in radiological appearance since first appearing. worsening respiratory status , malnutrition and failure to thrive along with intermittent fever continue to persist. Overall infectious w/up remains non revealing to date as summarized above. bacterial, fungal and AFB cx negative to date S/p bronchoscopy on 07/31, also overall unable to pinpoint an exact cause Pertinent + include anti CCP IgG Presumptive diagnosis is that of ILD vs Autoimmune pneumonitis ? cause On treatment with Prednisone 40mg po daily at this time Add PJP ppx/presumptive PJP treatment with Atovaquone 750mg BID. Prefer atovaquone over bactrim at this time due to hyponatremia, cr raning between 1-1.6 recently. Mepron may be better tolerated. May discontinue iv abx at this time given overall unrevealing infectious eval to date. No leukocytosis during course of illness. Procal negative. Will follow pending Coxiella and strongyloides serology Discussed case with patient's outpatient oncologist Dr. Qureshi - recommended a 2nd opinion at [facility] With patient's oncologist Dr. Delilah Pena - call placed to Dr. Pena's office- awaiting callback. Recommend PT/OT/nutrition evaluation given significant deconditoning and weight loss over 2 months will follow Consult Attestations Medical Necessity Statement: per admitting note Coding Level of Care Code Acute Code for Chg Fwd Diagnoses Failure to thrive CLL (chronic lymphocytic leukemia) C91.10 Positive anti-CCP test R76.8 Rheumatoid factor positive R76.8 Bilateral interstitial pneumonia J84.9 ILD (interstitial lung disease) J84.9 Hypoxic R09.02
[2024-08-30 11:57] LABS: Glucose Point of Care 219 mg/dL (70-110)
[2024-08-30 11:57] LABS: Glucose Point of Care 60 mg/dL (70-110)
[2024-08-30 12:23] LABS: Lactate Dehydrogenase 219 U/L (135-225)
[2024-08-30] MEDS: methylPREDNISolone sod succ 125 mg/2 mL INJ 50 MG IVP ×3 (12:41→23:33)
[2024-08-30] MEDS: insulin lispro 100 unit/1 mL SUBCUT ×3 (13:05→20:52)
[2024-08-30] MEDS: enoxaparin 40 mg/0.4 mL Syringe SUBCUT (13:06)
[2024-08-30 13:09] LABS: Glucose Point of Care 258 mg/dL (70-110)
--- NOTE | 2024-08-30 15:15 | P.PN_ITS ---
Subjective 2 Subjective: No acute events overnight. Patient seen comfortably laying in the bed. States he is feeling tired as he has been tested multiple times since morning. He worked with physical therapy due to saturations dipped down to 70s and he recovered in few minutes. Seen with at bedside. Denies any nausea, vomiting, headache. Denies any chest pain. Has remained afebrile since admission. Vitals/I&O/Wt Last Vital Signs Temp 98.4 F 08/30/24 11:40 Pulse 108 H 08/30/24 13:16 Resp 18 08/30/24 13:16 BP 127/79 08/30/24 11:40 Pulse Ox 80 L 08/30/24 13:18 O2 Del Method Nasal Cannula 08/30/24 13:16 O2 Flow Rate 4 08/30/24 13:18 08/30/24 08/30/24 08/30/24 06:59 14:59 22:59 Intake Total 300 / 350 730 / 730 Output Total 250 / 250 Balance 300 / 350 480 / 480 Weight last 48 hrs Weight 78.585 kg Physical Exam 2 Narrative: General: No acute distress, AO x3, NC oxygen supplementation, pale, chronically sick appearing, dehydrated HEENT: PERRLA, pupils bilaterally equal and reactive Chest: Faint crackles to auscultation bilaterally, bronchial breath sounds over lung hernandez CVS: S1-S2 regular, no murmurs, no tachycardia, no gallops, no rubs Abdomen: Soft, nontender, no organomegaly, bowel sounds present Neuro: No focal deficits, no facial deformity, AO x3, power 5/5 in all limbs Data 08/31/24 05:26 08/31/24 05:26 Micro: Microbiology 08/29/24 17:53 Bacterial Antigens - Final Urine Kidney A&P Assessment and plan (1) Acute hypoxic respiratory failure: (2) Bilateral interstitial pneumonia: 59-year-old male with recent history as outlined above, having progressive respiratory illness without a clear diagnosis thus far. He has been referred for direct admission from the infectious disease office today. CT of his chest has been showing increasing bilateral groundglass opacities. He has been experiencing fevers up to 10 1-1 02 Fahrenheit at home since April 2024. Overall infectious workup thus far has been unrevealing. Currently presumptively on treatment for possible autoimmune pneumonitis versus interstitial lung disease with prednisone 40 mg daily. Had a BH brief. Of improvement for 5 to 6 days after starting presumptive course of steroids, however now has been spiking fever to 102 Fahrenheit again at home. Along with that his oxygen requirements have increased. About 2 weeks ago he was started on supplemental O2 3 L/min, now his oxygen requirement is up to 4 to 6 L/min, his states his oxygen saturation in the morning is 76% and has been dipping in the low 70s with exertion at home. Previously his lowest numbers was between 88-92. Patient does have a history of smoking in the past. Does not have a known history of COPD. Was recently started also on Trelegy and follow-up with pulmonary. Elevated CCP IgG levels, evaluated by rheumatology today, possibly considering steroid taper due to uncontrolled blood sugar Follow-up CT of the chest to assess for response to steroids was expected to be performed on September 05, however given his worsening oxygenation and recurrence of fever would instead perform today. Recent chest x-ray showing worsening bilateral reticular opacities. Start empiric treatment with piperacillin/tazobactam, azithromycin and IV vancomycin. Check MRSA PCR, respiratory viral panel. (3) ILD (interstitial lung disease): Currently on a presumptive trial of steroids (4) Failure to thrive: Weight loss of over 20 KG since onset of symptoms in April 2024. Patient is currently pale, appears to be deconditioned. Has had significant decline in his ADLs. From being independent and ambulatory, he is now restricted in a wheelchair, using urinals and bedpan's. PT OT assessment for the same. Assess fall risk Dietitian consult to assist with high-protein calorie diet. (5) CLL (chronic lymphocytic leukemia): Completed immuno chemotherapy in March 2024. Has been on hold since then due to evaluation of ongoing lung changes. 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 Will place him on Pepcid 20 mg p.o. twice daily instead Plan for the day: Check ABG. High concerns for ARDS. Patient desaturating on minimal ambulation down to high 70s requiring 4 L. On 6 L desaturating to mid 80s. Recovering in few minutes at resting. Does complain of shortness of breath on exertion. Respiratory viral panel negative. MRSA swab negative. Received Lasix 40 mg yesterday. Appropriate urine output. Appreciate CT chest results. D-dimer negative. Concerns for worsening bilateral diffuse consolidation. Discussed in detail with the patient. Concerns for pneumonitis. Multiple infectious workup negative in the past. Cannot rule out autoimmune pneumonitis. Will plan for trial of high-dose steroids 50 mg every 6 hourly. Home O2 evaluation. PT evaluation. Induce sputum for PCP PCR. Fungitell pending. Encourage patient to increase oral intake to up with at least 50 to 60 ounces of fluid daily. Monitor blood sugars. Continue with sliding scale every 6 hourly low-dose protocol. Depending on insulin requirement in next 24 hours we will plan to start on long-acting insulin along with the same. Patient is agreeable. Encourage patient to increase oral intake. Will try to get patient atovaquone from outpatient pharmacy as not available inpatient currently. Patient is at high risk of PCP as he is on a higher dose steroids for a while. No other source of infection for now. Monitor blood sugars as patient started on high-dose steroids. Repeat potassium 40 mg orally. Appreciate echocardiogram for normal EF with grade 1 diastolic dysfunction along with moderate AI. Unlikely cause of acute decompensation. Attestations 2 Medical Necessity Statement*: Requires further hospitalization for management of acute on chronic hypoxic respiratory failure in setting of worsening pneumonitis in a patient with CLL on immunotherapy Diagnoses Acute hypoxic respiratory failure J96.01 Bilateral interstitial pneumonia J84.9 ILD (interstitial lung disease) J84.9 Failure to thrive CLL (chronic lymphocytic leukemia) C91.10 Positive anti-CCP test R76.8 Rheumatoid factor positive R76.8 Essential hypertension I10 Type 2 diabetes mellitus E11.9 FUO (fever of unknown origin) R50.9
[2024-08-30 16:34] LABS: Glucose Point of Care 323 mg/dL (70-110)
[2024-08-30] MEDS: NON-FORMULARY MEDICATION (Atovaquone 750 mg/5 mL suspension) 750 EACH PO (18:09)
[2024-08-30 18:29] LABS: ABG PCO2 32.9 mmHg (35-45); ABG PH Result 7.44 (7.35-7.45); Alveolar-Arterial Oxygen Gradi 19.6 mmHg (5-10); Base Excess ABG -1.2 mmol/L (-2.0-2.0); Blood Gas Allen Test Pos; Blood Gas Operator Identificat glc; Blood Gas Sample Site Radial, left; Blood Gas Sample Type Arterial; HCO3 ABG 22.1 mmol/L (22-26); HGB O2 Sat 91.9 % (95-100); Ionized Calcium Level - ABG 1.2 mmol/L (1.1-1.4); Methemoglobin 0.9 % (0.4-1.5); Oxygen Device NC; Oxygen Saturation ABG 93.8; PO2 ABG 67.2 mmHg (80.0-100.0); PO2 FiO2 Ratio Arterial Blood 186; Potassium Level - ABG 4.2 mmol/L (3.5-5.0); Total Hemoglobin 16.3 g/dL (14-18)
[2024-08-30 20:53] LABS: Glucose Point of Care 434 mg/dL (70-110)
[2024-08-30 23:58] LABS: Glucose Point of Care 369 mg/dL (70-110)
[2024-08-31] VITALS (8 sets, daily range): BP systolic 118–128; BP diastolic 73–83; PULSE 71–96; RESP 17–18; TEMP 36.1–36.4; O2SAT 90–98
[2024-08-31] MEDS: methylPREDNISolone sod succ 125 mg/2 mL INJ 50 MG IVP (06:03)
[2024-08-31 06:19] LABS: Basophils % 0.3 %; Hematocrit 34.1 % (37-53); Lymphocytes # 0.2 10^3/uL (0.8-4.8); Lymphocytes % 4.9 %; Mean Corpuscular HGB Conc 32.3 g/dL (30-55); Mean Corpuscular Hemoglobin 28.5 pg (27-33); Mean Corpuscular Volume 88.3 fl (82-101); Mean Platelet Volume 12.3 fL (7.4-10.4); Monocytes # 0.1 10^3/uL (0.2-0.9); Monocytes % 2.3 %; Neutrophils # 2.66 10^3/uL (1.8-7.7); Neutrophils % 87.3 %; Nucleated Red Blood Cells % 0 %; Platelet Count 103 10^3/cmm (157-399); Red Blood Count 3.86 10^6/uL (3.85-5.65); Red Cell Distribution Width 15.8 % (12.1-15.1); White Blood Count 3.05 10^3/uL (3.29-11.43)
[2024-08-31 06:24] LABS: Glucose Point of Care 297 mg/dL (70-110)
[2024-08-31 06:37] LABS: Alanine Aminotransferase 42 U/L (0-41); Albumin Level 3.3 g/dL (3.5-5.2); Alkaline Phosphatase 81 U/L (40-130); Aspartate Amino Transferase 20 U/L (0-40); Blood Urea Nitrogen 20 mg/dL (6-20); Calcium 9.1 mg/dL (8.5-10.5); Carbon Dioxide 21 mmol/L (22-29); Chloride 99 mmol/L (98-107); Creatinine Clr Calc Pharmacy 89.2942; Globulin 2.9 g/dL (1.3-4.6); Glucose 302 mg/dL (65-115); Osmolality Calculated 290 mOsm/kg (285-295); Sodium 133 mmol/L (136-145); Total Bilirubin 0.4 mg/dL (0.15-1.2); Total Protein 6.2 g/dL (6.6-8.7)
[2024-08-31 06:42] LABS: Slide Review Slide Review Perform
[2024-08-31] MEDS: ipratropium 0.5 mg/2.5 mL Neb INHALATION (08:15)
[2024-08-31] MEDS: levalbuterol 1.25 mg/3 mL Neb INHALATION (08:15)
[2024-08-31] MEDS: budesonide 0.5 mg/2 mL Neb INHALATION (08:15)
[2024-08-31] MEDS: azithromycin 250 mg Tablet 500 MG PO (08:52)
[2024-08-31] MEDS: insulin lispro 100 unit/1 mL SUBCUT ×2 (08:52→12:06)
[2024-08-31] MEDS: aspirin 81 mg EC Tablet PO (08:52)
[2024-08-31] MEDS: famotidine 20 mg Tablet PO (08:52)
--- NOTE | 2024-08-31 10:46 | P.DS_ITS ---
Discharge Providers Date of Admission: 08/29/24 13:02 Date of Discharge: August 31, 2024 Attending Provider at Admission: Sonny Alfonso MD Attending Provider at Discharge: Sonny Alfonso MD Consults: ID: Dr. Green Primary Care Provider: SARAH Goldstein Diagnoses at Discharge Discharge Diagnosis (1) Failure to thrive: Status: Acute (2) CLL (chronic lymphocytic leukemia): Status: Acute (3) Positive anti-CCP test: Status: Acute (4) Rheumatoid factor positive: Status: Acute (5) Bilateral interstitial pneumonia: Status: Acute (6) ILD (interstitial lung disease): Status: Acute (7) Hypoxic: Status: Acute Reason for Visit Reason for Visit: hypoxia/lung infiltrate Brief History: History as per HPI: Dex Irvin is a 59 year old male with chronic lymphocytic leukemia diagnosed in June 2023 status post treatment with obinutuzumab/venetoclax between October 2023-. Thereafter he has been maintained on venetoclax until April 2024.. Since April 2024 patient complains of daily fever, as high as 102 Fahrenheit. He has had fever and chills with night sweats and weight loss. He underwent a CT of the chest abdomen and pelvis on July 04, 2024 which showed bilateral nodules and areas of groundglass attenuation involving multiple lobes, with most significant changes involving the left lower lobe. There were noted to be small axillary mediastinal and hilar lymph nodes. The lung changes were new compared to December 2023. No significant disease was noted in the abdomen or pelvis. He has been undergoing extensive outpatient evaluation with infectious disease at [facility] and with pulmonology service at [facility] however thus far evaluation has remained nondiagnostic as to the cause of his infiltrates. Multiple cultures taken here and at [place] have been negative for bacterial fungal or mycobacterial growth. Evaluation has been negative for pneumocystis pneumonia and other opportunistic infections. He has been treated presumptively with courses of antibiotics including cephalosporins, doxycycline as an outpatient and was most recently started presumptively on atovaquone 750 mg twice daily, however he is yet to receive this medication due to insurance issues. He did recently have elevated levels of anti-CCP IgG which raised concern for rheumatoid arthritis, he was evaluated by rheumatology as an outpatient today, did not appear to have any other features consistent with rheumatoid arthritis and has not changed therapy as of now. Most recently he has also started a presumptive course of prednisone 40 mg daily per pulmonary as the overall clinical impression currently is that of interstitial lung disease versus immunotherapy induced pneumonitis. He started the steroids approximately 10 days ago. While he noticed an initial improvement in his fever curve from 102 Fahrenheit to 99.7 Fahrenheit Tmax, over the past 2 days he has been spiking fevers again to 102 Fahrenheit. Since the onset of symptoms in April he has had significant clinical decline. Patient has lost over 20 KGs of weight since April 2024. Review of chart shows that patient used to be 94 kg on April 25, 2024, this weight is down to 74 kg on August 23, 2024. About 2 weeks ago he was started on supplemental oxygen. PFTs were performed at [facility], we do not have the results available at this time. Initially he was requiring about 3 L/min supplemental O2 to maintain his saturation, however the past 2 to 3 days his has noticed that patient's oxygen saturation drops to as low as 76%. His lowest numbers are upon waking up in the morning, it takes almost an hour for his oxygen saturation in the morning to come up from 78% to 91%. He has had episodes of orthostatic hypotension, most recently when he was at the infectious disease office on August 23, 2024. He necessitated transfer to the emergency room for IV fluids at the time. Patient has had significant decline in ADLs. From being independent with all of his daily activities, being able to walk long distances, mow his yard etc., he is now unable to do the same. Minimal activity makes him short of breath. He has been using a urinal as he feels too weak to get out of bed. He is in a wheelchair today, which is a new development for him. He has had intermittent nosebleeds since being placed on supplemental O2. He is referred for direct admission from the infectious disease office today due to recurrence of fever, worsening respiratory status, desaturating up to 70% at home on 3 L/min supplemental O2 and an overall failure to thrive. Review of systems is negative for any nausea vomiting diarrhea abdominal pain. Hospital Course Hospital Course Patient was admitted to the hospital further evaluation and management of recently acute hypoxic respiratory failure requiring up to 4 L at rest but frequently Desaturation down to high 70s to low 80s. Also reporting persistent fever at home. He was admitted. D-dimer was negative. Underwent CT chest which showed worsening bilateral fluffy consolidations with concerns for pneumonitis. Echocardiogram was done which showed normal EF with grade 1 diastolic dysfunction with moderate AI. During hospitalization patient remained afebrile. Given concerns for noninfectious/autoimmune patient was started on high-dose steroids with Solu-Medrol 50 mg every 6 hourly afterwards he did not desaturate to the extent of 70s and was able to recover quicker. Fungitell was sent though PCP PCR could not be induced. During hospitalization his blood pressure remained stable. Given being on high-dose steroids his insulins were adjusted accordingly. Patient's care was discussed in detail with his outpatient oncologist and grit removal operator who recommended patient to follow-up with outpatient oncology team at the earliest at [facility]. Patient will be seen by grit removal operator at [facility] as well as as per oncology team. Possible transfer to [facility] was also entertained though patient declined due to lack of financial resources. Possible transfer within 5 days when bed is available as discussed details with the patient though he is feeling better and his recent baseline he requested for discharge so that he can follow-up with his outpatient oncologist at the earliest. Home O2 evaluation was done during hospitalization. And he has been discharged on high-dose steroids with slow taper with advised to follow-up with his oncologist at the earliest. Physical Exam Narrative: General: No acute distress, AO x3, NC oxygen supplementation, pale, chronically sick appearing, dehydrated HEENT: PERRLA, pupils bilaterally equal and reactive Chest: Faint crackles to auscultation bilaterally, bronchial breath sounds over lung hernandez CVS: S1-S2 regular, no murmurs, no tachycardia, no gallops, no rubs Abdomen: Soft, nontender, no organomegaly, bowel sounds present Neuro: No focal deficits, no facial deformity, AO x3, power 5/5 in all limbs Discharge Data Studies Completed and Pending Completed Studies During Hospitalization Category Date Time Status CT chest wo con [id number] Routine Cat Scan 08/29/24 13:35 [place] [id number] Routine Ultrasound 08/29/24 13:28 Completed CV. echo complete* [id number] Routine Ultrasound 08/29/24 13:33 Completed Pending at discharge Category Date Time Status Fungitell Glucan Assay (Blood) AM LABS Lab 08/30/24 05:29 Received Miscellaneous Test Routine Lab 08/29/24 14:00 Received Pneumocystis PCP [Pneumocystis jiroveci Qual PCR] Lab 08/29/24 22:18 Uncollected Routine Sputum Culture and Gram Stain Routine Lab 08/29/24 13:56 Uncollected Radiology Impressions Venous Duplex 08/29/24 13:28 IMPRESSION: No evidence of deep vein thrombosis. Chest CT 08/29/24 13:35 IMPRESSION: 1. Worsening bilateral interstitial infiltrates 2. The nodule in the left lower lobe has resolved since 08/08/2024 Echocardiogram: CONCLUSIONS Normal left ventricular size and systolic function, EF 67%. No regional wall motion abnormalities. Normal right ventricular size and systolic function. Trace mitral valve regurgitation. Thickened aortic valve. Moderate aortic valve regurgitation. There are no intracardiac masses. There is no pericardial effusion. Compared to the study from 05/02/2023, there may be a significant change. Microbiology 08/29/24 17:53 Urine Kidney Bacterial Antigens - Final Laboratory Results WBC 3.05 10^3/uL (3.29-11.43) L 08/31/24 05:26 RBC 3.86 10^6/uL (3.85-5.65) 08/31/24 05:26 Hgb 11.00 g/dL (11.27-16.99) L 08/31/24 05:26 Hct 34.1 % (37-53) L 08/31/24 05:26 MCV 88.3 fl (82-101) 08/31/24 05:26 MCH 28.5 pg (27-33) 08/31/24 05:26 MCHC 32.3 g/dL (30-55) 08/31/24 05:26 RDW 15.8 % (12.1-15.1) H 08/31/24 05:26 Plt Count 103 10^3/cmm (157-399) L 08/31/24 05:26 MPV 12.3 fL (7.4-10.4) H 08/31/24 05:26 Neut % (Auto) 87.3 % 08/31/24 05:26 Lymph % (Auto) 4.9 % 08/31/24 05:26 [place] % (Auto) 2.3 % 08/31/24 05:26 Eos % (Auto) 0.0 % 08/31/24 05:26 Baso % (Auto) 0.3 % 08/31/24 05: Neut # (Auto) 2.66 10^3/uL (1.8-7.7) 08/31/24 05:26 Lymph # (Auto) 0.2 10^3/uL (0.8-4.8) L 08/31/24 05:26 [place] # (Auto) 0.1 10^3/uL (0.2-0.9) L 08/31/24 05:26 Eos # (Auto) 0.0 10^3/uL (0.0-0.8) 08/31/24 05: Baso # (Auto) 0.0 10^3/uL (0.0-0.1) 08/31/24 05:26 Nucleated RBC % (auto) 0 % 08/31/24 05: Nucleated RBCs # 0.0 /100WBC 08/31/24 05:26 D-Dimer 0.51 ug/mLFEU (0-0.59) 08/29/24 14:00 Specimen Type Arterial 08/30/24 18:16 Sample Site Radial, left 08/30/24 18:16 ABG pH 7.44 (7.35-7.45) 08/30/24 18:16 ABG pCO2 32.9 mmHg (35-45) L 08/30/24 18:16 ABG pO2 67.2 mmHg (80.0-100.0) L 08/30/24 18:16 ABG PO2/FiO2 Ratio 186 08/30/24 18:16 ABG HCO3 22.1 mmol/L (22-26) 08/30/24 18:16 ABG O2 Saturation 93.8 08/30/24 18:16 ABG Base Excess -1.2 mmol/L (-2.0-2.0) 08/30/24 18:16 Parrish Test Pos 08/30/24 18:16 A-a O2 Gradient 19.6 mmHg (5-10) H 08/30/24 18:16 Hematocrit 50.0 % (42-52) 08/30/24 18:16 Hgb O2 Saturation 91.9 % (95-100) L 08/30/24 18:16 Carboxyhemoglobin 1.0 %THgb (0.4-20.1) 08/30/24 18:16 Methemoglobin 0.9 % (0.4-1.5) 08/30/24 18:16 Total Hemoglobin 16.3 g/dL (14-18) 08/30/24 18:16 Sodium 131.0 mmol/L (131-143) 08/30/24 18:16 Potassium 4.2 mmol/L (3.5-5.0) 08/30/24 18:16 Glucose 392.0 mg/dL (70-115) H 08/30/24 18:16 Ionized Calcium 1.2 mmol/L (1.1-1.4) 08/30/24 18:16 O2 Delivery Device Nc 08/30/24 18:16 O2 Liters/Min 4.0 % 08/30/24 18:16 FiO2 36.0 % 08/30/24 18:16 [employer] ID glc 08/30/24 18:16 Sodium 133 mmol/L (136-145) L 08/31/24 05:26 Potassium 4.0 mmol/L (3.5-5.1) 08/31/24 05:26 Chloride 99 mmol/L (98-107) 08/31/24 05:26 Carbon Dioxide 21 mmol/L (22-29) L 08/31/24 05:26 Anion Gap 17.0 (5-19) 08/31/24 05:26 BUN 20 mg/dL (6-20) 08/31/24 05:26 Creatinine 0.9 mg/dL (0.7-1.2) 08/31/24 05:26 GFR Calculation 87.0 mL/min (90-130) L 08/31/24 05:26 Glucose 302 mg/dL (65-115) H 08/31/24 05:26 POC Glucose 297 mg/dL (70-110) H 08/31/24 06:15 Estimat Average Glucose 160 08/29/24 14:00 Hemoglobin A1c 7.2 % (4.0-6.0) H 08/29/24 14:00 Calculated Osmolality 290 mOsm/kg (285-295) 08/31/24 05:26 Calcium 9.1 mg/dL (8.5-10.5) 08/31/24 05:26 Phosphorus 3.6 mg/dL (2.5-4.5) 08/30/24 05:29 Magnesium 1.8 mg/dL (1.7-2.3) 08/30/24 05:29 Total Bilirubin 0.4 mg/dL (0.15-1.2) 08/31/24 05:26 AST 20 U/L (0-40) 08/31/24 05:26 ALT 42 U/L (0-41) H 08/31/24 05:26 Alkaline Phosphatase 81 U/L (40-130) 08/31/24 05:26 Lactate Dehydrogenase 219 U/L (135-225) 08/30/24 05:29 NT-Pro-B Natriuret Pep 290 pg/mL (0-125) H 08/29/24 14:00 Total Protein 6.2 g/dL (6.6-8.7) L 08/31/24 05:26 Albumin 3.3 g/dL (3.5-5.2) L 08/31/24 05:26 Globulin 2.9 g/dL (1.3-4.6) 08/31/24 05:26 Triglycerides 161 mg/dL (0-150) H 08/30/24 05:29 Cholesterol 124 mg/dL (0-200) 08/30/24 05:29 LDL Cholesterol, Calc 54 mg/dL (50-129) 08/30/24 05:29 HDL Cholesterol 38 mg/dL (60-100) L 08/30/24 05:29 LDL/HDL Ratio 1.42 RATIO (0.00-3.22) 08/30/24 05:29 Cholesterol/HDL Ratio 3.26 mg/dL (1.0-5.00) 08/30/24 05:29 Vitamin B12 451 pg/mL (232-1245) 08/29/24 14:00 Folate 16.0 ng/mL (4.5-32.2) 08/30/24 05:29 Procalcitonin 0.10 ng/mL (0-0.5) 08/30/24 05:29 TSH 1.13 uIU/mL (0.27-4.20) 08/29/24 14:00 Random Cortisol 3.39 ug/dL (2.47-19.5) 08/29/24 14:00 Urine Color Yellow (Yellow) 08/29/24 17:53 Urine Appearance Clear (CLEAR) 08/29/24 17:53 Urine pH 6.5 (5-7) 08/29/24 17:53 Ur Specific [place] 1.010 (1.005-1.030) 08/29/24 17:53 Urine Protein Negative (Negative) 08/29/24 17:53 Urine Glucose (UA) 2+ (Normal) H 08/29/24 17:53 Urine Ketones Negative (Negative) 08/29/24 17:53 Urine Blood Trace (Negative) A 08/29/24 17:53 Urine Nitrate Negative (Negative) 08/29/24 17:53 Urine Bilirubin Negative (Negative) 08/29/24 17:53 Urine Urobilinogen 0.2 mg/dL (Negative) 08/29/24 17:53 Ur Leukocyte Esterase Negative (Negative) 08/29/24 17:53 Urine RBC 0-2 /hpf (0-2) 08/29/24 17:53 Urine WBC 0-5 /hpf (0-5) 08/29/24 17:53 Ur Squamous Epith Cells 0-5 /hpf (0-5) 08/29/24 17:53 Amorphous Sediment Not Reportable 08/29/24 17:53 Urine Bacteria None seen /hpf (NONE) 08/29/24 17:53 Hyaline Casts 0.40 /lpf 08/29/24 17:53 Nasal MRSA (PCR) Not detected (Negative) 08/29/24 22:15 Urine Opiates Screen Negative ng/mL (Negative) 08/29/24 17:53 Ur Barbiturates Screen Negative ng/mL (Negative) 08/29/24 17:53 Ur Phencyclidine Scrn Negative ng/mL (Negative) 08/29/24 17:53 Ur Amphetamines Screen Negative ng/mL (Negative) 08/29/24 17:53 U Benzodiazepines Scrn Negative ng/mL (Negative) 08/29/24 17:53 Urine Cocaine Screen Negative ng/mL (Negative) 08/29/24 17:53 U Marijuana (THC) Screen Negative ng/mL (Negative) 08/29/24 17:53 Adenovirus (PCR) Not detected (NOT DETECT) 08/29/24 22:15 C. pneumoniae DNA (PCR) Not detected (NOT DETECT) 08/29/24 22:15 Coronavirus 229E (PCR) Not detected (NOT DETECT) 08/29/24 22:15 Human Metapneumovir PCR Not detected (NOT DETECT) 08/29/24 22:15 Influenza A (H1) PCR Not detected (NOT DETECT) 08/29/24 22:15 Influ A (H1/09) PCR Not detected (NOT DETECT) 08/29/24 22:15 Influenza A (H3) PCR Not detected (NOT DETECT) 08/29/24 22:15 Influenza Type A (PCR) Not detected (NOT DETECT) 08/29/24 22:15 Influenza Type B (PCR) Not detected (NOT DETECT) 08/29/24 22:15 M. pneumoniae (PCR) Not detected (NOT DETECT) 08/29/24 22:15 Parainfluenza 1 (PCR) Not detected (NOT DETECT) 08/29/24 22:15 Parainfluenza 2 (PCR) Not detected (NOT DETECT) 08/29/24 22:15 Parainfluenza 3 (PCR) Not detected (NOT DETECT) 08/29/24 22:15 Parainfluenza 4 (PCR) Not detected (NOT DETECT) 08/29/24 22:15 RSV Type A (PCR) Not detected (NOT DETECT) 08/29/24 22:15 RSV Type B (PCR) Not detected (NOT DETECT) 08/29/24 22:15 Entero/Rhino (PCR) Not detected (NOT DETECT) 08/29/24 22:15 SARS-CoV-2 (PCR) Not detected (NOT DETECT) 08/29/24 22:15 Vitals Last Vital Signs Temp 97.5 F L 08/31/24 07:50 Pulse 81 08/31/24 08:00 Resp 18 08/31/24 08:00 BP 124/82 08/31/24 07:50 Pulse Ox 95 08/31/24 08:00 O2 Del Method Nasal Cannula 08/31/24 08:00 O2 Flow Rate 4 08/31/24 08:00 Discharge Plan Discharge Patient Disposition: Home Health Service Condition: Stable Prescriptions: New pantoprazole [Protonix] 40 mg tablet,delayed release (DR/EC) 40 mg PO QAM Qty: 30 0RF (DME) lancets Misc See Rx Instructions .ROUTE .MEDSUPPLY Qty: 100 0RF Rx Instructions: As directed (DME) blood-glucose meter [Blood Glucose Monitoring] Kit See Rx Instructions .ROUTE .MEDSUPPLY Qty: 1 0RF Rx Instructions: As directed (DME) pen needle, diabetic [BD Ultra-Fine Micro Pen Needle] 32 gauge x 1/4 needle See Rx Instructions .ROUTE .MEDSUPPLY Qty: 50 0RF Rx Instructions: As directed insulin glargine [Lantus Solostar U-100 Insulin] 100 unit/mL (3 mL) insulin pen 8 unit SUBCUT QPM Qty: 15 0RF insulin lispro [Humalog KwikPen Insulin] 100 unit/mL insulin pen See Protocol SUBCUT BID Qty: 15 0RF Protocol: Insulin Corrective High-Dose Regimen Condition: Fingerstick Blood Glucose Dose/Route: Insulin Units Condition: 141-180 mg/dl Dose/Route: 4 units/SQ Condition: 181-220 mg/dl Dose/Route: 8 units/SQ Condition: 221-260 mg/dl Dose/Route: 8 units/SQ Condition: 261-300 mg/dl Dose/Route: 10 units/SQ Condition: 301-350 mg/dl Dose/Route: 12 units/SQ Condition: 351-400 mg/dl Dose/Route: 14 units/SQ Condition: greater than 400 mg/dl Dose/Route: 16 units/SQ Continued acetaminophen 500 mg capsule 500 mg PO Q6H PRN (Reason: Pain) (DME) OneTouch Ultra Test Strip See Rx Instructions .ROUTE .MEDSUPPLY Qty: 10 Rx Instructions: As directed cholecalciferol (vitamin D3) 50 mcg (2,000 unit) capsule 50 mcg PO DAILY clopidogrel [Plavix] 75 mg tablet 75 mg PO DAILY aspirin 81 mg Tablet,Delayed Release (Dr/Ec) 81 mg PO DAILY Qty: 100 0RF nitroglycerin 0.4 mg Tablet, Sublingual 0.4 mg sublingual Q5M PRN (Reason: Chest Pain) Qty: 25 2RF atovaquone 750 mg/5 mL suspension 750 mg PO Q12H 21 Days Qty: 210 1RF Rx Instructions: must administer with food, preferably a high-fat meal insulin lispro [Humalog KwikPen Insulin] 100 unit/mL insulin pen See Rx Instructions .ROUTE .COMPLEX PRN (Reason: Pain) Rx Instructions: INJECT SUBCUTANEOUSLY PER SLIDING SCALE NEEDED MAX DAILY DOSE 15 UNITS Trelegy Ellipta 100-62.5-25 mcg blister with device 1 ea INHALATION DAILY Changed prednisone 20 mg tablet See Rx Instructions .ROUTE .COMPLEX Qty: 70 0RF Rx Instructions: 80mg for 5 days,f/b 70mg- 5 days,f/b 60mg-5 days,f/b 50mg- 5 days,f/b 40mg daily Discharge Orders: Discharge Order (Routine); Ordered 08/31/24 Ordered By: Sonny Alfonso Other Ambulatory Orders: DME: Oxygen (Order) Location: None Selected Ordered By: Sonny Alfonso DME: Walker (Order) Location: None Selected Ordered By: Sonny Alfonso Referrals: [facility] [Outside] [facility] [Outside] [facility] Home Care ([facility]) [Outside] Jessica Yang FNP [Primary Care Provider] - 09/04/24 11:15 am () Discharge Diet: Diabetic Discharge Activity: Resume usual activity and Increase activity as tolerated Patient Instructions: Type 2 Diabetes, Pantoprazole (By mouth), Insulin Lispro Protamine/Insulin Lispro (By injection), Insulin Glargine (By injection), Using Oxygen at Home (GEN), Opioid Safety Activity Restrictions/Additional Instructions: Please continue steroid taper as discussed. Take Lantus which is a long-acting insulin 8 units every night. Take Humalog as per sliding scale 3 times prior to each meal. Sliding scale is as below. If Fingerstick Blood Glucose, then Insulin Units; If 141-180 mg/dl, then 4 units/SQ; If 181-220 mg/dl, then 8 units/SQ; If 221-260 mg/dl, then 8 units/SQ; If 261-300 mg/dl, then 10 units/SQ; If 301-350 mg/dl, then 12 units/SQ; If 351- 400 mg/dl, then 14 units/SQ; If greater than 400 mg/dl, then 16 units/SQ Continue taking hydrocodone as directed. Please try to get appointment to see your outpatient oncologist at the earliest. Continue with aggressive pulmonary toilet. Discharge Attestations Time Spent in Discharge Care*: greater than 30 min Specific Discharge Activities: educating patient, educating and/or supporting family/caregiver, discussing with pcp/other providers, discussing with field case manager/social workers/dc planners, documenting/other paperwork and evaluating patient/reviewing data Status at Discharge: Cognitive status at discharge: cognitively intact , Behavioral status at discharge: cooperative , Functional status at discharge: uses cane/walker , Overall status at discharge: patient is progressing back to baseline Quality Metrics Clinical Quality Measures [ No reported AMI, CVA or VTE this stay] Coding Level of Care Code 05864 Total time (in minutes) for Discharge: 60 Diagnoses Failure to thrive CLL (chronic lymphocytic leukemia) C91.10 Positive anti-CCP test R76.8 Rheumatoid factor positive R76.8 Bilateral interstitial pneumonia J84.9 ILD (interstitial lung disease) J84.9 Hypoxic R09.02
[2024-08-31 10:48] LABS: Glucose Point of Care 424 mg/dL (70-110)
[2024-08-31] MEDS: sodium chloride 3.5% neb 4 mL Neb INHALATION (11:28)
[2024-09-02 06:20] LABS: Fungitell 1-3-B Glucan Assay <31 pg/ml; Interpretation Negative (Negative)
== END 2024-08-31 13:20 | disposition home health service (06) | DRG 196 ==
PROVIDERS: Student in an Organized Health Care Education/Training Program; Admitting Provider Student in an Organized Health Care Education/Training Program; PCP Nurse Practitioner; Visit Provider Student in an Organized Health Care Education/Training Program
DX: J84.9 Interstitial pulmonary disease, unspecified (principal); J96.21 Acute and chronic respiratory failure with hypoxia; C91.10 Chronic lymphocytic leukemia of B-cell type not having achieved remission; R91.8 Other nonspecific abnormal finding of lung field; I95.1 Orthostatic hypotension; M05.9 Rheumatoid arthritis with rheumatoid factor, unspecified; I12.9 Hypertensive chronic kidney disease with stage 1 through stage 4 chronic kidney disease, or unspecified chronic kidney disease; E11.22 Type 2 diabetes mellitus with diabetic chronic kidney disease; E11.65 Type 2 diabetes mellitus with hyperglycemia; N18.9 Chronic kidney disease, unspecified; I25.10 Atherosclerotic heart disease of native coronary artery without angina pectoris; K21.9 Gastro-esophageal reflux disease without esophagitis; R62.7 Adult failure to thrive; N52.9 Male erectile dysfunction, unspecified; G93.9 Disorder of brain, unspecified; K63.5 Polyp of colon; E78.5 Hyperlipidemia, unspecified; Z11.52 Encounter for screening for COVID-19; I25.2 Old myocardial infarction; Z99.3 Dependence on wheelchair; Z99.81 Dependence on supplemental oxygen; Z79.69 Long term (current) use of other immunomodulators and immunosuppressants; Z79.82 Long term (current) use of aspirin; Z79.4 Long term (current) use of insulin; Z79.02 Long term (current) use of antithrombotics/antiplatelets; Z68.28 Body mass index [BMI] 28.0-28.9, adult; Z95.1 Presence of aortocoronary bypass graft; Z87.891 Personal history of nicotine dependence; Z85.828 Personal history of other malignant neoplasm of skin
CPT/HCPCS: 36415; 36416; 36600; 71250; 80051; 80053; 80061; 80306; 81001; 82330; 82533; 82607; 82746; 82805; 82962; 83036; 83615; 83735; 83880; 84100; 84145; 84443; 85025; 85378; 86403; 87449; 87486; 87581; 87633; 93306; 93970; 94640; 94664; 94760; 96372; 97110; 97161; 97167; 97530; 99205; J1650; J1815; J1940; J2543; J2919; J3370; J7512; J7614; J7626; J7644; Q0144

== ENCOUNTER → 2024-09-13 15:12 | Outpatient (BNVA) | payer MEDICARE, MEDICAID, SELFPAY | PROVIDERS: PCP Nurse Practitioner; Visit Provider Student in an Organized Health Care Education/Training Program | DX: J84.9 Interstitial pulmonary disease, unspecified (principal) | CPT/HCPCS: 99213 ==